=== PATIENT | female | born 1955 | race Caucasian/White ===

== ENCOUNTER → 2016-10-29 | Outpatient (CLI) | payer MEDICARE, MEDICAID ==
[~2016-10-29] MED LIST: /CELE20CA; /OMEP10CA OR; ADV250INH INH; AMBI10TA; AMBI5TAB PO; ASPI1TAB PO; CALC-196 PO; CLIN1CAP5 PO; CLOBETASOL; COLA100C2; ESTR1TAB; ESTRACE VAG TOP; FLUOCINONIDE AU; LEVA500T; LEVAQUIN; MAGN250T9 PO; OYST500T; PERC5TAB8; PRAV40TA2 PO; RED1CAP5 PO; SIMV40TA2; SOMA350T; VITA200015 PO; VITAMIN D50000 UNT; [UNRECOGNIZED DRUG - OTHER] OR; flonase; hydrocodone OR; ocean nasal spray; proair inhaler INH
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
== END ==
LOC: M PAIN 13:20
PROVIDERS: ATTEND Nurse Practitioner Family
DX: Z09 Encounter for follow-up examination after completed treatment for conditions other than malignant neoplasm (principal); G89.29 Other chronic pain; M47.12 Other spondylosis with myelopathy, cervical region; M79.1 Myalgia; M54.2 Cervicalgia; E78.5 Hyperlipidemia, unspecified; K21.9 Gastro-esophageal reflux disease without esophagitis; M85.80 Other specified disorders of bone density and structure, unspecified site; J45.909 Unspecified asthma, uncomplicated; M19.90 Unspecified osteoarthritis, unspecified site; K22.70 Barrett's esophagus without dysplasia; L23.1 Allergic contact dermatitis due to adhesives; Z88.8 Allergy status to other drugs, medicaments and biological substances; Z88.1 Allergy status to other antibiotic agents; Z88.5 Allergy status to narcotic agent; Z88.0 Allergy status to penicillin; Z79.82 Long term (current) use of aspirin; Z79.891 Long term (current) use of opiate analgesic; Z79.899 Other long term (current) drug therapy; Z87.19 Personal history of other diseases of the digestive system; Z86.19 Personal history of other infectious and parasitic diseases; Z86.69 Personal history of other diseases of the nervous system and sense organs; Z87.891 Personal history of nicotine dependence

== ENCOUNTER → 2016-11-05 | Outpatient (CLI) | payer MEDICARE, MEDICAID ==
[~2016-11-05] MED LIST changes: +BUPIVACAINE HCL 0.25% 10 ML VIAL As Ordered ONE; +BUPIVACAINE HCL 0.25% 30 ML VIAL As Ordered ONE; +TRIAMCINOLONE ACETONIDE SUSP 40 MG/ML VIAL (J3301) As Ordered ONE; +diazePAM 5 MG TAB As Ordered ONE; +oxyCODONE 5MG TAB As Ordered ONE
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
== END ==
LOC: M PAIN 09:00
PROVIDERS: ATTEND Anesthesiology
DX: Z09 Encounter for follow-up examination after completed treatment for conditions other than malignant neoplasm (principal); G89.29 Other chronic pain; M54.2 Cervicalgia; M79.1 Myalgia; M25.512 Pain in left shoulder; M54.6 Pain in thoracic spine; E78.5 Hyperlipidemia, unspecified; M85.80 Other specified disorders of bone density and structure, unspecified site; K64.8 Other hemorrhoids; K21.9 Gastro-esophageal reflux disease without esophagitis; R42 Dizziness and giddiness; M41.9 Scoliosis, unspecified; Z88.8 Allergy status to other drugs, medicaments and biological substances; Z88.1 Allergy status to other antibiotic agents; Z88.5 Allergy status to narcotic agent; Z91.048 Other nonmedicinal substance allergy status; Z79.51 Long term (current) use of inhaled steroids; Z79.82 Long term (current) use of aspirin; Z79.899 Other long term (current) drug therapy
CPT/HCPCS: 20553; J3301

== ENCOUNTER → 2016-11-21 | Outpatient (CLI) | payer MEDICARE, MEDICAID ==
[~2016-11-21] MED LIST changes: -BUPIVACAINE HCL 0.25% 10 ML VIAL As Ordered ONE; -BUPIVACAINE HCL 0.25% 30 ML VIAL As Ordered ONE; -TRIAMCINOLONE ACETONIDE SUSP 40 MG/ML VIAL (J3301) As Ordered ONE; -diazePAM 5 MG TAB As Ordered ONE; -oxyCODONE 5MG TAB As Ordered ONE
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
== END | disposition home or self-care (01) ==
LOC: M PAIN 09:00
PROVIDERS: ATTEND Nurse Practitioner Family
DX: Z09 Encounter for follow-up examination after completed treatment for conditions other than malignant neoplasm (principal); G89.29 Other chronic pain; M47.12 Other spondylosis with myelopathy, cervical region; M79.1 Myalgia; M54.2 Cervicalgia; M25.512 Pain in left shoulder; M54.6 Pain in thoracic spine; E78.5 Hyperlipidemia, unspecified; M85.80 Other specified disorders of bone density and structure, unspecified site; K64.8 Other hemorrhoids; K21.9 Gastro-esophageal reflux disease without esophagitis; M41.9 Scoliosis, unspecified; Z88.8 Allergy status to other drugs, medicaments and biological substances; Z88.1 Allergy status to other antibiotic agents; Z88.5 Allergy status to narcotic agent; Z91.048 Other nonmedicinal substance allergy status; Z79.51 Long term (current) use of inhaled steroids; Z79.82 Long term (current) use of aspirin; Z79.899 Other long term (current) drug therapy

== ENCOUNTER → 2016-12-25 | Outpatient (CLI) | payer MEDICARE, MEDICAID ==
[~2016-12-25] MED LIST changes: +BUPIVACAINE HCL 0.25% 10 ML VIAL As Ordered ONE; +BUPIVACAINE HCL 0.25% 30 ML VIAL As Ordered ONE; +TRIAMCINOLONE ACETONIDE SUSP 40 MG/ML VIAL (J3301) As Ordered ONE; +diazePAM 5 MG TAB As Ordered ONE; +oxyCODONE 5MG TAB As Ordered ONE
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
== END | disposition home or self-care (01) ==
LOC: M PAIN 15:00
PROVIDERS: ATTEND Anesthesiology
DX: G89.29 Other chronic pain (principal); M79.1 Myalgia; J45.909 Unspecified asthma, uncomplicated; E78.5 Hyperlipidemia, unspecified; K51.90 Ulcerative colitis, unspecified, without complications; M85.80 Other specified disorders of bone density and structure, unspecified site; K21.9 Gastro-esophageal reflux disease without esophagitis; M41.9 Scoliosis, unspecified; K64.8 Other hemorrhoids; Z88.1 Allergy status to other antibiotic agents; Z88.8 Allergy status to other drugs, medicaments and biological substances; Z88.5 Allergy status to narcotic agent; Z91.048 Other nonmedicinal substance allergy status; Z79.899 Other long term (current) drug therapy; Z79.82 Long term (current) use of aspirin; Z79.51 Long term (current) use of inhaled steroids
CPT/HCPCS: 20553; J3301

== ENCOUNTER → 2016-12-26 | Outpatient (CLI) | payer MEDICARE ==
[~2016-12-26] MED LIST changes: -BUPIVACAINE HCL 0.25% 10 ML VIAL As Ordered ONE; -BUPIVACAINE HCL 0.25% 30 ML VIAL As Ordered ONE; -TRIAMCINOLONE ACETONIDE SUSP 40 MG/ML VIAL (J3301) As Ordered ONE; -diazePAM 5 MG TAB As Ordered ONE; -oxyCODONE 5MG TAB As Ordered ONE
--- NOTE | 2016-12-28 10:24 | DEXA ---
AP SPINE L1 - L4 0.860 -2.7 -1.1 LT FEMUR TOTAL RT FEMUR TOTAL TOTAL BODY TOTAL LEFT RADIUS 33% 0.527 -4.1 -3.0 DUAL FEMUR FRAX* ASSESSMENT Risk factors: Unable to do fracture due to bilateral hip replacements. 10 year probability of fracture Major osteoporotic fracture % Hip fracture % COMMENTS: There is osteoporosis of the spine. 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 The decreased density of the spine does represent a significant change. The density of the spine has decreased 14.9% since initial exam on 04/30/2002. The spine density has decreased 9.4% since the most recent exam on 12/30/2007. FOLLOW-UP: Recommendation for the next bone density exam: 2 years. RACQUEL
== END ==
LOC: M WHC 13:37
PROVIDERS: ATTEND Internal Medicine
DX: Z12.31 Encounter for screening mammogram for malignant neoplasm of breast (principal); M85.80 Other specified disorders of bone density and structure, unspecified site; Z78.0 Asymptomatic menopausal state; Z92.89 Personal history of other medical treatment; Z79.899 Other long term (current) drug therapy; Z79.82 Long term (current) use of aspirin
CPT/HCPCS: 77080; 82270; G0202; G0463

== ENCOUNTER → 2017-01-07 | Outpatient (CLI) | payer MEDICARE ==
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
== END | disposition home or self-care (01) ==
LOC: M PAIN 14:00
PROVIDERS: ATTEND Nurse Practitioner Family
DX: G89.29 Other chronic pain (principal); M47.12 Other spondylosis with myelopathy, cervical region; M79.1 Myalgia; J45.909 Unspecified asthma, uncomplicated; K21.9 Gastro-esophageal reflux disease without esophagitis; E78.5 Hyperlipidemia, unspecified; M85.9 Disorder of bone density and structure, unspecified; M41.9 Scoliosis, unspecified; M19.90 Unspecified osteoarthritis, unspecified site; M51.9 Unspecified thoracic, thoracolumbar and lumbosacral intervertebral disc disorder; K64.8 Other hemorrhoids; Z87.19 Personal history of other diseases of the digestive system; Z79.899 Other long term (current) drug therapy; Z79.82 Long term (current) use of aspirin; Z79.51 Long term (current) use of inhaled steroids; Z88.0 Allergy status to penicillin; Z88.1 Allergy status to other antibiotic agents; Z88.5 Allergy status to narcotic agent; Z88.8 Allergy status to other drugs, medicaments and biological substances; L23.1 Allergic contact dermatitis due to adhesives

== ENCOUNTER → 2017-01-24 | Outpatient (CLI) | payer OTHER, MEDICAID ==
[~2017-01-24] MED LIST changes: +BUPIVACAINE HCL 0.25% 10 ML VIAL As Ordered ONE; +BUPIVACAINE HCL 0.25% 30 ML VIAL As Ordered ONE; +TRIAMCINOLONE ACETONIDE SUSP 40 MG/ML VIAL (J3301) As Ordered ONE; +diazePAM 5 MG TAB As Ordered ONE; +oxyCODONE 5MG TAB As Ordered ONE
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
== END | disposition home or self-care (01) ==
LOC: M PAIN 08:30
PROVIDERS: ATTEND Anesthesiology
DX: G89.29 Other chronic pain (principal); M79.1 Myalgia; M47.12 Other spondylosis with myelopathy, cervical region; J45.909 Unspecified asthma, uncomplicated; K21.9 Gastro-esophageal reflux disease without esophagitis; E78.5 Hyperlipidemia, unspecified; M85.9 Disorder of bone density and structure, unspecified; M41.9 Scoliosis, unspecified; M19.90 Unspecified osteoarthritis, unspecified site; M51.9 Unspecified thoracic, thoracolumbar and lumbosacral intervertebral disc disorder; K64.8 Other hemorrhoids; Z87.19 Personal history of other diseases of the digestive system; Z79.899 Other long term (current) drug therapy; Z79.82 Long term (current) use of aspirin; Z79.51 Long term (current) use of inhaled steroids; Z88.0 Allergy status to penicillin; Z88.1 Allergy status to other antibiotic agents; Z88.5 Allergy status to narcotic agent; Z88.8 Allergy status to other drugs, medicaments and biological substances; L23.1 Allergic contact dermatitis due to adhesives

== ENCOUNTER → 2017-02-07 | Outpatient (CLI) | payer OTHER, MEDICAID ==
[~2017-02-07] MED LIST changes: -BUPIVACAINE HCL 0.25% 10 ML VIAL As Ordered ONE; -BUPIVACAINE HCL 0.25% 30 ML VIAL As Ordered ONE; -TRIAMCINOLONE ACETONIDE SUSP 40 MG/ML VIAL (J3301) As Ordered ONE; -diazePAM 5 MG TAB As Ordered ONE; -oxyCODONE 5MG TAB As Ordered ONE
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
== END | disposition home or self-care (01) ==
LOC: M PAIN 10:40
PROVIDERS: ATTEND Nurse Practitioner Family
DX: G89.29 Other chronic pain (principal); M47.12 Other spondylosis with myelopathy, cervical region; M79.1 Myalgia; J45.909 Unspecified asthma, uncomplicated; K21.9 Gastro-esophageal reflux disease without esophagitis; E78.5 Hyperlipidemia, unspecified; M85.9 Disorder of bone density and structure, unspecified; M41.9 Scoliosis, unspecified; M19.90 Unspecified osteoarthritis, unspecified site; M51.9 Unspecified thoracic, thoracolumbar and lumbosacral intervertebral disc disorder; K64.8 Other hemorrhoids; Z87.19 Personal history of other diseases of the digestive system; Z79.899 Other long term (current) drug therapy; Z79.82 Long term (current) use of aspirin; Z79.51 Long term (current) use of inhaled steroids; Z88.0 Allergy status to penicillin; Z88.1 Allergy status to other antibiotic agents; Z88.5 Allergy status to narcotic agent; Z88.8 Allergy status to other drugs, medicaments and biological substances; L23.1 Allergic contact dermatitis due to adhesives

== ENCOUNTER → 2017-02-19 | Outpatient (CLI) | payer MEDICARE, MEDICAID ==
[~2017-02-19] MED LIST changes: +CALC600T57 PO; +CLIN150C14 PO; -CLIN1CAP5 PO; +COLA100C5 PO; +ISOVUE-M 300 61% 15ML VIAL (Q9967) As Ordered ONE; +LIDOCAINE 1% SDV INJ 30 ML VIAL As Ordered ONE; +MAGN500C PO; +MULTCAP11 PO; +PERC5TAB12 PO; +diazePAM 5 MG TAB As Ordered ONE; +diphenhydrAMINE 25 MG CAP As Ordered ONE; +diphenhydrAMINE INJ 50MG/ML VIAL (J1200) As Ordered ONE; +methylPREDNISolone SUSP 40 MG/ML (DEPO-medrol) VIAL (J1030) As Ordered ONE; +oxyCODONE 5MG TAB As Ordered ONE
--- NOTE | 2017-02-19 13:48 | REP ---
FLUOROSCOPIC GUIDANCE: The images were reviewed with Dr. Lombardo. The patient has a history of neck pain. The portable C-arm is provided in the OR for Dr. Lang for fluoroscopic guidance. Three intraoperative fluoroscopic spot films are obtained for needle placement verification for cervical epidural injection. The films are on the PACS system and are available for review. 16 seconds of fluoroscopy time was utilized for this procedure. Reviewed by CHRISTA Cheema 02/19/2017 02:19 PEdited and Signed by Adeel Lombardo MD 02/19/2017 05:08 P
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
== END | disposition home or self-care (01) ==
LOC: M PAIN 10:20
PROVIDERS: ATTEND Anesthesiology
DX: G89.29 Other chronic pain (principal); M50.13 Cervical disc disorder with radiculopathy, cervicothoracic region; M47.12 Other spondylosis with myelopathy, cervical region; M79.1 Myalgia; J45.909 Unspecified asthma, uncomplicated; K21.9 Gastro-esophageal reflux disease without esophagitis; E78.5 Hyperlipidemia, unspecified; M85.9 Disorder of bone density and structure, unspecified; M41.9 Scoliosis, unspecified; M19.90 Unspecified osteoarthritis, unspecified site; M51.9 Unspecified thoracic, thoracolumbar and lumbosacral intervertebral disc disorder; K64.8 Other hemorrhoids; Z87.19 Personal history of other diseases of the digestive system; Z79.899 Other long term (current) drug therapy; Z79.82 Long term (current) use of aspirin; Z79.51 Long term (current) use of inhaled steroids; Z88.0 Allergy status to penicillin; Z88.1 Allergy status to other antibiotic agents; Z88.5 Allergy status to narcotic agent; Z88.8 Allergy status to other drugs, medicaments and biological substances; L23.1 Allergic contact dermatitis due to adhesives
CPT/HCPCS: 62321; J1030; J1200; Q9967

== ENCOUNTER → 2017-03-07 | Outpatient (CLI) | payer OTHER, MEDICAID ==
[~2017-03-07] MED LIST changes: -ISOVUE-M 300 61% 15ML VIAL (Q9967) As Ordered ONE; -LIDOCAINE 1% SDV INJ 30 ML VIAL As Ordered ONE; -diazePAM 5 MG TAB As Ordered ONE; -diphenhydrAMINE 25 MG CAP As Ordered ONE; -diphenhydrAMINE INJ 50MG/ML VIAL (J1200) As Ordered ONE; -methylPREDNISolone SUSP 40 MG/ML (DEPO-medrol) VIAL (J1030) As Ordered ONE; -oxyCODONE 5MG TAB As Ordered ONE
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
== END ==
LOC: M PAIN 09:40
PROVIDERS: ATTEND Nurse Practitioner Family
DX: M47.12 Other spondylosis with myelopathy, cervical region (principal); M79.1 Myalgia; Z79.82 Long term (current) use of aspirin; Z79.899 Other long term (current) drug therapy; Z87.891 Personal history of nicotine dependence; Z88.0 Allergy status to penicillin; Z88.1 Allergy status to other antibiotic agents; Z88.8 Allergy status to other drugs, medicaments and biological substances; Z91.09 Other allergy status, other than to drugs and biological substances; N90.4 Leukoplakia of vulva; N95.2 Postmenopausal atrophic vaginitis

== ENCOUNTER 2017-03-11 14:20 | Emergency (ER) | payer MEDICARE, MEDICAID ==
[~2017-03-11] VITALS: Ht 154.9 cm; Wt 56.8 kg
[~2017-03-11 14:20] MED LIST changes: -CALC600T57 PO; -COLA100C5 PO; -MAGN500C PO; -MULTCAP11 PO; -PERC5TAB12 PO
[2017-03-11] MEDS ORDERED: MAGN500C PO (14:39)
[2017-03-11] MEDS ORDERED: MULTCAP11 PO (14:39)
[2017-03-11] MEDS ORDERED: COLA100C5 PO (14:39)
[2017-03-11] MEDS ORDERED: CALC600T57 PO (14:39)
[2017-03-11] MEDS ORDERED: HYDROmorphone HCL 1 MG/ML SYRINGE (J1170) IV PRN (15:00)
[2017-03-11] MEDS ORDERED: ONDANSETRON 4MG/2ML VIAL (J2405) IV ONE (15:00)
[2017-03-11 15:40] LABS: MEAN CORPUSCULAR HEMOGLOBIN 30.9 pg (27.0-33.0); MEAN CORPUSCULAR HGB CONC 33.6 g/dl (32.0-36.5); MEAN CORPUSCULAR VOLUME 91.8 fl (80.0-96.0); RED CELL DISTRIBUTION WIDTH 13.2 % (11.5-14.5)
[2017-03-11 15:51] LABS: ANION GAP 5 MEQ/L (8-16); BLOOD UREA NITROGEN 12 MG/DL (7-18); CARBON DIOXIDE LEVEL 29 MEQ/L (21-32); CHLORIDE LEVEL 101 MEQ/L (98-107); CREATININE FOR GFR 0.51 MG/DL (0.55-1.02); GLOMERULAR FILTRATION RATE > 60.0 (>45); GLUCOSE, FASTING 84 MG/DL (80-110); POTASSIUM SERUM 3.7 MEQ/L (3.5-5.1); SODIUM LEVEL 135 MEQ/L (136-145)
[2017-03-11] MEDS ORDERED: ISOVUE-370 76% 100ML VIAL (Q9967) As Ordered ONE (15:53)
--- NOTE | 2017-03-11 16:23 | REP ---
CT CERVICAL SPINE WITH CONTRAST: HISTORY: Epidural injection. CONTRAST: Isovue-370, 75 mL. Disc bulges are present at the C5-6 and C6-7 levels. There is minimal narrowing of the spinal canal. Uncinate process hypertrophy is present at the C5-6 and C6-7 levels. This produces minimal narrowing of the neural foramina. The remaining neural foramina are patent. The C5-6 and C6-7 intervertebral discs are decreased in height consistent with disc degeneration. Hypodensities 3 mm and 7 mm in size are present in the right thyroid lobe. These most likely represent cysts. The left thyroid lobe is normal in appearance. IMPRESSION: There is cervical spondylosis at the C5-6 and C6-7 levels. Signed by Robert Ferrari MD 03/11/2017 04:24 P
[2017-03-11] MEDS ORDERED: PERC5TAB12 PO (16:27)
[2017-03-11 16:35] VITALS: BP 171/78
== END 2017-03-11 16:45 | disposition home or self-care (01) ==
LOC: M ED 14:20
DX: M47.812 Spondylosis without myelopathy or radiculopathy, cervical region (principal); G89.29 Other chronic pain; Z90.79 Acquired absence of other genital organ(s); Z88.5 Allergy status to narcotic agent; Z88.6 Allergy status to analgesic agent; Z88.8 Allergy status to other drugs, medicaments and biological substances; Z91.048 Other nonmedicinal substance allergy status
CPT/HCPCS: 72126; 80048; 85027; 96374; 96375; 99283; J1170; J2405; Q9967

== ENCOUNTER → 2017-03-14 | Outpatient (CLI) | payer MEDICAID, MEDICARE, OTHER ==
[~2017-03-14] MED LIST changes: +CALC600T57 PO; +COLA100C5 PO; +MAGN500C PO; +MULTCAP11 PO; +PERC5TAB12 PO
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
== END | disposition home or self-care (01) ==
LOC: M PAIN 14:40
PROVIDERS: ATTEND Nurse Practitioner Family
DX: G89.29 Other chronic pain (principal); M47.12 Other spondylosis with myelopathy, cervical region; M79.1 Myalgia; K51.90 Ulcerative colitis, unspecified, without complications; E78.5 Hyperlipidemia, unspecified; M85.9 Disorder of bone density and structure, unspecified; K64.8 Other hemorrhoids; K21.9 Gastro-esophageal reflux disease without esophagitis; M41.9 Scoliosis, unspecified; M51.9 Unspecified thoracic, thoracolumbar and lumbosacral intervertebral disc disorder; J45.909 Unspecified asthma, uncomplicated; M19.90 Unspecified osteoarthritis, unspecified site; Z79.899 Other long term (current) drug therapy; Z79.51 Long term (current) use of inhaled steroids; Z79.82 Long term (current) use of aspirin; L23.1 Allergic contact dermatitis due to adhesives; Z88.0 Allergy status to penicillin; Z88.1 Allergy status to other antibiotic agents; Z88.5 Allergy status to narcotic agent; Z88.8 Allergy status to other drugs, medicaments and biological substances

== ENCOUNTER → 2017-03-28 | Outpatient (CLI) | payer MEDICAID, MEDICARE, OTHER ==
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
== END ==
LOC: M PAIN 14:40
PROVIDERS: ATTEND Nurse Practitioner Family
DX: G89.29 Other chronic pain (principal); M47.12 Other spondylosis with myelopathy, cervical region; M79.1 Myalgia; E78.5 Hyperlipidemia, unspecified; K21.9 Gastro-esophageal reflux disease without esophagitis; J45.909 Unspecified asthma, uncomplicated; L23.1 Allergic contact dermatitis due to adhesives; Z88.5 Allergy status to narcotic agent; Z88.8 Allergy status to other drugs, medicaments and biological substances; Z88.0 Allergy status to penicillin; Z88.3 Allergy status to other anti-infective agents; Z79.82 Long term (current) use of aspirin; Z79.899 Other long term (current) drug therapy

== ENCOUNTER → 2017-04-22 | Outpatient (CLI) | payer MEDICARE, MEDICAID ==
[~2017-04-22] MED LIST changes: +BUPIVACAINE HCL 0.25% 10 ML VIAL As Ordered ONE; +BUPIVACAINE HCL 0.25% 30 ML VIAL As Ordered ONE; +TRIAMCINOLONE ACETONIDE SUSP 40 MG/ML VIAL (J3301) As Ordered ONE; +diazePAM 5 MG TAB As Ordered ONE; +oxyCODONE 5MG TAB As Ordered ONE
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
== END | disposition home or self-care (01) ==
LOC: M PAIN 08:30
PROVIDERS: ATTEND Anesthesiology
DX: G89.29 Other chronic pain (principal); M79.1 Myalgia; M47.12 Other spondylosis with myelopathy, cervical region; E78.5 Hyperlipidemia, unspecified; K21.9 Gastro-esophageal reflux disease without esophagitis; J45.909 Unspecified asthma, uncomplicated; L23.1 Allergic contact dermatitis due to adhesives; Z88.5 Allergy status to narcotic agent; Z88.8 Allergy status to other drugs, medicaments and biological substances; Z88.0 Allergy status to penicillin; Z88.3 Allergy status to other anti-infective agents; Z79.82 Long term (current) use of aspirin; Z79.899 Other long term (current) drug therapy
CPT/HCPCS: 20553; J3301

== ENCOUNTER → 2017-05-07 | Outpatient (REF) | payer OTHER, MEDICAID ==
[~2017-05-07] MED LIST changes: -BUPIVACAINE HCL 0.25% 10 ML VIAL As Ordered ONE; -BUPIVACAINE HCL 0.25% 30 ML VIAL As Ordered ONE; -TRIAMCINOLONE ACETONIDE SUSP 40 MG/ML VIAL (J3301) As Ordered ONE; -diazePAM 5 MG TAB As Ordered ONE; -oxyCODONE 5MG TAB As Ordered ONE
[2017-05-07 18:23] LABS: BASO % 0.4 % (0.0-1.0); EOS # 0.3 K/mm3 (0.0-0.50); LARGE UNSTAINED CELL # 0.1 K/mm3 (0.0-0.4); LARGE UNSTAINED CELL % 1.8 % (0.0-4.0); LYMPH # 1.8 K/mm3 (1.5-4.5); LYMPH % 29.7 % (24.0-44.0); MEAN CORPUSCULAR HEMOGLOBIN 31.3 pg (27.0-33.0); MEAN CORPUSCULAR HGB CONC 33.9 g/dl (32.0-36.5); MEAN CORPUSCULAR VOLUME 92.4 fl (80.0-96.0); MONO # 0.4 K/mm3 (0.0-0.8); MONO % 6.1 % (0.0-5.0); NEUTROPHILS # 3.5 K/mm3 (1.8-7.7); PLATELET COUNT, AUTOMATED 414 k/mm3 (150-450); RED CELL DISTRIBUTION WIDTH 12.8 % (11.5-14.5); WHITE BLOOD COUNT 6.2 K/mm3 (4.0-10.0)
[2017-05-07 19:53] LABS: ERYTHROCYTE SEDIMENTATION RATE 20 mm/hr (0-30)
[2017-05-10 14:15] LABS: Lyme Disease IgG/IgM Antibodie <0.91 ISR (0.00-0.90); Lyme Disease IgM Ab Quantitati <0.80 index (0.00-0.79)
== END ==
LOC: M LABDRAW1 15:47
PROVIDERS: ATTEND Orthopaedic Surgery
DX: M19.041 Primary osteoarthritis, right hand (principal)

== ENCOUNTER → 2017-05-24 | Outpatient (CLI) | payer MEDICARE, MEDICAID ==
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
== END ==
LOC: M PAIN 09:45
PROVIDERS: ATTEND Nurse Practitioner Family
DX: M47.12 Other spondylosis with myelopathy, cervical region (principal); M79.1 Myalgia; Z79.82 Long term (current) use of aspirin; Z79.891 Long term (current) use of opiate analgesic; Z79.899 Other long term (current) drug therapy; Z91.09 Other allergy status, other than to drugs and biological substances; Z88.5 Allergy status to narcotic agent; Z88.0 Allergy status to penicillin; Z88.3 Allergy status to other anti-infective agents; Z88.1 Allergy status to other antibiotic agents; Z88.8 Allergy status to other drugs, medicaments and biological substances

== ENCOUNTER → 2017-06-04 | Outpatient (REF) | payer MEDICARE, MEDICAID ==
[2017-06-04 16:18] LABS: ALBUMIN 3.9 GM/DL (3.2-5.2); ALBUMIN/GLOBULIN RATIO 1.22 (1.00-1.93); ALKALINE PHOSPHATASE 112 U/L (45-117); ALT/SGPT 27 U/L (12-78); ANION GAP 5 MEQ/L (8-16); AST/SGOT 20 U/L (15-37); BILIRUBIN,TOTAL 0.2 MG/DL (0.2-1.0); BLOOD UREA NITROGEN 15 MG/DL (7-18); CALCIUM LEVEL 9.7 MG/DL (8.8-10.2); CARBON DIOXIDE LEVEL 29 MEQ/L (21-32); CHLORIDE LEVEL 103 MEQ/L (98-107); CREATININE FOR GFR 0.52 MG/DL (0.55-1.02); GLOMERULAR FILTRATION RATE > 60.0 (>45); GLUCOSE, FASTING 90 MG/DL (80-110); PERCENT SATURATION 11.1 % (13.2-45.0); POTASSIUM SERUM 4.3 MEQ/L (3.5-5.1); SODIUM LEVEL 137 MEQ/L (136-145); TOTAL IRON BINDING CAPACITY 424 UG/DL (250-450); TOTAL PROTEIN 7.1 GM/DL (6.4-8.2); URIC ACID 3.5 MG/DL (2.6-6.0)
== END ==
LOC: M LABDRAW1 13:28
PROVIDERS: ATTEND Internal Medicine Rheumatology
DX: E55.9 Vitamin D deficiency, unspecified (principal); Z79.899 Other long term (current) drug therapy; M35.9 Systemic involvement of connective tissue, unspecified

== ENCOUNTER → 2017-06-21 | Outpatient (CLI) | payer OTHER, MEDICAID ==
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
== END ==
LOC: M PAIN 10:30
PROVIDERS: ATTEND Nurse Practitioner Family
DX: M47.12 Other spondylosis with myelopathy, cervical region (principal); M79.1 Myalgia; Z79.82 Long term (current) use of aspirin; Z79.891 Long term (current) use of opiate analgesic; Z79.899 Other long term (current) drug therapy; I10 Essential (primary) hypertension; J45.909 Unspecified asthma, uncomplicated; K21.9 Gastro-esophageal reflux disease without esophagitis; Z91.048 Other nonmedicinal substance allergy status; Z88.5 Allergy status to narcotic agent; Z88.8 Allergy status to other drugs, medicaments and biological substances

== ENCOUNTER 2017-08-03 18:30 | Emergency (ER) | payer OTHER, MEDICAID ==
[~2017-08-03] VITALS: Ht 154.9 cm; Wt 55.5 kg
[2017-08-03] MEDS ORDERED: AMLO5TAB2 (18:44)
[2017-08-03] MEDS ORDERED: ANUS25SU PR (19:45)
[2017-08-03] MEDS ORDERED: ANUS2.5C2 PR (19:45)
[2017-08-03 19:55] VITALS: BP 164/78
== END 2017-08-03 19:56 | disposition home or self-care (01) ==
LOC: M ED 18:30
DX: K64.4 Residual hemorrhoidal skin tags (principal); I10 Essential (primary) hypertension; J45.909 Unspecified asthma, uncomplicated; E78.00 Pure hypercholesterolemia, unspecified; Z87.891 Personal history of nicotine dependence; Z79.899 Other long term (current) drug therapy; Z79.82 Long term (current) use of aspirin; Z88.8 Allergy status to other drugs, medicaments and biological substances; Z88.5 Allergy status to narcotic agent; Z88.3 Allergy status to other anti-infective agents; Z88.0 Allergy status to penicillin; Z91.018 Allergy to other foods

== ENCOUNTER → 2017-08-08 | Outpatient (CLI) | payer OTHER ==
[~2017-08-08] MED LIST changes: +AMLO5TAB2; +ANUS2.5C2 PR; +ANUS25SU PR
== END ==
LOC: M LAB 13:49
PROVIDERS: ATTEND Internal Medicine Rheumatology
DX: Z79.899 Other long term (current) drug therapy (principal)

== ENCOUNTER → 2017-10-09 | Outpatient (REF) | payer OTHER, MEDICAID | LOC: M LAB REF 10-10 14:02 | DX: Z11.59 Encounter for screening for other viral diseases (principal) | CPT/HCPCS: 86803 ==

== ENCOUNTER → 2017-12-16 | Outpatient (REF) | payer OTHER, MEDICAID ==
[2017-12-16 18:24] LABS: VITAMIN B12 LEVEL 1145 PG/ML
== END ==
LOC: M LAB REF 17:22
DX: R20.2 Paresthesia of skin (principal)

== ENCOUNTER → 2018-01-01 | Outpatient (CLI) | payer MEDICARE | LOC: M WHC 14:51 | DX: Z12.31 Encounter for screening mammogram for malignant neoplasm of breast (principal); Z01.419 Encounter for gynecological examination (general) (routine) without abnormal findings (principal); Z78.0 Asymptomatic menopausal state; Z92.23 Personal history of estrogen therapy; Z92.89 Personal history of other medical treatment | CPT/HCPCS: 77067 ==

== ENCOUNTER 2018-02-09 19:08 | Emergency (ER) | payer MEDICARE ==
[2018-02-09] MEDS: ACETAMINOPHEN TAB 650MG DOSE (2X325MG) PO (20:02)
[2018-02-09] MEDS: CLINDAMYCIN 150 MG CAP PO (20:02)
== END 2018-02-09 20:09 | disposition home or self-care (01) ==
LOC: M ED 19:08
DX: S81.802A Unspecified open wound, left lower leg, initial encounter (principal); W22.8XXA Striking against or struck by other objects, initial encounter; Y92.830 Public park as the place of occurrence of the external cause; Y93.9 Activity, unspecified; Y99.9 Unspecified external cause status; I10 Essential (primary) hypertension; J45.909 Unspecified asthma, uncomplicated; K21.9 Gastro-esophageal reflux disease without esophagitis; K52.9 Noninfective gastroenteritis and colitis, unspecified; H40.9 Unspecified glaucoma; M81.0 Age-related osteoporosis without current pathological fracture; Z87.891 Personal history of nicotine dependence; Z79.82 Long term (current) use of aspirin; Z79.899 Other long term (current) drug therapy; Z88.8 Allergy status to other drugs, medicaments and biological substances; Z88.5 Allergy status to narcotic agent; Z88.0 Allergy status to penicillin; Z91.89 Other specified personal risk factors, not elsewhere classified; Z88.1 Allergy status to other antibiotic agents
CPT/HCPCS: 99282

== ENCOUNTER 2018-03-29 20:32 | Emergency (ER) | payer MEDICARE, MEDICAID ==
[2018-03-29] MEDS: NS 500 ML IV (21:15)
[2018-03-29] MEDS ORDERED: TOBRADEX OPHTH SUSP 2.5 ML OU (21:30)
[2018-03-29 21:31] LABS: BASO % 0.5 % (0.0-1.0); EOS # 0.4 10^3/uL (0.0-0.50); EOS % 4.7 % (0.0-3.0); HEMATOCRIT 39.2 % (36.0-47.0); HEMOGLOBIN 13.3 g/dl (12.0-15.5); IMMATURE GRANULOCYTE % 0.2 % (0-3.0); LYMPH # 3.3 10^3/uL (1.5-4.5); LYMPH % 38.6 % (24.0-44.0); MEAN CORPUSCULAR HEMOGLOBIN 30.4 pg (27.0-33.0); MEAN CORPUSCULAR HGB CONC 33.9 g/dl (32.0-36.5); MEAN CORPUSCULAR VOLUME 89.7 fl (80.0-96.0); MONO # 0.8 10^3/uL (0.0-0.8); MONO % 9.7 % (0.0-5.0); NEUTROPHILS % 46.3 % (36.0-66.0); PLATELET COUNT, AUTOMATED 392 10^3/uL (150-450); RED BLOOD COUNT 4.37 10^6/uL (4.00-5.40); RED CELL DISTRIBUTION WIDTH 12.3 % (11.5-14.5); WHITE BLOOD COUNT 8.6 10^3/uL (4.0-10.0)
[2018-03-29 21:43] LABS: PROTHROMBIN TIME 12.2 SECONDS (12.1-14.4)
[2018-03-29 21:44] LABS: PARTIAL THROMBOPLASTIN TIME 33.7 SECONDS (25.4-37.6)
[2018-03-29] MEDS: KETOROLAC 30 MG/ML VIAL (J1885) IV (21:57)
[2018-03-29 22:02] LABS: ANION GAP 8 MEQ/L (8-16); BLOOD UREA NITROGEN 10 MG/DL (7-18); CALCIUM LEVEL 9.2 MG/DL (8.8-10.2); CARBON DIOXIDE LEVEL 26 MEQ/L (21-32); CHLORIDE LEVEL 107 MEQ/L (98-107); CK-MB VALUE MASS 1.7 NG/ML (<3.6); CPK CREATINE PHOSPHOKINASE 100 U/L (26-192); CREATININE FOR GFR 0.68 MG/DL (0.55-1.30); GLOMERULAR FILTRATION RATE > 60.0 (>45); GLUCOSE, FASTING 95 MG/DL (70-100); POTASSIUM SERUM 3.4 MEQ/L (3.5-5.1); SODIUM LEVEL 141 MEQ/L (136-145); TROPONIN I < 0.02 NG/ML (< 0.10)
[2018-03-29] MEDS ORDERED: ISOVUE-370 76% 100ML VIAL (Q9967) As Ordered (22:04)
== END 2018-03-29 23:52 | disposition home or self-care (01) ==
LOC: M ED 20:32
DX: R07.9 Chest pain, unspecified (principal); R06.02 Shortness of breath; I10 Essential (primary) hypertension; J45.909 Unspecified asthma, uncomplicated; E78.5 Hyperlipidemia, unspecified; K21.9 Gastro-esophageal reflux disease without esophagitis; G89.29 Other chronic pain; M54.2 Cervicalgia; Z87.891 Personal history of nicotine dependence
CPT/HCPCS: Q9967

== ENCOUNTER 2018-06-25 08:31 | Day surgery (SDC) | payer MEDICARE, MEDICAID ==
[~2018-06-25 08:31] MED LIST changes: -/CELE20CA; -/OMEP10CA OR; -ADV250INH INH; -AMBI10TA; -AMBI5TAB PO; -AMLO5TAB2; -ANUS2.5C2 PR; -ANUS25SU PR; -ASPI1TAB PO; -CALC-196 PO; -CALC600T57 PO; -CLIN150C14 PO; -CLOBETASOL; -COLA100C2; -COLA100C5 PO; -ESTR1TAB; -ESTRACE VAG TOP; -FLUOCINONIDE AU; -LEVA500T; -LEVAQUIN; -MAGN250T9 PO; -MAGN500C PO; -MULTCAP11 PO; +NS 1,000 ML IV; -OYST500T; -PERC5TAB12 PO; -PERC5TAB8; -PRAV40TA2 PO; -RED1CAP5 PO; -SIMV40TA2; -SOMA350T; -VITA200015 PO; -VITAMIN D50000 UNT; -[UNRECOGNIZED DRUG - OTHER] OR; -flonase; -hydrocodone OR; -ocean nasal spray; -proair inhaler INH
[2018-06-25] MEDS ORDERED: PROPOFOL 200 MG/20 ML VIAL As Ordered ×2 (08:48)
[2018-06-25] MEDS ORDERED: LIDOCAINE 2% INJ 100 MG/5 ML SDV (FOR ANES.) As Ordered (08:48)
== END 2018-06-25 10:18 | disposition home or self-care (01) ==
LOC: M OPP 08:31
DX: Z12.11 Encounter for screening for malignant neoplasm of colon (principal); Z86.010 Personal history of colon polyps; D12.4 Benign neoplasm of descending colon; K64.8 Other hemorrhoids; K57.30 Diverticulosis of large intestine without perforation or abscess without bleeding; R12 Heartburn; K22.8 Other specified diseases of esophagus; K44.9 Diaphragmatic hernia without obstruction or gangrene; I10 Essential (primary) hypertension; E78.5 Hyperlipidemia, unspecified; K57.92 Diverticulitis of intestine, part unspecified, without perforation or abscess without bleeding; K22.70 Barrett's esophagus without dysplasia; K21.9 Gastro-esophageal reflux disease without esophagitis; D64.9 Anemia, unspecified; R06.02 Shortness of breath; Z86.19 Personal history of other infectious and parasitic diseases; M19.90 Unspecified osteoarthritis, unspecified site; M51.9 Unspecified thoracic, thoracolumbar and lumbosacral intervertebral disc disorder; M41.9 Scoliosis, unspecified; M47.9 Spondylosis, unspecified; M81.0 Age-related osteoporosis without current pathological fracture; H40.9 Unspecified glaucoma; G43.909 Migraine, unspecified, not intractable, without status migrainosus; R42 Dizziness and giddiness; J45.909 Unspecified asthma, uncomplicated; G47.30 Sleep apnea, unspecified; R06.83 Snoring; Z96.643 Presence of artificial hip joint, bilateral; Z87.891 Personal history of nicotine dependence; Z88.8 Allergy status to other drugs, medicaments and biological substances; Z88.5 Allergy status to narcotic agent; Z91.048 Other nonmedicinal substance allergy status; Z88.0 Allergy status to penicillin; Z88.3 Allergy status to other anti-infective agents; Z88.1 Allergy status to other antibiotic agents; Z79.82 Long term (current) use of aspirin; Z79.899 Other long term (current) drug therapy
CPT/HCPCS: 45380

== ENCOUNTER 2018-10-05 19:33 | Emergency (ER) | payer MEDICARE, MEDICAID ==
[~2018-10-05] VITALS: Ht 154.9 cm; Wt 59.1 kg
[2018-10-05 19:33] VITALS: BP 170/74
[~2018-10-05 19:33] MED LIST changes: +/CELE20CA; +/OMEP10CA OR; +ADV250INH INH; +AMBI10TA; +AMBI5TAB PO; +AMLO5TAB6 PO; +ANUS2.5C2 PR; +ANUS25SU PR; +ASPI1TAB PO; +CALC-196 PO; +CALC250T PO; +CALC600T57 PO; +CARI1TAB7 PO; +CLIN150C14 PO; +CLOB-49 EX; +CLOBETASOL; +COLA100C2; +COLA100C5 PO; +COMB0.2S IO; +DURE0.055 IO; +ESTR1TAB; +ESTRACE VAG TOP; +EZET10TA; +EZET10TA PO; +FLUO5OI EXT; +FLUOCINONIDE AU; +KETO10TAB PO; +LEVA500T; +LEVAQUIN; +LORA10CA PO; +MAGN250T9 PO; +MAGN500C PO; +MECL-68 PO; +MONT10TA2 PO; +MULTCAP11 PO; -NS 1,000 ML IV; +OMEP20CA3 PO; +OYST500T; +PERC5TAB12 PO; +PERC5TAB8; +PRAV40TA2 PO; +PREPCRE PR; +PROAAER10 INH; +RED1CAP5 PO; +SIMV40TA2; +SOMA350T; +VITA100067 PO; +VITA100072 PO; +VITA200015 PO; +VITA500T PO; +VITAMIN D50000 UNT; +[UNRECOGNIZED DRUG - OTHER]; +[UNRECOGNIZED DRUG - OTHER] OR; +flonase; +hydrocodone OR; +ocean nasal spray; +proair inhaler INH
[2018-10-05] MEDS ORDERED: OCUF0.25 OP (20:13)
[2018-10-05] MEDS ORDERED: CIPROFLOXACIN 0.3% OPHTH SOLN 2.5ML OU ONE (20:30)
== END 2018-10-05 20:45 | disposition home or self-care (01) ==
LOC: M ED 19:33
DX: H10.9 Unspecified conjunctivitis (principal); I10 Essential (primary) hypertension; E78.5 Hyperlipidemia, unspecified; H40.9 Unspecified glaucoma; J45.909 Unspecified asthma, uncomplicated; G43.109 Migraine with aura, not intractable, without status migrainosus; K22.70 Barrett's esophagus without dysplasia; Z87.891 Personal history of nicotine dependence; Z79.82 Long term (current) use of aspirin; Z79.899 Other long term (current) drug therapy; Z88.8 Allergy status to other drugs, medicaments and biological substances; Z88.1 Allergy status to other antibiotic agents; Z88.5 Allergy status to narcotic agent; Z88.0 Allergy status to penicillin; Z91.89 Other specified personal risk factors, not elsewhere classified

== ENCOUNTER → 2018-10-21 | Outpatient (CLI) | payer MEDICARE, MEDICAID ==
[~2018-10-21] MED LIST changes: +BIMA01SOL; +ERYTOIN8 OS; +OCUF0.25 OP; +SYST1SOL
--- NOTE | 2018-10-24 11:00 | SLEEPCENT ---
DATE OF PROCEDURE: 10/21/2018 ORDERED BY: Jocelin Oakes Nocturnal polysomnography was performed for evaluation of sleep physiology in this patient with a history of excessive somnolence, snoring and nonrestorative sleep. 8 hours and 11 minutes of data were reviewed. There were 244 minutes of sleep identified. Sleep latency was prolonged at 91 minutes. Rapid eye movement (REM) latency was mildly prolonged at 102 minutes. Sleep architecture showed fragmentation and periods of wake in the middle of the study resulting in reduced sleep efficiency of only 50.7%. The electrocardiogram showed a sinus rhythm with an average heart rate of 90 beats per minute. Electroencephalogram (EEG) showed fairly normal waveforms for awake and sleep. There were 41 respiratory events identified of 10 seconds in duration or greater for an apnea-hypopnea index of 10.1. The events were more frequent in stage REM, but not exclusive to that stage. They were not exclusive to body posture. Arousals from respiratory events occurred 6.4 times per hour and oxygen desaturations were seen into the low 80s. There was some limb activity late in the study. Limb movement arousal index was only 3.9. IMPRESSION: Obstructive sleep apnea syndrome (G47.33). Apnea-hypopnea index of 10.1. RECOMMENDATION: The patient should be encouraged to return to the sleep disorder center for pressure therapy. In the interim, alcohol and sedative avoidance should be practiced and caution exercised during the operation of motor vehicles.
== END ==
LOC: M SLEEP 19:35
PROVIDERS: ATTEND Nurse Practitioner Family
DX: G47.30 Sleep apnea, unspecified (principal)

== ENCOUNTER 2018-10-25 12:06 | Emergency (ER) | payer MEDICARE, MEDICAID ==
[~2018-10-25] VITALS: Ht 154.9 cm; Wt 58.2 kg
[~2018-10-25 12:06] MED LIST changes: -BIMA01SOL; -ERYTOIN8 OS; -SYST1SOL
[2018-10-25 12:07] VITALS: BP 136/77
[2018-10-25] MEDS ORDERED: SYST1SOL (13:04)
[2018-10-25] MEDS ORDERED: BIMA01SOL (13:04)
[2018-10-25] MEDS ORDERED: FLUORESCEIN OPHTH 1 MG STRIP As Ordered ONE (13:31)
[2018-10-25] MEDS ORDERED: ERYTOIN8 OS (13:50)
[2018-10-25] MEDS ORDERED: ERYTHROMYCIN OPHTH OINT OS ONE (14:00)
== END 2018-10-25 14:31 | disposition home or self-care (01) ==
LOC: M ED 12:06
DX: H40.9 Unspecified glaucoma (principal); S05.02XA Injury of conjunctiva and corneal abrasion without foreign body, left eye, initial encounter

== ENCOUNTER → 2018-11-20 | Outpatient (CLI) | payer MEDICARE, MEDICAID ==
[~2018-11-20] MED LIST changes: +BIMA01SOL; +ERYTOIN8 OS; +SYST1SOL
--- NOTE | 2018-11-26 12:48 | SLEEPCENT ---
DATE OF PROCEDURE: 11/20/2018 ORDERED BY: Jocelin Oakes Nocturnal polysomnography was performed for the titration of pressure therapy in this patient with obstructive sleep apnea syndrome and apnea-hypopnea index of 10.1. For testing, an Shoshana View full face mask of small size was used and 4 cm of water pressure were applied to the circuit and the lights were extinguished. 7 hours and 52 minutes of data were reviewed. There were 388 minutes of sleep identified. Sleep latency was short at 3.5 minutes. Rapid eye movement (REM) latency was mildly prolonged at 229 minutes. Sleep architecture improved late in the study. There was 2 REM cycles noted. Overall sleep efficiency was 84%. The patient's electrocardiogram showed a sinus rhythm with an average heart rate of 85 beats minute. Electroencephalogram (EEG) showed normal waveforms for awake sleep stages. Respiratory events were best palliated with C-PAP at a pressure of +6. There was some remaining the limb activity. Limb movement arousal index was 13.7 up from the diagnostic night. IMPRESSION: Obstructive sleep apnea syndrome (G47.33). RECOMMENDATION: Nightly use of pressure therapy at 6 cm of water.
== END ==
LOC: M SLEEP 19:33
PROVIDERS: ATTEND Nurse Practitioner Family
DX: G47.33 Obstructive sleep apnea (adult) (pediatric) (principal)

== ENCOUNTER 2019-03-15 15:51 | Emergency (ER) | payer MEDICARE, MEDICAID ==
[~2019-03-15] VITALS: Ht 154.9 cm; Wt 58.6 kg
[~2019-03-15 15:51] MED LIST changes: -/CELE20CA; -ASPI1TAB PO; +ASPI81TA26 PO; +CELE1CAP4; -EZET10TA; -EZET10TA PO; +EZET10TA21; +EZET10TA21 PO; -OMEP20CA3 PO; +OMEP20CA4 PO; +VITA100018 PO; -VITA100072 PO
[2019-03-15] MEDS ORDERED: MOME50SP2 (17:31)
[2019-03-15] MEDS ORDERED: DORZ2SOL5 (17:31)
[2019-03-15] MEDS ORDERED: diazePAM 5 MG TAB PO ONE (18:15)
[2019-03-15] MEDS ORDERED: KETOROLAC 60 MG/2 ML VIAL (J1885) IM ONE (20:00)
[2019-03-15 20:19] VITALS: BP 140/82
--- NOTE | 2019-03-16 08:24 | REP ---
Pelvis left hip: Three views. History: Pain. Status post left hip arthroplasty. Findings: Normal oral AP and frog-leg views of the left hip and AP view of the pelvis show bilateral hip arthroplasties in good alignment. No fractures seen. There is some vascular calcification. Periarticular soft tissues are unremarkable. Impression: No acute abnormality. Status post bilateral hip arthroplasties. Electronically Signed by Carl Bazan MD 03/16/2019 08:15 A
== END 2019-03-15 20:20 | disposition home or self-care (01) ==
LOC: M ED 15:51
DX: M25.552 Pain in left hip (principal); M54.9 Dorsalgia, unspecified; M79.662 Pain in left lower leg; I10 Essential (primary) hypertension; E78.5 Hyperlipidemia, unspecified; J45.909 Unspecified asthma, uncomplicated; K21.9 Gastro-esophageal reflux disease without esophagitis; K22.70 Barrett's esophagus without dysplasia; G47.30 Sleep apnea, unspecified; G43.B0 Ophthalmoplegic migraine, not intractable; M81.0 Age-related osteoporosis without current pathological fracture; K52.9 Noninfective gastroenteritis and colitis, unspecified; Z87.891 Personal history of nicotine dependence; Z96.643 Presence of artificial hip joint, bilateral; Z88.8 Allergy status to other drugs, medicaments and biological substances; Z91.048 Other nonmedicinal substance allergy status; Z88.6 Allergy status to analgesic agent; Z79.899 Other long term (current) drug therapy; Z79.82 Long term (current) use of aspirin
CPT/HCPCS: 73502; 96372; 99283; J1885

== ENCOUNTER → 2019-05-20 | Outpatient (CLI) | payer MEDICARE, MEDICAID ==
[~2019-05-20] MED LIST changes: +CLOB0.0548 TOP; +DORZ2SOL5; -MECL-68 PO; +MECL1TAB31 PO; +MOME50SP2; +OMEP1CAP73 PO; -OMEP20CA4 PO; +ONDA4TAB6 PO
--- NOTE | 2019-05-20 15:03 | REPMRS ---
Patient History The patient states she has not had a clinical breast exam in over a year. Patient is postmenopausal and is nulliparous. Family history of breast cancer at age 50 or over in maternal aunt. Benign cyst aspiration of the right breast, November 14, 2004. Took estrogen for 5 years. 3D TOMOSYNTHESIS WAS PERFORMED. The [facility] lifetime risk for breast cancer is 5.8%. Digital Woman Screen Mammo: May 20, 2019 - Exam #: [id number] Bilateral CC and MLO view(s) were taken. Technologist: Madeline Mercado, Technologist Prior study comparison: January 01, 2018, digital woman screen mammo performed at [facility]. December 26, 2016, digital woman screen mammo performed at [facility]. FINDINGS: There are scattered fibroglandular densities. There has been no change in the appearance of the mammogram from the prior studies. There is a mild amount of residual fibroglandular tissue which is fairly symmetric. There is no interval development of dominant mass, architectural distortion, or clustered microcalcification suggestive of malignancy. Assessment: BI-RADS/ACR category 1 mammogram. Negative Mammogram. Recommendation Routine screening mammogram in 1 year (for women over age 40). This mammogram was interpreted with the aid of an FDA-approved computer-aided dectection system. Electronically Signed By: Adeel Lombardo MD 05/20/19 2708
--- NOTE | 2019-05-25 10:35 | DEXA ---
AP SPINE L1 - L4 0.916 -2.2 -0.7 LT FEMUR TOTAL Bilateral hip replacement LT NECK RT FEMUR TOTAL RT NECK TOTAL BODY TOTAL LEFT FOREARM RADIUS 33% 0.527 COMMENTS: There is low bone density of the spine. 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 The decreased density of the spine does represent a significant change. The density of the spine has decreased 9.4% since the initial exam on 04/30/2002. The spine density has decreased 3.0% since the most recent exam on 07/08/2012. The density of the left hip and the density of the right hip is N/A. FOLLOW-UP: Recommendation for the next bone density exam: 2 years. BROCKD
== END ==
LOC: M WHC 14:00
PROVIDERS: ATTEND Internal Medicine
DX: Z12.31 Encounter for screening mammogram for malignant neoplasm of breast (principal); M81.0 Age-related osteoporosis without current pathological fracture; Z78.0 Asymptomatic menopausal state; Z86.018 Personal history of other benign neoplasm; Z92.23 Personal history of estrogen therapy

== ENCOUNTER 2019-06-20 18:35 | Emergency (ER) | payer MEDICARE, MEDICAID ==
[~2019-06-20] VITALS: Ht 154.9 cm; Wt 58.7 kg
[~2019-06-20 18:35] MED LIST changes: -CLOB0.0548 TOP; +MECL-68 PO; -MECL1TAB31 PO; -OMEP1CAP73 PO; +OMEP20CA4 PO; -ONDA4TAB6 PO
[2019-06-20] MEDS ORDERED: ACETAMINOPHEN 500 MG TAB PO ONE (20:30)
[2019-06-20 20:50] VITALS: BP 127/78
[2019-06-20 21:41] LABS: AMPHETAMINES LEVEL URINE NEGATIVE (NEGATIVE); BARBITURATES URINE NEGATIVE (NEGATIVE); BENZODIAZEPINES URINE NEGATIVE (NEGATIVE); CANNABINOIDS URINE NEGATIVE (NEGATIVE); COCAINE METABOLITE URINE NEGATIVE (NEGATIVE); METHADONE URINE NEGATIVE (NEGATIVE); OPIATES URINE NEGATIVE (NEGATIVE); PHENCYCLIDINE URINE NEGATIVE (NEGATIVE)
== END 2019-06-20 21:07 | disposition home or self-care (01) ==
LOC: M ED 18:35
DX: M54.9 Dorsalgia, unspecified (principal); T38.0X5A Adverse effect of glucocorticoids and synthetic analogues, initial encounter; I10 Essential (primary) hypertension; J45.909 Unspecified asthma, uncomplicated; Z87.891 Personal history of nicotine dependence; Z79.82 Long term (current) use of aspirin; Z79.899 Other long term (current) drug therapy; Z88.0 Allergy status to penicillin; Z88.8 Allergy status to other drugs, medicaments and biological substances; Z88.1 Allergy status to other antibiotic agents; Z88.5 Allergy status to narcotic agent; Z91.89 Other specified personal risk factors, not elsewhere classified; Z91.018 Allergy to other foods

== ENCOUNTER 2019-06-24 22:11 | Emergency (ER) | payer MEDICARE, MEDICAID ==
[~2019-06-24] VITALS: Ht 154.9 cm; Wt 57.3 kg
[2019-06-24] MEDS ORDERED: CLOB0.0548 TOP (22:23)
[2019-06-25] MEDS ORDERED: ONDANSETRON 4MG/2ML VIAL (J2405) As Ordered ONE (00:05)
[2019-06-25 00:44] LABS: BASO # 0.1 10^3/uL (0.0-0.2); BASO % 0.6 % (0.0-1.0); EOS # 0.2 10^3/uL (0.0-0.5); EOS % 2.6 % (0.0-3.0); HEMOGLOBIN 14.8 g/dl (12.0-15.5); LYMPH # 1.8 10^3/uL (1.5-5.0); MEAN CORPUSCULAR HEMOGLOBIN 30.9 pg (27.0-33.0); MEAN CORPUSCULAR HGB CONC 33.6 g/dl (32.0-36.5); MEAN CORPUSCULAR VOLUME 91.9 fl (80.0-96.0); MONO # 0.6 10^3/uL (0.0-0.8); MONO % 6.5 % (0.0-5.0); NEUTROPHILS # 6.5 10^3/uL (1.5-8.5); NEUTROPHILS % 70.1 % (36.0-66.0); PLATELET COUNT, AUTOMATED 411 10^3/uL (150-450); RED BLOOD COUNT 4.79 10^6/uL (4.00-5.40); WHITE BLOOD COUNT 9.3 10^3/uL (4.0-10.0)
[2019-06-25] MEDS ORDERED: ONDANSETRON 4MG/2ML VIAL (J2405) IV ONE (00:45)
[2019-06-25] MEDS ORDERED: NS 1,000 ML IV ONE (00:45)
[2019-06-25 00:55] LABS: ALBUMIN 4.3 GM/DL (3.2-5.2); ALT/SGPT 70 U/L (12-78); BILIRUBIN,DIRECT < 0.1 MG/DL (0.0-0.2); BILIRUBIN,TOTAL 0.6 MG/DL (0.2-1.0); BLOOD UREA NITROGEN 10 MG/DL (7-18); CALCIUM LEVEL 9.6 MG/DL (8.8-10.2); CARBON DIOXIDE LEVEL 25 MEQ/L (21-32); CHLORIDE LEVEL 101 MEQ/L (98-107); GLOMERULAR FILTRATION RATE > 60.0 (>45); GLUCOSE, FASTING 124 MG/DL (70-100); LIPASE 155 U/L (73-393); POTASSIUM SERUM 3.5 MEQ/L (3.5-5.1); SODIUM LEVEL 136 MEQ/L (136-145); TOTAL PROTEIN 8.1 GM/DL (6.4-8.2)
[2019-06-25] MEDS ORDERED: ONDA4TAB6 PO (01:39)
[2019-06-25 01:46] VITALS: BP 137/75
== END 2019-06-25 02:03 | disposition home or self-care (01) ==
LOC: M ED 22:11
DX: R11.2 Nausea with vomiting, unspecified (principal); E78.5 Hyperlipidemia, unspecified; M51.9 Unspecified thoracic, thoracolumbar and lumbosacral intervertebral disc disorder; Z79.899 Other long term (current) drug therapy; Z79.82 Long term (current) use of aspirin; Z88.0 Allergy status to penicillin; Z88.5 Allergy status to narcotic agent; Z88.8 Allergy status to other drugs, medicaments and biological substances; Z91.018 Allergy to other foods; Z91.048 Other nonmedicinal substance allergy status
CPT/HCPCS: 36415; 80048; 80076; 83690; 85025; 96374; 99284; J2405

== ENCOUNTER → 2019-07-14 | Outpatient (REF) | payer MEDICARE, MEDICAID ==
[~2019-07-14] MED LIST changes: +CLOB0.0548 TOP; +ONDA4TAB6 PO
[2019-07-14 16:20] LABS: C REACTIVE PROTEIN QUANTITATIV < 0.30 MG/DL (0.00-0.30); RHEUMATOID FACTOR QUANT < 10.0 IU/ML (<15.0)
[2019-07-14 16:23] LABS: BASO # 0.1 10^3/uL (0.0-0.2); EOS # 0.5 10^3/uL (0.0-0.5); EOS % 7.6 % (0.0-3.0); HEMATOCRIT 39.4 % (36.0-47.0); HEMOGLOBIN 12.5 g/dl (12.0-15.5); LYMPH # 2.4 10^3/uL (1.5-5.0); LYMPH % 38.2 % (24.0-44.0); MEAN CORPUSCULAR HEMOGLOBIN 30.5 pg (27.0-33.0); MEAN CORPUSCULAR HGB CONC 31.7 g/dl (32.0-36.5); MEAN CORPUSCULAR VOLUME 96.1 fl (80.0-96.0); MONO # 0.5 10^3/uL (0.0-0.8); MONO % 8.3 % (0.0-5.0); NEUTROPHILS # 2.8 10^3/uL (1.5-8.5); NEUTROPHILS % 44.7 % (36.0-66.0); PLATELET COUNT, AUTOMATED 364 10^3/uL (150-450); WHITE BLOOD COUNT 6.2 10^3/uL (4.0-10.0)
[2019-07-14 16:59] LABS: ERYTHROCYTE SEDIMENTATION RATE 23 mm/hr (0-30)
== END ==
LOC: M LABDRAW1 15:50
PROVIDERS: ATTEND Physician Assistant
DX: M51.36 Other intervertebral disc degeneration, lumbar region (principal)

== ENCOUNTER → 2019-11-10 | Outpatient (REF) | payer MEDICARE, MEDICAID ==
[~2019-11-10] MED LIST changes: -MECL-68 PO; +MECL1TAB31 PO; -MONT10TA2 PO; +MONT10TA4 PO; +OMEP1CAP73 PO; -OMEP20CA4 PO
[2019-11-10 18:27] LABS: BLOOD UREA NITROGEN 14 MG/DL (7-18); CREATININE FOR GFR 0.58 MG/DL (0.55-1.30); GLOMERULAR FILTRATION RATE > 60.0 (>45)
== END ==
LOC: M LABDRAW1 15:37
PROVIDERS: ATTEND Physical Medicine & Rehabilitation
DX: M47.896 Other spondylosis, lumbar region (principal)

== ENCOUNTER → 2020-03-31 | Outpatient (CLI) | payer MEDICARE, MEDICAID ==
[~2020-03-31] MED LIST changes: +AMLO1TAB24 PO; -AMLO5TAB6 PO; +PHEN26CR PR; -PREPCRE PR; +VITA-243 PO; -VITA500T PO
[2020-04-29 11:41] LABS: PLATELET COUNT, AUTOMATED 360 10^3/uL (150-450)
[2020-04-29 11:42] LABS: INR 0.94; PARTIAL THROMBOPLASTIN TIME 36.3 SECONDS (25.0-38.4); PROTHROMBIN TIME 12.8 SECONDS (11.8-14.0)
== END ==
LOC: M LAB 15:35
PROVIDERS: ATTEND Physical Medicine & Rehabilitation
DX: M51.36 Other intervertebral disc degeneration, lumbar region (principal)

== ENCOUNTER → 2020-04-07 | Outpatient (REF) | payer MEDICARE, MEDICAID ==
[2020-05-16 09:13] LABS: LDL DIRECT SEE SEPARATE REPORT mg/dl
== END ==
LOC: M LAB REF 14:27
PROVIDERS: ATTEND Internal Medicine
DX: E78.00 Pure hypercholesterolemia, unspecified (principal)

== ENCOUNTER → 2020-06-01 | Outpatient (CLI) | payer MEDICARE, MEDICAID ==
--- NOTE | 2020-06-01 15:39 | REPMRS ---
Patient History The patient states she has not had a clinical breast exam in over a year. Family history of breast cancer at age 50 or over in maternal aunt. Benign cyst aspiration of the right breast, November 14, 2004. Took estrogen for 5 years. 3D TOMOSYNTHESIS WAS PERFORMED. [facility] VOLPARA DENSITY B. Digital Woman Screen Mammo: June 01, 2020 - Exam #: [id number] Bilateral CC and MLO view(s) were taken. Technologist: Sunni Gaspar Technologist Prior study comparison: May 20, 2019, bilateral digital woman screen mammo performed at [facility]. January 01, 2018, digital woman screen mammo performed at [facility]. FINDINGS: There are scattered fibroglandular densities. There has been no change in the appearance of the mammogram from the prior studies. There is a mild amount of residual fibroglandular tissue which is fairly symmetric. There is no interval development of dominant mass, architectural distortion, or clustered microcalcification suggestive of malignancy. Assessment: BI-RADS/ACR category 1 mammogram. Negative Mammogram. Recommendation Routine screening mammogram in 1 year (for women over age 40). This mammogram was interpreted with the aid of an FDA-approved computer-aided dectection system. Electronically Signed By: Adeel Lombardo MD 06/01/20 1013
== END ==
LOC: M WHC 14:37
PROVIDERS: ATTEND Internal Medicine
DX: Z12.31 Encounter for screening mammogram for malignant neoplasm of breast (principal); Z86.018 Personal history of other benign neoplasm

== ENCOUNTER → 2020-09-07 | Outpatient (CLI) | payer MEDICARE, MEDICAID ==
[~2020-09-07] MED LIST changes: -MONT10TA4 PO; +MONT5TAB2 PO
== END ==
LOC: M LABSMTC 10:49
PROVIDERS: ATTEND Pediatrics
DX: Z01.812 Encounter for preprocedural laboratory examination (principal); Z20.822 Contact with and (suspected) exposure to COVID-19

== ENCOUNTER → 2020-10-11 | Outpatient (CLI) | payer MEDICARE, MEDICAID ==
[~2020-10-11] MED LIST changes: -CLIN150C14 PO; +CLIN150C15 PO; +MONT10TA10 PO; -MONT5TAB2 PO
[2020-10-11 16:21] LABS: PLATELET COUNT, AUTOMATED 331 10^3/uL (150-450)
[2020-10-11 16:41] LABS: INR 0.92; PROTHROMBIN TIME 12.5 SECONDS (12.5-14.3)
[2020-10-11 16:42] LABS: PARTIAL THROMBOPLASTIN TIME 33.6 SECONDS (24.2-38.5)
== END ==
LOC: M LAB 15:26
PROVIDERS: ATTEND Physician Assistant
DX: M47.27 Other spondylosis with radiculopathy, lumbosacral region (principal); Z79.899 Other long term (current) drug therapy

== ENCOUNTER → 2020-12-08 | Outpatient (CLI) | payer MEDICARE, MEDICAID ==
--- NOTE | 2020-12-08 15:23 | REP ---
INDICATION: SPONDYLOSIS W/RADICULOPATHY LUMBAR REGION. COMPARISON: None. TECHNIQUE: Sagittal T1, T2, stir images obtained. Axial T1 and T2 weighted images obtained. FINDINGS: There is [id number] multilevel degenerative disc disease with loss of disc height and disc desiccation seen diffusely throughout the lumbar spine. Vertebral heights are overall preserved. Degenerative disc disease is slightly more progressed at the L1-2 disc level with endplate changes. Conus ends normally at T12 level. On the sagittal T2 weighted images, no limiting canal stenosis. On the review of axial images, At T12-L1 no significant canal or foraminal narrowing. At L1-2 disc bulge with mild canal narrowing and mild bilateral foraminal narrowing. At L2-3 disc bulge with mild canal narrowing and mild bilateral foraminal narrowing. At L3-4 through L5-S1 no significant canal or foraminal narrowing. IMPRESSION: Hmml-hj-[id number] multilevel degenerative disc disease is slightly more progressed at the L1-2 disc level with endplate changes. No evidence of limiting canal or foraminal stenosis or disc herniation. <Electronically signed by Joshua Lynch > 12/08/20 [id number]
== END ==
LOC: M RAD 13:44
PROVIDERS: ATTEND Physician Assistant
DX: M51.26 Other intervertebral disc displacement, lumbar region (principal)

== ENCOUNTER 2020-12-22 23:01 | Emergency (ER) | payer MEDICARE, MEDICAID ==
[~2020-12-22] VITALS: Ht 154.9 cm; Wt 56.0 kg
[2020-12-22] MEDS ORDERED: FLAX1300 PO (23:10)
[2020-12-22] MEDS ORDERED: TRAM50TA2 PO (23:10)
[2020-12-22] MEDS ORDERED: SYST1SOL OD (23:10)
[2020-12-22] MEDS ORDERED: PREG100CA PO (23:10)
[2020-12-23 00:14] VITALS: BP 159/75
[2020-12-23] MEDS ORDERED: HALO0.052 TOP (01:12)
[2020-12-23] MEDS ORDERED: ACETAMINOPHEN 500 MG TAB PO ONE (01:15)
== END 2020-12-23 01:24 | disposition home or self-care (01) ==
LOC: M ED 23:01
DX: L25.9 Unspecified contact dermatitis, unspecified cause (principal); I10 Essential (primary) hypertension; J45.909 Unspecified asthma, uncomplicated; H40.9 Unspecified glaucoma; E78.5 Hyperlipidemia, unspecified; K21.9 Gastro-esophageal reflux disease without esophagitis; Z79.899 Other long term (current) drug therapy; Z79.82 Long term (current) use of aspirin; Z88.0 Allergy status to penicillin; Z88.1 Allergy status to other antibiotic agents; Z88.5 Allergy status to narcotic agent; Z88.8 Allergy status to other drugs, medicaments and biological substances; Z91.018 Allergy to other foods; Z91.048 Other nonmedicinal substance allergy status; Z87.891 Personal history of nicotine dependence

== ENCOUNTER → 2021-03-13 | Outpatient (CLI) | payer MEDICARE, MEDICAID ==
[~2021-03-13] MED LIST changes: +FLAX1300 PO; +HALO0.052 TOP; +PREG100CA PO; +SYST1SOL OD; +TRAM50TA2 PO
--- NOTE | 2021-03-13 22:44 | REP ---
INDICATION: CHEST TIGHTNESS COMPARISON: 06/29/2014 TECHNIQUE: PA and lateral. FINDINGS: The mediastinum and cardiac silhouette are normal. The lung ramos are clear and without acute consolidation, effusion, or pneumothorax. The skeletal structures are intact and normal. IMPRESSION: No acute cardiopulmonary process. <Electronically signed by Iban Bobby > 03/13/21 [id number]
== END ==
LOC: M RAD 16:51
PROVIDERS: ATTEND Physician Assistant Medical
DX: R07.9 Chest pain, unspecified (principal)

== ENCOUNTER 2021-04-05 17:37 | Emergency (ER) | payer MEDICARE, MEDICAID ==
[~2021-04-05] VITALS: Ht 154.9 cm; Wt 58.2 kg
[~2021-04-05 17:37] MED LIST changes: -CLIN150C15 PO; +CLIN150C17 PO; -MONT10TA10 PO; +MONT10TA97 PO
[2021-04-06 00:48] VITALS: BP 128/67
[2021-07-09] MEDS ORDERED: CITA10TA7 PO (19:58)
== END 2021-04-06 00:50 | disposition home or self-care (01) ==
LOC: M ED 17:37
DX: S80.11XA Contusion of right lower leg, initial encounter (principal); W22.8XXA Striking against or struck by other objects, initial encounter; Y92.018 Other place in single-family (private) house as the place of occurrence of the external cause; I10 Essential (primary) hypertension; J44.9 Chronic obstructive pulmonary disease, unspecified; E03.9 Hypothyroidism, unspecified; K22.70 Barrett's esophagus without dysplasia; Z79.899 Other long term (current) drug therapy; Z79.82 Long term (current) use of aspirin; Z88.0 Allergy status to penicillin; Z88.1 Allergy status to other antibiotic agents; Z88.5 Allergy status to narcotic agent; Z88.8 Allergy status to other drugs, medicaments and biological substances; Z91.018 Allergy to other foods; Z91.048 Other nonmedicinal substance allergy status; Z87.891 Personal history of nicotine dependence

== ENCOUNTER → 2021-04-09 | Outpatient (CLI) | payer MEDICARE, MEDICAID ==
[~2021-04-09] MED LIST changes: +BENZ200C70 PO; +BUSP5TA PO; +CITA10TA7 PO; +FISH1000 PO; +PRED10TA2 PO; +VASC1CAP2 PO; +ZETI10TA16 PO
== END ==
LOC: M RAD 09:19
PROVIDERS: ATTEND Physician Assistant
DX: M51.26 Other intervertebral disc displacement, lumbar region (principal)

== ENCOUNTER → 2021-06-20 | Outpatient (CLI) | payer MEDICARE, MEDICAID ==
[~2021-06-20] MED LIST changes: -BENZ200C70 PO; -BUSP5TA PO; -CITA10TA7 PO; -FISH1000 PO; +MONT10TA10 PO; -MONT10TA97 PO; -PRED10TA2 PO; -VASC1CAP2 PO; -ZETI10TA16 PO
--- NOTE | 2021-06-20 17:01 | REP ---
INDICATION: LUMP. COMPARISON: 06/01/2020 as well as other prior exams. TECHNIQUE: MLO and CC views bilateral breasts with tomosynthesis, spot compression views posterior upper outer quadrant right breast for a reported palpable lump about the size of a pea. Focused right breast ultrasound. FINDINGS: Mild scattered fibroglandular tissue is present bilaterally. No mass is seen. There is no change since the prior exam. There are no clustered microcalcifications. Focused right breast ultrasound at the site of the reported palpable lump demonstrates no suspicious cystic or solid nodule. The Volpara volumetric breast density pattern is B. IMPRESSION: BIRADS/ACR category 1, negative. No evidence of mass or clustered microcalcifications bilaterally. There is no mammographic or sonographic evidence of a suspicious mass at the site of the reported palpable lump the posterior upper outer quadrant of the right breast. A negative mammogram and ultrasound should not deter biopsy if there is a clinically suspicious palpable mass present. [facility] lifetime risk of breast cancer 5.0%. This mammogram was interpreted with the aid of an FDA-approved computer-aided detection system. The patient states she had a clinical breast exam in over 1 year ago. The patient letter being requested is M2. RECOMMENDATION: Repeat screening mammography recommended 1 year (for women over 40). <Electronically signed by Adeel Lombardo > 06/20/21 [id number]
== END ==
LOC: M WHC 14:59
PROVIDERS: ATTEND Internal Medicine
DX: Z03.89 Encounter for observation for other suspected diseases and conditions ruled out (principal); N63.0 Unspecified lump in unspecified breast
CPT/HCPCS: 76642; 77066; G0279

== ENCOUNTER 2021-07-09 19:21 | Emergency (ER) | payer MEDICARE, MEDICAID ==
[~2021-07-09] VITALS: Ht 154.9 cm; Wt 53.4 kg
[2021-07-09] MEDS ORDERED: ZETI10TA16 PO (19:58)
[2021-07-09] MEDS ORDERED: CITA10TA5 PO (19:58)
[2021-07-09] MEDS ORDERED: FISH1000 PO (19:58)
[2021-07-09] MEDS ORDERED: BUSP5TA PO (19:58)
[2021-07-09] MEDS ORDERED: VASC1CAP2 PO (19:58)
--- OUTSIDE RECORDS SUMMARY | 2021-07-09 22:40 | CCD | Continuity of Care Document ---
Author Author Nancy MTZ DPT Organization Unknown Address [address] [facility] [address] [place] [address] Phone [phone] Care Team Providers Care Marketing Communications Manager Name Role Phone Artemio Calabrese MD AUTM [phone] Dick Schultz MD AUTM [phone] Travis Yañez MD AUTM [phone] Problems Active Problems Provider Date Degeneration of lumbar intervertebral disc Onset: 06/23/1999 Essential hypertension Bairon Coker MD Onset: 02/25/2020 Social History Type Date Description Comments Sex Unknown ETOH Use Denies alcohol use Tobacco Use Start: Unknown End: Unknown Patient is a former smoker 16 years ago Smoking Status Reviewed: 12/15/20 Patient is a former smoker 16 years ago Allergies and adverse reactions Active Allergies Criticality Reaction | Severity Comments Date Penicillin Unable to assess criticality 02/01/2015 Betadine Unable to assess criticality 02/01/2015 Lipitor Unable to assess criticality 02/01/2015 Morphine and Related Unable to assess criticality 02/01/2015 Baclofen Unable to assess criticality 02/01/2015 Simvastatin Unable to assess criticality 02/01/2015 Talwin Nx Unable to assess criticality 02/01/2015 Tape Unable to assess criticality 02/01/2015 Fiorinal Unable to assess criticality 01/03/2016 Vancomycin Unable to assess criticality 01/03/2016 Codeine Unable to assess criticality 01/03/2016 Pennsaid Unable to assess criticality 01/03/2016 Prednisone Unable to assess criticality 04/27/2016 Diclofenac Unable to assess criticality 05/07/2017 Chloraprep Unable to assess criticality 05/07/2017 Tizanidine Unable to assess criticality 05/07/2017 Prednisone Unable to assess criticality 05/07/2017 Benzocaine / Menthol Unable to assess criticality 05/07/2017 Solu-Medrol Unable to assess criticality 06/22/2019 Fentanyl Unable to assess criticality 11/10/2019 Talwin Unable to assess criticality 11/10/2019 Combigan Unable to assess criticality 11/10/2019 Lumigan Unable to assess criticality 11/10/2019 Fish Net Dressing Unable to assess criticality 11/10/2019 Depo-Medrol Unable to assess criticality 11/10/2019 Gabapentin Unable to assess criticality 11/10/2019 Voltaren Unable to assess criticality 11/10/2019 Menthol Unable to assess criticality 11/10/2019 Dorzolamide Unable to assess criticality 02/25/2020 Tizanidine Hydrochloride Unable to assess criticality 02/25/2020 Pravastatin Unable to assess criticality 02/25/2020 Duloxetine Unable to assess criticality Abdominal pain, Nausea, e levated BP 11/18/2020 Medications Active Medications SIG Qnty Indications Ordering Provide r Date Pregabalin 100mg Capsules Take 1 Capsule By Mouth 3 Times A Day Maximum Daily Dose = 3 Capsules 90caps Yash Kirk MD 02/07/2021 Tramadol HCL 50mg Tablets 1 every 6 hours as needed pain 120tabs D. Cedric Ellis MD 021 Prednisolone Acetate 1% Suspension Unknown Ezetimibe 10mg Tablets Unknown Montelukast Sodium 10mg Tablets Unknown Zinc 15 66mg Tablets Unknown Goodsense ALL Day Allergy 10mg Tab lets 1 by mouth every night Unknown Preparation H 0.25-88.44% Suppository Unknown Stool Softener 100mg Capsules 1 by mouth twice a day Unknown Vitamin C 1000mg Tablets 1 by mouth every day Unknown Calcium Citrate + D [id number]-Tuoq Tablets Unknown Systane 0.4-0.3% Gel Unknown Amlodipine Besylate 5mg Tablets Unknown Mometasone Furoate 50mcg/Act Suspe nsion [place] Two Sprays In Each Nostril Every Day Unkno wn Clobetasol Propionate 0.05% Cream use as directed to affected areas Unknown Centrum Silver Tablets 1 by mouth every day Unknown Magnesium 500mg Capsules Unknown Aspir-[address] ever y day Unknown Proair HFA 108(90Base) mcg/Act Aer osol as needed Unknown Clindamycin HCL 300mg Capsules take two one hour prior to dental procedure Unknown Estrace 0.1mg/GM Cream twi ce a week hs Unknown Advair Diskus 250-50mcg/Dose Aeros ol 2 puffs every day prn Unknown Omeprazole 20mg Capsules DR i by mouth every day Unknown Carisoprodol 350mg Tablets 1- 4 a day Unknown Immunizations Description No Information Available Vital Signs Date Vital Result Comment 06/16/2021 4:18pm Height 61 inches 5'1" Weight 130.00 lb BMI (Body Mass Index) 24.6 kg/m2 12/16/2020 1:12pm Body Temperature 98.8 F Height 61 inches 5'1" Weight 130.00 lb BMI (Body Mass Index) 24.6 kg/m2 Procedures Date Code Description Status 06/27/2021 33263 Therapeutic Procedure, Each 15 M inutes Completed 06/27/2021 64013 Manual Therapy Each 15 Minutes C ompleted 06/22/2021 50822 Manual Therapy Each 15 Minutes C ompleted 06/22/2021 01057 Therapeutic Procedure, Each 15 M inutes Completed 06/20/2021 99184 Manual Therapy Each 15 Minutes C ompleted 06/20/2021 93866 Hot Or Cold Packs Completed 06/16/2021 93521 Office/Outpatient Established Lo w MDM 20-29 Min Completed 06/16/2021 53945 Manual Therapy Each 15 Minutes C ompleted 06/16/2021 90684 Therapeutic Procedure, Each 15 M inutes Completed 06/13/2021 49394 Manual Therapy Each 15 Minutes C ompleted 06/13/2021 48537 Therapeutic Procedure, Each 15 M inutes Completed 06/09/2021 68395 Physical Therapy Eval - Low Comp lexity Completed 05/04/2021 10888 Office/Outpatient Established Mo d MDM 30-39 Min Completed 03/14/2021 73079 Office/Outpatient Established Mo d MDM 30-39 Min Completed 02/28/2021 86865 Manual Therapy Each 15 Minutes C ompleted 02/28/2021 27970 Therapeutic Procedure, Each 15 M inutes Completed 02/16/2021 43105 Manual Therapy Each 15 Minutes C ompleted 02/16/2021 95162 Therapeutic Procedure, Each 15 M inutes Completed 02/14/2021 25267 Manual Therapy Each 15 Minutes C ompleted 02/14/2021 52995 Therapeutic Procedure, Each 15 M inutes Completed 02/09/2021 37932 Manual Therapy Each 15 Minutes C ompleted 02/09/2021 19545 Therapeutic Procedure, Each 15 M inutes Completed 02/07/2021 09827 Manual Therapy Each 15 Minutes C ompleted 02/07/2021 28259 Therapeutic Procedure, Each 15 M inutes Completed 02/02/2021 24621 Manual Therapy Each 15 Minutes C ompleted 02/02/2021 36547 Therapeutic Procedure, Each 15 M inutes Completed 01/31/2021 93792 Manual Therapy Each 15 Minutes C ompleted 01/31/2021 42858 Therapeutic Procedure, Each 15 M inutes Completed 01/27/2021 72771 Physical Therapy Eval - Mod Comp lexity Completed 01/16/2021 44729 Office/Outpatient Established Lo w MDM 20-29 Min Completed 01/02/2021 24443 Epidurography Radiological Super vision & Interpretation Completed 01/02/2021 69210 NJX Aa&/STRD TFRML Epi Lumbar/Sa cral 1 Level Completed Medical Devices Description No Information Available Encounters Type Date Location Provider Dx Diagnosis Office Visit 06/16/2021 11:15a Hoa Gallardo PA-C M5 1.26 Other intervertebral disc displacement, lumbar region M48.061 Spinal stenosis, lumbar trini on without neurogenic carli Office Visit 05/04/2021 10:45a Hoa Gallardo PA-C M5 4.31 Sciatica, right side Office Visit 03/14/2021 3:15p Hoa Gallardo PA-C M5 1.26 Other intervertebral disc displacement, lumbar region M48.061 Spinal stenosis, lumbar trini on without neurogenic carli Office Visit 01/16/2021 10:15a Hoa Gallardo PA-C M5 1.26 Other intervertebral disc displacement, lumbar region M48.061 Spinal stenosis, lumbar trini on without neurogenic carli Assessments Date Code Description Provider 06/27/2021 M51.26 Other intervertebral disc displa cement, lumbar region Anamaria Lorena Cochran, KNITTING MACHINE MECHANIC 06/27/2021 M48.061 Spinal stenosis, lum bar region without neurogenic claudication Anamaria Lorena Cochran, KNITTING MACHINE MECHANIC 06/22/2021 M51.26 Other intervertebral disc displa cement, lumbar region Anamaria Lorena Cochran, KNITTING MACHINE MECHANIC 06/22/2021 M48.061 Spinal stenosis, lum bar region without neurogenic claudication Anamariapauly Cochran, KNITTING MACHINE MECHANIC 06/20/2021 M51.26 Other intervertebral disc displa cement, lumbar region Rishabh Mtz, PT, DPT 06/20/2021 M48.061 Spinal stenosis, lum bar region without neurogenic claudication Rishabh Mtz, PT, DPT 06/16/2021 M51.26 Other intervertebral disc displa cement, lumbar region Anamaria Lorena Dimas, KNITTING MACHINE MECHANIC 06/16/2021 M51.26 Other intervertebral disc displa cement, lumbar region Sukhwinder Gallardo PA-C 06/16/2021 M48.061 Spinal stenosis, lum bar region without neurogenic claudication Anamariatheresa Cochran, KNITTING MACHINE MECHANIC 06/16/2021 M48.061 Spinal stenosis, lum bar region without neurogenic claudication Sukhwinder Gallardo PA-C 06/13/2021 M51.26 Other intervertebral disc displa cement, lumbar region Anamaria Lorena Cochran, KNITTING MACHINE MECHANIC 06/13/2021 M48.061 Spinal stenosis, lum bar region without neurogenic claudication Anamaria Lorena Cochran, KNITTING MACHINE MECHANIC 06/09/2021 M51.26 Other intervertebral disc displa cement, lumbar region Rishabh Mtz, PT, DPT 06/09/2021 M48.061 Spinal stenosis, lum bar region without neurogenic claudication Rishabh Mtz, PT, DPT 05/04/2021 M54.31 Sciatica, right side Sukhwinder Gallardo PA-C 03/14/2021 M51.26 Other intervertebral disc displa cement, lumbar region Sukhwinder Gallardo PA-C 03/14/2021 M48.061 Spinal stenosis, lum bar region without neurogenic claudication Sukhwinder Gallardo PA-C 02/28/2021 M51.26 Other intervertebral disc displa cement, lumbar region Rene Aguilera P.T. 02/28/2021 M48.061 Spinal stenosis, lum bar region without neurogenic claudication Rene Aguilera P.T. 02/16/2021 M51.26 Other intervertebral disc displa cement, lumbar region Danamarie Ortolano, KNITTING MACHINE MECHANIC 02/16/2021 M48.061 Spinal stenosis, lum bar region without neurogenic claudication Danamarie Ortolano, KNITTING MACHINE MECHANIC 02/14/2021 M51.26 Other intervertebral disc displa cement, lumbar region Danamarie Ortolano, KNITTING MACHINE MECHANIC 02/14/2021 M48.061 Spinal stenosis, lum bar region without neurogenic claudication Danamarie Ortolano, KNITTING MACHINE MECHANIC 02/09/2021 M51.26 Other intervertebral disc displa cement, lumbar region Anamaria Cochran, KNITTING MACHINE MECHANIC 02/09/2021 M48.061 Spinal stenosis, lum bar region without neurogenic claudication Anamaria Cochran, KNITTING MACHINE MECHANIC 02/07/2021 M51.26 Other intervertebral disc displa cement, lumbar region Danamarie Ortolano, KNITTING MACHINE MECHANIC 02/07/2021 M48.061 Spinal stenosis, lum bar region without neurogenic claudication Danamarie Ortolano, KNITTING MACHINE MECHANIC 02/02/2021 M51.26 Other intervertebral disc displa cement, lumbar region Rene Aguilera P.T. 02/02/2021 M48.061 Spinal stenosis, lum bar region without neurogenic claudication Rene Aguilera P.T. 01/31/2021 M51.26 Other intervertebral disc displa cement, lumbar region Danamarie Ortolano, KNITTING MACHINE MECHANIC 01/31/2021 M48.061 Spinal stenosis, lum bar region without neurogenic claudication Danamarie Ortolano, KNITTING MACHINE MECHANIC 01/27/2021 M51.26 Other intervertebral disc displa cement, lumbar region Rene Aguilera P.T. 01/27/2021 M48.061 Spinal stenosis, lum bar region without neurogenic claudication Rene Aguilera P.T. 01/16/2021 M51.26 Other intervertebral disc displa cement, lumbar region Sukhwinder Gallardo PA-C 01/16/2021 M48.061 Spinal stenosis, lum bar region without neurogenic claudication Sukhwinder Gallardo PA-C 01/02/2021 M51.26 Other intervertebral disc displa cement, lumbar region Piyush Vee MD 01/02/2021 M48.061 Spinal stenosis, lum bar region without neurogenic claudication Piyush Vee MD Plan of Treatment Future Appointment(s):* 07/25/2021 3:45 pm - Sukhwinder aGllardo PA-C at [place] * 07/10/2021 1:30 pm - Piyush Vee MD at Surgery [facility] * 07/06/2021 1:30 pm - Lab at [facility] Functional Status Description No Information Available Mental Status Description No Information Available Referrals Refer to Dr Reason for Referral Status Appt Date Sukhwinder Gallardo PA-C Created [address] [place] [address] [address] [place] [id number] [phone] Sukhwinder Gallardo PA-C JASON INJ'S([id number], [id number], & [phone]) PER [place] WEB NO AUTH REQUIRED TO SURGERY NT Created [address] [facility] [address] [place] [address] [phone] Bairon Coker MD MRI NO AUTH REQUIRED PER [facility] WEB FOR MRI OF LUMBAR SPINE ([id number]) TO MINI DoughertyDeshawn CASE #: [id number]. DG Created [address] [place] [address], [address] [address] [phone] Bairon Coker MD NO AUTH REQUIRED FOR PT. PAT GOING TO [facility]. PASSED TO PT DEPT. #[id number].HW Created [address] [facility], [address] [address] [phone]
--- OUTSIDE RECORDS SUMMARY | 2021-07-09 22:40 | CCD | Continuity of Care Document ---
Author Author Nancy BRITO [facility] Organization Unknown Address [address] [place] [address] [address] [place] [address] Phone [phone] Care Team Providers Care Teller Supervisor Name Role Phone Artemio Calabrese MD AUTM [phone] Dick Schultz MD AUTM [phone] Travis Yañez MD AUTM [phone] Problems Active Problems Provider Date Degeneration of [...] every 6 hours as needed pain 120tabs DDeshawn Ellis MD 021 Prednisolone Acetate 1% Suspension [...] every day Unknown Calcium Citrate + D [id number] Tablets Unknown Systane 0.4-0.3% Gel Unknown Amlodipine Besylate 5mg Tablets Unknown Mometasone Furoate 50mcg/Act Suspe nsion [place] Two Sprays In Each Nostril Every Day [...] kg/m2 Procedures Date Code Description Status 06/27/2021 19222 Therapeutic Procedure, Each 15 M inutes Completed 06/27/2021 06555 Manual Therapy Each 15 Minutes C ompleted 06/22/2021 06936 Manual Therapy Each 15 Minutes C ompleted 06/22/2021 11332 Therapeutic Procedure, Each 15 M inutes Completed 06/20/2021 48537 Manual Therapy Each 15 Minutes C ompleted 06/20/2021 85640 Hot Or Cold Packs Completed 06/16/2021 27329 Office/Outpatient Established Lo w MDM 20-29 Min Completed 06/16/2021 09650 Manual Therapy Each 15 Minutes C ompleted 06/16/2021 83099 Therapeutic Procedure, Each 15 M inutes Completed 06/13/2021 02691 Manual Therapy Each 15 Minutes C ompleted 06/13/2021 63130 Therapeutic Procedure, Each 15 M inutes Completed 06/09/2021 68379 Physical Therapy Eval - Low Comp lexity Completed 05/04/2021 47109 Office/Outpatient Established Mo d MDM 30-39 Min Completed 03/14/2021 17014 Office/Outpatient Established Mo d MDM 30-39 Min Completed 02/28/2021 60752 Manual Therapy Each 15 Minutes C ompleted 02/28/2021 40052 Therapeutic Procedure, Each 15 M inutes Completed 02/16/2021 76532 Manual Therapy Each 15 Minutes C ompleted 02/16/2021 22022 Therapeutic Procedure, Each 15 M inutes Completed 02/14/2021 56491 Manual Therapy Each 15 Minutes C ompleted 02/14/2021 60381 Therapeutic Procedure, Each 15 M inutes Completed 02/09/2021 58507 Manual Therapy Each 15 Minutes C ompleted 02/09/2021 02115 Therapeutic Procedure, Each 15 M inutes Completed 02/07/2021 02681 Manual Therapy Each 15 Minutes C ompleted 02/07/2021 75046 Therapeutic Procedure, Each 15 M inutes Completed 02/02/2021 78822 Manual Therapy Each 15 Minutes C ompleted 02/02/2021 49550 Therapeutic Procedure, Each 15 M inutes Completed 01/31/2021 94308 Manual Therapy Each 15 Minutes C ompleted 01/31/2021 51067 Therapeutic Procedure, Each 15 M inutes Completed 01/27/2021 44111 Physical Therapy Eval - Mod Comp lexity Completed 01/16/2021 19826 Office/Outpatient Established Lo w MDM 20-29 Min Completed 01/02/2021 99949 Epidurography Radiological Super vision & Interpretation Completed 01/02/2021 34739 NJX Aa&/STRD TFRML Epi Lumbar/Sa cral 1 Level Completed Medical Devices Description No Information Available Encounters Type Date Location Provider Dx Diagnosis Office Visit 06/16/2021 11:15a Hoa Gallardo PA-C M5 1.26 Other intervertebral disc displacement, lumbar region M48.061 Spinal stenosis, lumbar trini on without neurogenic carli Office Visit 05/04/2021 10:45a Hoa Gallardo PA-C M5 4.31 Sciatica, right side Office Visit 03/14/2021 3:15p Hoa Gallrado PA-C M5 1.26 Other intervertebral disc displacement, lumbar region M48.061 Spinal stenosis, lumbar trini on without neurogenic carli Office Visit 01/16/2021 10:15a Hoa Gallardo, RADHA M5 1.26 Other intervertebral disc displacement, lumbar region M48.061 Spinal stenosis, lumbar trini on without neurogenic carli Assessments Date Code Description Provider 06/27/2021 M51.26 Other intervertebral disc displa cement, lumbar region Anamaria Lorena Brito, SPIRAL WEAVER 06/27/2021 M48.061 Spinal stenosis, lum bar region without neurogenic claudication Anamaria Lorena Brito, SPIRAL WEAVER 06/22/2021 M51.26 Other intervertebral disc displa cement, lumbar region Anamaria Lorena Brito, SPIRAL WEAVER 06/22/2021 M48.061 Spinal stenosis, lum bar region without neurogenic claudication Anamariapauly Brito, SPIRAL WEAVER 06/20/2021 M51.26 Other intervertebral disc displa cement, lumbar region Rishabh Mtz, PT, DPT 06/20/2021 M48.061 Spinal stenosis, lum bar region without neurogenic claudication Rishabh Mtz, PT, DPT 06/16/2021 M51.26 Other intervertebral disc displa cement, lumbar region Anamaria Lorena Dimas, SPIRAL WEAVER 06/16/2021 M51.26 Other intervertebral disc displa cement, lumbar region Sukhwinder Gallardo PA-C 06/16/2021 M48.061 Spinal stenosis, lum bar region without neurogenic claudication Anamariatheresa Brito, SPIRAL WEAVER 06/16/2021 M48.061 Spinal stenosis, lum bar region without neurogenic claudication Sukhwinder Gallardo PA-C 06/13/2021 M51.26 Other intervertebral disc displa cement, lumbar region Anamaria Lorena Brito, SPIRAL WEAVER 06/13/2021 M48.061 Spinal stenosis, lum bar region without neurogenic claudication Anamaria Lorena Birto, SPIRAL WEAVER 06/09/2021 M51.26 Other intervertebral disc displa cement, lumbar region Rishabh Mtz, PT, DPT 06/09/2021 M48.061 Spinal stenosis, lum bar region without neurogenic claudication Rishabh Mtz, PT, DPT 05/04/2021 M54.31 Sciatica, right side Sukhwinder Gallardo, DANIKAC 03/14/2021 M51.26 Other intervertebral disc displa cement, lumbar region Sukhwinder Gallardo PA-C 03/14/2021 M48.061 Spinal stenosis, lum bar region without neurogenic claudication Sukhwinder Gallardo PA-C 02/28/2021 M51.26 Other intervertebral disc displa cement, lumbar region Rene Aguilera P.T. 02/28/2021 M48.061 Spinal stenosis, lum bar region without neurogenic claudication Rene Aguilera P.T. 02/16/2021 M51.26 Other intervertebral disc displa cement, lumbar region Danamarie Ortolano, SPIRAL WEAVER 02/16/2021 M48.061 Spinal stenosis, lum bar region without neurogenic claudication Danamarie Ortolano, SPIRAL WEAVER 02/14/2021 M51.26 Other intervertebral disc displa cement, lumbar region Danamarie Ortolano, SPIRAL WEAVER 02/14/2021 M48.061 Spinal stenosis, lum bar region without neurogenic claudication Danamarie Ortolano, SPIRAL WEAVER 02/09/2021 M51.26 Other intervertebral disc displa cement, lumbar region Anamaria Brito, SPIRAL WEAVER 02/09/2021 M48.061 Spinal stenosis, lum bar region without neurogenic claudication Anamaria Brito, SPIRAL WEAVER 02/07/2021 M51.26 Other intervertebral disc displa cement, lumbar region Danamarie Ortolano, SPIRAL WEAVER 02/07/2021 M48.061 Spinal stenosis, lum bar region without neurogenic claudication Danamarie Ortolano, SPIRAL WEAVER 02/02/2021 M51.26 Other intervertebral disc displa cement, lumbar region Rene Aguilera P.T. 02/02/2021 M48.061 Spinal stenosis, lum bar region without neurogenic claudication Rene Aguilera P.T. 01/31/2021 M51.26 Other intervertebral disc displa cement, lumbar region Danamarie Ortolano, SPIRAL WEAVER 01/31/2021 M48.061 Spinal stenosis, lum bar region without neurogenic claudication Danamarie Ortolano, SPIRAL WEAVER 01/27/2021 M51.26 Other intervertebral disc displa cement, [...] Future Appointment(s):* 07/25/2021 3:45 pm - Sukhwinder Gallardo PA-C at [place] * 07/10/2021 1:30 pm - Piyush Vee MD at Surgery [facility] * 07/06/2021 1:30 pm - Lab at Ortho Lab Functional Status Description No Information Available Mental Status Description No Information Available Referrals Refer to Dr Reason for Referral Status Appt Date Sukhwinder Gallardo PA-C Created 000 1571 [facility] [address] [place] [address] [phone] Sukhwinder Gallardo PA-C JASON INJ'S([id number], [id number], & 99 152) PER [place] WEB NO AUTH REQUIRED TO SURGERY NT Created 1571 [facility] [address] [place] [address] [phone] Bairon Coker MD MRI NO AUTH REQUIRED PER [facility] WEB FOR MRI OF LUMBAR SPINE (42811) TO MINI Parry CASE #: [id number]. DG Created [address] [place] [address], [address] [address] [phone] Bairon Coker MD NO AUTH REQUIRED FOR PT. PAT GOING TO [facility]. PASSED TO PT DEPT. #[id number].HW Created 1571 [facility], [address] [address] [phone]
--- OUTSIDE RECORDS SUMMARY | 2021-07-09 22:40 | CCD | Continuity of Care Document ---
Author Author Nancy BRITO [facility] Organization Unknown Address [address] [place] [address] [address] [place] [address] Phone [phone] Care Team Providers Care Legal Secretary Name Role Phone Artemio Calabrese MD AUTM [phone] Dick Schultz MD AUTM [phone] Travis Yañez MD AUTM [phone] Problems Active Problems Provider Date Degeneration of [...] every day Unknown Calcium Citrate + D [id number] Tablets Unknown Systane 0.4-0.3% Gel Unknown Amlodipine Besylate 5mg Tablets Unknown Mometasone Furoate 50mcg/Act Suspe nsion [place] Two Sprays In Each Nostril Every Day [...] kg/m2 Procedures Date Code Description Status 06/27/2021 40643 Therapeutic Procedure, Each 15 M inutes Completed 06/27/2021 36379 Manual Therapy Each 15 Minutes C ompleted 06/22/2021 07480 Manual Therapy Each 15 Minutes C ompleted 06/22/2021 58695 Therapeutic Procedure, Each 15 M inutes Completed 06/20/2021 72263 Manual Therapy Each 15 Minutes C ompleted 06/20/2021 96981 Hot Or Cold Packs Completed 06/16/2021 63311 Office/Outpatient Established Lo w MDM 20-29 Min Completed 06/16/2021 24127 Manual Therapy Each 15 Minutes C ompleted 06/16/2021 95007 Therapeutic Procedure, Each 15 M inutes Completed 06/13/2021 55201 Manual Therapy Each 15 Minutes C ompleted 06/13/2021 87520 Therapeutic Procedure, Each 15 M inutes Completed 06/09/2021 20659 Physical Therapy Eval - Low Comp lexity Completed 05/04/2021 41019 Office/Outpatient Established Mo d MDM 30-39 Min Completed 03/14/2021 51756 Office/Outpatient Established Mo d MDM 30-39 Min Completed 02/28/2021 35295 Manual Therapy Each 15 Minutes C ompleted 02/28/2021 48472 Therapeutic Procedure, Each 15 M inutes Completed 02/16/2021 78820 Manual Therapy Each 15 Minutes C ompleted 02/16/2021 08032 Therapeutic Procedure, Each 15 M inutes Completed 02/14/2021 17856 Manual Therapy Each 15 Minutes C ompleted 02/14/2021 48913 Therapeutic Procedure, Each 15 M inutes Completed 02/09/2021 31993 Manual Therapy Each 15 Minutes C ompleted 02/09/2021 38039 Therapeutic Procedure, Each 15 M inutes Completed 02/07/2021 12765 Manual Therapy Each 15 Minutes C ompleted 02/07/2021 56844 Therapeutic Procedure, Each 15 M inutes Completed 02/02/2021 00656 Manual Therapy Each 15 Minutes C ompleted 02/02/2021 65613 Therapeutic Procedure, Each 15 M inutes Completed 01/31/2021 79527 Manual Therapy Each 15 Minutes C ompleted 01/31/2021 62431 Therapeutic Procedure, Each 15 M inutes Completed 01/27/2021 99892 Physical Therapy Eval - Mod Comp lexity Completed 01/16/2021 30845 Office/Outpatient Established Lo w MDM 20-29 Min Completed 01/02/2021 42518 Epidurography Radiological Super vision & Interpretation Completed 01/02/2021 79990 NJX Aa&/STRD TFRML Epi Lumbar/Sa cral 1 [...] displa cement, lumbar region Anamaria Lorena Brito, RECEPTION SPECIALIST 06/27/2021 M48.061 Spinal stenosis, lum bar region without neurogenic claudication Anamaria Lorena Brito, RECEPTION SPECIALIST 06/22/2021 M51.26 Other intervertebral disc displa cement, lumbar region Anamaria Lorena Brito, RECEPTION SPECIALIST 06/22/2021 M48.061 Spinal stenosis, lum bar region without neurogenic claudication Anamariapauly Brito, RECEPTION SPECIALIST 06/20/2021 M51.26 Other intervertebral disc displa cement, lumbar region Rishabh Mtz, PT, DPT 06/20/2021 M48.061 Spinal stenosis, lum bar region without neurogenic claudication Rishabh Mtz, PT, DPT 06/16/2021 M51.26 Other intervertebral disc displa cement, lumbar region Anamaria Lorena Dimas, RECEPTION SPECIALIST 06/16/2021 M51.26 Other intervertebral disc displa cement, lumbar region Sukhwinder Gallardo PA-C 06/16/2021 M48.061 Spinal stenosis, lum bar region without neurogenic claudication Anamariatheresa Brito, RECEPTION SPECIALIST 06/16/2021 M48.061 Spinal stenosis, lum bar region without neurogenic claudication Sukhwinder Gallardo PA-C 06/13/2021 M51.26 Other intervertebral disc displa cement, lumbar region Anamaria Lorena Brito, RECEPTION SPECIALIST 06/13/2021 M48.061 Spinal stenosis, lum bar region without neurogenic claudication Anamaria Lorena Brito, RECEPTION SPECIALIST 06/09/2021 M51.26 Other intervertebral disc displa cement, [...] disc displa cement, lumbar region Danamarie Ortolano, RECEPTION SPECIALIST 02/16/2021 M48.061 Spinal stenosis, lum bar region without neurogenic claudication Danamarie Ortolano, RECEPTION SPECIALIST 02/14/2021 M51.26 Other intervertebral disc displa cement, lumbar region Danamarie Ortolano, RECEPTION SPECIALIST 02/14/2021 M48.061 Spinal stenosis, lum bar region without neurogenic claudication Danamarie Ortolano, RECEPTION SPECIALIST 02/09/2021 M51.26 Other intervertebral disc displa cement, lumbar region Anamaria Brito, RECEPTION SPECIALIST 02/09/2021 M48.061 Spinal stenosis, lum bar region without neurogenic claudication Anamaria Brito, RECEPTION SPECIALIST 02/07/2021 M51.26 Other intervertebral disc displa cement, lumbar region Danamarie Ortolano, RECEPTION SPECIALIST 02/07/2021 M48.061 Spinal stenosis, lum bar region without neurogenic claudication Danamarie Ortolano, RECEPTION SPECIALIST 02/02/2021 M51.26 Other intervertebral disc displa cement, lumbar region Rene Aguilera P.T. 02/02/2021 M48.061 Spinal stenosis, lum bar region without neurogenic claudication Rene Aguilera P.T. 01/31/2021 M51.26 Other intervertebral disc displa cement, lumbar region Danamarie Ortolano, RECEPTION SPECIALIST 01/31/2021 M48.061 Spinal stenosis, lum bar region without neurogenic claudication Danamarie Ortolano, RECEPTION SPECIALIST 01/27/2021 M51.26 Other intervertebral disc displa cement, [...] 3:45 pm - Sukhwinder Gallardo PA-C at [place] * 07/10/2021 1:30 pm - Piyush Vee MD at Surgery [facility] * 07/06/2021 1:30 pm - Lab at Ortho Lab Functional Status Description No Information Available Mental Status Description No Information Available Referrals Refer to Dr Reason for Referral Status Appt Date Sukhwinder Gallardo PA-C Created 000 1571 [facility] [address] [place] [address] [phone] Sukhwinder Gallardo PA-C JASON INJ'S([id number], 76629, & 99 152) PER [place] WEB NO AUTH REQUIRED TO SURGERY NT Created 15[address] [facility] [address] [place] [address] [phone] Bairon Coker MD MRI NO AUTH REQUIRED PER [facility] WEB FOR MRI OF LUMBAR SPINE (02069) TO MINI Parry CASE #: [id number]. DG Created [address] [place] [address], [address] [address] [phone] Bairon Coker MD NO AUTH REQUIRED FOR PT. PAT GOING TO [facility]. PASSED TO PT DEPT. #[id number].HW Created 1571 [facility], [address] [address] [phone]
--- OUTSIDE RECORDS SUMMARY | 2021-07-09 22:40 | CCD | Continuity of Care Document ---
Author Author Nancy BRITO [facility] Organization Unknown Address [address] [place] [address] [address] [place] [address] Phone [phone] Care Team Providers Care Clinical Consultant Name Role Phone Artemio Calabrese MD AUTM [phone] Dick Schultz MD AUTM [phone] Travis Yañez MD AUTM [phone] Problems Active Problems Provider Date Degeneration of [...] every day Unknown Calcium Citrate + D [id number]-Arhb Tablets Unknown Systane 0.4-0.3% Gel Unknown Amlodipine Besylate 5mg Tablets Unknown Mometasone Furoate 50mcg/Act Suspe nsion [place] Two Sprays In Each Nostril Every Day [...] kg/m2 Procedures Date Code Description Status 06/27/2021 79685 Therapeutic Procedure, Each 15 M inutes Completed 06/27/2021 84400 Manual Therapy Each 15 Minutes C ompleted 06/22/2021 07531 Manual Therapy Each 15 Minutes C ompleted 06/22/2021 97925 Therapeutic Procedure, Each 15 M inutes Completed 06/20/2021 38183 Manual Therapy Each 15 Minutes C ompleted 06/20/2021 96377 Hot Or Cold Packs Completed 06/16/2021 43553 Office/Outpatient Established Lo w MDM 20-29 Min Completed 06/16/2021 22790 Manual Therapy Each 15 Minutes C ompleted 06/16/2021 69262 Therapeutic Procedure, Each 15 M inutes Completed 06/13/2021 65625 Manual Therapy Each 15 Minutes C ompleted 06/13/2021 56616 Therapeutic Procedure, Each 15 M inutes Completed 06/09/2021 36706 Physical Therapy Eval - Low Comp lexity Completed 05/04/2021 76779 Office/Outpatient Established Mo d MDM 30-39 Min Completed 03/14/2021 26773 Office/Outpatient Established Mo d MDM 30-39 Min Completed 02/28/2021 78155 Manual Therapy Each 15 Minutes C ompleted 02/28/2021 62379 Therapeutic Procedure, Each 15 M inutes Completed 02/16/2021 36404 Manual Therapy Each 15 Minutes C ompleted 02/16/2021 36329 Therapeutic Procedure, Each 15 M inutes Completed 02/14/2021 70908 Manual Therapy Each 15 Minutes C ompleted 02/14/2021 09155 Therapeutic Procedure, Each 15 M inutes Completed 02/09/2021 96449 Manual Therapy Each 15 Minutes C ompleted 02/09/2021 65060 Therapeutic Procedure, Each 15 M inutes Completed 02/07/2021 39062 Manual Therapy Each 15 Minutes C ompleted 02/07/2021 24022 Therapeutic Procedure, Each 15 M inutes Completed 02/02/2021 71880 Manual Therapy Each 15 Minutes C ompleted 02/02/2021 41979 Therapeutic Procedure, Each 15 M inutes Completed 01/31/2021 44192 Manual Therapy Each 15 Minutes C ompleted 01/31/2021 45822 Therapeutic Procedure, Each 15 M inutes Completed 01/27/2021 43767 Physical Therapy Eval - Mod Comp lexity Completed 01/16/2021 59286 Office/Outpatient Established Lo w MDM 20-29 Min Completed 01/02/2021 93285 Epidurography Radiological Super vision & Interpretation Completed 01/02/2021 93075 NJX Aa&/STRD TFRML Epi Lumbar/Sa cral 1 [...] without neurogenic carli Office Visit 01/16/2021 10:15a Hao Gallardo, RADHA M5 1.26 Other intervertebral disc displacement, lumbar region M48.061 Spinal stenosis, lumbar trini on without neurogenic carli Assessments Date Code Description Provider 06/27/2021 M51.26 Other intervertebral disc displa cement, lumbar region Anamaria Lorena Brito, PROTOTYPE ASSEMBLER ELECTRONICS 06/27/2021 M48.061 Spinal stenosis, lum bar region without neurogenic claudication Anamaria Lorena Brito, PROTOTYPE ASSEMBLER ELECTRONICS 06/22/2021 M51.26 Other intervertebral disc displa cement, lumbar region Anamaria Lorena Brito, PROTOTYPE ASSEMBLER ELECTRONICS 06/22/2021 M48.061 Spinal stenosis, lum bar region without neurogenic claudication Anamariapauly Brito, PROTOTYPE ASSEMBLER ELECTRONICS 06/20/2021 M51.26 Other intervertebral disc displa cement, lumbar region Rishabh Mtz, PT, DPT 06/20/2021 M48.061 Spinal stenosis, lum bar region without neurogenic claudication Rishabh Mtz, PT, DPT 06/16/2021 M51.26 Other intervertebral disc displa cement, lumbar region Anamaria Lorena Dimas, PROTOTYPE ASSEMBLER ELECTRONICS 06/16/2021 M51.26 Other intervertebral disc displa cement, lumbar region Sukhwinder Gallardo PA-C 06/16/2021 M48.061 Spinal stenosis, lum bar region without neurogenic claudication Anamariatheresa Brito, PROTOTYPE ASSEMBLER ELECTRONICS 06/16/2021 M48.061 Spinal stenosis, lum bar region without neurogenic claudication Sukhwinder Gallardo PA-C 06/13/2021 M51.26 Other intervertebral disc displa cement, lumbar region Anamaria Lorena Brito, PROTOTYPE ASSEMBLER ELECTRONICS 06/13/2021 M48.061 Spinal stenosis, lum bar region without neurogenic claudication Anamaria Lorena Brito, PROTOTYPE ASSEMBLER ELECTRONICS 06/09/2021 M51.26 Other intervertebral disc displa cement, [...] disc displa cement, lumbar region Danamarie Ortolano, PROTOTYPE ASSEMBLER ELECTRONICS 02/16/2021 M48.061 Spinal stenosis, lum bar region without neurogenic claudication Danamarie Ortolano, PROTOTYPE ASSEMBLER ELECTRONICS 02/14/2021 M51.26 Other intervertebral disc displa cement, lumbar region Danamarie Ortolano, PROTOTYPE ASSEMBLER ELECTRONICS 02/14/2021 M48.061 Spinal stenosis, lum bar region without neurogenic claudication Danamarie Ortolano, PROTOTYPE ASSEMBLER ELECTRONICS 02/09/2021 M51.26 Other intervertebral disc displa cement, lumbar region Anamaria Brito, PROTOTYPE ASSEMBLER ELECTRONICS 02/09/2021 M48.061 Spinal stenosis, lum bar region without neurogenic claudication Anamaria Brito, PROTOTYPE ASSEMBLER ELECTRONICS 02/07/2021 M51.26 Other intervertebral disc displa cement, lumbar region Danamarie Ortolano, PROTOTYPE ASSEMBLER ELECTRONICS 02/07/2021 M48.061 Spinal stenosis, lum bar region without neurogenic claudication Danamarie Ortolano, PROTOTYPE ASSEMBLER ELECTRONICS 02/02/2021 M51.26 Other intervertebral disc displa cement, lumbar region Rene Aguilera P.T. 02/02/2021 M48.061 Spinal stenosis, lum bar region without neurogenic claudication Rene Aguilera P.T. 01/31/2021 M51.26 Other intervertebral disc displa cement, lumbar region Danamarie Ortolano, PROTOTYPE ASSEMBLER ELECTRONICS 01/31/2021 M48.061 Spinal stenosis, lum bar region without neurogenic claudication Danamarie Ortolano, PROTOTYPE ASSEMBLER ELECTRONICS 01/27/2021 M51.26 Other intervertebral disc displa cement, [...] 3:45 pm - Sukhwinder Gallardo PA-C at [place] * 07/10/2021 1:30 pm - Piyush Vee MD at Surgery [facility] * 07/06/2021 1:30 pm - Lab at Ortho Lab Functional Status Description No Information Available Mental Status Description No Information Available Referrals Refer to Dr Reason for Referral Status Appt Date Sukhwinder Gallardo PA-C Created 000 1571 [facility] [address] [place] [address] [phone] Sukhwinder Gallardo PA-C JASON INJ'S([id number], 52191, & 99 152) PER [place] WEB NO AUTH REQUIRED TO SURGERY NT Created 1571 [facility] [address] [place] [address] [phone] Bairon Coker MD MRI NO AUTH REQUIRED PER [facility] WEB FOR MRI OF LUMBAR SPINE (81765) TO MINI Parry CASE #: [id number]. DG Created [address] [place] [address], [address] [address] [phone] Bairon Coker MD NO AUTH REQUIRED FOR PT. PAT GOING TO [facility]. PASSED TO PT DEPT. #[id number].HW Created 1571 [facility], [address] [address] [phone]
--- OUTSIDE RECORDS SUMMARY | 2021-07-09 22:41 | CCD | Continuity of Care Document ---
Author Author Nancy GALLARDO PA-C Organization Unknown Address [address] [facility] [address] [place] [address] Phone [phone] Care Team Providers Care Swimming Pool Maintenance Name Role Phone Artemio Calabrese MD AUTM [phone] Dick Schultz MD AUTM [phone] Travis Yañez MD AUTM [phone] Problems Active Problems Provider Date Degeneration of [...] every day Unknown Calcium Citrate + D [id number] Tablets Unknown Systane 0.4-0.3% Gel Unknown Amlodipine Besylate 5mg Tablets Unknown Mometasone Furoate 50mcg/Act Suspe nsion Catherine Two Sprays In Each Nostril Every Day [...] lb BMI (Body Mass Index) 24.6 kg/m2 Results Test Acquired Date Facility Test Result H/L Range Note Laboratory test finding 12/27/2020 In House Covid Rapid Testing NEGATIVE Procedures Date Code Description Status 06/16/2021 15373 Manual Therapy Each 15 Minutes C ompleted 06/16/2021 44238 Therapeutic Procedure, Each 15 M inutes Completed 06/16/2021 02114 Office/Outpatient Established Mo d MDM 30-39 Min Completed 06/13/2021 62662 Manual Therapy Each 15 Minutes C ompleted 06/13/2021 09307 Therapeutic Procedure, Each 15 M inutes Completed 06/09/2021 46947 Physical Therapy Eval - Low Comp lexity Completed 05/04/2021 10586 Office/Outpatient Established Mo d MDM 30-39 Min Completed 03/14/2021 43574 Office/Outpatient Established Mo d MDM 30-39 Min Completed 02/28/2021 02571 Manual Therapy Each 15 Minutes C ompleted 02/28/2021 82185 Therapeutic Procedure, Each 15 M inutes Completed 02/16/2021 62382 Manual Therapy Each 15 Minutes C ompleted 02/16/2021 27774 Therapeutic Procedure, Each 15 M inutes Completed 02/14/2021 86295 Therapeutic Procedure, Each 15 M inutes Completed 02/14/2021 36645 Manual Therapy Each 15 Minutes C ompleted 02/09/2021 81898 Manual Therapy Each 15 Minutes C ompleted 02/09/2021 12830 Therapeutic Procedure, Each 15 M inutes Completed 02/07/2021 27110 Manual Therapy Each 15 Minutes C ompleted 02/07/2021 03955 Therapeutic Procedure, Each 15 M inutes Completed 02/02/2021 80230 Manual Therapy Each 15 Minutes C ompleted 02/02/2021 32506 Therapeutic Procedure, Each 15 M inutes Completed 01/31/2021 48251 Manual Therapy Each 15 Minutes C ompleted 01/31/2021 90425 Therapeutic Procedure, Each 15 M inutes Completed 01/27/2021 17751 Physical Therapy Eval - Mod Comp lexity Completed 01/16/2021 33306 Office/Outpatient Established Lo w MDM 20-29 Min Completed 01/02/2021 67461 Epidurography Radiological Super vision & Interpretation Completed 01/02/2021 75168 NJX Aa&/STRD TFRML Epi Lumbar/Sa cral 1 Level Completed 12/16/2020 28809 Office/Outpatient Established Mo d MDM 30-39 Min Completed Medical Devices Description No Information Available [...] trini on without neurogenic carli Office Visit 12/16/2020 1:00p Bardolph Piyush Vee MD M47.27 Other spondylosis with radiculopathy, lumbosacral region M51.37 Other intervertebral disc de generation, lumbosacral region M51.27 Other intervertebral disc di splacement, lumbosacral region M48.061 Spinal stenosis, lumbar trini on without neurogenic carli Assessments Date Code Description Provider 06/16/2021 M51.26 Other intervertebral disc displa cement, lumbar region Anamaria Cochran, 2ND PRESSMAN 06/16/2021 M51.26 Other intervertebral disc displa cement, lumbar region Sukhwinder Gallardo PA-C 06/16/2021 M48.061 Spinal stenosis, lum bar region without neurogenic claudication Anamaria Cochran, 2ND PRESSMAN 06/16/2021 M48.061 Spinal stenosis, lum bar region without neurogenic claudication Sukhwinder Gallardo PA-C 06/13/2021 M51.26 Other intervertebral disc displa cement, lumbar region Anamaria Cochran, 2ND PRESSMAN 06/13/2021 M48.061 Spinal stenosis, lum bar region without neurogenic claudication Anamaria Cochran, 2ND PRESSMAN 06/09/2021 M51.26 Other intervertebral disc displa cement, lumbar region Rishabh Mtz, PT, DPT 06/09/2021 M48.061 Spinal stenosis, lum bar region without neurogenic claudication Rishabh Mtz, PT, DPT 05/04/2021 M54.31 Sciatica, right side Sukhwinder Gallardo PA-C 03/14/2021 M51.26 Other intervertebral disc displa cement, lumbar region DANIKA AmadoC 03/14/2021 M48.061 Spinal stenosis, lum bar region without neurogenic claudication Sukhwinder Gallardo PA-C 02/28/2021 M51.26 Other intervertebral disc displa cement, lumbar region Rene Aguilera P.T. 02/28/2021 M48.061 Spinal stenosis, lum bar region without neurogenic claudication Rene Aguilera P.T. 02/16/2021 M51.26 Other intervertebral disc displa cement, lumbar region Shakira Burns 2ND PRESSMAN 02/16/2021 M48.061 Spinal stenosis, lum bar region without neurogenic claudication Danamarie Ortolano, 2ND PRESSMAN 02/14/2021 M51.26 Other intervertebral disc displa cement, lumbar region Danamarie Ortolano, 2ND PRESSMAN 02/14/2021 M48.061 Spinal stenosis, lum bar region without neurogenic claudication Danamarie Ortolano, 2ND PRESSMAN 02/09/2021 M51.26 Other intervertebral disc displa cement, lumbar region Anamaria Lorena Cochran, 2ND PRESSMAN 02/09/2021 M48.061 Spinal stenosis, lum bar region without neurogenic claudication Anamaria Maxwelllefty Cochran, 2ND PRESSMAN 02/07/2021 M51.26 Other intervertebral disc displa cement, lumbar region Danamarie Ortolano, 2ND PRESSMAN 02/07/2021 M48.061 Spinal stenosis, lum bar region without neurogenic claudication Danamarie Ortolano, 2ND PRESSMAN 02/02/2021 M51.26 Other intervertebral disc displa cement, lumbar region Rene Aguilera P.T. 02/02/2021 M48.061 Spinal stenosis, lum bar region without neurogenic claudication Rene Aguilera P.T. 01/31/2021 M51.26 Other intervertebral disc displa cement, lumbar region Danamarie Ortolano, 2ND PRESSMAN 01/31/2021 M48.061 Spinal stenosis, lum bar region without neurogenic claudication Danamarie Ortolano, 2ND PRESSMAN 01/27/2021 M51.26 Other intervertebral disc displa cement, [...] region without neurogenic claudication Piyush Vee MD 12/29/2020 Z01.818 Encounter for other preprocedura l examination Bairon Coker MD 12/29/2020 Z01.818 Encounter for other preprocedura l examination Lab 12/29/2020 Z20.828 Contact with and (rosas spected) exposure to other viral communicable diseases Bairon Coker MD 12/29/2020 Z20.828 Contact with and (rosas spected) exposure to other viral communicable diseases Lab 12/27/2020 Z20.828 Contact w and exposure to oth vi ral communicable diseases Piyush Vee MD 12/16/2020 M47.27 Other spondylosis with radiculop athy, lumbosacral region Piyush Vee MD 12/16/2020 M51.37 Other intervertebral disc degene ration, lumbosacral region Piyush Vee MD 12/16/2020 M51.27 Other intervertebral disc displa cement, lumbosacral region Piyush Vee MD 12/16/2020 M48.061 Spinal stenosis, lum bar region without neurogenic claudication Piyush Vee MD Plan of Treatment Future Appointment(s):* 06/22/2021 1:00 pm - Anamaria Cochran, 2ND PRESSMAN at Physical Therapy * 06/20/2021 11:00 am - Rishabh Mtz, PT, DPT at Physical Therapy 06/16/2021 - Sukhwinder Gallardo PA-C* M51.26 Other intervertebral disc displacement, lumbar region* New Orders:* [facility]HH Injections, Ordered: 06/16/21 * Follow up:* post HHH injs with bms * M48.061 Spinal stenosis, lumbar region without neurogenic claudication Functional Status Description No Information Available Mental Status Description No Information Available Referrals Refer to Dr Reason for Referral Status Appt Date Bairon Coker MD MRI NO AUTH REQUIRED PER [facility] WEB FOR MRI OF LUMBAR SPINE ([id number]) TO MINI Parry CASE #: [id number]. DG Created [address] [facility], [address] [place] [address] [phone] Bairon Coker MD NO AUTH REQUIRED FOR PT. PAT GOING TO [facility]. PASSED TO PT DEPT. #[id number].HW Created [address] [facility], [address] [place] [address] [phone]
--- OUTSIDE RECORDS SUMMARY | 2021-07-09 22:41 | CCD | Continuity of Care Document ---
Author Author Nancy GALLARDO PA-C Organization Unknown Address [address] [facility] [address] [place] [address] Phone [phone] Care Team Providers Care Cambering Machine Operator Name Role Phone Artemio Calabrese MD AUTM [phone] Dick Schlutz MD AUTM [phone] Travis Yañez MD AUTM [phone] Problems Active Problems Provider Date Degeneration of [...] every day Unknown Calcium Citrate + D [id number] Tablets Unknown Systane 0.4-0.3% Gel Unknown Amlodipine Besylate 5mg Tablets Unknown Mometasone Furoate 50mcg/Act Suspe nsion Mcloud Two Sprays In Each Nostril Every Day [...] Date Facility Test Result H/L Range Note Order 06/19/2021 [facility] [address] [facility] [address] [place] [address] [facility] Injections <pending> Laboratory test finding 12/27/2020 In House Covid Rapid Testing NEGATIVE Procedures Date Code Description Status 06/22/2021 25421 Therapeutic Procedure, Each 15 M inutes Completed 06/22/2021 94834 Manual Therapy Each 15 Minutes C ompleted 06/20/2021 56413 Manual Therapy Each 15 Minutes C ompleted 06/20/2021 32400 Hot Or Cold Packs Completed 06/16/2021 02101 Office/Outpatient Established Lo w MDM 20-29 Min Completed 06/16/2021 32846 Manual Therapy Each 15 Minutes C ompleted 06/16/2021 36204 Therapeutic Procedure, Each 15 M inutes Completed 06/13/2021 80637 Manual Therapy Each 15 Minutes C ompleted 06/13/2021 72959 Therapeutic Procedure, Each 15 M inutes Completed 06/09/2021 86932 Physical Therapy Eval - Low Comp lexity Completed 05/04/2021 29375 Office/Outpatient Established Mo d MDM 30-39 Min Completed 03/14/2021 87557 Office/Outpatient Established Mo d MDM 30-39 Min Completed 02/28/2021 34441 Manual Therapy Each 15 Minutes C ompleted 02/28/2021 59052 Therapeutic Procedure, Each 15 M inutes Completed 02/16/2021 67708 Therapeutic Procedure, Each 15 M inutes Completed 02/16/2021 64254 Manual Therapy Each 15 Minutes C ompleted 02/14/2021 38572 Manual Therapy Each 15 Minutes C ompleted 02/14/2021 18559 Therapeutic Procedure, Each 15 M inutes Completed 02/09/2021 36076 Manual Therapy Each 15 Minutes C ompleted 02/09/2021 75718 Therapeutic Procedure, Each 15 M inutes Completed 02/07/2021 45724 Manual Therapy Each 15 Minutes C ompleted 02/07/2021 64861 Therapeutic Procedure, Each 15 M inutes Completed 02/02/2021 42274 Manual Therapy Each 15 Minutes C ompleted 02/02/2021 64023 Therapeutic Procedure, Each 15 M inutes Completed 01/31/2021 60961 Manual Therapy Each 15 Minutes C ompleted 01/31/2021 10068 Therapeutic Procedure, Each 15 M inutes Completed 01/27/2021 44831 Physical Therapy Eval - Mod Comp lexity Completed 01/16/2021 41169 Office/Outpatient Established Lo w MDM 20-29 Min Completed 01/02/2021 62565 Epidurography Radiological Super vision & Interpretation Completed 01/02/2021 34048 NJX Aa&/STRD TFRML Epi Lumbar/Sa cral 1 Level Completed Medical Devices Description No Information Available Encounters Type Date Location Provider Dx Diagnosis Office Visit 06/16/2021 11:15a Hoa Gallardo PA-C M5 1.26 Other intervertebral disc displacement, lumbar region M48.061 Spinal stenosis, lumbar trini on without neurogenic carli Office Visit 05/04/2021 10:45a Hoa Gallardo PA-C M5 4.31 Sciatica, right side Office Visit 03/14/2021 3:15p LELE Oneal-C M5 1.26 Other intervertebral disc displacement, lumbar region M48.061 Spinal stenosis, lumbar trini on without neurogenic carli Office Visit 01/16/2021 10:15a Hoa Gallardo PA-C M5 1.26 Other intervertebral disc displacement, lumbar region M48.061 Spinal stenosis, lumbar trini on without neurogenic carli Assessments Date Code Description Provider 06/22/2021 Z47.1 Aftercare following joint replac ement surgery Anamaria Cochran, MANAGER PUBLISHING 06/22/2021 M51.26 Other intervertebral disc displa cement, lumbar region Anamaria Cochran, MANAGER PUBLISHING 06/22/2021 M48.061 Spinal stenosis, lum bar region without neurogenic claudication Anamaria Cochran, MANAGER PUBLISHING 06/20/2021 M51.26 Other intervertebral disc displa cement, lumbar region Rishabh Mtz, PT, DPT 06/20/2021 M48.061 Spinal stenosis, lum bar region without neurogenic claudication Rishabh Mtz, PT, DPT 06/16/2021 M51.26 Other intervertebral disc displa cement, lumbar region Anamariatheresa Cochran, MANAGER PUBLISHING 06/16/2021 M51.26 Other intervertebral disc displa cement, lumbar region Sukhwinder Gallardo PA-C 06/16/2021 M48.061 Spinal stenosis, lum bar region without neurogenic claudication Anamaria Cochran, MANAGER PUBLISHING 06/16/2021 M48.061 Spinal stenosis, lum bar region without neurogenic claudication Sukhwinder Gallardo PA-C 06/13/2021 M51.26 Other intervertebral disc displa cement, lumbar region Anamariatheresa Cochran, MANAGER PUBLISHING 06/13/2021 M48.061 Spinal stenosis, lum bar region without neurogenic claudication Anamaria Cochran, MANAGER PUBLISHING 06/09/2021 M51.26 Other intervertebral disc displa cement, [...] disc displa cement, lumbar region Danamarie Ortolano, MANAGER PUBLISHING 02/16/2021 M48.061 Spinal stenosis, lum bar region without neurogenic claudication Danamarie Ortolano, MANAGER PUBLISHING 02/14/2021 M51.26 Other intervertebral disc displa cement, lumbar region Danamarie Ortolano, MANAGER PUBLISHING 02/14/2021 M48.061 Spinal stenosis, lum bar region without neurogenic claudication Danamarie Ortolano, MANAGER PUBLISHING 02/09/2021 M51.26 Other intervertebral disc displa cement, lumbar region Anamaria Cochran, MANAGER PUBLISHING 02/09/2021 M48.061 Spinal stenosis, lum bar region without neurogenic claudication Anamaria Cochran, MANAGER PUBLISHING 02/07/2021 M51.26 Other intervertebral disc displa cement, lumbar region Danamarie Ortolano, MANAGER PUBLISHING 02/07/2021 M48.061 Spinal stenosis, lum bar region without neurogenic claudication Danamarie Ortolano, MANAGER PUBLISHING 02/02/2021 M51.26 Other intervertebral disc displa cement, lumbar region Rene Aguilera P.T. 02/02/2021 M48.061 Spinal stenosis, lum bar region without neurogenic claudication Rene Aguilera P.T. 01/31/2021 M51.26 Other intervertebral disc displa cement, lumbar region Danamarie Ortolano, MANAGER PUBLISHING 01/31/2021 M48.061 Spinal stenosis, lum bar region without neurogenic claudication Danamarie Ortolano, MANAGER PUBLISHING 01/27/2021 M51.26 Other intervertebral disc displa cement, [...] vi ral communicable diseases Piyush Vee MD Plan of Treatment Future Appointment(s):* 07/06/2021 1:30 pm - Lab at Ortho Lab * 06/29/2021 1:00 pm - Anamaria Cochran, MANAGER PUBLISHING at Physical Therapy Functional Status Description No Information Available Mental Status Description No Information Available Referrals Refer to Dr Reason for Referral Status Appt Date Sukhwinder Gallardo PA-C Created [address] [place] [address] [phone] Sukhwinder Gallardo PA-C JASON INJ'S([id number], 46[address], & 23 152) PER [employer] WEB NO AUTH REQUIRED TO SURGERY NT Created [address] [place] [address] [phone] Bairon Coker MD MRI NO AUTH REQUIRED PER [facility] WEB FOR MRI OF LUMBAR SPINE (94655) TO MINI Parry CASE #: [id number]. DG Created [address] [address] [phone] Bairon Coker MD NO AUTH REQUIRED FOR PT. PAT GOING TO [facility]. PASSED TO PT DEPT. #[id number].HW Created [address] [place] [address] [phone]
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
--- OUTSIDE RECORDS SUMMARY | 2021-07-09 22:41 | CCD | Continuity of Care Document ---
Author Author Nancy [facility] DPT Organization Unknown Address [address] [facility] [address] [place] [address] Phone [phone] Care Team Providers Care Breaker Machine Tender Name Role Phone Artemio Calabrese MD AUTM [phone] Dick Schultz MD AUTM [phone] Travis Yañez MD AUTM [phone] Problems Active Problems Provider Date Degeneration of [...] every day Unknown Calcium Citrate + D [id number] Tablets Unknown Systane 0.4-0.3% Gel Unknown Amlodipine Besylate 5mg Tablets Unknown Mometasone Furoate 50mcg/Act Suspe nsion [place] Two Sprays In Each Nostril Every Day [...] every day prn Unknown Omeprazole 20mg Capsules i by mouth every day Unknown Carisoprodol [...] Test Result H/L Range Note Order 06/19/2021 [facility] [address] [address] [facility] Injections <pending> Laboratory test finding 12/27/2020 In House Covid Rapid Testing NEGATIVE Procedures Date Code Description Status 06/16/2021 79543 Manual Therapy Each 15 Minutes C ompleted 06/16/2021 91496 Therapeutic Procedure, Each 15 M inutes Completed 06/16/2021 82744 Office/Outpatient Established Mo d MDM 30-39 Min Completed 06/13/2021 00795 Manual Therapy Each 15 Minutes C ompleted 06/13/2021 85202 Therapeutic Procedure, Each 15 M inutes Completed 06/09/2021 08558 Physical Therapy Eval - Low Comp lexity Completed 05/04/2021 07050 Office/Outpatient Established Mo d MDM 30-39 Min Completed 03/14/2021 14227 Office/Outpatient Established Mo d MDM 30-39 Min Completed 02/28/2021 31290 Manual Therapy Each 15 Minutes C ompleted 02/28/2021 06985 Therapeutic Procedure, Each 15 M inutes Completed 02/16/2021 30171 Manual Therapy Each 15 Minutes C ompleted 02/16/2021 50671 Therapeutic Procedure, Each 15 M inutes Completed 02/14/2021 85852 Therapeutic Procedure, Each 15 M inutes Completed 02/14/2021 17794 Manual Therapy Each 15 Minutes C ompleted 02/09/2021 01266 Manual Therapy Each 15 Minutes C ompleted 02/09/2021 10962 Therapeutic Procedure, Each 15 M inutes Completed 02/07/2021 20656 Manual Therapy Each 15 Minutes C ompleted 02/07/2021 75038 Therapeutic Procedure, Each 15 M inutes Completed 02/02/2021 52748 Manual Therapy Each 15 Minutes C ompleted 02/02/2021 14705 Therapeutic Procedure, Each 15 M inutes Completed 01/31/2021 73289 Manual Therapy Each 15 Minutes C ompleted 01/31/2021 14694 Therapeutic Procedure, Each 15 M inutes Completed 01/27/2021 91708 Physical Therapy Eval - Mod Comp lexity Completed 01/16/2021 32754 Office/Outpatient Established Lo w MDM 20-29 Min Completed 01/02/2021 42049 Epidurography Radiological Super vision & Interpretation Completed 01/02/2021 27874 NJX Aa&/STRD TFRML Epi Lumbar/Sa cral 1 [...] disc displa cement, lumbar region Anamaria Cochran, CPC 06/16/2021 M51.26 Other intervertebral disc displa cement, lumbar region Sukhwinder Gallardo, DANIKAC 06/16/2021 M48.061 Spinal stenosis, lum bar region without neurogenic claudication Anamaria Cochran, CPC 06/16/2021 M48.061 Spinal stenosis, lum bar region without neurogenic claudication Sukhwinder Gallardo, DANIKAC 06/13/2021 M51.26 Other intervertebral disc displa cement, lumbar region Anamaria Cochran, CPC 06/13/2021 M48.061 Spinal stenosis, lum bar region without neurogenic claudication Anamaria Cochran, CPC 06/09/2021 M51.26 Other intervertebral disc displa cement, lumbar region Rishabh Mtz, PT, DPT 06/09/2021 M48.061 Spinal stenosis, lum bar region without neurogenic claudication Rishabh Mtz, PT, DPT 05/04/2021 M54.31 Sciatica, right side Sukhwinder Gallardo, DANIKAC 03/14/2021 M51.26 Other intervertebral disc displa cement, lumbar region Sukhwinder Gallardo, DANIKAC 03/14/2021 M48.061 Spinal stenosis, lum bar region without neurogenic claudication DANIKA AmadoC 02/28/2021 M51.26 Other intervertebral disc displa cement, lumbar region Rene Aguilera P.T. 02/28/2021 M48.061 Spinal stenosis, lum bar region without neurogenic claudication Rene Aguilera P.T. 02/16/2021 M51.26 Other intervertebral disc displa cement, lumbar region Danamarie Ortolano, CPC 02/16/2021 M48.061 Spinal stenosis, lum bar region without neurogenic claudication Danamarie Ortolano, CPC 02/14/2021 M51.26 Other intervertebral disc displa cement, lumbar region Danamarie Ortolano, CPC 02/14/2021 M48.061 Spinal stenosis, lum bar region without neurogenic claudication Danamarie Ortolano, CPC 02/09/2021 M51.26 Other intervertebral disc displa cement, lumbar region Anamaria Maxwelllefty Cochran, CPC 02/09/2021 M48.061 Spinal stenosis, lum bar region without neurogenic claudication Anamaria Lorena Cochran, CPC 02/07/2021 M51.26 Other intervertebral disc displa cement, lumbar region Danamarie Ortolano, CPC 02/07/2021 M48.061 Spinal stenosis, lum bar region without neurogenic claudication Danamarie Ortolano, CPC 02/02/2021 M51.26 Other intervertebral disc displa cement, lumbar region Rene Aguilera P.T. 02/02/2021 M48.061 Spinal stenosis, lum bar region without neurogenic claudication Rene Aguilera P.T. 01/31/2021 M51.26 Other intervertebral disc displa cement, lumbar region Danamarie Ortolano, CPC 01/31/2021 M48.061 Spinal stenosis, lum bar region without neurogenic claudication Danamarie Ortolano, CPC 01/27/2021 M51.26 Other intervertebral disc displa cement, [...] Vee MD Plan of Treatment Future Appointment(s):* 06/29/2021 1:00 pm - Anamaria Cochran, CPC at Physical Therapy * 06/27/2021 1:00 pm - Anamaria Cochran, CPC at Physical Therapy * 06/22/2021 1:00 pm - Anamaria Cochran, CPC at Physical Therapy Functional Status Description No Information Available Mental Status Description No Information Available Referrals Refer to Dr Reason for Referral Status Appt Date Sukhwinder Gallardo PA-C Created 000 [address] [address] [phone] Sukhwinder Gallardo PA-C JASON INJ'S([id number], [id number], & 99 152) PER WiN MS NO AUTH REQUIRED TO SURGERY NT Created [address] [address] [phone] Bairon Coker MD MRI NO AUTH REQUIRED PER [facility] WEB FOR MRI OF LUMBAR SPINE (18150) TO MINI DoughertyDeshawn CASE #: [id number]. DG Created [address] [facility], [address] [address] [phone] Bairon Coker MD NO AUTH REQUIRED FOR PT. PAT GOING TO [facility] PASSED TO PT DEPT. #[id number].HW Created [address] [facility], [address] [address] [phone]
--- OUTSIDE RECORDS SUMMARY | 2021-07-09 22:41 | CCD | Continuity of Care Document ---
Author Author [facility] Organization Unknown Address [address] [place] [address] Phone [phone] Care Team Providers Care Supervisory Geographer Name Role Phone Dick Schultz MD @ [facility] AUTM [phone] [facility] Audiology AUTM [phone] Dick Schultz MD @ [facility] AUTM Problems Active Problems Provider Date Allergic asthma without status asthmaticus Jagdish Potts MD Onset: 12/06/2011 Candidiasis of mouth Jagdish Potts MD Onset: 09/03/2013 Deviated nasal septum Jagdish Potts MD Onset: 4 Dizziness and giddiness Jagdish Potts MD Onset: 014 Benign neoplasm of mouth region Jagdish Potst MD Onset: 09/24/2013 Benign paroxysmal positional vertigo Jagdish Potts MD O nset: 01/20/2014 Essential hypertension Mauricio Ariza JR, MD Onset: 08/12/20 17 Social History Type Date Description Comments Sex Unknown Tobacco Use Start: Unknown End: Unknown Quit ETOH Use Denies alcohol use Recreational Drug Use Denies Drug Use Tobacco Use Start: Unknown End: Unknown Patient is a former smoker quit 1999 Smoking Status Reviewed: 04/28/21 Patient is a former smoker qu it 1999 Allergies, Adverse Reactions, Alerts Active Allergies Criticality Reaction | Severity Comments Date Penicillin Unable to assess criticality BUMPS BACK OF TONGUE 08/12/2017 Morphine Unable to assess criticality Nausea and Vomiting 08/12/2017 Fiorinal Unable to assess criticality Nausea and Vomiting 08/12/2017 Talwin Unable to assess criticality Nausea and Vomiting 08/12/2017 Betadine Unable to assess criticality ITCHING 08/12/2017 Fentanyl Unable to assess criticality ITCHING 08/12/2017 Vancomycin Unable to assess criticality ITCHING 08/12/2017 Codeine Unable to assess criticality ITCHING 08/12/2017 Diclofenac Sodium Unable to assess criticality BURNING SENSATION 08/12/2017 Chloraprep Unable to assess criticality ITCHING SHIVERS 08/12/2017 Baclofen Unable to assess criticality TWITCHING 08/12/2017 Tizanidine Unable to assess criticality NIGHTMARES 08/12/2017 Simvastatin Unable to assess criticality LEG CRAMP, SPASMS 08/12/2017 Lipitor Unable to assess criticality RASH,ITCHING,DIZZINESS 08/12/2017 Pennsaid Unable to assess criticality BURNING SENSATION 08/12/2017 Prednisone Unable to assess criticality LEG CRAMPS 08/12/2017 Tape Unable to assess criticality RASH 08/12/2017 Menthol Unable to assess criticality BURNING SENSATION 08/12/2017 Voltaren Unable to assess criticality BURNING SENSATION 08/12/2017 Pravastatin Unable to assess criticality LEG CRAMPS 07/21/2018 Gabapentin Unable to assess criticality WEIRD SENSATION IN LEGS 07/21/2018 Combigan Unable to assess criticality 11/03/2018 Lumigan Unable to assess criticality 11/03/2018 Medications Active Medications SIG Qnty Indications Ordering Provide r Date CPAP 6cm bernadette Cochran MD 12/17 Fluocinonide 0.05% Solution 4 gtt au up to 2x/wk 60ml Jagdish Potts MD 12/06/2011 Buspirone HCL 5mg Tablets 1 by mouth every day Unknown Citalopram Hydrobromide 10mg Table ts 1 cap by mouth every night 30tabs Unknown Tramadol HCL 50mg Tablets 1-2 every 6 hours as needed for pain after surgery Unknown Flaxseed Oil 1200mg Capsules 1 cap by mouth every day Unknown Vascepa 1gm Capsules 1 tab by mouth twice a day Unknown Pregabalin 100mg Capsules 1 cap by mouth twice a day Unknown Famotidine 20mg Tablets 1 tab by mouth twice a daY 60tabs Unknown Mometasone Furoate 0.1% Solution 2 sprays per nostril daily Unknown Stool Softener 100mg Capsules take 1 tab by mouth twice per day as needed for constipation Unknown Allergy Relief 10mg Tablets by mouth every other day Unknown Eye Health Capsules 1 tab by mouth every day Unknown Montelukast Sodium 10mg Tablets 1 by mouth every day Unknown Systane 0.4-0.3% Solution lucía Unknown Ezetimibe 10mg Tablets 1 by mouth every day Unknown Clobetasol Propionate 0.05% Cream apply to affected area twice a day prn Unknown Centrum Silver Chewtabs 1 by mouth every day Unknown Vitamin B12 6000mcg Tablets ER by mouth every day Unknown Magnesium 500mg Tablets take 1 tablet by mouth daily Unknown Vitamin C 500mg Tablets 1 by mouth every day Unknown Calcium + D3 600-200 Tablets 1 by mouth every day Unknown Vitamin D3 2000Unit Tablets 1 by mouth every day Unknown Preparation H 0.25-88.44% Supposit ory [address] of rectum twice a day prn Unknown Proair HFA 108(90Base) mcg/Act Aer osol 2 puffs four times a day as needed Unknown Amlodipine Besylate 5mg Tablets 1 by mouth every day Unknown Estrace 0.1mg/GM Cream 2 g vaginally 3 times each week at bedtime qs Unknown Advair Diskus 250-50mcg/Dose Aeros ol 1 puff daily as needed 1units Unknown Medications Administered in Office Medication SIG Qnty Indications Ordering Provider Date Covid-19 vaccine, Unspecified Inj ection Unknown 03/20/2021 Covid-19 vaccine, Unspecified Inj ection Unknown 02/20/2021 Immunizations Description No Information Available Vital Signs Date Vital Result Comment 04/28/2021 1:57pm BP Systolic 121 mmHg BP Diastolic 70 mmHg Heart Rate 77 /min O2 % BldC Oximetry 98 % Height 61 inches 5'1" Weight 121.38 lb BMI (Body Mass Index) 22.9 kg/m2 [place] Body Weight 105 lb Weight 55.056 kg BSA (Body Surface Area) 1.53 m2 05/13/2020 9:23am BP Systolic 112 mmHg BP Diastolic 80 mmHg Heart Rate 89 /min O2 % BldC Oximetry 99 % Body Temperature 97.4 F Height 61 inches 5'1" Weight 131.00 lb BMI (Body Mass Index) 24.7 kg/m2 [place] Body Weight 105 lb Weight 59.422 kg BSA (Body Surface Area) 1.58 m2 Results Description No Information Available Procedures Description No Information Available Medical Devices Description No Information Available Encounters Description No Information Available Assessments Date Code Description Provider 04/28/2021 G47.33 Obstructive sleep apnea (adult) (pediatric) Jocelin Oakes, N.P. Plan of Treatment Future Appointment(s):* 05/02/2022 2:15 pm - Jocelin Oakes, N.PDeshawn at [facility] Pulmonary/Thoracic 04/28/2021 - Jocelin Oakes N.P.* G47.33 Obstructive sleep apnea (adult) (pediatric) * * New Orders:* CPAP/BIPAP Supply, Ordered: 04/28/21 * Comments:* 1. No changes were made to the CPAP pressure at today's visit. 2. The patient is aware to call with any problems related to CPAP use, snoring through the mask or return of daytime sleepiness. 3. Per the patient's request, a CPAP supply order has been sent to the [facility]. * Follow up:* 1. Follow up in one year to reassess CPAP compliance or sooner should problems develop. Functional Status Description No Information Available Mental Status Description No Information Available Referrals Description No Information Available
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
--- OUTSIDE RECORDS SUMMARY | 2021-07-09 22:41 | CCD | Continuity of Care Document ---
Author Author Nancy GALLARDO PA-C Organization Unknown Address [address] [facility] [address] [place] [address] Phone [phone] Care Team Providers Care Director [facility] Name Role Phone Artemio Calabrese MD AUTM [phone] Dick Schultz MD AUTM [phone] Travis Yañez MD AUTM [phone] Problems Active Problems Provider Date Degeneration of [...] every day Unknown Calcium Citrate + D [id number] Tablets Unknown Systane 0.4-0.3% Gel Unknown Amlodipine Besylate 5mg Tablets Unknown Mometasone Furoate 50mcg/Act Suspe nsion [place] Two Sprays In Each Nostril Every Day [...] NEGATIVE Procedures Date Code Description Status 06/16/2021 54887 Manual Therapy Each 15 Minutes C ompleted 06/16/2021 54059 Therapeutic Procedure, Each 15 M inutes Completed 06/16/2021 31576 Office/Outpatient Established Mo d MDM 30-39 Min Completed 06/13/2021 86442 Manual Therapy Each 15 Minutes C ompleted 06/13/2021 72217 Therapeutic Procedure, Each 15 M inutes Completed 06/09/2021 22237 Physical Therapy Eval - Low Comp lexity Completed 05/04/2021 03236 Office/Outpatient Established Mo d MDM 30-39 Min Completed 03/14/2021 01053 Office/Outpatient Established Mo d MDM 30-39 Min Completed 02/28/2021 37889 Manual Therapy Each 15 Minutes C ompleted 02/28/2021 06299 Therapeutic Procedure, Each 15 M inutes Completed 02/16/2021 16526 Manual Therapy Each 15 Minutes C ompleted 02/16/2021 14431 Therapeutic Procedure, Each 15 M inutes Completed 02/14/2021 85382 Therapeutic Procedure, Each 15 M inutes Completed 02/14/2021 00657 Manual Therapy Each 15 Minutes C ompleted 02/09/2021 22800 Manual Therapy Each 15 Minutes C ompleted 02/09/2021 05478 Therapeutic Procedure, Each 15 M inutes Completed 02/07/2021 75267 Manual Therapy Each 15 Minutes C ompleted 02/07/2021 95251 Therapeutic Procedure, Each 15 M inutes Completed 02/02/2021 90048 Manual Therapy Each 15 Minutes C ompleted 02/02/2021 26525 Therapeutic Procedure, Each 15 M inutes Completed 01/31/2021 75453 Manual Therapy Each 15 Minutes C ompleted 01/31/2021 89205 Therapeutic Procedure, Each 15 M inutes Completed 01/27/2021 50846 Physical Therapy Eval - Mod Comp lexity Completed 01/16/2021 24178 Office/Outpatient Established Lo w MDM 20-29 Min Completed 01/02/2021 86868 Epidurography Radiological Super vision & Interpretation Completed 01/02/2021 35590 NJX Aa&/STRD TFRML Epi Lumbar/Sa cral 1 Level Completed 12/16/2020 23602 Office/Outpatient Established Mo d MDM 30-39 Min [...] without neurogenic carli Office Visit 12/16/2020 1:00p [place] Piyush Vee MD M47.27 Other spondylosis with radiculopathy, lumbosacral region M51.37 Other intervertebral disc de generation, lumbosacral region M51.27 Other intervertebral disc di splacement, lumbosacral region M48.061 Spinal stenosis, lumbar trini on without neurogenic carli Assessments Date Code Description Provider 06/16/2021 M51.26 Other intervertebral disc displa cement, lumbar region Anamaria Cochran, MANAGER [employer] 06/16/2021 M51.26 Other intervertebral disc displa cement, lumbar region Sukhwinder Gallardo PA-C 06/16/2021 M48.061 Spinal stenosis, lum bar region without neurogenic claudication Anamaria Cochran, MANAGER [employer] 06/16/2021 M48.061 Spinal stenosis, lum bar region without neurogenic claudication Sukhwinder Gallardo PA-C 06/13/2021 M51.26 Other intervertebral disc displa cement, lumbar region Anamaria Cochran, MANAGER [employer] 06/13/2021 M48.061 Spinal stenosis, lum bar region without neurogenic claudication Anamaria Cochran, MANAGER [employer] 06/09/2021 M51.26 Other intervertebral disc displa cement, [...] disc displa cement, lumbar region Shakira Burns MANAGER [employer] 02/16/2021 M48.061 Spinal stenosis, lum bar region without neurogenic claudication Danamarie Ortolano, MANAGER [employer] 02/14/2021 M51.26 Other intervertebral disc displa cement, lumbar region Danamarie Ortolano, MANAGER [employer] 02/14/2021 M48.061 Spinal stenosis, lum bar region without neurogenic claudication Danamarie Ortolano, MANAGER [employer] 02/09/2021 M51.26 Other intervertebral disc displa cement, lumbar region Anamaria Lorena Cochran, MANAGER [employer] 02/09/2021 M48.061 Spinal stenosis, lum bar region without neurogenic claudication Anamaria Maxwelllefty Cochran, MANAGER [employer] 02/07/2021 M51.26 Other intervertebral disc displa cement, lumbar region Danamarie Ortolano, MANAGER [employer] 02/07/2021 M48.061 Spinal stenosis, lum bar region without neurogenic claudication Danamarie Ortolano, MANAGER [employer] 02/02/2021 M51.26 Other intervertebral disc displa cement, lumbar region Rene Aguilera P.T. 02/02/2021 M48.061 Spinal stenosis, lum bar region without neurogenic claudication Rene Aguilera P.T. 01/31/2021 M51.26 Other intervertebral disc displa cement, lumbar region Danamarie Ortolano, MANAGER [employer] 01/31/2021 M48.061 Spinal stenosis, lum bar region without neurogenic claudication Danamarie Ortolano, MANAGER [employer] 01/27/2021 M51.26 Other intervertebral disc displa cement, [...] Appointment(s):* 06/22/2021 1:00 pm - Anamaria Cochran, MANAGER INVE[employer]MENT BANKING at Physical Therapy * 06/20/2021 11:00 am [...] Coker MD MRI NO AUTH REQUIRED PER [facility] FOR MRI OF LUMBAR SPINE ([id number]) TO MINI Parry CASE #: [id number]. DG Created [address] [facility], [address] [place] [address] [phone] Bairon Coker MD NO AUTH REQUIRED FOR PT. PAT GOING TO [facility]. PASSED TO PT DEPT. #[id number].HW Created [address] [facility], [address] [place] [address] [phone]
--- OUTSIDE RECORDS SUMMARY | 2021-07-09 22:41 | CCD | Continuity of Care Document ---
Author Author Nancy FORTUNE PA-C Organization Unknown Address [address] [facility] [address] [place] [address] Phone [phone] Care Team Providers Care Armature Tester Name Role Phone Artemio Calabrese MD AUTM [phone] Dick Schultz MD AUTM [phone] Travis Yañez MD AUTM [phone] Problems Active Problems Provider Date Degeneration of lumbar intervertebral disc Onset: 06/23/1999 Essential hypertension Bairon Coker MD Onset: 02/25/2020 Social History Type Date Description Comments Sex Unknown ETOH Use Denies alcohol use Tobacco Use Start: Unknown End: Unknown Patient is a former smoker 16 years ago Smoking Status Reviewed: 12/15/20 Patient is a former smoker 16 years ago Allergies, Adverse Reactions, Alerts Active Allergies Criticality [...] Ordering Provide r Date Pregabalin 100mg Capsules 1 by mouth three times a day 90caps Yash Kirk MD 02/07/2021 Tramadol HCL 50mg Tablets 1 every 6 hours as needed pain 120tabs Yash Kirk MD 11/21/2020 Mometasone Furoate 50mcg/Act Suspe nsion [place] Two Sprays In Each Nostril Every Day Unkno wn Prednisolone Acetate 1% Suspension Unknown Ezetimibe 10mg Tablets Unknown Montelukast Sodium 10mg Tablets Unknown Zinc 15 66mg Tablets Unknown Goodsense ALL Day Allergy 10mg Tab lets 1 by mouth every night Unknown Preparation H 0.25-88.44% Suppository Unknown Stool Softener 100mg Capsules 1 by mouth twice a day Unknown Vitamin C 1000mg Tablets 1 by mouth every day Unknown Calcium Citrate + D [id number] Tablets Unknown Systane 0.4-0.3% Gel Unknown Amlodipine Besylate 5mg Tablets Unknown Clobetasol Propionate 0.05% Cream use as directed [...] 350mg Tablets 1- 4 a day Unknown History Medications Duloxetine HCL 20mg Caps DR Part 1 by mouth every morning x2 weeks then increase to 2 caps by mouth daily 60caps M47.27 Piyush Vee MD 11/08/2020 - 11/18/2020 Immunizations Description No Information Available Vital Signs Date Vital Result Comment 12/16/2020 1:12pm Body Temperature 98.8 F Height 61 inches 5'1" Weight 130.00 lb BMI (Body Mass Index) 24.6 kg/m2 10/06/2020 2:09pm Body Temperature 97.1 F Results Test Acquired Date Facility Test Result H/L Range Note Laboratory test finding 12/27/2020 In House Covid Rapid Testing NEGATIVE Procedures Date Code Description Status 05/04/2021 91065 Office/Outpatient Established Mo d MDM 30-39 Min Completed 03/14/2021 03261 Office/Outpatient Established Mo d MDM 30-39 Min Completed 02/28/2021 02753 Manual Therapy Each 15 Minutes C ompleted 02/28/2021 57313 Therapeutic Procedure, Each 15 M inutes Completed 02/16/2021 52606 Manual Therapy Each 15 Minutes C ompleted 02/16/2021 51336 Therapeutic Procedure, Each 15 M inutes Completed 02/14/2021 14251 Manual Therapy Each 15 Minutes C ompleted 02/14/2021 21510 Therapeutic Procedure, Each 15 M inutes Completed 02/09/2021 96259 Manual Therapy Each 15 Minutes C ompleted 02/09/2021 76143 Therapeutic Procedure, Each 15 M inutes Completed 02/07/2021 30200 Manual Therapy Each 15 Minutes C ompleted 02/07/2021 21731 Therapeutic Procedure, Each 15 M inutes Completed 02/02/2021 60687 Manual Therapy Each 15 Minutes C ompleted 02/02/2021 67761 Therapeutic Procedure, Each 15 M inutes Completed 01/31/2021 48131 Manual Therapy Each 15 Minutes C ompleted 01/31/2021 01639 Therapeutic Procedure, Each 15 M inutes Completed 01/27/2021 26663 Physical Therapy Eval - Mod Comp lexity Completed 01/16/2021 35492 Office/Outpatient Established Lo w MDM 20-29 Min Completed 01/02/2021 75202 Epidurography Radiological Super vision & Interpretation Completed 01/02/2021 17994 NJX Aa&/STRD TFRML Epi Lumbar/Sa cral 1 Level Completed 12/16/2020 82402 Office/Outpatient Established Mo d MDM 30-39 Min Completed 12/15/2020 23189 Office/Outpatient Established Lo w MDM 20-29 Min Completed 11/08/2020 10327 Office/Outpatient Established Mo d MDM 30-39 Min Completed 11/03/2020 81416 Office/Outpatient Established Mo d MDM 30-39 Min Completed 11/03/2020 47046 Inject/Drain Joint/Bursa Major C ompleted Medical Devices Description No Information Available Encounters Type Date Location Provider Dx Diagnosis Office Visit 05/04/2021 10:45a Hoa Fortune PA-C M4 7.27 Other spondylosis with radiculopathy, lumbosacral region M51.37 Other intervertebral disc de generation, lumbosacral region M51.27 Other intervertebral disc di splacement, lumbosacral region M48.061 Spinal stenosis, lumbar trini on without neurogenic carli Office Visit 03/14/2021 3:15p Hoa Fortune PA-C M5 1.26 Other intervertebral disc displacement, lumbar region M48.061 Spinal stenosis, lumbar trini on without neurogenic carli Office Visit 01/16/2021 10:15a Hoa Fortune PA-C M5 1.26 Other intervertebral disc displacement, lumbar region M48.061 Spinal stenosis, lumbar trini on without neurogenic carli Office Visit 12/16/2020 1:00p [place] Piyush Vee MD M47.27 Other spondylosis with radiculopathy, lumbosacral region M51.37 Other intervertebral disc de generation, lumbosacral region M51.27 Other intervertebral disc di splacement, lumbosacral region M48.061 Spinal stenosis, lumbar trini on without neurogenic carli Office Visit 12/15/2020 11:30a [place] DANIKA MatthewsC M25.561 Pain in right knee M17.11 Unilateral primary osteoarth ritis, right knee Office Visit 11/08/2020 3:30p [place] LELE Williamson M47.27 Other spondylosis with radiculopathy, lumbosacral region M51.37 Other intervertebral disc de generation, lumbosacral region M51.27 Other intervertebral disc di splacement, lumbosacral region M48.061 Spinal stenosis, lumbar trini on without neurogenic carli Office Visit 11/03/2020 1:30p [place] Bairon Coker MD M25.561 Pain in right knee Assessments Date Code Description Provider 05/04/2021 M47.27 Other spondylosis with radiculop athy, lumbosacral region Sukhwinder Fortune PA-C 05/04/2021 M51.37 Other intervertebral disc degene ration, lumbosacral region Sukhwinder Fortune PA-C 05/04/2021 M51.27 Other intervertebral disc displa cement, lumbosacral region Sukhwinder Fortune PA-C 05/04/2021 M48.061 Spinal stenosis, lum bar region without neurogenic claudication DANIKA AmadoC 03/14/2021 M51.26 Other intervertebral disc displa cement, lumbar region DANIKA AmadoC 03/14/2021 M48.061 Spinal stenosis, lum bar region without neurogenic claudication DANIKA AmadoC 02/28/2021 M51.26 Other intervertebral disc displa cement, lumbar region Rene Aguilera P.T. 02/28/2021 M48.061 Spinal stenosis, lum bar region without neurogenic claudication Rene Aguilera P.T. 02/16/2021 M51.26 Other intervertebral disc displa cement, lumbar region Danamarie Ortolano, INSTRUMENTATION AND CONTROLS DESIGNER 02/16/2021 M48.061 Spinal stenosis, lum bar region without neurogenic claudication Danamarie Ortolano, INSTRUMENTATION AND CONTROLS DESIGNER 02/14/2021 M51.26 Other intervertebral disc displa cement, lumbar region Danamarie Ortolano, INSTRUMENTATION AND CONTROLS DESIGNER 02/14/2021 M48.061 Spinal stenosis, lum bar region without neurogenic claudication Danamarie Ortolano, INSTRUMENTATION AND CONTROLS DESIGNER 02/09/2021 M51.26 Other intervertebral disc displa cement, lumbar region Anamariatheresa Cochran, INSTRUMENTATION AND CONTROLS DESIGNER 02/09/2021 M48.061 Spinal stenosis, lum bar region without neurogenic claudication Anamaria Cochran, INSTRUMENTATION AND CONTROLS DESIGNER 02/07/2021 M51.26 Other intervertebral disc displa cement, lumbar region Danamarie Ortolano, INSTRUMENTATION AND CONTROLS DESIGNER 02/07/2021 M48.061 Spinal stenosis, lum bar region without neurogenic claudication Danamarie Ortolano, INSTRUMENTATION AND CONTROLS DESIGNER 02/02/2021 M51.26 Other intervertebral disc displa cement, lumbar region Rene Aguilera P.T. 02/02/2021 M48.061 Spinal stenosis, lum bar region without neurogenic claudication Rene Aguilera P.T. 01/31/2021 M51.26 Other intervertebral disc displa cement, lumbar region Danamarie Ortolano, INSTRUMENTATION AND CONTROLS DESIGNER 01/31/2021 M48.061 Spinal stenosis, lum bar region without neurogenic claudication Danamarie Ortolano, INSTRUMENTATION AND CONTROLS DESIGNER 01/27/2021 M51.26 Other intervertebral disc displa cement, lumbar region Rene Aguilera P.T. 01/27/2021 M48.061 Spinal stenosis, lum bar region without neurogenic claudication Rene Aguilera P.T. 01/16/2021 M51.26 Other intervertebral disc displa cement, lumbar region Sukhwinder Fortune PA-C 01/16/2021 M48.061 Spinal stenosis, lum bar region without neurogenic claudication Sukhwinder Fortune PA-C 01/02/2021 M51.26 Other intervertebral disc displa [...] region without neurogenic claudication Piyush Vee MD 12/15/2020 M25.561 Pain in right knee Inez LopezDeshawn Coker PA-C 12/15/2020 M17.11 Unilateral primary osteoarthriti s, right knee Inez LDeshawn Coker PA-C 11/08/2020 M47.27 Other spondylosis with radiculop athy, lumbosacral region LELE Williamson 11/08/2020 M51.37 Other intervertebral disc degene ration, lumbosacral region LELE Williamson 11/08/2020 M51.27 Other intervertebral disc displa cement, lumbosacral region LELE Williamson 11/08/2020 M48.061 Spinal stenosis, lum bar region without neurogenic claudication LELE Williamson 11/03/2020 M25.561 Pain in right knee Bairon raymond MD Plan of Treatment Future Appointment(s):* 06/15/2021 1:00 pm - Sukhwinder Fortune PA-C at [facility] 05/04/2021 - Sukhwinder Fortune PA-C* M47.27 Other spondylosis with radiculopathy, lumbosacral region* Follow up:* 6 weeks for back recheck with [facility] * M51.37 Other intervertebral disc degeneration, lumbosacral region * M51.27 Other intervertebral disc displacement, lumbosacral region * M48.061 Spinal stenosis, lumbar region without neurogenic claudication Functional Status Description No Information Available Mental Status Description No Information Available Referrals Refer to Dr Reason for Referral Status Appt Date Bairon Coker MD MRI NO AUTH REQUIRED PER [facility] FOR MRI OF LUMBAR SPINE (72393) TO MINI DoughertyDeshawn CASE #: [id number]. DG Created [address] [place] [id number] [phone] Bairon Coker MD NO AUTH REQUIRED FOR PT. PAT GOING [place] [facility] PASSED TO PT DEPT. #[id number].HW Created [address] [place] [address] [phone] Bairon Coker MD MRI NO AUTH REQUIRED PER [facility] FOR MRI OF LUMBAR SPINE ([id number]) TO MINI DoughertyDeshawn BRIDGES Created [address] [place] [id number] [phone] Bairon Coker MD MRI NO AUTH REQUIRED PER [facility] FOR MRI OF LUMBAR SPINE (19713) TO MINI Sohan BRIDGES CASE #: [id number]. Created [address] [place] [id number] [phone]
--- OUTSIDE RECORDS SUMMARY | 2021-07-09 22:41 | CCD | Continuity of Care Document ---
Author Author Nancy [facility] Organization Unknown Address [address] [place] [address] [address] [place] [address] Phone [phone] Care Team Providers Care Security And Compliance Analyst Name Role Phone Artemio Calabrese MD AUTM [phone] Dick Schultz MD AUTM [phone] Travis Yañez MD AUTM [phone] Problems Active Problems Provider Date Degeneration of [...] every day Unknown Calcium Citrate + D [id number] Tablets Unknown Systane 0.4-0.3% Gel Unknown Amlodipine Besylate 5mg Tablets Unknown Mometasone Furoate 50mcg/Act Suspe nsion [place] Two Sprays In Each Nostril Every Day [...] Testing NEGATIVE Procedures Date Code Description Status 06/09/2021 66264 Physical Therapy Eval - Low Comp lexity Completed 05/04/2021 38047 Office/Outpatient Established Mo d MDM 30-39 Min Completed 03/14/2021 46204 Office/Outpatient Established Mo d MDM 30-39 Min Completed 02/28/2021 75291 Manual Therapy Each 15 Minutes C ompleted 02/28/2021 42646 Therapeutic Procedure, Each 15 M inutes Completed 02/16/2021 05530 Manual Therapy Each 15 Minutes C ompleted 02/16/2021 02512 Therapeutic Procedure, Each 15 M inutes Completed 02/14/2021 83928 Manual Therapy Each 15 Minutes C ompleted 02/14/2021 54418 Therapeutic Procedure, Each 15 M inutes Completed 02/09/2021 31543 Manual Therapy Each 15 Minutes C ompleted 02/09/2021 66124 Therapeutic Procedure, Each 15 M inutes Completed 02/07/2021 70109 Manual Therapy Each 15 Minutes C ompleted 02/07/2021 29565 Therapeutic Procedure, Each 15 M inutes Completed 02/02/2021 83783 Manual Therapy Each 15 Minutes C ompleted 02/02/2021 99209 Therapeutic Procedure, Each 15 M inutes Completed 01/31/2021 70056 Manual Therapy Each 15 Minutes C ompleted 01/31/2021 30525 Therapeutic Procedure, Each 15 M inutes Completed 01/27/2021 59870 Physical Therapy Eval - Mod Comp lexity Completed 01/16/2021 66298 Office/Outpatient Established Lo w MDM 20-29 Min Completed 01/02/2021 07127 Epidurography Radiological Super vision & Interpretation Completed 01/02/2021 07286 NJX Aa&/STRD TFRML Epi Lumbar/Sa cral 1 Level Completed 12/16/2020 65172 Office/Outpatient Established Mo d MDM 30-39 Min Completed 12/15/2020 08097 Office/Outpatient Established Lo w MDM 20-29 Min Completed Medical Devices Description No Information Available Encounters Type Date Location Provider Dx Diagnosis Office Visit 05/04/2021 10:45a Hoa Gallardo PA-C [...] without neurogenic carli Office Visit 12/16/2020 1:[place]p [place] M47.27 Other spondylosis with radiculopathy, lumbosacral region M51.37 Other intervertebral disc de generation, lumbosacral region M51.27 Other intervertebral disc di splacement, lumbosacral region M48.061 Spinal stenosis, lumbar trini on without neurogenic carli Office Visit 12/15/2020 11:30a Hoa Coker PA-C M25.561 Pain in right knee M17.11 Unilateral primary osteoarth ritis, right knee Assessments Date Code Description Provider 06/09/2021 M51.26 Other intervertebral disc displa cement, lumbar region Rishabh Mtz, PT, DPT 06/09/2021 M48.061 Spinal stenosis, lum bar region without neurogenic claudication Rishabh Mtz, PT, DPT 05/04/2021 M54.31 Sciatica, right side Sukhwinder SbDeshawn Gallardo, PA-C 03/14/2021 M51.26 Other intervertebral disc displa cement, lumbar region Sukhwinder Gallardo, PA-C 03/14/2021 M48.061 Spinal stenosis, lum bar region without neurogenic claudication Sukhwinder Gallardo, PA-C 02/28/2021 M51.26 Other intervertebral disc displa cement, lumbar region Rene Aguilera P.T. 02/28/2021 M48.061 Spinal stenosis, lum bar region without neurogenic claudication Rene Aguilera P.T. 02/16/2021 M51.26 Other intervertebral disc displa cement, lumbar region Danamarie Ortolano, STORY READER 02/16/2021 M48.061 Spinal stenosis, lum bar region without neurogenic claudication Danamarie Ortolano, STORY READER 02/14/2021 M51.26 Other intervertebral disc displa cement, lumbar region Danamarie Ortolano, STORY READER 02/14/2021 M48.061 Spinal stenosis, lum bar region without neurogenic claudication Danamarie Ortolano, STORY READER 02/09/2021 M51.26 Other intervertebral disc displa cement, lumbar region Anamaria Brito, STORY READER 02/09/2021 M48.061 Spinal stenosis, lum bar region without neurogenic claudication Anamaria Brito, STORY READER 02/07/2021 M51.26 Other intervertebral disc displa cement, lumbar region Danamarie Ortolano, STORY READER 02/07/2021 M48.061 Spinal stenosis, lum bar region without neurogenic claudication Danamarie Ortolano, STORY READER 02/02/2021 M51.26 Other intervertebral disc displa cement, lumbar region Rene Aguilera P.T. 02/02/2021 M48.061 Spinal stenosis, lum bar region without neurogenic claudication Rene Aguilera P.T. 01/31/2021 M51.26 Other intervertebral disc displa cement, lumbar region Danamarie Ortolano, STORY READER 01/31/2021 M48.061 Spinal stenosis, lum bar region without neurogenic claudication Danamarie Ortolano, STORY READER 01/27/2021 M51.26 Other intervertebral disc displa cement, [...] 12/15/2020 M25.561 Pain in right knee Inez Coker PA-C 12/15/2020 M17.11 Unilateral primary osteoarthriti s, right knee Inez Londono RADHA Coker Plan of Treatment Future Appointment(s):* 06/16/2021 1:00 pm - Anamaria Brito, STORY READER at Physical Therapy * 06/16/2021 11:15 am - Sukhwinder Gallardo PA-C at [place] Functional Status Description No Information Available Mental Status Description No Information Available Referrals Refer to Dr Reason for Referral Status Appt Date Bairon Ckoer MD MRI NO AUTH REQUIRED PER [facility] WEB FOR MRI OF LUMBAR SPINE (05049) TO MINI Parry CASE #: [id number]. DG Created [address] [place] [phone] Bairon Coker MD NO AUTH REQUIRED FOR PT. [place] [facility] [place] PT DEPT. #[id number].HW Created [facility] [address] [address] [phone]
--- OUTSIDE RECORDS SUMMARY | 2021-07-09 22:41 | CCD | Continuity of Care Document ---
Author Author Nancy [facility] Organization Unknown Address [address] [place] [address] [address] [place] [address] Phone [phone] Care Team Providers Care Remote Sensing Technician Name Role Phone Artemio Calabrese MD AUTM [phone] Dick Schultz MD AUTM [phone] Travis Yañez MD AUTM [phone] Problems Active Problems Provider Date Degeneration of [...] every day Unknown Calcium Citrate + D [id number] Tablets Unknown Systane 0.4-0.3% Gel Unknown Amlodipine Besylate 5mg Tablets Unknown Mometasone Furoate 50mcg/Act Suspe nsion [place] Two Sprays In Each Nostril Every Day [...] kg/m2 Procedures Date Code Description Status 06/27/2021 46095 Therapeutic Procedure, Each 15 M inutes Completed 06/27/2021 43568 Manual Therapy Each 15 Minutes C ompleted 06/22/2021 73832 Manual Therapy Each 15 Minutes C ompleted 06/22/2021 23434 Therapeutic Procedure, Each 15 M inutes Completed 06/20/2021 40004 Manual Therapy Each 15 Minutes C ompleted 06/20/2021 31213 Hot Or Cold Packs Completed 06/16/2021 92289 Office/Outpatient Established Lo w MDM 20-29 Min Completed 06/16/2021 29805 Manual Therapy Each 15 Minutes C ompleted 06/16/2021 48445 Therapeutic Procedure, Each 15 M inutes Completed 06/13/2021 05678 Manual Therapy Each 15 Minutes C ompleted 06/13/2021 11191 Therapeutic Procedure, Each 15 M inutes Completed 06/09/2021 76132 Physical Therapy Eval - Low Comp lexity Completed 05/04/2021 45005 Office/Outpatient Established Mo d MDM 30-39 Min Completed 03/14/2021 19619 Office/Outpatient Established Mo d MDM 30-39 Min Completed 02/28/2021 83156 Manual Therapy Each 15 Minutes C ompleted 02/28/2021 10255 Therapeutic Procedure, Each 15 M inutes Completed 02/16/2021 81702 Manual Therapy Each 15 Minutes C ompleted 02/16/2021 10006 Therapeutic Procedure, Each 15 M inutes Completed 02/14/2021 78750 Manual Therapy Each 15 Minutes C ompleted 02/14/2021 58727 Therapeutic Procedure, Each 15 M inutes Completed 02/09/2021 06492 Manual Therapy Each 15 Minutes C ompleted 02/09/2021 73577 Therapeutic Procedure, Each 15 M inutes Completed 02/07/2021 51713 Manual Therapy Each 15 Minutes C ompleted 02/07/2021 63072 Therapeutic Procedure, Each 15 M inutes Completed 02/02/2021 82305 Manual Therapy Each 15 Minutes C ompleted 02/02/2021 09507 Therapeutic Procedure, Each 15 M inutes Completed 01/31/2021 15382 Manual Therapy Each 15 Minutes C ompleted 01/31/2021 88435 Therapeutic Procedure, Each 15 M inutes Completed 01/27/2021 55032 Physical Therapy Eval - Mod Comp lexity Completed 01/16/2021 99266 Office/Outpatient Established Lo w MDM 20-29 Min Completed 01/02/2021 76341 Epidurography Radiological Super vision & Interpretation Completed 01/02/2021 53534 NJX Aa&/STRD TFRML Epi Lumbar/Sa cral 1 [...] displa cement, lumbar region Anamaria Lorena Brito, FUNERAL HOME MAKEUP ARTIST 06/27/2021 M48.061 Spinal stenosis, lum bar region without neurogenic claudication Anamaria Lorena Brito, FUNERAL HOME MAKEUP ARTIST 06/22/2021 M51.26 Other intervertebral disc displa cement, lumbar region Anamaria Lorena Brito, FUNERAL HOME MAKEUP ARTIST 06/22/2021 M48.061 Spinal stenosis, lum bar region without neurogenic claudication Anamariapauly Brito, FUNERAL HOME MAKEUP ARTIST 06/20/2021 M51.26 Other intervertebral disc displa cement, lumbar region Rishabh Mtz, PT, DPT 06/20/2021 M48.061 Spinal stenosis, lum bar region without neurogenic claudication Rishabh Mtz, PT, DPT 06/16/2021 M51.26 Other intervertebral disc displa cement, lumbar region Anamaria Lorena Dimas, FUNERAL HOME MAKEUP ARTIST 06/16/2021 M51.26 Other intervertebral disc displa cement, lumbar region Sukhwinder Gallardo PA-C 06/16/2021 M48.061 Spinal stenosis, lum bar region without neurogenic claudication Anamariatheresa Brito, FUNERAL HOME MAKEUP ARTIST 06/16/2021 M48.061 Spinal stenosis, lum bar region without neurogenic claudication Sukhwinder Gallardo PA-C 06/13/2021 M51.26 Other intervertebral disc displa cement, lumbar region Anamaria Lorena Brito, FUNERAL HOME MAKEUP ARTIST 06/13/2021 M48.061 Spinal stenosis, lum bar region without neurogenic claudication Anamaria Lorena Brito, FUNERAL HOME MAKEUP ARTIST 06/09/2021 M51.26 Other intervertebral disc displa cement, [...] disc displa cement, lumbar region Danamarie Ortolano, FUNERAL HOME MAKEUP ARTIST 02/16/2021 M48.061 Spinal stenosis, lum bar region without neurogenic claudication Danamarie Ortolano, FUNERAL HOME MAKEUP ARTIST 02/14/2021 M51.26 Other intervertebral disc displa cement, lumbar region Danamarie Ortolano, FUNERAL HOME MAKEUP ARTIST 02/14/2021 M48.061 Spinal stenosis, lum bar region without neurogenic claudication Danamarie Ortolano, FUNERAL HOME MAKEUP ARTIST 02/09/2021 M51.26 Other intervertebral disc displa cement, lumbar region Anamaria Brito, FUNERAL HOME MAKEUP ARTIST 02/09/2021 M48.061 Spinal stenosis, lum bar region without neurogenic claudication Anamaria Brito, FUNERAL HOME MAKEUP ARTIST 02/07/2021 M51.26 Other intervertebral disc displa cement, lumbar region Danamarie Ortolano, FUNERAL HOME MAKEUP ARTIST 02/07/2021 M48.061 Spinal stenosis, lum bar region without neurogenic claudication Danamarie Ortolano, FUNERAL HOME MAKEUP ARTIST 02/02/2021 M51.26 Other intervertebral disc displa cement, lumbar region Rene Aguilera P.T. 02/02/2021 M48.061 Spinal stenosis, lum bar region without neurogenic claudication Rene Aguilera P.T. 01/31/2021 M51.26 Other intervertebral disc displa cement, lumbar region Danamarie Ortolano, FUNERAL HOME MAKEUP ARTIST 01/31/2021 M48.061 Spinal stenosis, lum bar region without neurogenic claudication Danamarie Ortolano, FUNERAL HOME MAKEUP ARTIST 01/27/2021 M51.26 Other intervertebral disc displa cement, [...] 3:45 pm - Sukhwinder Gallardo PA-C at [place] * 07/10/2021 1:30 pm - Piyush Vee MD at Surgery [facility] * 07/06/2021 1:30 pm - Lab at Ortho Lab Functional Status Description No Information Available Mental Status Description No Information Available Referrals Refer to Dr Reason for Referral Status Appt Date Sukhwinder Gallardo PA-C Created 000 [address] [facility] [address] [place] [address] [phone] Sukhwinder Gallardo PA-C JASON INJ'S(51720, [id number], & 99 152) PER [place] WEB NO AUTH REQUIRED TO SURGERY NT Created [address] [facility] [address] [place] [address] [phone] Bairon Coker MD MRI NO AUTH REQUIRED PER [facility] WEB FOR MRI OF LUMBAR SPINE (49554) TO MINI Parry CASE #: [id number]. DG Created [address] [place] [address], [address] [address] [phone] Bairon Coker MD NO AUTH REQUIRED FOR PT[place] [facility] [place] PT DEPT. #[id number].HW Created [address] [facility], [address] [address] [phone]
--- OUTSIDE RECORDS SUMMARY | 2021-07-09 22:41 | CCD | Continuity of Care Document ---
Author Author Nancy [facility] Organization Unknown Address [address] [facility] [address] [place] [address] Phone [phone] Care Team Providers Care Management Professional Name Role Phone Artemio Calabrese MD AUTM [phone] Dick Schultz MD AUTM [phone] Travis Yañez MD AUTM [phone] Problems Active Problems Provider Date Degeneration of [...] every day Unknown Calcium Citrate + D [id number] Tablets Unknown Systane 0.4-0.3% Gel Unknown Amlodipine Besylate 5mg Tablets Unknown Mometasone Furoate 50mcg/Act Suspe nsion [place] Two Sprays In Each Nostril Every Day [...] kg/m2 Procedures Date Code Description Status 06/27/2021 14528 Therapeutic Procedure, Each 15 M inutes Completed 06/27/2021 06975 Manual Therapy Each 15 Minutes C ompleted 06/22/2021 00061 Manual Therapy Each 15 Minutes C ompleted 06/22/2021 79696 Therapeutic Procedure, Each 15 M inutes Completed 06/20/2021 32574 Manual Therapy Each 15 Minutes C ompleted 06/20/2021 57192 Hot Or Cold Packs Completed 06/16/2021 89396 Office/Outpatient Established Lo w MDM 20-29 Min Completed 06/16/2021 43492 Manual Therapy Each 15 Minutes C ompleted 06/16/2021 55885 Therapeutic Procedure, Each 15 M inutes Completed 06/13/2021 78507 Manual Therapy Each 15 Minutes C ompleted 06/13/2021 57397 Therapeutic Procedure, Each 15 M inutes Completed 06/09/2021 19608 Physical Therapy Eval - Low Comp lexity Completed 05/04/2021 95536 Office/Outpatient Established Mo d MDM 30-39 Min Completed 03/14/2021 77422 Office/Outpatient Established Mo d MDM 30-39 Min Completed 02/28/2021 88362 Manual Therapy Each 15 Minutes C ompleted 02/28/2021 10596 Therapeutic Procedure, Each 15 M inutes Completed 02/16/2021 47211 Manual Therapy Each 15 Minutes C ompleted 02/16/2021 46477 Therapeutic Procedure, Each 15 M inutes Completed 02/14/2021 03829 Manual Therapy Each 15 Minutes C ompleted 02/14/2021 61568 Therapeutic Procedure, Each 15 M inutes Completed 02/09/2021 76327 Manual Therapy Each 15 Minutes C ompleted 02/09/2021 48909 Therapeutic Procedure, Each 15 M inutes Completed 02/07/2021 86988 Manual Therapy Each 15 Minutes C ompleted 02/07/2021 39562 Therapeutic Procedure, Each 15 M inutes Completed 02/02/2021 47597 Manual Therapy Each 15 Minutes C ompleted 02/02/2021 14883 Therapeutic Procedure, Each 15 M inutes Completed 01/31/2021 87332 Manual Therapy Each 15 Minutes C ompleted 01/31/2021 31349 Therapeutic Procedure, Each 15 M inutes Completed 01/27/2021 10824 Physical Therapy Eval - Mod Comp lexity Completed 01/16/2021 56088 Office/Outpatient Established Lo w MDM 20-29 Min Completed 01/02/2021 28080 Epidurography Radiological Super vision & Interpretation Completed 01/02/2021 79199 NJX Aa&/STRD TFRML Epi Lumbar/Sa cral 1 [...] displa cement, lumbar region Anamaria Lorena Cochran, BURNING SUPERVISOR 06/27/2021 M48.061 Spinal stenosis, lum bar region without neurogenic claudication Anamaria Lorena Cochran, BURNING SUPERVISOR 06/22/2021 M51.26 Other intervertebral disc displa cement, lumbar region Anamaria Lorena Cochran, BURNING SUPERVISOR 06/22/2021 M48.061 Spinal stenosis, lum bar region without neurogenic claudication Anamariapauly Cochran, BURNING SUPERVISOR 06/20/2021 M51.26 Other intervertebral disc displa cement, lumbar region Rishabh Mtz, PT, DPT 06/20/2021 M48.061 Spinal stenosis, lum bar region without neurogenic claudication Rishabh Mtz, PT, DPT 06/16/2021 M51.26 Other intervertebral disc displa cement, lumbar region Anamaria Lorena Dimas, BURNING SUPERVISOR 06/16/2021 M51.26 Other intervertebral disc displa cement, lumbar region Sukhwinder Gallardo PA-C 06/16/2021 M48.061 Spinal stenosis, lum bar region without neurogenic claudication Anamariatheresa Cochran, BURNING SUPERVISOR 06/16/2021 M48.061 Spinal stenosis, lum bar region without neurogenic claudication Sukhwinder Gallardo PA-C 06/13/2021 M51.26 Other intervertebral disc displa cement, lumbar region Anamaria Lorena Cochran, BURNING SUPERVISOR 06/13/2021 M48.061 Spinal stenosis, lum bar region without neurogenic claudication Anamaria Lorena Cochran, BURNING SUPERVISOR 06/09/2021 M51.26 Other intervertebral disc displa cement, lumbar region Rishabh Mtz, PT, DPT 06/09/2021 M48.061 Spinal stenosis, lum bar region without neurogenic claudication Rishabh Mtz, PT, DPT 05/04/2021 M54.31 Sciatica, right side Sukwhinder Gallardo PA-C 03/14/2021 M51.26 Other intervertebral disc displa cement, lumbar region Sukhwinder Gallardo PA-C 03/14/2021 M48.061 Spinal stenosis, lum bar region without neurogenic claudication Sukhwinder Gallardo PA-C 02/28/2021 M51.26 Other intervertebral disc displa cement, lumbar region Rene Aguilera P.T. 02/28/2021 M48.061 Spinal stenosis, lum bar region without neurogenic claudication Rene Aguilera P.T. 02/16/2021 M51.26 Other intervertebral disc displa cement, lumbar region Danamarie Ortolano, BURNING SUPERVISOR 02/16/2021 M48.061 Spinal stenosis, lum bar region without neurogenic claudication Danamarie Ortolano, BURNING SUPERVISOR 02/14/2021 M51.26 Other intervertebral disc displa cement, lumbar region Danamarie Ortolano, BURNING SUPERVISOR 02/14/2021 M48.061 Spinal stenosis, lum bar region without neurogenic claudication Danamarie Ortolano, BURNING SUPERVISOR 02/09/2021 M51.26 Other intervertebral disc displa cement, lumbar region Anamaria Cochran, BURNING SUPERVISOR 02/09/2021 M48.061 Spinal stenosis, lum bar region without neurogenic claudication Anamaria Cochran, BURNING SUPERVISOR 02/07/2021 M51.26 Other intervertebral disc displa cement, lumbar region Danamarie Ortolano, BURNING SUPERVISOR 02/07/2021 M48.061 Spinal stenosis, lum bar region without neurogenic claudication Danamarie Ortolano, BURNING SUPERVISOR 02/02/2021 M51.26 Other intervertebral disc displa cement, lumbar region Rene Aguilera P.T. 02/02/2021 M48.061 Spinal stenosis, lum bar region without neurogenic claudication Rene Aguilera P.T. 01/31/2021 M51.26 Other intervertebral disc displa cement, lumbar region Danamarie Ortolano, BURNING SUPERVISOR 01/31/2021 M48.061 Spinal stenosis, lum bar region without neurogenic claudication Danamarie Ortolano, BURNING SUPERVISOR 01/27/2021 M51.26 Other intervertebral disc displa cement, [...] 3:45 pm - Sukhwinder Gallardo PA-C at [place] * 07/10/2021 1:30 pm - Piyush Vee MD at Surgery [facility] * 07/06/2021 1:30 pm - Lab at Ortho Lab Functional Status Description No Information Available Mental Status Description No Information Available Referrals Refer to Dr Reason for Referral Status Appt Date Sukhwinder Gallardo PA-C Created [address] [place] [address] [address] [place] [address] [phone] Sukhwinder Gallardo PA-C JASON INJ'S(12679, 52486, & 99 152) PER [place] WEB NO AUTH REQUIRED TO SURGERY NT Created [address] [facility] [address] [place] [address] [phone] Bairon Coker MD MRI NO AUTH REQUIRED PER [facility] WEB FOR MRI OF LUMBAR SPINE (14393) TO MINI DoughertyDeshawn CASE #: [id number]. DG Created [address] [place] [address], [address] [address] [phone] Bairon Coker MD NO AUTH REQUIRED FOR PT. PAT GOING TO [facility] [place]. PASSED TO PT DEPT. #[id number].HW Created [address] [facility], [address] [address] [phone]
--- OUTSIDE RECORDS SUMMARY | 2021-07-09 22:41 | CCD | Continuity of Care Document ---
Author Author [facility] Organization Unknown Address [address] [place] [address] Phone [phone] Care Team Providers Care Side Seam Envelope Machine Operator Name Role Phone Dick Schultz MD @ [facility] AUTM [phone] [facility] AUTM [phone] Dick Schultz MD @ [facility] AUTM [phone] Problems Active Problems Provider Date Allergic asthma without status asthmaticus Jagdish Potts MD Onset: 12/06/2011 Candidiasis of mouth Jagdish Potts MD Onset: 09/03/2013 Deviated nasal septum Jagdish Potts MD Onset: 4 Dizziness and giddiness Jagdish Potts MD Onset: 014 Benign neoplasm of mouth region Jagdish Potts MD Onset: 09/24/2013 Benign paroxysmal positional vertigo [...] lb BMI (Body Mass Index) 22.9 kg/m2 [place] Body Weight 105 lb Weight 55.056 kg BSA (Body Surface Area) 1.53 m2 05/13/2020 9:23am BP Systolic 112 mmHg BP Diastolic 80 mmHg Heart Rate 89 /min O2 % BldC Oximetry 99 % Body Temperature 97.4 F Height 61 inches 5'1" Weight 131.00 lb BMI (Body Mass Index) 24.7 kg/m2 [place] Body Weight 105 lb Weight 59.422 kg BSA (Body Surface Area) 1.58 m2 Results Description No Information Available Procedures Date Code Description Status 04/28/2021 86660 Office/Outpatient Established Lo w MDM 20-29 Min Completed Medical Devices Description No Information Available Encounters Type Date Location Provider Dx Diagnosis Office Visit 04/28/2021 2:15p [facility] Pulmonary/Thoracic Constantino Oakes N.PDeshawn G47.33 Obstructive sleep apnea (adult) (pediatr ic) Assessments Date Code Description Provider 04/28/2021 G47.33 Obstructive sleep apnea (adult) (pediatric) Jocelin Oakes, N.P. Plan of Treatment Future Appointment(s):* 05/02/2022 2:15 pm - Jocelin Oakes N.PDeshawn at [facility] Pulmonary/Thoracic 04/28/2021 - Jocelin Oakes N.P.* G47.33 Obstructive sleep apnea (adult) (pediatric) * * Comments:* 1. No changes were made to the CPAP pressure at today's visit. 2. The patient is aware to call with any problems related to CPAP use, snoring through the mask or return of daytime sleepiness. 3. Per the patient's request, a CPAP supply order has been sent to the [facility]. * Follow up:* 1. Follow up in one year to reassess CPAP compliance or sooner should problems develop. Functional Status Description No Information Available Mental Status Description No Information Available Referrals Description No Information Available
--- OUTSIDE RECORDS SUMMARY | 2021-07-09 22:41 | CCD | Continuity of Care Document ---
Author Author Nancy [facility] Organization Unknown Address [address] [place] [address] [address] [place] [address] Phone [phone] Care Team Providers Care Party Bus Driver Name Role Phone Artemio Calabrese MD AUTM [phone] Dick Schultz MD AUTM [phone] Travis Yañez MD AUTM [phone] Problems Active Problems Provider Date Degeneration of [...] every day Unknown Calcium Citrate + D [id number] Tablets Unknown Systane 0.4-0.3% Gel Unknown Amlodipine Besylate 5mg Tablets Unknown Mometasone Furoate 50mcg/Act Suspe nsion [place] Two Sprays In Each Nostril Every Day [...] NEGATIVE Procedures Date Code Description Status 06/22/2021 65706 Therapeutic Procedure, Each 15 M inutes Completed 06/22/2021 11195 Manual Therapy Each 15 Minutes C ompleted 06/20/2021 44014 Manual Therapy Each 15 Minutes C ompleted 06/20/2021 16284 Hot Or Cold Packs Completed 06/16/2021 03453 Office/Outpatient Established Lo w MDM 20-29 Min Completed 06/16/2021 85633 Manual Therapy Each 15 Minutes C ompleted 06/16/2021 73814 Therapeutic Procedure, Each 15 M inutes Completed 06/13/2021 99141 Manual Therapy Each 15 Minutes C ompleted 06/13/2021 50135 Therapeutic Procedure, Each 15 M inutes Completed 06/09/2021 65032 Physical Therapy Eval - Low Comp lexity Completed 05/04/2021 47176 Office/Outpatient Established Mo d MDM 30-39 Min Completed 03/14/2021 39322 Office/Outpatient Established Mo d MDM 30-39 Min Completed 02/28/2021 46965 Manual Therapy Each 15 Minutes C ompleted 02/28/2021 36852 Therapeutic Procedure, Each 15 M inutes Completed 02/16/2021 45519 Therapeutic Procedure, Each 15 M inutes Completed 02/16/2021 60792 Manual Therapy Each 15 Minutes C ompleted 02/14/2021 93887 Manual Therapy Each 15 Minutes C ompleted 02/14/2021 77350 Therapeutic Procedure, Each 15 M inutes Completed 02/09/2021 07711 Manual Therapy Each 15 Minutes C ompleted 02/09/2021 76880 Therapeutic Procedure, Each 15 M inutes Completed 02/07/2021 11002 Manual Therapy Each 15 Minutes C ompleted 02/07/2021 12301 Therapeutic Procedure, Each 15 M inutes Completed 02/02/2021 62052 Manual Therapy Each 15 Minutes C ompleted 02/02/2021 64798 Therapeutic Procedure, Each 15 M inutes Completed 01/31/2021 06205 Manual Therapy Each 15 Minutes C ompleted 01/31/2021 63261 Therapeutic Procedure, Each 15 M inutes Completed 01/27/2021 25689 Physical Therapy Eval - Mod Comp lexity Completed 01/16/2021 83863 Office/Outpatient Established Lo w MDM 20-29 Min Completed 01/02/2021 64392 Epidurography Radiological Super vision & Interpretation Completed 01/02/2021 23909 NJX Aa&/STRD TFRML Epi Lumbar/Sa cral 1 [...] carli Office Visit 01/16/2021 10:15a Hoa Gallardo, DANIKAC M5 1.26 Other intervertebral disc displacement, lumbar region M48.061 Spinal stenosis, lumbar trini on without neurogenic carli Assessments Date Code Description Provider 06/22/2021 Z47.1 Aftercare following joint replac ement surgery Anamaria Brito, FOOD BEVERAGE ATTENDANT 06/22/2021 M51.26 Other intervertebral disc displa cement, lumbar region Anamaria Brito, FOOD BEVERAGE ATTENDANT 06/22/2021 M48.061 Spinal stenosis, lum bar region without neurogenic claudication Anamaria Brito, FOOD BEVERAGE ATTENDANT 06/20/2021 M51.26 Other intervertebral disc displa cement, lumbar region Rishabh Mtz, PT, DPT 06/20/2021 M48.061 Spinal stenosis, lum bar region without neurogenic claudication Rishabh Mtz, PT, DPT 06/16/2021 M51.26 Other intervertebral disc displa cement, lumbar region Anamaria Brito, FOOD BEVERAGE ATTENDANT 06/16/2021 M51.26 Other intervertebral disc displa cement, lumbar region DANIKA AmadoC 06/16/2021 M48.061 Spinal stenosis, lum bar region without neurogenic claudication Anamaria Brito, FOOD BEVERAGE ATTENDANT 06/16/2021 M48.061 Spinal stenosis, lum bar region without neurogenic claudication Sukhwinder Gallardo, DANIKAC 06/13/2021 M51.26 Other intervertebral disc displa cement, lumbar region Anamaria Brito, FOOD BEVERAGE ATTENDANT 06/13/2021 M48.061 Spinal stenosis, lum bar region without neurogenic claudication Anamaria Brito, FOOD BEVERAGE ATTENDANT 06/09/2021 M51.26 Other intervertebral disc displa cement, lumbar region Rishabh Mtz, PT, DPT 06/09/2021 M48.061 Spinal stenosis, lum bar region without neurogenic claudication Rishabh Mtz, PT, DPT 05/04/2021 M54.31 Sciatica, right side Skuhwinder Gallardo, DANIKAC 03/14/2021 M51.26 Other intervertebral disc displa cement, lumbar region DANIKA AmadoC 03/14/2021 M48.061 Spinal stenosis, lum bar region without neurogenic claudication Sukhwinder Gallardo PA-C 02/28/2021 M51.26 Other intervertebral disc displa cement, lumbar region Rene Aguilera P.T. 02/28/2021 M48.061 Spinal stenosis, lum bar region without neurogenic claudication Rene Aguilera P.T. 02/16/2021 M51.26 Other intervertebral disc displa cement, lumbar region Danamarie Ortolano, FOOD BEVERAGE ATTENDANT 02/16/2021 M48.061 Spinal stenosis, lum bar region without neurogenic claudication Danamarie Ortolano, FOOD BEVERAGE ATTENDANT 02/14/2021 M51.26 Other intervertebral disc displa cement, lumbar region Danamarie Ortolano, FOOD BEVERAGE ATTENDANT 02/14/2021 M48.061 Spinal stenosis, lum bar region without neurogenic claudication Danamarie Ortolano, FOOD BEVERAGE ATTENDANT 02/09/2021 M51.26 Other intervertebral disc displa cement, lumbar region Anamaria Brito, FOOD BEVERAGE ATTENDANT 02/09/2021 M48.061 Spinal stenosis, lum bar region without neurogenic claudication Anamaria Brito, FOOD BEVERAGE ATTENDANT 02/07/2021 M51.26 Other intervertebral disc displa cement, lumbar region Danamarie Ortolano, FOOD BEVERAGE ATTENDANT 02/07/2021 M48.061 Spinal stenosis, lum bar region without neurogenic claudication Danamarie Ortolano, FOOD BEVERAGE ATTENDANT 02/02/2021 M51.26 Other intervertebral disc displa cement, lumbar region Rene Aguilera P.T. 02/02/2021 M48.061 Spinal stenosis, lum bar region without neurogenic claudication Rene Aguilera P.T. 01/31/2021 M51.26 Other intervertebral disc displa cement, lumbar region Danamarie Ortolano, FOOD BEVERAGE ATTENDANT 01/31/2021 M48.061 Spinal stenosis, lum bar region without neurogenic claudication Danamarie Ortolano, FOOD BEVERAGE ATTENDANT 01/27/2021 M51.26 Other intervertebral disc displa cement, [...] MD Plan of Treatment Future Appointment(s):* 07/06/2021 12:30 pm - Rishabh Mtz, PT, DPT at Physical Therapy * 07/04/2021 11:00 am - Anamaria Brito PTA at Physical Therapy * 07/10/2021 1:30 pm - Piyush Vee MD at Surgery [facility] * 07/06/2021 1:30 pm - Lab at Ortho Lab * 06/29/2021 1:00 pm - Anamarai Brito PTA at Physical Therapy Functional Status Description No Information Available Mental Status Description No Information Available Referrals Refer to Dr Reason for Referral Status Appt Date Sukhwinder Gallardo PA-C Created 000 [address] [facility] [address] [place] [address] [phone] Sukhwinder Gallardo PA-C JASON INJ'S(85022, 55021, & 09 152) PER [employer] NO AUTH REQUIRED TO SURGERY NT Created [address] [facility] [address] [place] [address] [phone] Bairon Coker MD MRI NO AUTH REQUIRED PER [facility] WEB FOR MRI OF LUMBAR SPINE (89656) TO MINI Parry CASE #: [id number]. DG Created [address] [facility], [address] [address] [phone] Bairon Coker MD NO AUTH REQUIRED FOR PT. PAT GOING TO [facility]. PASSED TO PT DEPT. #[id number] Created [address] [facility], [address] [address] [phone]
--- OUTSIDE RECORDS SUMMARY | 2021-07-09 22:42 | CCD | Continuity of Care Document ---
Author Author Nancy Schultz MD Organization Unknown Address [address] [address] Phone [phone] Care Team Providers Care Home Teaching Gr[employer] 7 And 8 Teacher Name Role Phone Dick Schultz JR, MD AUTM Unavailable Rafa Hernandez MD AUTM [phone] [facility] AUTM [phone] Girish Gloria MD AUTM [phone] Bairon Coker MD AUTM [phone] Aldair Gipson MD AUTM [phone] Jay Young MD AUTM [phone] Mauricio Ariza JR, MD AUTM [phone] Problems Active Problems Provider Date Asthma without status asthmaticus Shelley Waters, NUHA Onset : 04/08/2011 Gastroesophageal reflux disease Dick Schultz MD Onset: 04/08/2011 Pure hypercholesterolemia Dick Schultz MD Onset: 04/08 Vitamin D deficiency Dick Schultz MD Onset: 04/08/2011 Benign neoplasm of colon Dick Schultz MD Onset: 2011 Lyles's esophagus Dick Schultz MD Onset: 07/03/2013 Social History Type Date Description Comments Sex Unknown ETOH Use Denies alcohol use Tobacco Use Start: Unknown End: Unknown Patient is a former smoker SMOKED FOR 22 YRS 2 PACKS A DAY. Quit cigarette smoking in the year 1999 Allergies, Adverse Reactions, Alerts Active Allergies Criticality Reaction | Severity Comments Date Penicillin Unable to assess criticality bumps on tongue 08/14/2010 Morphine Unable to assess criticality vomiting 08/14/2010 Betadine Unable to assess criticality itching 08/14/2010 Codeine Unable to assess criticality itching 08/14/2010 Lipitor Unable to assess criticality rash, itching, dizziness 08/14/2010 Vancomycin Unable to assess criticality itching 08/14/2010 Baclofen Unable to assess criticality twitching 08/14/2010 Tape Unable to assess criticality rash 08/14/2010 Pravastatin Unable to assess criticality muscle pain 05/16/2016 Combigan Unable to assess criticality red eyes 04/21/2019 Prednisone Unable to assess criticality itch and ev h 10/06/2019 Prednisone Unable to assess criticality 10/06/2019 Medications Active Medications SIG Qnty Indications Ordering Provide r Date Buspirone HCL 5mg Tablets take one tablet by mouth two-three times a day as needed 90tabs LELE Rodrigez JR 02/22/2021 Citalopram Hydrobromide 10mg Table ts Take One Tablet By Mouth Every Day 30tabs LELE Rodrigez JR 02/22/2021 Lyrica 100mg Capsules 1 by mouth three times a day Dick Schultz MD 09/16/[address] take one capsule by mouth every day 90caps Dick Schultz MD 06/22/2020 Vascepa 1gm Capsules 1 twice daily 180caps Dick Schultz MD 04/21/2020 Mometasone Furoate 50mcg/Act Suspe nsion 2 sprays each nostril once daily 34gm Dick shetty MD 06/16/2019 Ezetimibe 10mg Tablets take one tablet by mouth every day 90tabs Laura Reynaga DO 04/21/2019 Eye Health 1 daily Nurse #2 04/21/2019 Claritin 10mg Tablets 1 by mouth every day 90tabs Nurse #2 04/21/2019 Vitamin C 1000mg Tablets 1 by mouth every day Nurse #2 04/21/2019 Calcium + D 500-1000 -[id number]-[id number] Chewtabs 1 by mouth every day Nurse #2 019 Magnesium 500mg Capsules 1 by mouth every day Nurse #2 04/21/2019 Stool Softener 100mg Capsules 1 by mouth twice a day Nurse #2 04/21/2019 Preparation H 1% Cream Nurse #2 04/21/2019 Singulair 10mg Tablets 1 tablet by mouth daily at bedtime 90tabs J30.9 Dick Schultz MD 8 Amlodipine Besylate 5mg Tablets 1 by mouth every day 90tabs Dick Schultz MD 07/23/2017 Multi Vitamin Tablets 1 by mouth every day Dick Schultz MD 05/21/2017 Complete Multi Vitamin 1 Daily Nurse #2 Fluocinonide 0.05% Solution daily as needed her psoriasis 60ml Dick Schultz MD 04/04 Proair HFA 108(90Base) mcg/Act Aer osol Inhale Two Puffs By Mouth Four Times A Day as Needed 25.5units Dick Schultz MD 08/15/2012 Aspirin 81mg Tablets 1 po qd Natasha Contreras FNP 08/01/2012 Vitamin D3 2000Unit Capsules 30caps Natasha Contreras FNP 08/01/2012 Clindamycin HCL 300mg Capsules 2 tabs 1 hour prior to procedure 6caps Dick Schultz MD Advair Diskus 250-50mcg/Dose Aeros ol inhale one puff by mouth twice a day 180units Dick Schultz MD 03/19/2011 No OTC Meds Dick Schultz MD Carisoprodol 350mg Tablets take one tablet by mouth 4 times daily M54.5 360tabs Dick Schultz MD 08/14/2010 Estrace 0.1mg/GM Cream 1 gm vaginally 1 x weekly Unknown Clobetasol Propionate E 0.05% Crea m apply qd to vulva 30G Unknown Dorzolamide HCL/Timolol Maleate 22.3-6.8mg/ml Solution one drop both eyes twice daily Unknown Systane 0.4-0.3% Solution 1 drop both eyes twice a day Unknown Flaxseed Oil 1000mg Capsules One Daily Unknown Medications Administered in Office Medication SIG Qnty Indications Ordering Provider Date Therapeutic Injection Injection DEEPIKA Valderrama 03/09/2016 Immunizations CPT Code Status Date Vaccine Lot # U-Tetan Given 02/08/2014 Tetanus,Unspecified 89251 Refused 04/21/2019 Influenza Virus Vaccine, Quadrivalent (Cciiv4), Derived From Cell 01549 Refused 04/21/2019 Pneumovax 23 [id number] Refused 04/21/2019 Prevnar 13 68091 Refused 07/10/2018 Influenza Virus Vaccine, Quadrivalent (Cciiv4), Derived From Cell Vital Signs Date Vital Result Comment 04/18/2021 1:59pm BP Systolic 110 mmHg BP Diastolic 72 mmHg Heart Rate 78 /min Height 61.25 inches 5'1.25" Weight 121.00 lb BMI (Body Mass Index) 22.7 kg/m2 03/13/2021 1:28pm BP Systolic 110 mmHg BP Diastolic 66 mmHg Heart Rate 62 /min Height 61.25 inches 5'1.25" Weight 128.00 lb BMI (Body Mass Index) 24.0 kg/m2 Results Test Acquired Date Facility Test Result H/L Range Note Complete Blood Count 04/18/2021 [facility] Government Sales Manager: [place] [address] [phone] WBC 6.4 x10*3/UL 4.1 - 10.9 RBC 4.55 x10*6/UL 4.20 - 6.30 Hemoglobin 13.1 g/dL 12.0 - 18.0 Hematocrit 40.1 % 37.0 - 51.0 MCV 88.1 fL 80.0 - 97.0 MCH 28.9 pg 26.0 - 32.0 MCHC 32.8 g/dL 31.0 - 38.0 RDW 12.6 % 11.6 - 13.7 PLT 337 x10*3/UL 140 - 440 MPV 7.6 FL Low 7.8 - 11.0 Lymph % 22.2 % 10.0 - 58.5 Mid % 4.7 % 1.7 - 9.3 Neut % 73.1 % 37.0 - 92.0 Lymph # 1.4 x10*3/UL 0.6 - 4.1 Mid # 0.3 x10*3/UL 0.1 - 0.6 Neut # 4.7 x10*3/UL 2.0 - 7.8 Comprehensive Chem Profile 04/18/2021 [facility] Government Sales Manager: Dr Dick Schultz [place], [place] [id number] [phone] Glucose 91 mg/dL 74 - 99 1 BUN 18 mg/dL 7 - 18 Creatinine 0.6 mg/dL 0.6 - 1.3 Sodium 140 mEq/L 136 - 145 Potassium 4.0 mEq/L 3.5 - 5.1 Chloride 103 mEq/L 98 - 107 Carbon Dioxide 29 mEq/L 21 - 32 Calcium 9.9 mg/dL 8.5 - 10.1 Alk. Phosphatase 122 mg/dL High 46 - 116 Total Bilirubin 0.4 mg/dL 0.2 - 1.0 Ast (Sgot) 20 U/L 15 - 37 Alt (SGPT) 30 U/L 12 - 78 Albumin 4.2 g/dL 3.4 - 5.0 Total Protein 7.3 g/dL 6.4 - 8.2 A/G Ratio 1.35 CALC 1.00 - 1.90 GFR >= 60 mL/min >60 GFR >= 60 mL/min >60 2 Lipid Profile 04/18/2021 [facility] Government Sales Manager: Dr Dick [place] [address] [phone] Cholesterol 235 mg/dL High 131 - 200 Triglycerides 70 mg/dL 30 - 150 HDL Cholesterol 55 mg/dL 35 - 60 LDL (Calculated) 166 CALC High 50 - 159 Laboratory test finding 04/18/2021 [facility] Government Sales Manager: Dr Dick [place] [address] [phone] Thyroid Stimulating Hormone 0.58 uIU/mL 0.3 6 - 3.74 1 100-125 mg/dL PRE-DIABET ES/FASTING >126 mg/dL DIABETES/FASTING 2 CHRONIC KIDNEY DISEASE STAGI NG PER NKF STAGE I & II GFR >= 60 NORMAL TO MILDLY DECREASED STAGE III GFR 30-59 MODERATELY DECREASED STAGE IV GFR 15-29 SEVERELY DECREASED STAGE V GFR <15 VERY LITTLE GFR LEFT ESRD GFR <15 ON BEAVER TRAPPER Procedures Date Code Description Status 03/13/2021 00863 EKG/Interpretation & Report Comp leted 03/13/2021 22812 Office/Outpatient Established Lo w MDM 20-29 Min Completed 02/22/2021 13494 Office/Outpatient Established Lo w MDM 20-29 Min Completed 01/25/2021 710027677 Diabetic Retinal Eye Exam Comple [facility] 11/01/2020 641715241 Diabetic Retinal Eye Exam Comple [facility] 06/14/2020 328789265 Diabetic Retinal Eye Exam Comple [facility] 06/01/2020 [id number] Mammogram Completed 11/24/2019 412383564 Diabetic Retinal Eye Exam Comple [facility] 05/20/2019 777657219 Bone Mineral Density Test Comple [facility] 05/20/2019 [id number] Mammogram Completed 06/25/2018 [id number] Colonoscopy Completed 01/01/2018 [id number] Mammogram Completed 12/26/2016 [id number] Mammogram Completed 12/26/2016 [id number] Bone Mineral Density Test Comple [facility] 12/21/2014 [id number] Mammogram Completed 06/29/2014 [id number] Mammogram Completed 09/15/2013 [id number] Mammogram Completed 08/25/2013 [id number] Mammogram Completed 06/23/2013 [id number] Colonoscopy Completed 01/16/2013 [id number] Colonoscopy Completed 07/08/2012 [id number] Bone Mineral Density Test Comple [facility] 07/08/2006 79481020 Colonoscopy Completed Medical Devices Description No Information Available Encounters Type Date Location Provider Dx Diagnosis Office Visit 03/13/2021 1:20p [facility] daniels JR, PA F43.0 Acute stress reaction R07.89 Other chest pain J45.20 Mild intermittent asthma, un complicated I10 Essential (primary) hyperten lorie Office Visit 02/22/2021 1:40p [facility] InternJonatan daniels JR, PA F43.0 Acute stress reaction J45.20 Mild intermittent asthma, un complicated I10 Essential (primary) hyperten lorie G47.33 Obstructive sleep apnea (meet lt) (pediatric) Assessments Date Code Description Provider 04/18/2021 J45.20 Mild intermittent asthma, uncomp licated Dick Schultz MD 04/18/2021 I10 Essential (primary) hypertension Dick Schultz MD 04/18/2021 G47.33 Obstructive sleep apnea (adult) (pediatric) Dick Schultz MD 04/18/2021 E78.00 Pure hypercholesterolemia, unspe cified Dick Schultz MD 04/18/2021 K22.70 Lyles's esophagus without dysp lasia Dick Schultz MD 04/18/2021 E78.2 Mixed hyperlipidemia Dick Schultz MD 04/18/2021 E55.9 Vitamin D deficiency, unspecifie d Dick Schultz MD 04/18/2021 Z86.010 Personal history of colonic poly ps Dick Schultz MD 04/18/2021 E83.42 Hypomagnesemia Dick austin MD 04/18/2021 M54.5 Low back pain Dick austin MD 03/13/2021 F43.0 Acute stress reaction Sedrick valadez JR, LELE 03/13/2021 R07.89 Other chest pain Sedrick gordon JR, LELE 03/13/2021 J45.20 Mild intermittent asthma, uncomp licated LELE Rodrigez JR 03/13/2021 I10 Essential (primary) hypertension Sedrick Mckenzie JR, LELE 02/22/2021 F43.0 Acute stress reaction Sedrick valadez JR, LELE 02/22/2021 J45.20 Mild intermittent asthma, uncomp licated LELE Rodrigez JR 02/22/2021 I10 Essential (primary) hypertension Sedrick Mckenzie JR, LELE 02/22/2021 G47.33 Obstructive sleep apnea (adult) (pediatric) LELE Rodrigez JR Plan of Treatment Future Appointment(s):* 10/20/2021 11:40 am - Dick Schultz MD at [facility] 04/18/2021 - Dick Schultz MD* J45.20 Mild intermittent asthma, uncomplicated * I10 Essential (primary) hypertension* Comments:* Hypertension at JNC-8 guidelines * G47.33 Obstructive sleep apnea (adult) (pediatric) * E78.00 Pure hypercholesterolemia, unspecified * K22.70 Lyles's esophagus without dysplasia * E78.2 Mixed hyperlipidemia* Comments:* LDL at goal. * E55.9 Vitamin D deficiency, unspecified * Z86.010 Personal history of colonic polyps * E83.42 Hypomagnesemia * M54.5 Low back pain Functional Status Description No Information Available Mental Status Description No Information Available Referrals Refer to Reason for Referral Status Appt Date Travis Dallas MD NEW PATIENT CONSULT FOR EYE EXAM Patient Declined [place] [facility] [address] [facility], [address] [place] [id number] [phone]
--- OUTSIDE RECORDS SUMMARY | 2021-07-09 22:42 | CCD | Continuity of Care Document ---
Author Author Nancy Schultz MD Organization Unknown Address [address] [address] Phone [phone] Care Team Providers Care Boot Liner Maker Name Role Phone Dick Schultz JR, MD AUTM Unavailable Rafa Hernandez MD AUTM [phone] [facility] AUTM [phone] Girish Gloria MD AUTM [phone] Bairon Coker MD AUTM [phone] Aldair Gipson MD AUTM [phone] Jay Young MD AUTM [phone] Mauricio Ariza JR, MD AUTM [phone] Problems Active Problems Provider Date Asthma without [...] Nurse #2 04/21/2019 Calcium + D 500-1000 -69fo-Vqn-fei Chewtabs 1 by mouth every day Nurse [...] Vaccine Lot # U-Tetan Given 02/08/2014 Tetanus,Unspecified 27266 Refused 04/21/2019 Influenza Virus Vaccine, Quadrivalent (Cciiv4), Derived From Cell 61029 Refused 04/21/2019 Pneumovax 23 99889 Refused 04/21/2019 Prevnar 13 97075 Refused 07/10/2018 Influenza Virus Vaccine, Quadrivalent (Cciiv4), [...] H/L Range Note Complete Blood Count 04/18/2021 [facility] Group Leader: [place] [address] [phone] WBC 6.4 x10*3/UL 4.1 - 10.9 RBC [...] 2.0 - 7.8 Comprehensive Chem Profile 04/18/2021 [facility] Group Leader: Dr Dick Schultz [place], [place] [id number] [phone] Glucose 91 mg/dL 74 - 99 1 [...] 60 mL/min >60 2 Lipid Profile 04/18/2021 [facility] Group Leader: [place] [address] [phone] Cholesterol 235 mg/dL High 131 - 200 Triglycerides 70 mg/dL 30 - 150 HDL Cholesterol 55 mg/dL 35 - 60 LDL (Calculated) 166 CALC High 50 - 159 Laboratory test finding 04/18/2021 [facility] Group Leader: [place] [address] [phone] Thyroid Stimulating Hormone 0.58 uIU/mL 0.3 6 - 3.74 1 100-125 mg/dL PRE-DIABET ES/FASTING >126 mg/dL DIABETES/FASTING 2 CHRONIC KIDNEY DISEASE STAGI NG PER NKF STAGE I & II GFR >= 60 NORMAL TO MILDLY DECREASED STAGE III GFR 30-59 MODERATELY DECREASED STAGE IV GFR 15-29 SEVERELY DECREASED STAGE V GFR <15 VERY LITTLE GFR LEFT ESRD GFR <15 ON DUST OPERATOR Procedures Date Code Description Status 03/13/2021 73637 EKG/Interpretation & Report Comp leted 03/13/2021 71733 Office/Outpatient Established Lo w MDM 20-29 Min Completed 02/22/2021 67561 Office/Outpatient Established Lo w MDM 20-29 Min Completed 01/25/2021 [id number] Diabetic Retinal Eye Exam Comple [facility] 11/01/2020 959925796 Diabetic Retinal Eye Exam Comple [facility] 06/14/2020 701166064 Diabetic Retinal Eye Exam Comple [facility] 06/01/2020 [id number] Mammogram Completed 11/24/2019 [id number] Diabetic Retinal Eye Exam Comple [facility] 05/20/2019 [id number] Bone Mineral Density Test Comple [facility] 05/20/2019 [id number] Mammogram Completed 06/25/2018 [id number] Colonoscopy Completed 01/01/2018 [id number] Mammogram Completed 12/26/2016 [id number] Mammogram Completed 12/26/2016 [id number] Bone Mineral Density Test Comple lenora 12/21/2014 [id number] Mammogram Completed 06/29/2014 [id number] Mammogram Completed 09/15/2013 [id number] Mammogram Completed 08/25/2013 [id number] Mammogram Completed 06/23/2013 [id number] Colonoscopy Completed 01/16/2013 [id number] Colonoscopy Completed 07/08/2012 [id number] Bone Mineral Density Test Comple lenora 07/08/2006 [id number] Colonoscopy Completed Medical Devices Description No Information Available Encounters Type Date Location Provider Dx Diagnosis Office Visit 03/13/2021 1:20p [facility] daniels JR, PA F43.0 Acute stress reaction R07.89 Other chest pain J45.20 Mild intermittent asthma, un complicated I10 Essential (primary) hyperten lorie Office Visit 02/22/2021 1:40p [facility] dan[facility] JR, PA F43.0 Acute stress [...] 11:40 am - Dick Schultz MD at [facility] 04/18/2021 - Dick Schultz MD* [...] PATIENT CONSULT FOR EYE EXAM Patient Declined [place] [facility] [address] [facility], [address] [place] [id number] [phone]
--- OUTSIDE RECORDS SUMMARY | 2021-07-09 22:42 | CCD | Continuity of Care Document ---
Author Author Nancy Schultz MD Organization Unknown Address [address] [address] Phone [phone] Care Team Providers Care Weigher And Grader Name Role Phone Dick Schultz JR, MD AUTM Unavailable Rafa Hernandez MD AUTM [phone] [facility] AUTM [phone] Girish Gloria MD AUTM [phone] Bairon Coker MD AUTM [phone] Aldair Gipson MD AUTM [phone] Jay Young MD AUTM [phone] Mauricio Ariza JR, MD AUTM [phone] Problems Active Problems Provider Date Asthma without [...] Nurse #2 04/21/2019 Calcium + D 500-1000 -50hs-Ycg-row Chewtabs 1 by mouth every day Nurse [...] Vaccine Lot # U-Tetan Given 02/08/2014 Tetanus,Unspecified [id number] Refused 04/21/2019 Influenza Virus Vaccine, Quadrivalent (Cciiv4), Derived From Cell [id number] Refused 04/21/2019 Pneumovax 23 [id number] Refused 04/21/2019 Prevnar 13 [id number] Refused 07/10/2018 Influenza Virus Vaccine, Quadrivalent (Cciiv4), [...] H/L Range Note Complete Blood Count 04/18/2021 [facility] Construction Flagger: [place] [address] [phone] WBC 6.4 x10*3/UL 4.1 - 10.9 RBC [...] 2.0 - 7.8 Comprehensive Chem Profile 04/18/2021 [facility] Construction Flagger: Dr Dick Schultz [place], [place] [address] [phone] Glucose 91 mg/dL 74 - 99 1 [...] 60 mL/min >60 2 Lipid Profile 04/18/2021 [facility] Construction Flagger: Dr Dick [place] [address] [phone] Cholesterol 235 mg/dL High 131 - 200 Triglycerides 70 mg/dL 30 - 150 HDL Cholesterol 55 mg/dL 35 - 60 LDL (Calculated) 166 CALC High 50 - 159 Laboratory test finding 04/18/2021 [facility] Construction Flagger: Dr Dick [place] [address] [phone] Thyroid Stimulating Hormone 0.58 uIU/mL 0.3 6 - 3.74 1 100-125 mg/dL PRE-DIABET ES/FASTING >126 mg/dL DIABETES/FASTING 2 CHRONIC KIDNEY DISEASE STAGI NG PER NKF STAGE I & II GFR >= 60 NORMAL TO MILDLY DECREASED STAGE III GFR 30-59 MODERATELY DECREASED STAGE IV GFR 15-29 SEVERELY DECREASED STAGE V GFR <15 VERY LITTLE GFR LEFT ESRD GFR <15 ON ANIMAL TRAINER Procedures Date Code Description Status 04/18/2021 45157 Office/Outpatient Established Mo d MDM 30-39 Min Completed 03/13/2021 84756 Office/Outpatient Established Lo w MDM 20-29 Min Completed 03/13/2021 95806 EKG/Interpretation & Report Comp leted 02/22/2021 20406 Office/Outpatient Established Lo w MDM 20-29 Min Completed 01/25/2021 [id number] Diabetic Retinal Eye Exam Comple [facility] 11/01/2020 [id number] Diabetic Retinal Eye Exam Comple [facility] 06/14/2020 812483834 Diabetic Retinal Eye Exam Comple [facility] 06/01/2020 [id number] Mammogram Completed 11/24/2019 [id number] Diabetic Retinal Eye Exam Comple [facility] 05/20/2019 [id number] Bone Mineral Density Test Comple [facility] 05/20/2019 [id number] Mammogram Completed 06/25/2018 [id number] Colonoscopy Completed 01/01/2018 [id number] Mammogram Completed 12/26/2016 [id number] Mammogram Completed 12/26/2016 [id number] Bone Mineral Density Test Comple [facility] 12/21/2014 [id number] Mammogram Completed 06/29/2014 [id number] Mammogram Completed 09/15/2013 [id number] Mammogram Completed 08/25/2013 [id number] Mammogram Completed 06/23/2013 [id number] Colonoscopy Completed 01/16/2013 [id number] Colonoscopy Completed 07/08/2012 837037968 Bone Mineral Density Test Comple [facility] 07/08/2006 [id number] Colonoscopy Completed Medical Devices Description No Information Available Encounters Type Date Location Provider Dx Diagnosis Office Visit 04/18/2021 [facility]p [facility] J45.20 Mild intermittent asthma, uncomplicated I10 Essential (primary) hyperten lorie G47.33 Obstructive sleep apnea (meet lt) (pediatric) E78.00 Pure hypercholesterolemia, u nspecified K22.70 Lyles's esophagus without dysplasia E78.2 Mixed hyperlipidemia E55.9 Vitamin D deficiency, unspec ified Z86.010 Personal history of colonic polyps E83.42 Hypomagnesemia M54.5 Low back pain Office Visit 03/13/2021 1:20p [facility] dan[facility] JR PA F43.0 Acute stress reaction R07.89 Other chest pain J45.20 Mild intermittent asthma, un complicated I10 Essential (primary) hyperten lorie Office Visit 02/22/2021 1:40p [facility] LELE Alejandra JR F43.0 Acute stress reaction J45.20 Mild intermittent [...] austin MD 03/13/2021 F43.0 Acute stress reaction LELE Mckeon JR 03/13/2021 R07.89 Other chest pain LELE Vazquez JR 03/13/2021 J45.20 Mild intermittent asthma, uncomp licated LELE Rodrigez JR 03/13/2021 I10 Essential (primary) hypertension LELE Rodrigez JR 02/22/2021 F43.0 Acute stress reaction LELE Mckeon JR 02/22/2021 J45.20 Mild intermittent asthma, uncomp licated LELE Rodrigez JR 02/22/2021 I10 Essential (primary) hypertension LELE Rodrigez JR 02/22/2021 G47.33 Obstructive sleep apnea (adult) (pediatric) LELE Rodrigez JR Plan of Treatment Future Appointment(s):* 10/20/2021 11:40 am - Dick Schultz MD at [facility] 04/18/2021 - Dick Schultz MD* [...] Dr Reason for Referral Status Appt Date Travis Dallas MD NEW PATIENT CONSULT FOR EYE EXAM Patient Declined [place] [facility] [address] [facility], [address] [place] [id number] [phone]
--- OUTSIDE RECORDS SUMMARY | 2021-07-09 22:42 | CCD | Continuity of Care Document ---
Author Author Nancy Schultz MD Organization Unknown Address [address] [address] Phone [phone] Care Team Providers Care Senior Quality Control Inspector Name Role Phone Dick Schultz JR, MD AUTM Unavailable Rafa Hernandez MD AUTM [phone] [facility] AUTM [phone] Girish Gloria MD AUTM [phone] Bairon Coker MD AUTM [phone] Aldair Gipson MD AUTM [phone] Jay Young MD AUTM [phone] Mauricio Ariza JR, MD AUTM [phone] Problems Active Problems Provider Date Asthma without [...] Nurse #2 04/21/2019 Calcium + D 500-1000 -89sl-Qif-bks Chewtabs 1 by mouth every day Nurse [...] Vaccine Lot # U-Tetan Given 02/08/2014 Tetanus,Unspecified 78264 Refused 04/21/2019 Influenza Virus Vaccine, Quadrivalent (Cciiv4), Derived From Cell [id number] Refused 04/21/2019 Pneumovax 23 [id number] Refused 04/21/2019 Prevnar 13 53657 Refused 07/10/2018 Influenza Virus Vaccine, Quadrivalent (Cciiv4), [...] H/L Range Note Complete Blood Count 04/18/2021 [facility] Campus Police Officer: [place] [address] [phone] WBC 6.4 x10*3/UL 4.1 - 10.9 RBC [...] 2.0 - 7.8 Comprehensive Chem Profile 04/18/2021 [facility] Campus Police Officer: Dr Dick Schultz [place], [place] [id number] [phone] Glucose 91 mg/dL 74 - 99 1 [...] 60 mL/min >60 2 Lipid Profile 04/18/2021 [facility] Campus Police Officer: [place] [address] [phone] Cholesterol 235 mg/dL High 131 - 200 Triglycerides 70 mg/dL 30 - 150 HDL Cholesterol 55 mg/dL 35 - 60 LDL (Calculated) 166 CALC High 50 - 159 Laboratory test finding 04/18/2021 [facility] Campus Police Officer: [place] [address] [phone] Thyroid Stimulating Hormone 0.58 uIU/mL 0.3 6 - 3.74 1 100-125 mg/dL PRE-DIABET ES/FASTING >126 mg/dL DIABETES/FASTING 2 CHRONIC KIDNEY DISEASE STAGI NG PER NKF STAGE I & II GFR >= 60 NORMAL TO MILDLY DECREASED STAGE III GFR 30-59 MODERATELY DECREASED STAGE IV GFR 15-29 SEVERELY DECREASED STAGE V GFR <15 VERY LITTLE GFR LEFT ESRD GFR <15 ON GLASS ARTIST Procedures Date Code Description Status 03/13/2021 39757 EKG/Interpretation & Report Comp leted 03/13/2021 47839 Office/Outpatient Established Lo w MDM 20-29 Min Completed 02/22/2021 09150 Office/Outpatient Established Lo w MDM 20-29 Min Completed 01/25/2021 [id number] Diabetic Retinal Eye Exam Comple [facility] 11/01/2020 864279150 Diabetic Retinal Eye Exam Comple [facility] 06/14/2020 879890534 Diabetic Retinal Eye Exam Comple [facility] 06/01/2020 [id number] Mammogram Completed 11/24/2019 745155512 Diabetic Retinal Eye Exam Comple [facility] 05/20/2019 [id number] Bone Mineral Density Test Comple [facility] 05/20/2019 [id number] Mammogram Completed 06/25/2018 [id number] Colonoscopy Completed 01/01/2018 [id number] Mammogram Completed 12/26/2016 [id number] Mammogram Completed 12/26/2016 [id number] Bone Mineral Density Test Comple [facility] 12/21/2014 [id number] Mammogram Completed 06/29/2014 [id number] Mammogram Completed 09/15/2013 [id number] Mammogram Completed 08/25/2013 [id number] Mammogram Completed 06/23/2013 [id number] Colonoscopy Completed 01/16/2013 [id number] Colonoscopy Completed 07/08/2012 [id number] Bone Mineral Density Test Comple [facility] 07/08/2006 [id number] Colonoscopy Completed Medical Devices Description No Information Available Encounters Type Date Location Provider Dx Diagnosis Office Visit 03/13/2021 1:20p [facility] daniels JR, PA F43.0 Acute stress reaction R07.89 Other chest pain J45.20 Mild intermittent asthma, un complicated I10 Essential (primary) hyperten lorie Office Visit 02/22/2021 1:40p [facility] daniels JR, PA F43.0 Acute stress [...] 11:40 am - Dick Schultz MD at [facility] 04/18/2021 - Dick Schultz MD* [...] PATIENT CONSULT FOR EYE EXAM Patient Declined [place] [facility] [address] [facility], [address] [place] [id number] [phone]
--- OUTSIDE RECORDS SUMMARY | 2021-07-09 22:42 | CCD | Summary of Care ---
Author Author [facility] Address Unknown Phone Unavailable Care Team Providers Care Print Finisher Name Role Phone Marion Fabian MD, Dick More PCP [phone] Reason for Visit * Reason Comments Follow-up bilateral thumb pain Encounter Details Care Team Description Date Type Department Aldair Gipson MD [address] [address] [phone] Trigger finger of right thumb (Primary D x); Acquired trigger finger of right little finger 04/17/2021 Office Visit [facility] [address] [address] Allergies Comments Active Allergy Reactions Severity Noted Date "twitching" Baclofen 06/27/2017 Itching skin Povidone Iodine 06/27/2017 Chlorhexidine Gluconate Anaphylaxis High 2018 Itching skin Codeine 06/27/2017 Eye irritation/conjunctivitis Brimonidine 11/14/2018 Tartrate-Timolol Burning sensation Diclofenac Sodium Other (See 06/27/2017 Comments) Itching skin Fentanyl 06/27/2017 "rash, itching, dizziness" Atorvastatin 06/27/2017 Eye irritation/conjunctivitis Bimatoprost Other (See 11/14/2018 Comments) "burning sensation" Menthol 06/27/2017 Methylprednisolone Itching 10/31/2020 vomiting Morphine And Related 06/27/2017 Bumps on the back of tongue Penicillins Other (See 06/27/2017 Comments) Leg cramps & spasms Simvastatin 06/27/2017 rash Adhesive Tape 06/27/2017 "nightmares" Tizanidine 06/27/2017 "burning sensation" Diclofenac 06/27/2017 documented as of this encounter (statuses as of 04/19/2021) Medications End Date Status Medication Sig Dispensed Refills Start Date Active carisoprodol (SOMA) 350 0 MG tablet 7 Active ADVAIR DISKUS 250-50 0 MCG/DOSE AEPB 7 Active ezetimibe (ZETIA) 10 MG Take 10 mg by 0 tablet mouth daily Active loratadine (CLARITIN) 10 Take 10 mg by 0 MG tablet mouth daily Active montelukast (SINGULAIR) Take 10 mg by 0 10 MG tablet mouth nightly Active amlodipine (NORVASC) 5 MG TAKE ONE 3 02/01 tablet TABLET BY 8 MOUTH EVERY DAY Active clindamycin (CLEOCIN) 300 TAKE 2 2 MG capsule CAPSULES BY 9 MOUTH 1 HOUR PRIOR TO PROCEDURE Active omeprazole (PRILOSEC) 20 0 MG capsule 9 Active carboxymethylcellulose PF 1 drop Three 0 (REFRESH PLUS) 0.5 % times daily ophthalmic solution as needed Active Polyethyl Glycol-Propyl Apply to eye 0 Glycol (SYSTANE) 0.4-0.3 % GEL Active aspirin 81 MG tablet Take 81 mg by 0 mouth daily Active albuterol (PROVENTIL Inhale 2 0 HFA;VENTOLIN HFA) 108 (90 puffs into Base) MCG/ACT inhaler the lungs every 6 (six) hours as needed for Wheezing Active Multiple Take by mouth 0 Vitamins-Minerals (MULTIVITAMIN ADULT PO) Active mometasone (NASONEX) 50 2 sprays by 0 MCG/ACT nasal spray Nasal route daily Active Pregabalin 50 MG Oral TAKE ONE 0 09/18/19 2 Capsule (LYRICA) CAPSULE BY 0 MOUTH TWICE A DAY MAXIMUM DAILY DOSE 2 Active Flaxseed, Linseed, (FLAX Take by mouth 0 SEED OIL PO) Active CALCIUM CITRATE PO Take 600 mg 0 by mouth Active Cholecalciferol (VITAMIN Take by mouth 0 D3 PO) Active Clobetasol Propionate Apply 0 0.05 % External Cream topically Two (TEMOVATE) Times Daily Active Icosapent Ethyl 1 GM Oral Take by mouth 0 Capsule (Vascepa) Active Estradiol 0.1 MG/GM Place 2 g 0 Vaginal Cream (ESTRACE) vaginally daily Active Citalopram Hydrobromide Take 10 mg by 0 10 MG Oral Tablet mouth daily 1 (CELEXA) Active traMADol HCl 50 MG Oral TAKE ONE 0 Tablet (ULTRAM) TABLET BY 1 MOUTH EVERY 6 HOURS NEEDED FOR PAIN MAXIMUM DAILY DOSE 4 TABLETS Status Hospital, Clinic, or Ordered Dose Route Frequency Start End Date Other Facility Date Administered Medication Active methylPREDNISolone 40 mg IX Once 04/19/2005/03 acetate (DEPO-MEDROL) 21 1 injection 40 mg Active methylPREDNISolone 40 mg IX Once 04/19/2005/03 acetate (DEPO-MEDROL) 21 1 injection 40 mg documented as of this encounter (statuses as of 04/19/2021) Active Problems No known active problemsdocumented as of this encounter (statuses as of 04/19/2021) Immunizations Name Administration Dates Next Due documented as of this encounter Social History Date Tobacco Use Types Packs/Day Years Used Former Smoker Smokeless Tobacco: Never Used Comments Alcohol Use Standard Drinks/Week No 0 (1 standard drink = 0.6 o z pure alcohol) Sex Assigned at Date Recorded Not on file Date Recorded COVID-19 Exposure Response 04/17/2021 3:17 PM EDT In the last month, have you been in contact with No / Unsure someone who was confirmed or suspected to have Coronavirus / COVID-19? documented as of this encounter Last Filed Vital Signs Not on filedocumented in this encounter Patient Instructions * Patient Instructions* Claritza Macdonald LPN - 04/17/2021 3:15 PM EDT The patient is instructed to call the office with any question/concerns or if sy mptoms worsen. documented in this encounter Progress Notes * Aldair Gipson MD - 04/17/2021 3:15 PM EDT Patient is in the office and I last saw her in October and treated her with a ster oid injection for a left ring finger trigger digit and that worked up very nicel y. I also injected the radial aspect of her right second MCP joint area with a steroid preparation and she did not respond well to that steroid injection. It is noted I injected her in the same area in the past when she did respond to the steroid injection only to have a recurrence of the discomfort. But her main co mplaint today are trigger digits of the right thumb and right small finger. In the office today she does have triggering of the thumb with significant tenderne ss over the A1 navid. I do feel crepitance over the A1 navid of the small fin vikki with flexion and extension of the digit with significant tenderness over the A1 navid. She does describe classic triggering at times. I therefore recomme nded a steroid injection for both trigger digits and she agreed and 1 cc of Depo -Medrol, 40 mg/cc, was injected into the flexor tendon sheath of both the right thumb and right small finger and she will follow-up with me on a as needed basis understanding to contact me in 2 weeks time if she has not responded to the rocky roid injections at which time we could discuss further treatment options includi ng 1 more steroid injection or going straight to surgical release of the A1 pull ey(s). If she does respond to the steroid injections and still has significant pain along the radial aspect of the right second MCP joint she understands I wou ld be happy to see her back. documented in this encounter Plan of Treatment Health Maintenance Due Date Last Done Comments Hepatitis C Screening (B. 1955 [id number]) MMR Vaccines (1 of 1 - 1956 Standard series) Varicella Vaccines (1 of 1956 2 - 2-dose childhood series) DTaP,Tdap,and Td Vaccines 1962 (1 - Tdap) Breast Cancer Screening 2 2005 years Colon Cancer Screening 10 2005 yrs Zoster Vaccines (1 of 2) 2005 Osteoporosis Screening 2 2020 yr Pneumococcal Vaccine: 65+ 2020 Years (1 of 1 - PPSV23) Influenza Vaccine 06/02/2021 COVID-19 Vaccine Completed 03/20/2021, 02/20/2021 HIB Vaccines Aged Out No longer eligible based on patient's age to complete this topic Hepatitis A Vaccines Aged Out No longer eligibl e based on patient's age to complete this topic Hepatitis B Vaccines Aged Out No longer eligibl e based on patient's age to complete this topic IPV Vaccines Aged Out No longer eligible based on patient's age to complete this topic Pneumococcal Vaccine: Aged Out No longer eligib le based on patient's age to Pediatrics (0 to 5 Years) complete this topic and At-Risk Patients (6 to 64 Years) documented as of this encounter Results Not on filedocumented in this encounter Visit Diagnoses Diagnosis Trigger finger of right thumb - Primary Acquired trigger finger of right little finger documented in this encounter
--- OUTSIDE RECORDS SUMMARY | 2021-07-09 22:42 | CCD | Continuity of Care Document ---
Author Author Lab Schedule, Nancy Basurto Organization Unknown Address [address] [address] Phone Unavailable Care Team Providers Care Community Representative Name Role Phone Dick Schultz JR, MD AUTM Unavailable Rafa Hernandez MD AUTM [phone] [facility] AUTM [phone] Girish Gloria MD AUTM [phone] Bairon Coker MD AUTM [phone] Aldair Gipson MD AUTM [phone] Jay Young MD AUTM [phone] Mauricio Ariza JR, MD AUTM [phone] Problems Active Problems Provider Date Asthma without [...] by mouth every day Nurse #2 04/21/2019 Vitamin B12 1000mcg Tablets ER 1 by mouth every day 90tabs Nurse #2 04/21/2019 Calcium + D 500-1000 -44ka-Ufl-dpn Chewtabs 1 by mouth every day Nurse [...] Vaccine Lot # U-Tetan Given 02/08/2014 Tetanus,Unspecified [id number] Refused 04/21/2019 Influenza Virus Vaccine, Quadrivalent (Cciiv4), Derived From Cell [id number] Refused 04/21/2019 Pneumovax 23 [id number] Refused 04/21/2019 Prevnar 13 [id number] Refused 07/10/2018 Influenza Virus Vaccine, Quadrivalent (Cciiv4), Derived From Cell Vital Signs Date Vital Result Comment 03/13/2021 1:28pm BP Systolic 110 mmHg BP Diastolic 66 mmHg Heart Rate 62 /min Height 61.25 inches 5'1.25" Weight 128.00 lb BMI (Body Mass Index) 24.0 kg/m2 02/22/2021 1:47pm BP Systolic 128 mmHg BP Diastolic 80 mmHg Heart Rate 76 /min Height 61.25 inches 5'1.25" Weight 137.00 lb BMI (Body Mass Index) 25.7 kg/m2 Results Test Acquired Date Facility Test Result H/L Range Note Complete Blood Count 04/18/2021 [facility] Reeling Operator: Dr Dick Schultz [place], [place] [id number] [phone] WBC 6.4 x10*3/UL 4.1 - 10.9 RBC [...] 2.0 - 7.8 Comprehensive Chem Profile 04/18/2021 [facility] Reeling Operator: Dr Dick Sch[place] [address] [phone] Glucose 91 mg/dL 74 - 99 1 [...] 60 mL/min >60 2 Lipid Profile 04/18/2021 [facility] Reeling Operator: Dr Dick Sch[place] [address] [phone] Cholesterol 235 mg/dL High 131 - 200 Triglycerides 70 mg/dL 30 - 150 HDL Cholesterol 55 mg/dL 35 - 60 LDL (Calculated) 166 CALC High 50 - 159 Laboratory test finding 04/18/2021 [facility] Reeling Operator: Dr Dick Sch[place] [address] [phone] Thyroid Stimulating Hormone 0.58 uIU/mL 0.3 6 - 3.74 1 100-125 mg/dL PRE-DIABET ES/FASTING >126 mg/dL DIABETES/FASTING 2 CHRONIC KIDNEY DISEASE STAGI NG PER NKF STAGE I & II GFR >= 60 NORMAL TO MILDLY DECREASED STAGE III GFR 30-59 MODERATELY DECREASED STAGE IV GFR 15-29 SEVERELY DECREASED STAGE V GFR <15 VERY LITTLE GFR LEFT ESRD GFR <15 ON ELECTRONIC MAINTENANCE SUPERVISOR Procedures Date Code Description Status 03/13/2021 82771 EKG/Interpretation & Report Comp leted 03/13/2021 69753 Office/Outpatient Established Lo w MDM 20-29 Min Completed 02/22/2021 84200 Office/Outpatient Established Lo w MDM 20-29 Min Completed 01/25/2021 691717489 Diabetic Retinal Eye Exam Comple [facility] 11/01/2020 070038147 Diabetic Retinal Eye Exam Comple [facility] 06/14/2020 850947422 Diabetic Retinal Eye Exam Comple [facility] 06/01/2020 [id number] Mammogram Completed 11/24/2019 [id number] Diabetic Retinal Eye Exam Comple [facility] 05/20/2019 [id number] Bone Mineral Density Test Comple [facility] 05/20/2019 [id number] Mammogram Completed 06/25/2018 [id number] Colonoscopy Completed 01/01/2018 [id number] Mammogram Completed 12/26/2016 [id number] Mammogram Completed 12/26/2016 [id number] Bone Mineral Density Test Comple [facility] 12/21/2014 [id number] Mammogram Completed 06/29/2014 [id number] Mammogram Completed 09/15/2013 [id number] Mammogram Completed 08/25/2013 [id number] Mammogram Completed 06/23/2013 [id number] Colonoscopy Completed 01/16/2013 [id number] Colonoscopy Completed 07/08/2012 [id number] Bone Mineral Density Test Comple [facility] 07/08/2006 [id number] Colonoscopy Completed Medical Devices Description No Information Available Encounters Type Date Location Provider Dx Diagnosis Office Visit 03/13/2021 1:20p [facility]LELE Mcnair JR F43.0 Acute stress reaction R07.89 Other chest pain J45.20 Mild intermittent asthma, un complicated I10 Essential (primary) hyperten lorie Office Visit 02/22/2021 1:40p [facility] daniels [facility], PA F43.0 Acute stress reaction J45.20 Mild intermittent asthma, un complicated I10 Essential (primary) hyperten lorie G47.33 Obstructive sleep apnea (meet lt) (pediatric) Assessments Date Code Description Provider 03/13/2021 F43.0 Acute stress reaction LELE Mckeon [...] (pediatric) LELE Rodrigez JR Plan of Treatment 07/18/2020 - Dick Schultz MD* Z01.810 Encounter for preprocedural cardiovascular examination * H25.012 Cortical age-related cataract, left eye * R07.9 Chest pain, unspecified* Referral:* [facility] * I10 Essential (primary) hypertension* Comments:* Hypertension at JNC-8 guidelines * E78.2 Mixed hyperlipidemia* Comments:* LDL at goal. * J45.20 Mild intermittent asthma, uncomplicated * G47.33 Obstructive sleep apnea (adult) (pediatric) Functional Status Description No Information Available Mental Status Description No Information Available Referrals Refer to Reason for Referral Status Appt Date Travis Dallas MD NEW PATIENT CONSULT FOR EYE EXAM Patient Declined [facility] [address] , [address] [place] [id number] [phone]
--- OUTSIDE RECORDS SUMMARY | 2021-07-09 22:44 | CCD ---
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 Name Role Phone Areli Coker PA-C Unavailable Unavailabl e Areli Coker PA-C Unavailable Unavailabl e Areli Coker PA-C Unavailable Unavailabl e Areli Coker, LELE-Constantino Unavailable Unavailabl e Areli Coker, PA-C Unavailable Unavailabl e Areli Coker, PA-C Unavailable Unavailabl e Areli Coker, RADHA Unavailable Unavailabl e Fish, Areli Inez MPAS, PA-C Unavailable Unavailabl e Fish, [facility], PA-C Unavailable Unavailabl e Fish, [facility], PA-C Unavailable Unavailabl e Fish, [facility], PA-C Unavailable Unavailabl e Fish, [facility], PA-C Unavailable Unavailabl e Fish, [facility], PA-C Unavailable Unavailabl e Fish, [facility], PA-C Unavailable Unavailabl e Fish, [facility], PA-C Unavailable Unavailabl e Fish, [facility], PA-C Unavailable Unavailabl e Fish, [facility], PA-C Unavailable Unavailabl e Fish, [facility], PA-C Unavailable Unavailabl e Fish, [facility], PA-C Unavailable Unavailabl e Fish, [facility], PA-C Unavailable Unavailabl e Fish, [facility], PA-C Unavailable Unavailabl e Fish, [facility], PA-C Unavailable Unavailabl e Fish, [facility], PA-C Unavailable Unavailabl e Fish, [facility], PA-C Unavailable Unavailabl e Fish, [facility], PA-C Unavailable Unavailabl e Fish, [facility], PA-C Unavailable Unavailabl e Fish, [facility], PA-C Unavailable Unavailabl e Fish, [facility], PA-C Unavailable Unavailabl e Fish, [facility], PA-C Unavailable Unavailabl e Fish, [facility], PA-C Unavailable Unavailabl e Fish, [facility], PA-C Unavailable Unavailabl e Fish, [facility], PA-C Unavailable Unavailabl e Fish, [facility], PA-C Unavailable Unavailabl e Fish, [facility], PA-C Unavailable Unavailabl e Fish, [facility], PA-C Unavailable Unavailabl e Fish, [facility], PA-C Unavailable Unavailabl e Chyna Cárdenas MD Unavailable Unavailable Chyna Cárdenas MD Unavailable Unavailable Chyna Cárdenas MD Unavailable Unavailable Chyna Cárdenas MD Unavailable Unavailable Chyna Cárdenas MD Unavailable Unavailable Koloms, Chyna MD Unavailable Unavailable Koloms, Chyna MD Unavailable Unavailable Koloms, Chyna MD Unavailable Unavailable Koloms, Chyna MD Unavailable Unavailable Koloms, Chyna MD Unavailable Unavailable Koloms, Chyna MD Unavailable Unavailable Koloms, Chyna MD Unavailable Unavailable Koloms, Chyna MD Unavailable Unavailable Koloms, Chyna MD Unavailable Unavailable Koloms, Chyna MD Unavailable Unavailable Koloms, Chyna MD Unavailable Unavailable Koloms, Chyna MD Unavailable Unavailable Koloms, Chyna MD Unavailable Unavailable Koloms, Chyna MD Unavailable Unavailable Koloms, Chyna MD Unavailable Unavailable Koloms, Chyna MD Unavailable Unavailable Koloms, Chyna MD Unavailable Unavailable Koloms, Chyna MD Unavailable Unavailable Koloms, Chyna MD Unavailable Unavailable Koloms, Chyna MD Unavailable Unavailable Koloms, Chyna MD Unavailable Unavailable Koloms, Chyna MD Unavailable Unavailable Koloms, Chyna MD Unavailable Unavailable Koloms, Chyna MD Unavailable Unavailable Koloms, Chyna MD Unavailable Unavailable Koloms, Chyna MD Unavailable Unavailable Koloms, Chyna MD Unavailable Unavailable Koloms, Chyna MD Unavailable Unavailable CHROSTOWSKISEKOU MD Unavailable Unavailable CHROSTOWSKISEKOU MD Unavailable Unavailable CHROSTOWSKISEKOU MD Unavailable Unavailable CHROSTOWSKIFLACOSEKOU MD Unavailable Unavailable CHROSTOWSKIFLACOSEKOU MD Unavailable Unavailable CHROSTOWSKIFLACOSEKOU MD Unavailable Unavailable CHROSTOWSKIFLACOSEKOU MD Unavailable Unavailable CHROSTOWSKISEKOU MD Unavailable Unavailable CHROSTOWSKIFLACOSEKOU MD Unavailable Unavailable CHROSTOWSKIFLACOSEKOU MD Unavailable Unavailable CHROSTOWSKIFLACOSEKOU MD Unavailable Unavailable CHROSTOWSKIFLACOSEKOU MD Unavailable Unavailable CHROSTOWSKIFLACOSEKOU MD Unavailable Unavailable CHROSTOWSKIFLACOSEKOU MD Unavailable Unavailable CHROSTOWSKIFLACOSEKOU MD Unavailable Unavailable CHROSTOWSKI SEKOU MD Unavailable Unavailable CHROSTOWSKI SEKOU MD Unavailable Unavailable CHROSTOWSKI SEKOU MD Unavailable Unavailable CHROSTOWSKI SEKOU MD Unavailable Unavailable CHROSTOWSKI SEKOU MD Unavailable Unavailable CHROSTOWSKI SEKOU MD Unavailable Unavailable CHROSTOWSKIFLACOSEKOU MD Unavailable Unavailable CHROSTOWSKI SEKOU MD Unavailable Unavailable CHROSTOWSKI SEKOU MD Unavailable Unavailable CHROSTOWSKI SEKOU MD Unavailable Unavailable CHROSTOWSKI SEKOU MD Unavailable Unavailable CHROSTOWSKI SEKOU MD Unavailable Unavailable CHROSTOWSKI SEKOU MD Unavailable Unavailable CHROSTOWSKI SEKOU MD Unavailable Unavailable SEKOU MCKEON MD Unavailable Unavailable CHRSEKOU LEBLANC MD Unavailable Unavailable CHRSEKOU LEBLANC MD Unavailable Unavailable SEKOU MCKEON MD Unavailable Unavailable CHRSEKOU LEBLANC MD Unavailable Unavailable CHROSTSEKOU MG MD Unavailable Unavailable CHROSTSEKOU MG MD Unavailable Unavailable CHROSTSEKOU MG MD Unavailable Unavailable CHROSTSEKOU MG MD Unavailable Unavailable CHROSTSEKOU MG MD Unavailable Unavailable Koloms, Chyna MD Unavailable Unavailable Koloms, Chyna MD Unavailable Unavailable Koloms, Chyna MD Unavailable Unavailable Koloms, Chyna MD Unavailable Unavailable Koloms, Chyna MD Unavailable Unavailable Koloms, Chyna MD Unavailable Unavailable Koloms, Chyna MD Unavailable Unavailable Koloms, Chyna MD Unavailable Unavailable Koloms, Chyna MD Unavailable Unavailable Koloms, Chyna MD Unavailable Unavailable Koloms, Chyna MD Unavailable Unavailable Koloms, Chyna MD Unavailable Unavailable Koloms, Chyna MD Unavailable Unavailable Koloms, Chyna MD Unavailable Unavailable Koloms, Chyna MD Unavailable Unavailable Koloms, Chyna MD Unavailable Unavailable Koloms, Chyna MD Unavailable Unavailable Koloms, Chyna MD Unavailable Unavailable Koloms, Chyna MD Unavailable Unavailable Koloms, Chyna MD Unavailable Unavailable Koloms, Chyna MD Unavailable Unavailable Koloms, Chyna MD Unavailable Unavailable Koloms, Chyna MD Unavailable Unavailable Koloms, Chyna MD Unavailable Unavailable Koloms, Chyna MD Unavailable Unavailable Koloms, Chyna MD Unavailable Unavailable Koloms, Chyna MD Unavailable Unavailable Koloms, Chyna MD Unavailable Unavailable Koloms, Chyna MD Unavailable Unavailable Koloms, Chyna MD Unavailable Unavailable Koloms, Chyna MD Unavailable Unavailable Koloms, Chyna MD Unavailable Unavailable Koloms, Chyna MD Unavailable Unavailable MarionArgenis shetty MD Unavailable Unavailable Argenis Schultz MD Unavailable Unavailable Argenis Schultz MD Unavailable Unavailable Argenis Schultz MD Unavailable Unavailable Argenis Schultz MD Unavailable Unavailable Argenis Schultz MD Unavailable Unavailable Argenis Schultz MD Unavailable Unavailable Argenis Schultz MD Unavailable Unavailable Argenis Schultz MD Unavailable Unavailable Argenis Schultz MD Unavailable Unavailable Argenis Schultz MD Unavailable Unavailable Argenis Schultz MD Unavailable Unavailable Argenis Schultz MD Unavailable Unavailable Argenis Schultz MD Unavailable Unavailable MarionArgenis MD Unavailable Unavailable [place]Ar[place] MD Unavailable Unavailable [place]Ar[place] MD Unavailable Unavailable MarionArgenis MD Unavailable Unavailable [place] MD Unavailable Unavailable [place] MD Unavailable Unavailable MarionArgenis MD Unavailable Unavailable [place] MD Unavailable Unavailable [place] MD Unavailable Unavailable [place]Ar[place] MD Unavailable Unavailable MarionArgenis MD Unavailable Unavailable [place]Ar[place]is MD Unavailable Unavailable MarionArgenis MD Unavailable Unavailable [place]Ar[place]is MD Unavailable Unavailable MarionArgenis MD Unavailable Unavailable [place]Ar[place] MD Unavailable Unavailable [place] MD Unavailable Unavailable [place]Ar[place] MD Unavailable Unavailable MarionArgenis MD Unavailable Unavailable [place]Ar[place] MD Unavailable Unavailable [place]Ar[place] MD Unavailable Unavailable [place] MD Unavailable Unavailable [place] MD Unavailable Unavailable [place]is MD Unavailable Unavailable MarionArgenis MD Unavailable Unavailable MarionArgenis MD Unavailable Unavailable MarionArgenis MD Unavailable Unavailable MarionAgrenis MD Unavailable Unavailable [place]is MD Unavailable Unavailable [place] MD Unavailable Unavailable MarionArgenis MD Unavailable Unavailable MarionArgenis MD Unavailable Unavailable MarionArgenis MD Unavailable Unavailable MarionArgenis MD Unavailable Unavailable MarionArgenis MD Unavailable Unavailable MarionArgenis MD Unavailable Unavailable [place] MD Unavailable Unavailable [place] MD Unavailable Unavailable MarionArgenis MD Unavailable Unavailable MarionArgenis MD Unavailable Unavailable MarionArgenis MD Unavailable Unavailable [place] MD Unavailable Unavailable [place] MD Unavailable Unavailable [place] MD Unavailable Unavailable MarionArgenis MD Unavailable Unavailable MarionArgenis MD Unavailable Unavailable MarionArgenis MD Unavailable Unavailable [place]is MD Unavailable Unavailable MarionArgenis MD Unavailable Unavailable [place]is MD Unavailable Unavailable MarionArgenis MD Unavailable Unavailable [place]Argenis MD Unavailable Unavailable MarionArgenis MD Unavailable Unavailable MarionArgenis MD Unavailable Unavailable [place]Argenis MD Unavailable Unavailable [place]Argenis MD Unavailable Unavailable [place], F Jennings MD Unavailable Unavailable Argenis Schultz MD Unavailable Unavailable Argenis Schultz MD Unavailable Unavailable Argenis Schultz MD Unavailable Unavailable Argenis Schultz MD Unavailable Unavailable Argenis Schultz MD Unavailable Unavailable Argenis Schultz MD Unavailable Unavailable Argenis Schultz MD Unavailable Unavailable Argenis Schultz MD Unavailable Unavailable Argenis Schultz MD Unavailable Unavailable Argenis Schultz MD Unavailable Unavailable Argenis Schultz MD Unavailable Unavailable Argenis Schultz MD Unavailable Unavailable Argenis Schultz MD Unavailable Unavailable Argenis Schultz MD Unavailable Unavailable Argenis Schultz MD Unavailable Unavailable Gallardo, M Barratt PA Unavailable Unavailable Gallardo, M Barratt PA Unavailable Unavailable Gallardo, M Barratt PA Unavailable Unavailable Gallardo, M Barratt PA Unavailable Unavailable Gallardo, M Barratt PA Unavailable Unavailable Gallardo, M Barratt PA Unavailable Unavailable Gallardo, M Barratt PA Unavailable Unavailable Gallardo, M Barratt PA Unavailable Unavailable Gallardo, M Barratt PA Unavailable Unavailable Gallardo, M Barratt PA Unavailable Unavailable Gallardo, M Barratt PA Unavailable Unavailable Gallardo, M Barratt PA Unavailable Unavailable Gallardo, M Barratt PA Unavailable Unavailable Gallardo, M Barratt PA Unavailable Unavailable Gallardo, M Barratt PA Unavailable Unavailable Gallardo, M Barratt PA Unavailable Unavailable Gallardo, M Barratt PA Unavailable Unavailable Gallardo, M Barratt PA Unavailable Unavailable Gallardo, M Barratt PA Unavailable Unavailable Gallardo, M Barratt PA Unavailable Unavailable Gallardo, M Barratt PA Unavailable Unavailable Gallardo, M Barratt PA Unavailable Unavailable Gallardo, M Barratt PA Unavailable Unavailable Gallardo, M Barratt PA Unavailable Unavailable Gallardo, M Barratt PA Unavailable Unavailable Gallardo, M Barratt PA Unavailable Unavailable Gallardo, M Barratt PA Unavailable Unavailable Gallardo, M Barratt PA Unavailable Unavailable Gallardo, M Barratt PA Unavailable Unavailable Scozzari, K [place] PA Unavailable Unavailable Scozzari, K [place] PA Unavailable Unavailable Scozzari, K [place] PA Unavailable Unavailable Scozzari, K [place] PA Unavailable Unavailable Scozzari, K [place] PA Unavailable Unavailable Scozzari, K [place] PA Unavailable Unavailable Scozzari, K [place] PA Unavailable Unavailable Scozzari, K [place] PA Unavailable Unavailable Scozzari, K [place] PA Unavailable Unavailable Scozzari, K [place] PA Unavailable Unavailable Scozzari, K [place] PA Unavailable Unavailable Scozzari, K [place] PA Unavailable Unavailable Scozzari, K [place] PA Unavailable Unavailable Scozzari, K [place] PA Unavailable Unavailable Scozzari, K [place] PA Unavailable Unavailable Scozzari, K [place] PA Unavailable Unavailable Scozzari, K [place] PA Unavailable Unavailable Scozzari, K [place] PA Unavailable Unavailable Scozzari, K [place] PA Unavailable Unavailable Scozzari, K [place] PA Unavailable Unavailable Scozzari, K [place] PA Unavailable Unavailable Scozzari, K [place] PA Unavailable Unavailable Scozzari, K [place] PA Unavailable Unavailable Scozzari, K [place] PA Unavailable Unavailable Scozzari, K [place] PA Unavailable Unavailable Scozzari, K [place] PA Unavailable Unavailable Scozzari, K [place] PA Unavailable Unavailable Scozzari, K [place] PA Unavailable Unavailable Scozzari, K [place] PA Unavailable Unavailable Scozzari, K [place] PA Unavailable Unavailable Scozzari, K [place] PA Unavailable Unavailable Scozzari, K [place] PA Unavailable Unavailable Scozzari, K [place] PA Unavailable Unavailable Scozzari, K [place] PA Unavailable Unavailable Scozzari, K [place] PA Unavailable Unavailable Scozzari, K [place] PA Unavailable Unavailable Scozzari, K [place] PA Unavailable Unavailable Scozzari, K [place] PA Unavailable Unavailable Scozzari, K [place] PA Unavailable Unavailable Scozzari, K [place] PA Unavailable Unavailable Scozzari, K [place] PA Unavailable Unavailable Scozzari, K [place] PA Unavailable Unavailable Scozzari, K [place] PA Unavailable Unavailable Scozzari, K [place] PA Unavailable Unavailable Scozzari, K [place] PA Unavailable Unavailable Scozzari, K [place] PA Unavailable Unavailable Scozzari, K [place] PA Unavailable Unavailable Argenis Schultz MD Unavailable Unavailable Argenis Schultz MD Unavailable Unavailable Argenis Schultz MD Unavailable Unavailable Argenis Schultz MD Unavailable Unavailable Argenis Schultz MD Unavailable Unavailable Argenis Schultz MD Unavailable Unavailable Argenis Schultz MD Unavailable Unavailable Argenis Schultz MD Unavailable Unavailable Argenis Schultz MD Unavailable Unavailable Argenis Schultz MD Unavailable Unavailable Argenis Schultz MD Unavailable Unavailable Argenis Schultz MD Unavailable Unavailable Argenis Schultz MD Unavailable Unavailable Argenis Schultz MD Unavailable Unavailable [place]Argenis MD Unavailable Unavailable [place]Argenis MD Unavailable Unavailable MarionArgenis MD Unavailable Unavailable MarionArgenis MD Unavailable Unavailable [place]Argenis MD Unavailable Unavailable MarionArgenis MD Unavailable Unavailable MarionArgenis MD Unavailable Unavailable MarionArgenis MD Unavailable Unavailable MarionArgenis MD Unavailable Unavailable MarionArgenis MD Unavailable Unavailable MarionArgenis MD Unavailable Unavailable MarionArgenis MD Unavailable Unavailable MarionArgenis MD Unavailable Unavailable [place]Argenis MD Unavailable Unavailable MarionArgenis MD Unavailable Unavailable [place]Argenis MD Unavailable Unavailable [place]Argenis MD Unavailable Unavailable [place]Argenis MD Unavailable Unavailable [place]Argenis MD Unavailable Unavailable MarionArgenis MD Unavailable Unavailable [place]Argenis MD Unavailable Unavailable MarionArgenis MD Unavailable Unavailable MarionArgenis MD Unavailable Unavailable [place]Argenis MD Unavailable Unavailable [place]Argenis MD Unavailable Unavailable [place]Argenis MD Unavailable Unavailable [place]Argenis MD Unavailable Unavailable MarionArgenis MD Unavailable Unavailable MarionArgenis MD Unavailable Unavailable [place]Argenis MD Unavailable Unavailable MarionArgenis MD Unavailable Unavailable MarionArgenis MD Unavailable Unavailable MarionArgenis MD Unavailable Unavailable [place]Argenis MD Unavailable Unavailable MarionArgenis shetty MD Unavailable Unavailable MarionArgenis shetty MD Unavailable Unavailable [place]Argenis MD Unavailable Unavailable [place]Argenis MD Unavailable Unavailable [place]Argenis shetty MD Unavailable Unavailable [place]Argenis MD Unavailable Unavailable MarionArgenis shetty MD Unavailable Unavailable [place]Argenis shetty MD Unavailable Unavailable [place]Argenis shetty MD Unavailable Unavailable MarionArgenis MD Unavailable Unavailable [place]Argenis MD Unavailable Unavailable [place]Argenis MD Unavailable Unavailable [place]Argenis MD Unavailable Unavailable [place]Argenis MD Unavailable Unavailable [place]Argenis MD Unavailable Unavailable MarionArgenis MD Unavailable Unavailable [place]Argenis MD Unavailable Unavailable [place]Argenis MD Unavailable Unavailable MarionArgenis MD Unavailable Unavailable MarionArgenis MD Unavailable Unavailable MarionArgenis MD Unavailable Unavailable [place]Argenis MD Unavailable Unavailable [place]Argenis MD Unavailable Unavailable [place]Argenis MD Unavailable Unavailable MarionArgenis MD Unavailable Unavailable MarionArgenis MD Unavailable Unavailable MarionArgenis MD Unavailable Unavailable [place]Argenis MD Unavailable Unavailable MarionArgenis MD Unavailable Unavailable MarionArgenis MD Unavailable Unavailable [place]Argenis MD Unavailable Unavailable MarionArgenis MD Unavailable Unavailable MarionArgenis MD Unavailable Unavailable [place]Argenis MD Unavailable Unavailable [place]Argenis MD Unavailable Unavailable MarionArgenis MD Unavailable Unavailable MarionArgenis MD Unavailable Unavailable MarionArgenis MD Unavailable Unavailable MarionArgenis MD Unavailable Unavailable MarionArgenis MD Unavailable Unavailable [place]Argenis MD Unavailable Unavailable [place]Argenis MD Unavailable Unavailable MarionArgenis MD Unavailable Unavailable [place]Argenis MD Unavailable Unavailable MarionArgenis MD Unavailable Unavailable [place]Argenis MD Unavailable Unavailable MarionArgenis MD Unavailable Unavailable MarionArgenis MD Unavailable Unavailable [place]Argenis MD Unavailable Unavailable [place]Argenis MD Unavailable Unavailable [place]Argenis MD Unavailable Unavailable [place]Argenis MD Unavailable Unavailable [place]Argenis MD Unavailable Unavailable [place]Argenis MD Unavailable Unavailable MarionArgenis MD Unavailable Unavailable MarionArgenis MD Unavailable Unavailable MarionArgenis MD Unavailable Unavailable MarionArgenis MD Unavailable Unavailable [place]Argenis MD Unavailable Unavailable MarionArgenis MD Unavailable Unavailable MarionArgenis MD Unavailable Unavailable MarionArgenis MD Unavailable Unavailable [place]Argenis MD Unavailable Unavailable [place]Argenis MD Unavailable Unavailable [place]Argenis MD Unavailable Unavailable [place]Argenis MD Unavailable Unavailable [place]Argenis MD Unavailable Unavailable [place]Argenis MD Unavailable Unavailable MarionArgenis MD Unavailable Unavailable MarionArgenis MD Unavailable Unavailable MarionArgenis MD Unavailable Unavailable MarionArgenis MD Unavailable Unavailable MarionArgenis MD Unavailable Unavailable [place]Argenis MD Unavailable Unavailable MarionArgenis MD Unavailable Unavailable MarionArgenis MD Unavailable Unavailable [place]Argenis MD Unavailable Unavailable Marion, F Jennings MD Unavailable Unavailable MarionArgenis MD Unavailable Unavailable [place]Argenis MD Unavailable Unavailable MarionArgenis MD Unavailable Unavailable MarionArgenis MD Unavailable Unavailable [place]Argenis MD Unavailable Unavailable MarionArgenis MD Unavailable Unavailable MarionArgenis MD Unavailable Unavailable [place]Argenis MD Unavailable Unavailable [place]Argenis MD Unavailable Unavailable [place]Argenis MD Unavailable Unavailable MarionArgenis MD Unavailable Unavailable [place]Argenis MD Unavailable Unavailable MarionArgenis MD Unavailable Unavailable [place]Argenis MD Unavailable Unavailable MarionArgenis MD Unavailable Unavailable MarionArgenis MD Unavailable Unavailable [place]Argenis MD Unavailable Unavailable [place]Argenis MD Unavailable Unavailable MarionArgenis MD Unavailable Unavailable [place]Argenis MD Unavailable Unavailable MarionArgenis shetty MD Unavailable Unavailable [place]Argenis MD Unavailable Unavailable [place]Argenis MD Unavailable Unavailable MarionArgenis shetty MD Unavailable Unavailable [place]Argenis MD Unavailable Unavailable [place]Argenis shetty MD Unavailable Unavailable [place]Argenis shetty MD Unavailable Unavailable [place]Argenis shetty MD Unavailable Unavailable [place]Argenis MD Unavailable Unavailable [place]Argenis MD Unavailable Unavailable [place]Argenis shetty MD Unavailable Unavailable MarionArgenis shetty MD Unavailable Unavailable MarionArgenis shetty MD Unavailable Unavailable MarionArgenis shetty MD Unavailable Unavailable MarionArgenis shetty MD Unavailable Unavailable MarionArgenis shetty MD Unavailable Unavailable [place]Argenis shetty MD Unavailable Unavailable MarionArgenis shetty MD Unavailable Unavailable [place]Argenis shetty MD Unavailable Unavailable [place]Argenis shetty MD Unavailable Unavailable [place]Argenis shetty MD Unavailable Unavailable [place]Argenis shetty MD Unavailable Unavailable [place]Argenis shetty MD Unavailable Unavailable [place]Argenis MD Unavailable Unavailable [place]Argenis MD Unavailable Unavailable MarionArgenis MD Unavailable Unavailable OMARI, M LUCRECIA PA Unavailable Unavailable OMARI, M LUCRECIA PA Unavailable Unavailable OMARI, M LUCRECIA PA Unavailable Unavailable OMARI, M LUCRECIA PA Unavailable Unavailable OMARI, M LUCRECIA PA Unavailable Unavailable OMARI, M LUCRECIA PA Unavailable Unavailable OMARI, M LUCRECIA PA Unavailable Unavailable OMARI, M LUCRECIA PA Unavailable Unavailable OMARI, M LUCRECIA PA Unavailable Unavailable OMARI, M LUCRECIA PA Unavailable Unavailable OMARI, M LUCRECIA PA Unavailable Unavailable OMARI, M LUCRECIA PA Unavailable Unavailable OMARI, M LUCRECIA PA Unavailable Unavailable OMARI, M LUCRECIA PA Unavailable Unavailable OMARI, M LUCRECIA PA Unavailable Unavailable OMARI, M LUCRECIA PA Unavailable Unavailable OMARI, M LUCRECIA PA Unavailable Unavailable OMARI, M LUCRECIA PA Unavailable Unavailable OMARI, M LUCRECIA PA Unavailable Unavailable OMARI, M LUCRECIA PA Unavailable Unavailable OMARI, M LUCRECIA PA Unavailable Unavailable OMARI, M LUCRECIA PA Unavailable Unavailable OMARI, M LUCRECIA PA Unavailable Unavailable OMARI, M LUCRECIA PA Unavailable Unavailable CannDanae hardy PA Unavailable Unavailable Fish, B Bairon FLAHERTY Unavailable Unavailable Fish, B Bairon FLAHERTY Unavailable Unavailable Fish, B Bairon FLAHERTY Unavailable Unavailable Fish, B Bairon FLAHERTY Unavailable Unavailable Fish, B Bairon FLAHERTY Unavailable Unavailable Fish, B Bairon FLAHERTY Unavailable Unavailable Fish, B Bairon FLAHERTY Unavailable Unavailable Fish, B Bairon FLAHERTY Unavailable Unavailable Fish, B Bairon FLAHERTY Unavailable Unavailable Fish, B Bairon FLAHERTY Unavailable Unavailable Fish, B Bairon FLAHERTY Unavailable Unavailable Fish, B Bairon FLAHERTY Unavailable Unavailable Fish, B Bairon FLAHERTY Unavailable Unavailable Fish, B Bairon FLAHERTY Unavailable Unavailable Fish, B Bairon FLAHERTY Unavailable Unavailable Fish, B Bairon FLAHERTY Unavailable Unavailable Fish, B Bairon FLAHERTY Unavailable Unavailable Fish, B Bairon FLAHERTY Unavailable Unavailable Fish, B Bairon FLAHERTY Unavailable Unavailable Fish, B Bairon FLAHERTY Unavailable Unavailable Fish, B Bairon FLAHERTY Unavailable Unavailable Fish, B Bairon FLAHERTY Unavailable Unavailable Fish, B Bairon FLAHERTY Unavailable Unavailable Fish, B Bairon FLAHERTY Unavailable Unavailable Fish, Contreras Waddell MD Unavailable Unavailable Fish, Contreras Waddell MD Unavailable Unavailable Fish, B Bairon FLAHERTY Unavailable Unavailable Fish, Contreras Waddell MD Unavailable Unavailable Fish, Contreras Waddell MD Unavailable Unavailable Fish, B Bairon FLAHERTY Unavailable Unavailable Fish, B Bairon FLAHERTY Unavailable Unavailable Fish, B Bairon FLAHERTY Unavailable Unavailable Fish, Contreras Waddell MD Unavailable Unavailable Fish, Contreras Waddell MD Unavailable Unavailable Fish, B Bairon FLAHERTY Unavailable Unavailable Fish, Contreras Waddell MD Unavailable Unavailable Fish, Contreras Waddell MD Unavailable Unavailable Fish, Contreras Waddell MD Unavailable Unavailable Fish, B Bairon FLAHERTY Unavailable Unavailable Fish, B Bairon FLAHERTY Unavailable Unavailable Fish, B Bairon FLAHERTY Unavailable Unavailable Fish, B Bairon FLAHERTY Unavailable Unavailable Fish, B Bairon FLAHERTY Unavailable Unavailable Fish, B Bairon FLAHERTY Unavailable Unavailable Fish, B Bairon MD Unavailable Unavailable Fish, Contreras Waddell MD Unavailable Unavailable Fish, Contreras Waddell MD Unavailable Unavailable Fish, Contreras Waddell MD Unavailable Unavailable Fish, Contreras Waddell MD Unavailable Unavailable Fish, Contreras Waddell MD Unavailable Unavailable Fish, Contreras Waddell MD Unavailable Unavailable Fish, Contreras Waddell MD Unavailable Unavailable Fish, Contreras Waddell MD Unavailable Unavailable Fish, Contreras Waddell MD Unavailable Unavailable Fish, Contreras Waddell MD Unavailable Unavailable Fish, Contreras Waddell MD Unavailable Unavailable Vee, Piyush Unavailable Unavailable Vee, Piyush Unavailable Unavailable Vee, Piyush Unavailable Unavailable Vee, Piyush Unavailable Unavailable Vee, Piyush Unavailable Unavailable Vee, Piyush Unavailable Unavailable Vee, Piyush Unavailable Unavailable Vee, Piyush Unavailable Unavailable Vee, Piyush Unavailable Unavailable Vee, Piyush Unavailable Unavailable Vee, Piyush Unavailable Unavailable Vee, Piyush Unavailable Unavailable Vee, Piyush Unavailable Unavailable Vee, Piyush Unavailable Unavailable Vee, Piyush Unavailable Unavailable Vee, Piyush Unavailable Unavailable Vee, Piyush Unavailable Unavailable Vee, Piyush Unavailable Unavailable Vee, Piyush Unavailable Unavailable Vee, Piyush Unavailable Unavailable Vee, Piyush Unavailable Unavailable Vee, Piyush Unavailable Unavailable Vee, Piyush Unavailable Unavailable Vee, Piyush Unavailable Unavailable Vee, Piyush Unavailable Unavailable Vee, Piyush Unavailable Unavailable Vee, Piyush Unavailable Unavailable Vee, Piyush Unavailable Unavailable Vee, Piyush Unavailable Unavailable Vee, Piyush Unavailable Unavailable Vee, Piyush Unavailable Unavailable Vee, Piyush Unavailable Unavailable Vee, Piyush Unavailable Unavailable Vee, Piyush Unavailable Unavailable Vee, Piyush Unavailable Unavailable Vee, Piyush Unavailable Unavailable Vee, Piyush Unavailable Unavailable Vee, Piyush Unavailable Unavailable Vee, Piyush Unavailable Unavailable Vee, Piyush Unavailable Unavailable Vee, Piyush Unavailable Unavailable Vee, Piyush Unavailable Unavailable Vee, Piyush Unavailable Unavailable Vee, Piyush Unavailable Unavailable Vee, Piyush Unavailable Unavailable Constantino EASTON MD Unavailable Unavailable Constantino EASTON MD Unavailable Unavailable Constantino EASTON MD Unavailable Unavailable Constantino EASTON MD Unavailable Unavailable Constantino EASTON MD Unavailable Unavailable Constantino EASTON MD Unavailable Unavailable Constantino EASTON MD Unavailable Unavailable Constantino EASTON MD Unavailable Unavailable Constantino EASTON MD Unavailable Unavailable Constantino EASTON MD Unavailable Unavailable Constantino EASTON MD Unavailable Unavailable Constantino EASTON MD Unavailable Unavailable Constantino EASTON MD Unavailable Unavailable Constantino EASTON MD Unavailable Unavailable Constantino EASTON MD Unavailable Unavailable Constantino EASTON MD Unavailable Unavailable Constantino EASTON MD Unavailable Unavailable Constantino EASTON MD Unavailable Unavailable Constantino EASTON MD Unavailable Unavailable Constantino EASTON MD Unavailable Unavailable Constantino EASTON MD Unavailable Unavailable Constantino EASTON MD Unavailable Unavailable Constantino EASTON MD Unavailable Unavailable Constantino EASTON MD Unavailable Unavailable Feola, T Brenda PA Unavailable Unavailable Feola, T Brenda PA Unavailable Unavailable Feola, T Brenda PA Unavailable Unavailable Feola, T Brenda PA Unavailable Unavailable Feola, T Brenda PA Unavailable Unavailable Feola, T Brenda PA Unavailable Unavailable Feola, T Brenda PA Unavailable Unavailable Feola, T Brenda PA Unavailable Unavailable Feola, T Brenda PA Unavailable Unavailable Feola, T Brenda PA Unavailable Unavailable Feola, T Brenda PA Unavailable Unavailable Feola, T Brenda PA Unavailable Unavailable Feola, T Brenda PA Unavailable Unavailable Feola, T Brenda PA Unavailable Unavailable Feola, T Brenda PA Unavailable Unavailable Feola, T Brenda PA Unavailable Unavailable Feola, T Brenda PA Unavailable Unavailable Feola, T Brenda PA Unavailable Unavailable Feola, T Brenda PA Unavailable Unavailable Feola, T Brenda PA Unavailable Unavailable Feola, T Brenda PA Unavailable Unavailable Feola, T Brenda PA Unavailable Unavailable Feola, T Brenda PA Unavailable Unavailable Feola, T Brenda PA Unavailable Unavailable Feola, T Brenda PA Unavailable Unavailable Feola, T Brenda PA Unavailable Unavailable Feola, T Brenda PA Unavailable Unavailable Feola, T Brenda PA Unavailable Unavailable Feola, T Brenda PA Unavailable Unavailable Feola, T Brenda PA Unavailable Unavailable Feola, T Brenda PA Unavailable Unavailable Feola, T Brenda PA Unavailable Unavailable Feola, T Brenda PA Unavailable Unavailable Feola, T Brenda PA Unavailable Unavailable Feola, T Brenda PA Unavailable Unavailable Feola, T Brenda PA Unavailable Unavailable Feola, T Brenda PA Unavailable Unavailable Feola, T Brenda PA Unavailable Unavailable Feola, T Brenda PA Unavailable Unavailable Feola, T Brenda PA Unavailable Unavailable Feola, T Brenda PA Unavailable Unavailable Cheryl WHITMORE JR PA-C Unavailable Unavailable Cheryl WHITMORE JR PA-C Unavailable Unavailable Cheryl WHITMORE JR PA-C Unavailable Unavailable Cheryl WHITMORE JR PA-C Unavailable Unavailable Cheryl WHITMORE JR PA-C Unavailable Unavailable Cheryl WHITMORE JR PA-C Unavailable Unavailable PICKERAL JR, J GHASSAN PA-C Unavailable Unavailable PICKERAL JR, J GHASSAN PA-C Unavailable Unavailable PICKERAL JR, J GHASSAN PA-C Unavailable Unavailable PICKERAL JR, J GHASSAN PA-C Unavailable Unavailable PICKERAL JR, J GHASSAN PA-C Unavailable Unavailable PICKERAL JR, J GHASSAN PA-C Unavailable Unavailable PICKERAL JR, J GHASSAN PA-C Unavailable Unavailable PICKERAL JR, J GHASSAN PA-C Unavailable Unavailable PICKERAL JR, J GHASSAN PA-C Unavailable Unavailable PICKERAL JR, J GHASSAN PA-C Unavailable Unavailable PICKERAL JR, J GHASSAN PA-C Unavailable Unavailable PICKERAL JR, J GHASSAN PA-C Unavailable Unavailable PICKERAL JR, J GHASSAN PA-C Unavailable Unavailable PICKERAL JR, J GHASSAN PA-C Unavailable Unavailable PICKERAL JR, J GHASSAN PA-C Unavailable Unavailable PICKERAL JR, J GHASSAN PA-C Unavailable Unavailable PICKERAL JR, J GHASSAN PA-C Unavailable Unavailable PICKERAL JR, J GHASSAN PA-C Unavailable Unavailable PICKERAL JR, J GHASSAN PA-C Unavailable Unavailable PICKERAL JR, J GHASSAN PA-C Unavailable Unavailable PICKERAL JR, J GHASSAN PA-C Unavailable Unavailable Don WYATT MD Unavailable Unavailable Don WYATT MD Unavailable Unavailable Don WYATT MD Unavailable Unavailable Don WYATT MD Unavailable Unavailable Don WYATT MD Unavailable Unavailable Don WYATT MD Unavailable Unavailable Don WYATT MD Unavailable Unavailable Don WYATT MD Unavailable Unavailable Don WYATT MD Unavailable Unavailable Don WYATT MD Unavailable Unavailable Don WYATT MD Unavailable Unavailable Don WYATT MD Unavailable Unavailable Don WYATT MD Unavailable Unavailable Don WYATT MD Unavailable Unavailable Don WYATT MD Unavailable Unavailable Don WYATT MD Unavailable Unavailable Don WYATT MD Unavailable Unavailable Don WYATT MD Unavailable Unavailable Don WYATT MD Unavailable Unavailable Don WYATT MD Unavailable Unavailable Don WYATT MD Unavailable Unavailable Don WYATT MD Unavailable Unavailable Don WYATT MD Unavailable Unavailable Don WYATT MD Unavailable Unavailable Don WYATT MD Unavailable Unavailable Don WYATT MD Unavailable Unavailable Don WYATT MD Unavailable Unavailable Don WYATT MD Unavailable Unavailable Don WYATT MD Unavailable Unavailable Don WYATT MD Unavailable Unavailable Don WYATT MD Unavailable Unavailable Don WYATT MD Unavailable Unavailable Don WYATT MD Unavailable Unavailable Don WYATT MD Unavailable Unavailable WYATT, Don OHARA MD Unavailable Unavailable WYATT, Don OHARA MD Unavailable Unavailable WYATT, Don OHARA MD Unavailable Unavailable WYATT, Don OHARA MD Unavailable Unavailable WYATT, Don OHARA MD Unavailable Unavailable WYATT, Don OHARA MD Unavailable Unavailable WYATT, Don OHARA MD Unavailable Unavailable WYATT, Don OHARA MD Unavailable Unavailable WYATT, Don OHARA MD Unavailable Unavailable WYATT, Don OHARA MD Unavailable Unavailable WYATT, Don OHARA MD Unavailable Unavailable WYATT, Don OHARA MD Unavailable Unavailable WYATT, Don OHARA MD Unavailable Unavailable WYATT, Don OHARA MD Unavailable Unavailable WYATT, Don OHARA MD Unavailable Unavailable WYATT, Don OHARA MD Unavailable Unavailable WYATT, Don OHARA MD Unavailable Unavailable WYATT, Don OHARA MD Unavailable Unavailable WYATT, Don OHARA MD Unavailable Unavailable WYATT, Don OHARA MD Unavailable Unavailable WYATT, Don OHARA MD Unavailable Unavailable WYATT, Don OHARA MD Unavailable Unavailable WYATT, Don OHARA MD Unavailable Unavailable WYATT, Don OHARA MD Unavailable Unavailable WYATT, Don OHARA MD Unavailable Unavailable WYATT, Don OHARA MD Unavailable Unavailable WYATT, Don OHARA MD Unavailable Unavailable WYATT, Don OHARA MD Unavailable Unavailable WYATT, Don OHARA MD Unavailable Unavailable WYATT, Don OHARA MD Unavailable Unavailable WYATT, Don OHARA MD Unavailable Unavailable WYATT, Don OHARA MD Unavailable Unavailable WYATT, Don OHARA MD Unavailable Unavailable WYATT, Don OHARA MD Unavailable Unavailable WYATT, Don OHARA MD Unavailable Unavailable WYATT, Don OHARA MD Unavailable Unavailable WYATT, Don OHARA MD Unavailable Unavailable WYATT, Don OHARA MD Unavailable Unavailable WYATT, Don OHARA MD Unavailable Unavailable WYATT, Don OHARA MD Unavailable Unavailable WYATT, Don OHARA MD Unavailable Unavailable WYATT, Don OHARA MD Unavailable Unavailable WYATT, Don OHARA MD Unavailable Unavailable WYATT, Don OHARA MD Unavailable Unavailable WYATT, Don OHARA MD Unavailable Unavailable WYATT, Don OHARA MD Unavailable Unavailable WYATT, Don OHARA MD Unavailable Unavailable WYATT, Don OHARA MD Unavailable Unavailable WYATT, Don OHARA MD Unavailable Unavailable WYATT, Don OHARA MD Unavailable Unavailable WYATT, Don OHARA MD Unavailable Unavailable WYATT, Don OHARA MD Unavailable Unavailable WYATT, Don OHARA MD Unavailable Unavailable WYATT, Don OHARA MD Unavailable Unavailable WYATT, Don OHARA MD Unavailable Unavailable WYATT, Don OHARA MD Unavailable Unavailable WYATT, Don OHARA MD Unavailable Unavailable WYATT, Don OHARA MD Unavailable Unavailable WYATT, Don OHARA MD Unavailable Unavailable WYATT, Don OHARA MD Unavailable Unavailable WYATT, Don OHARA MD Unavailable Unavailable WYATT, Don OHARA MD Unavailable Unavailable WYATT, Don OHARA MD Unavailable Unavailable WYATT, Don OHARA MD Unavailable Unavailable WYATT, Don OHARA MD Unavailable Unavailable WYATT, Don OHARA MD Unavailable Unavailable WYATT, Don OHARA MD Unavailable Unavailable WYATT, Don OHARA MD Unavailable Unavailable WYATT, Don OHARA MD Unavailable Unavailable WYATT, Don OHARA MD Unavailable Unavailable WYATT, Don OHARA MD Unavailable Unavailable WYATT, Don OHARA MD Unavailable Unavailable WYATT, Don OHARA MD Unavailable Unavailable WYATT, Don OHARA MD Unavailable Unavailable WYATT, Don OHARA MD Unavailable Unavailable WYATT, Don OHARA MD Unavailable Unavailable WYATT, Don OHARA MD Unavailable Unavailable WYATT, Don OHARA MD Unavailable Unavailable WYATT, Don OHARA MD Unavailable Unavailable WYATT, Don OHARA MD Unavailable Unavailable WYATT, Don OHARA MD Unavailable Unavailable WYATT, Don OHARA MD Unavailable Unavailable LAROCK, J DEBRA EXPRESS CLERK Unavailable Unavailable LAROCK, J DEBRA EXPRESS CLERK Unavailable Unavailable LAROCK, J DEBRA EXPRESS CLERK Unavailable Unavailable LAROCK, J DEBRA EXPRESS CLERK Unavailable Unavailable LAROCK, J DEBRA EXPRESS CLERK Unavailable Unavailable LAROCK, J DEBRA EXPRESS CLERK Unavailable Unavailable LAROCK, J DEBRA EXPRESS CLERK Unavailable Unavailable LAROCK, J DEBRA EXPRESS CLERK Unavailable Unavailable LAROCK, J DEBRA EXPRESS CLERK Unavailable Unavailable LAROCK, J DEBRA EXPRESS CLERK Unavailable Unavailable LAROCK, J DEBRA EXPRESS CLERK Unavailable Unavailable LAROCK, J DEBRA EXPRESS CLERK Unavailable Unavailable LAROCK, J DEBRA EXPRESS CLERK Unavailable Unavailable LAROCK, J DEBRA EXPRESS CLERK Unavailable Unavailable LAROCK, J DEBRA EXPRESS CLERK Unavailable Unavailable LAROCK, J DEBRA EXPRESS CLERK Unavailable Unavailable LAROCK, J DEBRA EXPRESS CLERK Unavailable Unavailable LAROCK, J DEBRA EXPRESS CLERK Unavailable Unavailable LAROCK, J DEBRA EXPRESS CLERK Unavailable Unavailable LAROCK, J DEBRA EXPRESS CLERK Unavailable Unavailable LAROCK, J DEBRA EXPRESS CLERK Unavailable Unavailable LAROCK, J DEBRA EXPRESS CLERK Unavailable Unavailable ERIK, JAIRO VIVI CLEAT LAYER-C Unavailable Unavailable ERIK, JAIRO VIVI CLEAT LAYER-C Unavailable Unavailable ERIK, JAIRO VIVI CLEAT LAYER-C Unavailable Unavailable ERIK, JAIRO VIVI CLEAT LAYER-C Unavailable Unavailable ERIK, JAIRO VIVI CLEAT LAYER-C Unavailable Unavailable ERIK, JAIRO VIVI CLEAT LAYER-C Unavailable Unavailable ERIK, JAIRO VIVI CLEAT LAYER-C Unavailable Unavailable ERIK, JAIRO VIVI CLEAT LAYER-C Unavailable Unavailable ERIK, JAIRO VIVI CLEAT LAYER-C Unavailable Unavailable ERIK, JAIRO VIVI CLEAT LAYER-C Unavailable Unavailable ERIK, JAIRO VIVI CLEAT LAYER-C Unavailable Unavailable ERIK, JAIRO VIVI CLEAT LAYER-C Unavailable Unavailable ERIK, JAIRO VIVI CLEAT LAYER-C Unavailable Unavailable ERIK, JAIRO VIVI CLEAT LAYER-C Unavailable Unavailable ERIK, JAIRO VIVI CLEAT LAYER-C Unavailable Unavailable ERIK, JAIRO VIVI CLEAT LAYER-C Unavailable Unavailable ERIK, JAIRO VIVI CLEAT LAYER-C Unavailable Unavailable PITER, Contreras SUAREZ MD Unavailable Unavailable PITER, Contreras SUAREZ MD Unavailable Unavailable PITER, Contreras SUAREZ MD Unavailable Unavailable PITER, Contreras SUAREZ MD Unavailable Unavailable PITER, Contreras SUAREZ MD Unavailable Unavailable PITER, Contreras SUAREZ MD Unavailable Unavailable PITER, Contreras SUAREZ MD Unavailable Unavailable PITER, Contreras SUAREZ MD Unavailable Unavailable PITER, Contreras SUAREZ MD Unavailable Unavailable PITER, Contreras SUAREZ MD Unavailable Unavailable PITER, Contreras SUAREZ MD Unavailable Unavailable PITER, Contreras SUAREZ MD Unavailable Unavailable PITER, Contreras SUAREZ MD Unavailable Unavailable PITER, Contreras SUAREZ MD Unavailable Unavailable PITER, Contreras SUAREZ MD Unavailable Unavailable PITER, Contreras SUAREZ MD Unavailable Unavailable PITER, Contreras SUAREZ MD Unavailable Unavailable PITER, Contreras SUAREZ MD Unavailable Unavailable PITER, Contreras SUAREZ MD Unavailable Unavailable PITER, Contreras SUAREZ MD Unavailable Unavailable PITER, Contreras SUAREZ MD Unavailable Unavailable PITER, Contreras SUAREZ MD Unavailable Unavailable PITER, Contreras SUAREZ MD Unavailable Unavailable PITER, Contreras SUAREZ MD Unavailable Unavailable PITER, Contreras SUAREZ MD Unavailable Unavailable PITER, Contreras SUAREZ MD Unavailable Unavailable PITER, Contreras SUAREZ MD Unavailable Unavailable PITER, Contreras SUAREZ MD Unavailable Unavailable PITER, Contreras SUAREZ MD Unavailable Unavailable PITER, Contreras SUAREZ MD Unavailable Unavailable PITER, Contreras SUAREZ MD Unavailable Unavailable PITER, Contreras SUAREZ MD Unavailable Unavailable PITER, Contreras SUAREZ MD Unavailable Unavailable PITER, Contreras SUAREZ MD Unavailable Unavailable PITER, Contreras SUAREZ MD Unavailable Unavailable PITER, Contreras SUAREZ MD Unavailable Unavailable PITER, Contreras SUAREZ MD Unavailable Unavailable PITER, Contreras SUAREZ MD Unavailable Unavailable PITER, Contreras SUAREZ MD Unavailable Unavailable PITER, Contreras SUAREZ MD Unavailable Unavailable PITER, Contreras SUAREZ MD Unavailable Unavailable PITER, Contreras SUAREZ MD Unavailable Unavailable PITER, Contreras SUAREZ MD Unavailable Unavailable PITER, B DANIELA FLAHERTY Unavailable Unavailable PITER, B DANIELA FLAHERTY Unavailable Unavailable PITER, B DANIELARebel FLAHERTY Unavailable Unavailable PITER, B DANIELARebel FLAHERTY Unavailable Unavailable PITER, B DANIELA FLAHERTY Unavailable Unavailable PITER, B DANIELA FLAHERTY Unavailable Unavailable PITER, B DANIELARebel FLAHERTY Unavailable Unavailable PITER, B DANIELARebel FLAHERTY Unavailable Unavailable PITER, B DANIELARebel FLAHERTY Unavailable Unavailable PITER, B DANIELARebel FLAHERTY Unavailable Unavailable PITER, B DANIELA FLAHERTY Unavailable Unavailable PITER, B DANIELA FLAHERTY Unavailable Unavailable PITER, B DANIELA FLAHERTY Unavailable Unavailable PITER, B DANIELA FLAHERTY Unavailable Unavailable PITER, B DANIELARebel FLAHERTY Unavailable Unavailable PITER, B DANIELA FLAHERTY Unavailable Unavailable PITER, B DANIELA FLAHERTY Unavailable Unavailable PITER, B DANIELA FLAHERTY Unavailable Unavailable PITER, B DANIELA FLAHERTY Unavailable Unavailable PITER, B DANIELA FLAHERTY Unavailable Unavailable PITER, B DANIELA FLAHERTY Unavailable Unavailable PITER, B DANIELA FLAHERTY Unavailable Unavailable PITER, B DANIELA FLAHERTY Unavailable Unavailable PITER, B DANIELA FLAHERTY Unavailable Unavailable PITER, B DANIELA FLAHERTY Unavailable Unavailable PITER, B DANIELA FLAHERTY Unavailable Unavailable PITER, B DANIELA FLAHERTY Unavailable Unavailable PITER, B DANIELA FLAHERTY Unavailable Unavailable PITER, B DANIELA FLAHERTY Unavailable Unavailable PITER, B DANIELA FLAHERTY Unavailable Unavailable PITER, B DANIELA FLAHERTY Unavailable Unavailable PITER, B DANIELA FLAHERTY Unavailable Unavailable PITER, B DANIELA FLAHERTY Unavailable Unavailable PITER, B DANIELA FLAHERTY Unavailable Unavailable PITER, B DANIELA FLAHERTY Unavailable Unavailable PITER, B DANIELA FLAHERTY Unavailable Unavailable PITER, B DANIELA FLAHERTY Unavailable Unavailable PITER, B DANIELA FLAHERTY Unavailable Unavailable PITER, B DANIELA FLAHERTY Unavailable Unavailable PITER, B DANIELA FLAHERTY Unavailable Unavailable PITER, B DANIELA FLAHERTY Unavailable Unavailable PITER, B DANIELA FLAHERTY Unavailable Unavailable PITER, B DANIELA FLAHERTY Unavailable Unavailable PITER, B DANIELA FLAHERTY Unavailable Unavailable PITER, B DANIELA FLAHERTY Unavailable Unavailable Downs, Rufus PA-C Unavailable Unavailable Downs, Rufus PA-C Unavailable Unavailable Downs, Rufus PA-C Unavailable Unavailable Downs, Rufus PA-C Unavailable Unavailable Downs, Rufus PA-C Unavailable Unavailable Downs, Rufus PA-C Unavailable Unavailable Downs, Rufus PA-C Unavailable Unavailable Downs, Rufus PA-C Unavailable Unavailable Downs, Rufus PA-C Unavailable Unavailable Downs, Rufus PA-C Unavailable Unavailable Downs, Rufus PA-C Unavailable Unavailable Re-disclosure Warning The records that you are about to access may contain information from federally-assisted alcohol or drug abuse programs. If such information is present, then the following federally mandated warning applies: This information has been disclosed to you from records protected by federal confidentiality rules (42 CFR part 2). The federal rules prohibit you from making any further disclosure of this information unless further disclosure is expressly permitted by the written consent of the person to whom it pertains or as otherwise permitted by 42 CFR part 2. A general authorization for the release of medical or other information is NOT sufficient for this purpose. The Federal rules restrict any use of the information to criminally investigate or prosecute any alcohol or drug abuse patient.The records that you are about to access may contain highly sensitive health information, the redisclosure of which is protected by Article 27-F of the [facility] Public Health law. If you continue you may have access to information: Regarding HIV / AIDS; Provided by facilities licensed or operated by the [facility] Office of Mental Health; or Provided by the [facility] Office for People With Developmental Disabilities. If such information is present, then the following [facility] mandated warning applies: This information has been disclosed to you from confidential records which are protected by state law. State law prohibits you from making any further disclosure of this information without the specific written consent of the person to whom it pertains, or as otherwise permitted by law. Any unauthorized further disclosure in violation of state law may result in a fine or senior care sentence or both. A general authorization for the release of medical or other information is NOT sufficient authorization for further disc losure. Allergies and Adverse Reactions Type Description Substance Reaction Status Data Source(s ) Propensity to adverse reactions PRAVASTATIN PRAVASTATIN [facility] Propensity to adverse reactions GABAPENTIN GABAPENTIN [facility] Propensity to adverse reactions METHYLPREDNISOLONE METHYLPREDNISOLO [facility] allergy Bruce Barrera V[facility] Drug allergy vanyoyn vanyoyn [facility] Drug allergy simvistain simvistain [facility] Drug allergy lumigan' lumigan' [facility] Drug allergy comnigan comnigan [facility] Drug allergy betadine betadine [facility] Drug allergy chloraprep chloraprep ITCHING [facility] Drug allergy IODINE IODINE [facility] Drug allergy baclofen baclofen [facility] Propensity to adverse reactions SOLU-MEDROL 40MG VIAL SOLU-MEDRO L 40MG VIAL ITCHING [facility] Propensity to adverse reactions PENNSAID PENNSAID BURNING SENSATI ON [facility] Propensity to adverse reactions VOLTAREN GEL VOLTAREN GEL BURNING [facility] Propensity to adverse reactions TIMOLOL MALEATE TIMOLOL MALEATE REDNE SS [facility] Propensity to adverse reactions LIPITOR LIPITOR ITCHING [facility] Propensity to adverse reactions FIORINAL FIORINAL [facility] Propensity to adverse reactions DEPO-MEDROL DEPO-MEDROL ITCHING [facility] Propensity to adverse reactions ADHESIVE ADHESIVE ITCHING [facility] Drug allergy TIZANIDINE TIZANIDINE NIGHTMARES [facility] Drug allergy DORZOLAMIDE DORZOLAMIDE RED EYES [facility] allergy GABAPENTIN GABAPENTIN "WEIRD SENSATION IN LEGS" [facility] Drug allergy SIMVASTATIN SIMVASTATIN LEG CRAMPS [facility] Drug allergy KETOROLAC KETOROLAC RED EYES [facility] Drug allergy FENTANYL FENTANYL nausea/vomiting [facility] Drug allergy TIMOLOL TIMOLOL RED EYES [facility] Drug allergy MORPHINE MORPHINE VOM[facility]ING [facility] Drug allergy CODEINE CODEINE [facility] Drug allergy VANCOMYCIN VANCOMYCIN ITCHING [facility] Propensity to adverse reactions PCN (penicillin) PCN (penicillin ) BUMPS ON THE BACK OF TONGUE [facility] Family History Family Member Name Family Member Gender Family Member Status Date o f Status Description Data Source(s) Unknown Unknown Problem MEDENT ([facility]) Encounters Encounter Providers Location Date Indications Data Source(s ) Outpatient 06/30/2021 03:25:35 PM EDT - 021 04:46:52 PM EDT [facility] ([facility]) Outpatient Referrer: DANIELA DUMAS MD 06/29/2021 12:00: 00 AM EDT Pain in right wrist [facility] Pain in right wrist Outpatient Attender: DANIELA DUMAS MD [id number] 06/29/2021 12:00:00 AM [facility] OFFICE OUTPATIENT VISIT 15 MINUTES Attender: Sukhwinder ROYAL Physical Therapy 06/16/2021 11:15:00 AM EDT MEDENT ([facility]) Outpatient Attender: DANIELA DUMAS MD 05/18/2021 12:00:00 AM EDT [facility] Unknown [address] [address] 05/17/2021 12:00:00 AM EDT eCW1 ([facility]) Outpatient Attender: Brenda Núñezender: Danae ROYAL 05/15/2021 12:08:13 PM EDT - 05/15/2021 03:04:10 PM EDT [facility] ( [facility]) Unknown [address] [address] 05/11/2021 12:00:00 AM EDT eCW1 ([facility]) Outpatient Attender: Rufus Leon PA-C 01/2021 03:25:22 PM EDT - 05/08/2021 05:36:25 PM EDT [facility] ([facility] ) Outpatient Attender: Sukhwinder ROYAL Physical Therapy 10:45:00 AM EDT MEDENT ([facility]) Outpatient Attender: VIVI Belle/Alyssa/Ramakrishna/Kenney grover 04/28/2021 02:15:00 PM EDT MEDENT ([facility]) Outpatient Attender: Dick Wells 04/18/2021 02:00:00 PM EDT MEDENT ([facility] ) Outpatient Attender: DANIELA DUMAS MD [id number] 04/17/[facility]: Sukhwinder ROYAL Physical Therapy 03:15:00 PM EDT MEDENT ([facility]) Outpatient Attender: GHASSAN Llanos 0 03/13/2021 01:20:00 PM EDT MEDENT ([facility] ) Outpatient Attender: MAYDA Parsons: Dick murillo MD 03/01/2021 10:50:26 AM EDT [facility] Recurring Patient Attender: MAYDA Martinezerrer: Bairon fernandez MD 02/23/2021 02:31:59 PM EDT [facility] Rec[facility] Patient Attender: MAYDA RILEYeferrer: Bairon fernandez MD 02/23/2021 02:30:56 PM EDT [facility] Rec[facility] Patient Attender: MAYDA Martinezerrhyacinth: Bairon fernandez MD 02/23/2021 02:30:15 PM EDT [facility] Outpatient Attender: GHASSAN Llanos 0 02/22/2021 01:40:00 PM EDT MEDENT ([facility] ) Unknown [address] [address] 02/16/2021 12:00:00 AM EDT eCW1 ([facility]) OFFICE OUTPATIENT VISIT 15 MINUTES Attender: Sukhwinder ROYAL Physical Therapy 01/16/2021 10:15:00 AM EDT MEDENT ([facility] ) Outpatient Attender: [place] Fostererrer: Dick little MD 01/09/2021 03:07:30 PM EDT [facility] Recurring Patient Attender: MAYDA Martinezerrer: Bairon fernandez MD 12/26/2020 11:07:19 AM EDT [facility] Outpatient Attender: Piyush Vee Physical Therapy 12/16/2020 01:00:0 0 PM EDT MEDENT ([facility] ) OFFICE OUTPATIENT VISIT 15 MINUTES Attender: Inez ESCAMILLA PA-C Physical Therapy 12/15/2020 11:30:00 AM EDT MEDENT ([facility] ) Outpatient Attender: ADOLFO EASTON MD 12/09 11:39:27 AM EDT - 12/09/2020 12:47:11 PM EDT [facility] ([facility] ) Outpatient Attender: LUCRECIA ROYAL Physical Therapy 05/2021 02:30:00 PM EST MEDENT ([facility]) Outpatient Attender: Bairon Coker MD Physical Therapy 11/03/2020 1 2:30:00 PM EST MEDENT ([facility]) Outpatient Attender: DANIELA DUMAS MD [id number] 10/31/2020 12:00:[address] [facility] Outpatient Attender: DANIELA DUMAS MD 10/24/2020 12:00:[address] [facility] Outpatient Attender: Dick Llanos 0 10/14/2020 09:40:00 AM EST MEDENT ([facility] ) Outpatient Attender: Bairon Coker MD Physical Therapy 10/13/2020 0 1:45:00 PM EST MEDENT ([facility]) Outpatient Attender: LUCRECIA ROYAL Physical Therapy 12/2020 01:00:00 PM EST MED[facility] ([facility]) Outpatient Attender: Bairon Coker MD Physical Therapy 10/03/2020 0 1:15:00 PM EST MED[facility] ([facility]) Outpatient Attender: Chyna Cárdenas MDConsultant: DEBRA MORAN NP 09/28/2020 09:30:00 AM EST - 09/28/2020 12:35:00 PM EST [facility] Patient discharged. Office Visit Attender: LUCRECIA ROYAL Physical Therapy 09/03 08:15:00 AM EST MED[facility] ([facility]) Outpatient Attender: Dick Llanos 0 09/16/2020 12:30:00 PM EST MEDENT ([facility] ) Outpatient Attender: MAYDA RILEYeferrer: Dick murillo MD 08/10/2020 03:52:34 PM EST [facility] Recurring Patient Attender: MAYDA RILEYeferrer: Bairon fernandez MD 08/04/2020 01:33:41 PM EST [facility] Outpatient Referrer: Dick Schultz MD SJP.DUNCAN-SJP.DUNCAN 12:00:00 AM EST [facility] ( [place]) [facility] 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 Exam [address] [place] [address] 07/19/2020 12:00:00 AM EST eCW1 ([facility]) Outpatient Attender: Dick Lalnos 1 09/17/2019 12:30:00 PM EST MEDENT ([facility] ) Outpatient Attender: SEKOU MCKEON MD Main Office 07/11/2020 08:30:00 AM EST [facility] ([facility]) Outpatient Attender: DANIELA DUMAS MD [id number] 07/04/2020 12:00:00 AM EST [facility] Outpatient Attender: DANIELA DUMAS MD [id number] 06/23/2020 12:00: 00 AM EDT Trigger finger, right ring finger [facility] Trigger finger, right ring finger OFFICE OUTPATIENT VISIT 15 MINUTES Attender: Bairon Coker MD Phys ical Therapy 06/06/2020 01:30:00 PM EDT MEDENT ([facility]) Outpatient Referrer: DANIELA DUMAS MD 05/30/2020 12:00: 00 AM EDT Pain in right hand [facility] Pain in right hand Outpatient Attender: DANIELA DUMAS MD [id number] 05/30/2020 12:00:00 AM EDT [facility] Outpatient Attender: GHASSAN Llanos 0 05/20/2020 08:40:00 AM EDT MEDENT ([facility] ) Outpatient Attender: Chyna Cárdenas MD 2019 08:30:00 AM EDT - 03/09/2020 12:20:00 PM EDT RIGHT EYE/GLAUCOMA [facility] RIGHT EYE/GLAUCOMA Patient discharged. Immunizations Vaccine Date Status Description Data Source(s) COVID-19 VACCINE Moderna 03/20/2021 12:00:00 AM EDT completed [facility] Vaccine Series Complete: YESThis Data wa s Submitted to [facility] Via txtr. COVID-19 VACCINE Moderna 02/20/2021 12:00:00 AM EDT completed [facility] Vaccine Series Complete: NOThis Data was Submitted to [facility] Via txtr. Medications Medication Brand Name Start Date Product Form Dose Route Admi nistrative Instructions Pharmacy Instructions Status Indications Reaction Description Data Source(s) 300 mg 06/30/2021 12:00:00 AM EDT capsule 14 TAKE ONE CAPSULE BY MOUTH EVERY 12 HOURS FOR 7 DAYS TAKE ONE CAPSULE BY MOUTH EVERY 12 HOURS FOR 7 DAYS SO LD: 06/30/2021 [facility] 100 mg 06/20/2021 12:00:00 AM EDT capsule 90 TAKE ONE CAPSULE BY MOUTH THREE TIMES A DAY MAXIMUM DAILY DOSE = 3 CAPSULES TAKE ONE CAPSULE BY MOUTH THREE TIMES A DAY MAXIMUM DAILY DOSE = 3 CAPSULES SOLD: 06/20/2021 [facility] 10 mg 06/16/2021 12:00:00 AM EDT tablet 90 TAKE ONE TABLET BY MOUTH EVERY DAY TAKE ONE TABLET BY MOUTH EVERY DAY SOLD: 06/18/2021 [facility] 50 mg 06/12/2021 12:00:00 AM EDT tablet 120 TAKE ONE TABLET BY MOUTH EVERY 6 HOURS NEEDED FOR PAIN MAXIMUM DAILY DOSE = 4 TABLETS TAKE ONE TABLET BY MOUTH EVERY 6 HOURS NEEDED FOR PAIN MAXIMUM DAILY DOSE = 4 TABLETS SOLD: 06/15/2021 [facility] 0.5 % 06/03/2021 12:00:00 AM EDT cream 15 APPLY TO AFFECTED AREA(S) TWO TIMES A DAY FOR 7 DAYS APPLY TO AFFECTED AREA(S) TWO TIMES A DAY FOR 7 DAYS SOLD: 06/03/2021 [facility] buspirone hydrochloride 5 MG Oral Tablet BUSPIRONE HCL 05/19/2021 12:00:00 AM EDT tablet 90 TAKE ONE TABLET BY MOUTH TWO TIMES A DAY TO THREE TIMES A DAY NEEDED TAKE ONE TABLET BY MOUTH TWO TIMES A DAY TO THREE TIME S A DAY NEEDED SOLD: 05/19/2021 [facility] 0.01 % (0.1 mg/gram) 05/12/2021 12:00:00 AM EDT cream 42 INSERT 1/2GRAM INTRAVAGINALLY AT BEDTIME TWICE WEEKLY INSERT 1/2GRAM INTRAVAGINALLY AT BEDTIME TWICE WEEKLY SOLD: 05/19/2021 [facility] Clobetasol Propionate 0.5 MG/ML Topical Cream 0.05 % CLOBETA MERCEDES PROPIONATE 05/12/2021 12:00:00 AM EDT cream 30 APPLY TO AFFECTED AREA(S) OF VULVA TWICE WEEKLY SPARINGLY APPLY TO AFFECTED AREA(S) OF VULVA TWICE WEEKLY SPARIN GLY SOLD: 05/19/2021 [facility] 2 % 05/10/2021 12:00:00 AM EDT solution 400 TAKE 10 ML BY MOUTH 4X/DAY FOR 10 DAYS-MIX WITH 5 ML OF MAALOX AND 5 ML OF BENADRYL TAKE 10 ML BY MOUTH 4X/DAY FOR 10 DAYS-MIX WITH 5 ML OF MAALOX AND 5 ML OF BENADRYL SOLD: 05/10/2021 [facility] methylPREDNISolone acetate (DEPO-MEDROL) injection 40 mg 0 04/19/2021 07:45:00 AM EDT 40 mg Intra-articular [facility] methylPREDNISolone acetate (DEPO-MEDROL) injection 40 mg 070 04/19/2021 07:45:00 AM EDT 40 mg Intra-articular [facility] 100 mg 04/19/2021 12:00:00 AM EDT capsule 90 TAKE 1 CAPSULE BY MOUTH 3 TIMES A DAY MAXIMUM DAILY DOSE = 3 CAPSULES TAKE 1 CAPSULE BY MOUTH 3 TIMES A DAY MAXIMUM DAILY DOSE = 3 CAPSULES SOLD: 05/22/2021 [facility] 100 mg 04/19/2021 12:00:00 AM EDT capsule 90 TAKE 1 CAPSULE BY MOUTH 3 TIMES A DAY MAXIMUM DAILY DOSE = 3 CAPSULES TAKE 1 CAPSULE BY MOUTH 3 TIMES A DAY MAXIMUM DAILY DOSE = 3 CAPSULES SOLD: 04/19/2021 [facility] 10 mg 04/17/2021 12:00:00 AM EDT tablet 30 TAKE ONE TABLET BY MOUTH EVERY DAY TAKE ONE TABLET BY MOUTH EVERY DAY SOLD: 05/19/2021 [facility] 10 mg 04/17/2021 12:00:00 AM EDT tablet 30 TAKE ONE TABLET BY MOUTH EVERY DAY TAKE ONE TABLET BY MOUTH EVERY DAY SOLD: 04/19/2021 [facility] buspirone hydrochloride 5 MG Oral Tablet BUSPIRONE HCL 03/27/2021 12:00:00 AM EDT tablet 90 TAKE ONE TABLET BY MOUTH 2-3 TIMES A DAY NEEDED TAKE ONE TABLET BY MOUTH 2-3 TIMES A DAY NEEDED SOLD: 03/28/2021 [facility] 5 mg 03/20/2021 12:00:00 AM EDT tablet 90 TAKE ONE TABLET BY MOUTH EVERY DAY TAKE ONE TABLET BY MOUTH EVERY DAY SOLD: 06/18/2021 [facility] montelukast 10 MG Oral Tablet MONTELUKAST SODIUM 03/20/2021 12:0 0:00 AM EDT tablet 90 TAKE ONE TABLET BY MOUTH DAILY A T BEDTIME TAKE ONE TABLET BY MOUTH DAILY AT BEDTIME SOLD: 06/18/2021 [facility] montelukast 10 MG Oral Tablet MONTELUKAST SODIUM 03/20/2021 12:0 0:00 AM EDT tablet 90 TAKE ONE TABLET BY MOUTH DAILY A T BEDTIME TAKE ONE TABLET BY MOUTH DAILY AT BEDTIME SOLD: 03/21/2021 [facility] Citalopram 10 MG Oral Tablet Citalopram Hydrobromide 1 0 MG Oral Tablet (CELEXA) Citalopram Hydrobromide 10 MG Oral Tablet (CELEXA) 03/20/2021 12:00:00 AM EDT 10 mg Oral active Take 10 mg by mouth [facility] Covid-19 vaccine, Unspecified 03/20/2021 12:00:00 AM EDT completed MEDENT ([facility] ) Medication administered onsite 5 mg 03/20/2021 12:00:00 AM EDT tablet 90 TAKE ONE TABLET BY MOUTH EVERY DAY TAKE ONE TABLET BY MOUTH EVERY DAY SOLD: 03/21/2021 [facility] tramadol hydrochloride 50 MG Oral Tablet traMADol HCl 50 MG Oral Tablet (ULTRAM) traMADol HCl 50 MG Oral Tablet (ULTRAM) 03/10/2021 12:00:00 AM EDT active TAKE ONE TABLET BY M OUTH EVERY 6 HOURS NEEDED FOR PAIN MAXIMUM DAILY DOSE 4 TABLETS [facility] 50 mg 03/10/2021 12:00:00 AM EDT tablet 120 TAKE ONE TABLET BY MOUTH EVERY 6 HOURS NEEDED FOR PAIN MAXIMUM DAILY DOSE = 4 TABLETS TAKE ONE TABLET BY MOUTH EVERY 6 HOURS NEEDED FOR PAIN MAXIMUM DAILY DOSE = 4 TABLETS SOLD: 03/12/2021 [facility] 10 mg 02/22/2021 12:00:00 AM EDT tablet 30 TAKE ONE TABLET BY MOUTH EVERY DAY TAKE ONE TABLET BY MOUTH EVERY DAY SOLD: 03/21/2021 [facility] 10 mg 02/22/2021 12:00:00 AM EDT tablet 30 TAKE ONE TABLET BY MOUTH EVERY DAY TAKE ONE TABLET BY MOUTH EVERY DAY SOLD: 02/22/2021 [facility] buspirone hydrochloride 5 MG Oral Tablet BUSPIRONE HCL 02/22/2021 12:00:00 AM EDT tablet 90 TAKE ONE TABLET BY MOUTH 2-3 TIMES DAILY NEEDED TAKE ONE TABLET BY MOUTH 2-3 TIMES DAILY NEEDED SOLD: 02/22/2021 [facility] Citalopram 10 MG Oral Tablet Citalopram Hydrobromide 02/22/2021 12:00:00 AM EDT active MEDENT ( [facility]) buspirone hydrochloride 5 MG Oral Tablet Buspirone HCL 02/22/2021 12:00:00 AM EDT ORAL active MEDENT ([facility]) Covid-19 vaccine, Unspecified 02/20/2021 12:00:00 AM EDT completed MEDENT ([facility] ) Medication administered onsite Clobetasol Propionate 0.5 MG/ML Topical Cream 0.05 % CLOBETA MERCEDES PROPIONATE 02/17/2021 12:00:00 AM EDT cream 30 APPLY 1 APPLICATION EXTERNALLY TO AFFECTED VULVA AREA TWICE A WEEK SPARINGLY APPLY 1 APPLICATION EXTERNALLY TO AFFECT ED VULVA AREA TWICE A WEEK SPARINGLY SOLD: 02/17/2021 [facility] 1 gram 02/09/2021 12:00:00 AM EDT capsule 180 TAKE ONE CAPSULE BY MOUTH TWICE A DAY TAKE ONE CAPSULE BY MOUTH TWICE A DAY SOLD: 05/10/2021 [facility] 1 gram 02/09/2021 12:00:00 AM EDT capsule 180 TAKE ONE CAPSULE BY MOUTH TWICE A DAY TAKE ONE CAPSULE BY MOUTH TWICE A DAY SOLD: 02/10/2021 [facility] 100 mg 02/07/2021 12:00:00 AM EDT capsule 90 TAKE ONE CAPSULE BY MOUTH THREE TIMES A DAY , MAXIMUM DAILY DOSE = 3 CAPS TAKE ONE CAPSULE BY MOUTH THREE TIMES A DAY , MAXIMUM DAILY DOSE = 3 CAPS SOLD: 02/08/2021 [facility] pregabalin 100 MG Oral Capsule Pregabalin 02/07/2021 12:00:00 AM EDT active MEDENT ([facility]) 100 mg 02/07/2021 12:00:00 AM EDT capsule 90 TAKE ONE CAPSULE BY MOUTH THREE TIMES A DAY , MAXIMUM DAILY DOSE = 3 CAPS TAKE ONE CAPSULE BY MOUTH THREE TIMES A DAY , MAXIMUM DAILY DOSE = 3 CAPS SOLD: 03/17/2021 [facility] 10 mg 01/26/2021 12:00:00 AM EDT tablet 90 TAKE ONE TABLET BY MOUTH EVERY DAY TAKE ONE TABLET BY MOUTH EVERY DAY SOLD: 02/03/2021 [facility] 10 mg 01/26/2021 12:00:00 AM EDT tablet 90 TAKE ONE TABLET BY MOUTH EVERY DAY TAKE ONE TABLET BY MOUTH EVERY DAY SOLD: 05/10/2021 [facility] 350 mg 01/18/2021 12:00:00 AM EDT tablet 360 TAKE ONE TABLET BY MOUTH FOUR TIMES A DAY . MAXIMUM DAILY DOSE = 4 TAKE ONE TABLET BY MOUTH FOUR TIMES A DA Y . MAXIMUM DAILY DOSE = 4 SOLD: 01/19/2021 [facility] 350 mg 01/18/2021 12:00:00 AM EDT tablet 360 TAKE ONE TABLET BY MOUTH FOUR TIMES A DAY . MAXIMUM DAILY DOSE = 4 TAKE ONE TABLET BY MOUTH FOUR TIMES A DA Y . MAXIMUM DAILY DOSE = 4 SOLD: 05/10/2021 [facility] 20 mg 01/17/2021 12:00:00 AM EDT capsule,delayed release (DR/EC) 90 TAKE ONE CAPSULE BY MOUTH EVERY DAY TAKE ONE CAPSULE BY MOUTH EVERY DAY SOLD: 01/19/2021 [facility] 20 mg 01/17/2021 12:00:00 AM EDT capsule,delayed release (DR/EC) 90 TAKE ONE CAPSULE BY MOUTH EVERY DAY TAKE ONE CAPSULE BY MOUTH EVERY DAY SOLD: 04/30/2021 [facility] tramadol hydrochloride 50 MG Oral Tablet Tramadol HCL 11/21/2020 12:00:00 AM EDT active MEDENT ([facility]) duloxetine 20 MG Delayed Release Oral Capsule Duloxetine HCL 11/08/2020 12:00:00 AM EST ORAL completed MEDENT ([facility]) methylPREDNISolone acetate (DEPO-MEDROL) injection 40 mg [id number] [id number] 10/31/2020 05:45:00 PM EST 40 mg Intra-articular completed 40 mg, Intra- articular, Once, 10/31/20 at 1745, For 1 dose
Depo-medrol 1 cc - [id number]
[facility] Medication administered onsite methylPREDNISolone acetate (DEPO-MEDROL) injection 40 mg 070 [id number] 10/31/2020 05:45:00 PM EST 40 mg Intra-articular completed 40 mg, Intra- articular, Once, 10/31/20 at 1745, For 1 dose
Depo-medrol 1 cc - J1030
[facility] Medication administered onsite pregabalin 100 MG Oral Capsule [Lyrica] Lyrica 09/16/2020 12:00:0 0 AM EST ORAL active MEDENT ([facility]) Omeprazole 20 MG Delayed Release Oral Capsule Omeprazole 06/22/2020 12:00:00 AM EDT ORAL active MEDENT ([facility]) Famotidine 40 MG Oral Tablet Famotidine 06/21/2020 12:00:00 AM EDT completed MEDENT ([facility]) Famotidine 40 MG Oral Tablet Famotidine 04/08/2020 12:00:00 AM EDT completed MEDENT ([facility]) meloxicam 15 MG Oral Tablet Meloxicam 15 MG Oral Table t (MOBIC) Meloxicam 15 MG Oral Tablet (MOBIC) 09/18/2019 12:00:00 AM EST aborted TAKE ONE TABLET BY MOUTH EVERY DAY WITH FOOD OR MILK [facility] prednisolone acetate 10 MG/ML Ophthalmic Suspension prednisoLONE acetate (PRED FORTE) 1 % ophthalmic suspension prednisoLONE acetate (PRED FORTE) 1 % ophthalmic suspension 11/11/2018 12:00:00 AM EDT a [facility] Meclizine Hydrochloride 25 MG Oral Tablet meclizine (A NTIVERT) 25 MG tablet meclizine (ANTIVERT) 25 MG tablet 02/21/2018 12:00:00 AM EDT aborted [facility] Estradiol 0.1 MG/ML Vaginal Cream estradiol (ESTRACE) 0.1 MG/GM vaginal cream estradiol (ESTRACE) 0.1 MG/GM vaginal cream [address] 2 g vaginally daily [facility] Polyethylene Glycol 400 4 MG/ML / Propyl tera glycol 3 MG/ML Ophthalmic Solution Polyethyl Glycol-Propyl Glycol (SYSTANE) 0.4-0.3 % SOLN Polyethyl Glycol-Propyl Glycol (SYSTANE) 0.4-0.3 % SOLN Ophthalmic aborted Apply to eye [facility] Zolpidem Tartrate (AMBIEN PO) Oral aborted Take by mouth [facility] Dorzolamide HCl-Timolol Mal PF 22.3-6.8 MG/ML SOLN [id number] Ophthalmic aborted Apply to [facility] Cyanocobalamin (VITAMIN B-12 PO) Oral aborted Take by mouth [facility] Insurance Providers Payer name Policy type / Coverage type Policy ID Covered libertarian ID Covered libertarian's relationship to berman Policy Berman Plan Information MEDICARE [id number] [facility] Primary [id number] Self [id number] Medicare Natl Govt Serv Medicare Primary [id number] Self [id number] [facility] Primary [id number] Self [id number] UHC UNITED MEDICARE DUAL G [id number] Self [id number] [employer] Compensation [id number] Self [id number] [employer] Workers Compensation [id number] Self [id number] [employer] Workers Compensation [id number] Self [id number] [employer] Workers Compensation [id number] Self [id number] [employer] Workers Compensation [id number] Self [id number] [employer] Workers Compensation [id number] Self [id number] [employer] Workers Compensation [id number] Self 26 [id number] [employer] Workers Compensation [id number] Self [id number] [employer] Workers Compensation [id number] Self [id number] [employer] Workers Compensation [id number] Self 26 [id number] [employer] Workers Compensation [id number] Self [id number] [employer]/PFFS Medigap Part B [id number] Self [id number] [employer] Claims/PFFS [facility] [id number] Self PFFS Medicaid [facility] S D [id number] SELF [id number] [facility] (Medicare) [facility] [id number] Self [id number] [facility] (Medicare) [facility] [id number] Self [id number] [employer] (Medicare) Medigap Part B [id number] Self [id number] [employer] (Medicare) Medigap Part B [id number] Self [id number] [employer] (Medicare) Medigap Part B [id number] Self [id number] [employer] (Medicare) Medigap Part B [id number] Self [id number] [employer] (Medicare) Medigap Part B [id number] Self [id number] [facility] Community Plan/Medicare Medigap Part B [id number] Self [id number] [employer] (Medicare) Medigap Part B [id number] Self [id number] [facility] Community Plan/Medicare Medigap Part B [id number] Self [id number] [employer] (Medicare) Medigap Part B [id number] Self [employer] (Medicare) Medigap Part B [id number] Self [id number] [employer] (Medicare) Medigap Part B [id number] Self [id number] [employer] (Medicare) Medigap Part B [id number] Self [id number] [employer] (Medicare) Medigap Part B WRITTEN AUTH FOR LF T TKR, [id number] Self WR ITTEN AUTH FOR LFT TKR, [place] Medigap Part B [id number]. [id number] Self [id number] Medicaid [place] Medigap Part B [id number] Self [employer] (Medicare) Medigap Part B [id number] Self [employer] Passport Medicare F [id number] SE LF [id number] [employer] F [id number] SELF [id number] [facility] Comm Plan Medicare F [id number] SELF [id number] [facility] Comm Plan Medicare F [id number] SELF [id number] [facility] Medicare Community PL Commercial [id number] Self [id number] [facility] Medicare Community PL Commercial [id number] Self [id number] [facility] Medicare Community PL Commercial [id number] Self [id number] [facility] Medicare Community [address] Commercial [id number] Self [id number] [facility] Medicare Community [address] Commercial [id number] Self [id number] [facility] Medicare Community [address] Commercial [id number] Self [id number] [facility] ([facility]) Commercial [id number] Self [id number] [facility] ([facility]) Commercial [id number] 2.16.840.1.487522.3.227.99.991.3993.0 Self 11 [id number] [facility] ([facility]) Commercial [id number] 2.16.840.1.157451.3.227.99.991.3993.0 Self 11 [id number] [facility] ([facility]) Commercial [id number] 2.16.840.1.557402.3.227.99.991.3993.0 Self 11 [id number] [facility] ([facility]) Commercial [id number] 2.16.840.1.801307.3.227.99.991.3993.0 Self 11 [id number] [facility] ([facility]) Commercial [id number] 2.16.840.1.527505.3.227.99.991.3993.0 Self 11 [id number] [facility] ([facility]) Commercial [id number] 2.16.840.1.568029.3.227.99.991.3993.0 Self 11 [id number] [facility] ([facility]) Commercial [id number] 2.16.840.1.998670.3.227.99.991.3993.0 Self 11 [id number] [facility] ([facility]) Commercial [id number] Self 11 [id number] [facility] ([facility]) Commercial [id number] [id number] Self 11 [id number] [facility] ([facility]) Commercial [id number] [id number] Self 11 [id number] MEDICAID M [id number] Self [id number] C I [id number] Self [id number] C MEDICAID [id number] Jada [id number] [employer] Commercial [employer] [id number] Self [id number] Medicaid Medicaid [id number] Self [id number] [employer]. [id number] Self [id number] [place] [employer]. [id number] Self [id number] MEDICARE COMPLETE [id number] SP [id number] Medicaid [place] Medicaid [id number] Self Unitedhealthcare/Medicare Commercial [id number] Self UNITED HEALTHCARE O [id number] S [id number] MEDICARE ZHAO M [id number] S [id number] RMO CENTR[place] O [id number] S [id number] MEDICAID W [id number] S [id number] UHC CHOICE PLUS O [id number] S [id number] [facility] MEDICARE MCRADVANT [id number] S [id number] UNITED HEALTHCARE P [id number] S [id number] MEDICAID ABHIJEET [id number] S [id number] MEDICAID ABHIJEET [id number] S [id number] [place] [id number] [facility] MCRHMO [id number] SP [id number] HUMANA GOLD [id number] SP [id number] EMEDNY [id number] SP [id number] UNHC CP DUAL COMP - FACILITY [id number] 18 [id number] MEDICAID-O/P [id number] C MEDICAID [id number] SP [id number] [facility](MCAID) O [id number] S [id number] MEDICAID M [id number] S [id number] Medicaid Medigap Part B [id number] Self [id number] [facility] [employer] Commercial [id number] Self [id number] [employer] Commercial [id number] Self [id number] 00 [employer] Commercial [id number] Self [id number] [facility] Commercial [id number] Self [id number] [facility] [address] Commercial [id number] 00 [id number] Self [id number] 00 Medicaid Medigap Part B [id number] 31.0 Self [id number] [facility] Medicare Dual Complet Commercial [id number] 2.16.840.1.580847.3.227.99.991.3993.0 Self 11 [id number] [facility] Medicare Dual Complet Commercial [id number] 2.16.840.1.360098.3.227.99.991.3993.0 Self 11 [id number] [facility] Medicare Dual Complet Commercial [id number]9.991.3993.0 Self 11 [id number] Medicaid Medigap Part B [id number] 2.16.840.1.991834.3.227.99.4595.221 31.0 Self [id number] Pma (pr) Medigap Part B [id number] 2.16.840.1.342420.3.227.99.991.3993.0 [id number] [facility]) Medigap Part B [id number] 2.16.840.1.445064.3.227.99.991.3993.0 Self [id number] Pma (pr) Medigap Part B [id number] 2.16.840.1.302089.3.227.99.991.3993.0 5b [id number] Pma (pr) Medigap Part B [id number] 2.16.840.1.810574.3.227.99.991.3993.0 5b [id number] Pma (pr) Medigap Part B [id number] 2.16.840.1.838695.3.227.99.991.3993.0 5b [id number] Pma (pr) Medigap Part B [id number] 2.16.840.1.320731.3.227.99.991.3993.0 5b [id number] Pma (pr) Medigap Part B [id number] 2.16.840.1.714266.3.227.99.991.3993.0 5b [id number] Medicaid Medigap Part B [id number] 2.16.840.1.818845.3.227.99.4595.221 31.0 Self [id number] Pma (pr) Medigap Part B [id number] 2.16.840.1.325308.3.227.99.991.3993.0 5a [id number] [id number] [facility] [id number] SP [id number] Pma (pr) Medigap Part B [id number] 2.16.840.1.329977.3.227.99.991.3993.0 5a [id number] Medicaid Medigap Part B [id number] 2.16.840.1.862702.3.227.99.4595.221 31.0 Self [id number] Pma (pr) Medigap Part B [id number] 2.16.840.1.473178.3.227.99.991.3993.0 5a [id number] Medicaid Medigap Part B [id number] 2.16.840.1.981231.3.227.99.4595.221 31.0 Self [id number] Pma (pr) Medigap Part B [id number] 2.16.840.1.521042.3.227.99.991.3993.0 5a [id number] Medicaid Medigap Part B [id number] 2.16.840.1.879837.3.227.99.4595.221 31.0 Self [id number] [facility] Medicare [employer] Commercial [id number] 2.16.840.1.566841.3.227.99.4595.74545.0 Self [id number] 00 [facility] Medicare Mercedes Commercial [id number] 00 2.16.840.1.648764.3.227.99.4595.68555.0 Self [id number] 00 [facility] DUAL COMPLET MCRADVANT [id number] S [id number] Pma (pr) Medigap Part B [id number] 2.16.840.1.570989.3.227.99.991.3993.0 59 [id number] Medicaid Medigap Part B [id number] 2.16.840.1.640210.3.227.99.4595.221 31.0 Self [id number] Medicaid Medigap Part B [id number] 2.16.840.1.347794.3.227.99.4595.221 31.0 Self [id number] Medicare Natl Gov't Servi Medigap Part B [id number] 2.16.840.1.599758.3.227.99.1767.637.0 Self 12 [id number] [facility] Health Maintenance Organization (HMO) [id number] 2.16.840.1.203434.3.227.99.1767.637.0 Self [id number] [facility]) O [id number] S [id number] MEDICARE COMPLETE-UHC O [id number] S [id number] [facility] MEDICARE MCRADVANT [id number] S [id number] MEDICAID HEA [id number] [facility] HEA [id number] 1 [id number] UNAVAILABLE UNAVAILA BLE [employer] [place] COMM [id number] S [id number] [facility] HEA [id number] 1 [id number] [facility] Medicare Mercedes Commercial [id number] Self [id number] [employer] [place] [id number] Self [id number] Unitedhealthcare Commercial [id number] Self [id number] Medicaid Medigap Part B [id number] Self [id number] 1 [facility] Medicare Community Commercial [id number] Self [id number] [facility] Medicare [employer] Commercial [id number] Self [id number] MEDICARE COMPLETE [id number] SP [id number] [place] COMM [id number] S [id number] [facility] ([facility]) Commercial [id number] Self MEDICARE COMPLETE[facility] O [id number] S [id number] Problems, Conditions, and Diagnoses Code Display Name Description Problem Type Effective Dates Data Source(s) M25.531 Pain in right wrist Pain in right wrist Diagnosis 1 01:35:23 PM [facility] [id number] Unspecified asthma, uncomplicated Unspecified as thma, uncomplicated Diagnosis 09/28/2020 09:30:00 AM [facility] M810 Age-related osteoporosis without current pathological fracture Age-related osteoporosis without current pathological fracture Diagnosis 09:30:00 AM [facility] K219 Gastro-esophageal reflux disease without esophagitis Gastro-esophageal reflux disease without esophagitis Diagnosis 09/28/2020 09:30:00 AM ES T [facility] I10 Essential (primary) hypertension Essential (primary) h ypertension Diagnosis 09/28/2020 09:30:00 AM [facility] H2512 Age-related nuclear cataract, left eye A ge-related nuclear cataract, left eye Diagnosis 09/28/2020 09:30:00 AM [facility] M65.341 Trigger finger, right ring finger Trigger finger , right ring finger Diagnosis 06/23/2020 07:34:19 AM [facility] M79.641 Pain in right hand Pain in right hand Diagnosis 03:09:09 PM [facility] [id number] Adverse reaction to drug Adverse reaction to drug Prob rima 07/11/2020 12:00:00 AM EST [facility] ([facility] ) Adverse effect of glucocorticoids and sy nthetic analogues, initial encounter Adverse effect of glucocorticoids and synthetic analogues, initial encounter Problem 07/11/2020 12:00:00 AM EST [facility] ([facility] Surgeries/Procedures Procedure Description Date Indications Data Source(s) MANUAL THERAPY TQS 1/> REGIONS EACH 15 MINUTES 12:00:00 AM EDT [facility] ([facility] ) THERAPEUTIC PX 1/> AREAS EACH 15 MIN EXERCISES 12:00:00 AM EDT [facility] ([facility] ) THERAPEUTIC PX 1/> AREAS EACH 15 MIN EXERCISES 12:00:00 AM EDT [facility] ([facility]) MANUAL THERAPY TQS 1/> REGIONS EACH 15 MINUTES 12:00:00 AM EDT [facility] ([facility] ) APPLICATION MODALITY 1/> AREAS HOT/COLD PACKS 06/20/20 12:00:00 AM EDT [facility] ([facility]) MANUAL THERAPY TQS 1/> REGIONS EACH 15 MINUTES 12:00:00 AM EDT [facility] ([facility] ) THERAPEUTIC PX 1/> AREAS EACH 15 MIN EXERCISES 12:00:00 AM EDT [facility] ([facility] ) MANUAL THERAPY TQS 1/> REGIONS EACH 15 MINUTES 12:00:00 AM EDT [facility] ([facility]) OFFICE OUTPATIENT VISIT 15 MINUTES 06/16/2021 12:00:00 AM EDT [facility] ([facility] ) OFFICE OUTPATIENT VISIT 25 MINUTES 06/16/2021 12:00:00 AM EDT [facility] ([facility] ) THERAPEUTIC PX 1/> AREAS EACH 15 MIN EXERCISES 12:00:00 AM EDT [facility] ([facility]) MANUAL THERAPY TQS 1/> REGIONS EACH 15 MINUTES 12:00:00 AM EDT [facility] ([facility] ) Physical Therapy Eval - Low Complexity 06/09/2021 12:0 0:00 AM EDT [facility] ([facility] ) OFFICE OUTPATIENT VISIT 25 MINUTES 05/04/2021 12:00:00 AM EDT [facility] ([facility] ) OFFICE OUTPATIENT VISIT 15 MINUTES 04/28/2021 12:00:00 AM EDT [facility] ([facility] ) OFFICE OUTPATIENT VISIT 25 MINUTES 04/18/2021 12:00:00 AM EDT [facility] ([facility]) OFFICE OUTPATIENT VISIT 25 MINUTES 03/14/2021 12:00:00 AM EDT [facility] ([facility] ) ECG ROUTINE ECG W/LEAST 12 LDS W/I&R 03/13/2021 12:00: 00 AM EDT [facility] ([facility]) OFFICE OUTPATIENT VISIT 15 MINUTES 03/13/2021 12:00:00 AM EDT [facility] ([facility]) THERAPEUTIC PX 1/> AREAS EACH 15 MIN EXERCISES 12:00:00 AM EDT [facility] ([facility] ) MANUAL THERAPY TQS 1/> REGIONS EACH 15 MINUTES 12:00:00 AM EDT [facility] ([facility] ) OFFICE OUTPATIENT VISIT 15 MINUTES 02/22/2021 12:00:00 AM EDT [facility] ([facility]) THERAPEUTIC PX 1/> AREAS EACH 15 MIN EXERCISES 021 12:00:00 AM EDT [facility] ([facility] ) MANUAL THERAPY TQS 1/> REGIONS EACH 15 MINUTES 12:00:00 AM EDT [facility] ([facility] ) THERAPEUTIC PX 1/> AREAS EACH 15 MIN EXERCISES 021 12:00:00 AM EDT [facility] ([facility] ) MANUAL THERAPY TQS 1/> REGIONS EACH 15 MINUTES 021 12:00:00 AM EDT [facility] ([facility] ) THERAPEUTIC PX 1/> AREAS EACH 15 MIN EXERCISES 021 12:00:00 AM EDT [facility] ([facility] ) MANUAL THERAPY TQS 1/> REGIONS EACH 15 MINUTES 021 12:00:00 AM EDT [facility] ([facility] ) APPLICATION MODALITY 1/> AREAS HOT/COLD PACKS 02/10/20 12:00:00 AM EDT [facility] ([facility] ) THERAPEUTIC PX 1/> AREAS EACH 15 MIN EXERCISES 021 12:00:00 AM EDT [facility] ([facility] ) MANUAL THERAPY TQS 1/> REGIONS EACH 15 MINUTES 021 12:00:00 AM EDT [facility] ([facility]) THERAPEUTIC PX 1/> AREAS EACH 15 MIN EXERCISES 021 12:00:00 AM EDT [facility] ([facility] ) MANUAL THERAPY TQS 1/> REGIONS EACH 15 MINUTES 021 12:00:00 AM EDT [facility] ([facility]) THERAPEUTIC PX 1/> AREAS EACH 15 MIN EXERCISES 021 12:00:00 AM EDT [facility] ([facility] ) MANUAL THERAPY TQS 1/> REGIONS EACH 15 MINUTES 021 12:00:00 AM EDT [facility] ([facility] ) Physical Therapy Eval - Mod Complexity 01/27/2021 12:0 0:00 AM EDT [facility] ([facility] ) Diabetic Retinal Eye Exam 01/25/2021 12:00:00 AM EDT [facility] ([facility]) OFFICE OUTPATIENT VISIT 15 MINUTES 01/16/2021 12:00:00 AM EDT [facility] ([facility] ) NJX ANES&/STRD W/IMG TFRML EDRL LMBR/SAC 1 LVL 021 12:00:00 AM EDT [facility] ([facility] ) Epidurography Radiological Supervision & Interpretation 01/02/2021 12:00:00 AM EDT [facility] ([facility]) OFFICE OUTPATIENT VISIT 25 MINUTES 12/16/2020 12:00:00 AM EDT [facility] ([facility] ) OFFICE OUTPATIENT VISIT 15 MINUTES 12/15/2020 12:00:00 AM EDT [facility] ([facility] ) OFFICE OUTPATIENT VISIT 25 MINUTES 11/08/2020 12:00:00 AM EST [facility] ([facility] ) ARTHROCENTESIS ASPIR&/INJECTION MAJOR JT/BURSA 021 12:00:00 AM EST [facility] ([facility] ) OFFICE OUTPATIENT VISIT 25 MINUTES 11/03/2020 12:00:00 AM EST [facility] ([facility] ) Diabetic Retinal Eye Exam 11/01/2020 12:00:00 AM EST [facility] ([facility]) NJX ANES&/STRD W/IMG TFRML EDRL LMBR/SAC 1 LVL 021 12:00:00 AM EST [facility] ([facility] ) Epidurography Radiological Supervision & Interpretation 10/18/2020 12:00:00 AM EST [facility] ([facility] ) OFFICE OUTPATIENT VISIT 15 MINUTES 10/14/2020 12:00:00 AM EST [facility] ([facility]) OFFICE OUTPATIENT VISIT 25 MINUTES 10/13/2020 12:00:00 AM EST [facility] ([facility] ) MRI Lower Extremity Any Joint 10/10/2020 12:00:[address] [facility] ([facility] ) OFFICE OUTPATIENT VISIT 25 MINUTES 10/06/2020 12:00:00 AM EST [facility] ([facility] ) OFFICE OUTPATIENT VISIT 25 MINUTES 10/03/2020 12:00:00 AM EST [facility] ([facility] ) PHYSICIAN TELEPHONE EVALUATION 5-10 MIN 09/26/2020 12: 00:00 AM EST [facility] ([facility] ) OFFICE OUTPATIENT VISIT 25 MINUTES 09/16/2020 12:00:00 AM EST [facility] ([facility]) NJX ANES&/STRD W/IMG TFRML EDRL LMBR/SAC 1 LVL 021 12:00:00 AM EST [facility] ([facility]) Epidurography Radiological Supervision & Interpretation 09/12/2020 12:00:00 AM EST [facility] ([facility]) ECG ROUTINE ECG W/LEAST 12 LDS W/I&R 07/18/2020 12:00: 00 AM EST [facility] ([facility]) Allergy Testing Any Combination Of Percutaneous W/Drugs 07/11/2020 12:00:00 AM EST [facility] ([facility]) Diabetic Retinal Eye Exam 06/14/2020 12:00:00 AM EDT [facility] ([facility]) Mammogram 06/01/2020 12:00:00 AM EDT M [facility] ([facility]) Results ID Date Data Source [id number] 06/29/2021 07:00:21 PM EDT [facility] XR WRIST 3 OR MORE VIEWS 59731TLECW RESU LTInterpreted by:JASE Estradalinical history: Right wrist painViews: 4 views right wristIndication: Check for source of pain right wristFindings: No acute bony trauma of the right distal radius or ulna are noted. Proximal and distal carpal rows have normal osseous anatomy alignment. CMC joints and metacarpal bases appear normal.Impression: Normal-appearing right wrist.This document has been electronically signed by Young Fisher MD on 06/29/2021 6:58 PM Name Value Range Interpretation Code Description Data Prerna rce(s) Supporting Document(s) ID Date Data Source [id number] 06/29/2021 02:09:53 PM EDT [facility] Name Value Range Interpretation Code Description Data Prerna rce(s) Supporting Document(s) Progress Note [facility] UKOIXx9xQuFGSuVh41/FOWwxJVDql7HdNOxzXPk6AEybDMFwL2EvDTP4fP4kHWF7RAsVJvEcPbVzSWL9 lbm [file] AgICAgICAgICAgICAgICAgICAgICAgICAgICAgICAgICAgICAgICAgICAgICAgICAgICAgICAgICAgIC AgDQogICAgICAgICAgICAgICAgICAgICAgICAgICAg ICAgICAgICAgICAgICAgICAgICAgICAgICAgICAgICAgICAgICAgICAgICAgICAgICAgICAgICAgICAg ICAgICAgICAgICAgDQogICAgICAgICAgICAgICAgICAgICAgICAgICAgICAgICAgICAgICAgICAgICAg ICAgICAgICAgICAgICAgICAgICAgICAgICAgICAgIC AgICAgICAgICAgICAgICAgICAgICAgDQogICAgICAgICAgICAgICAgICAgICAgICAgICAgICAgICAgIC AgICAgICAgICAgICAgICAgICAgICAgICAgICAgICAgICAgICAgICAgICAgICAgICAgICAgICAgICAgIC AgICAgDQogICAgICAgICAgICAgICAgICAgICAgICAg ICAgICAgICAgICAgICAgICAgICAgICAgICAgICAgICAgICAgICAgICAgICAgICAgICAgICAgICAgICAg ICAgICAgICAgICAgICAgDQogICAgICAgICAgICAgICAgICAgICAgICAgICAgICAgICAgICAgICAgICAg ICAgICAgICAgICAgICAgICAgICAgICAgICAgICAgIC AgICAgICAgICAgICAgICAgICAgICAgICAgDQogICAgICAgICAgICAgICAgICAgICAgICAgICAgICAgIC AgICAgICAgICAgICAgICAgICAgICAgICAgICAgICAgICAgICAgICAgICAgICAgICAgICAgICAgICAgIC AgICAgICAgDQogICAgICAgICAgICAgICAgICAgICAg ICAgICAgICAgICAgICAgICAgICAgICAgICAgICAgICAgICAgICAgICAgICAgICAgICAgICAgICAgICAg ICAgICAgICAgICAgICAgICAgDQogICAgICAgICAgICAgICAgICAgICAgICAgICAgICAgICAgICAgICAg ICAgICAgICAgICAgICAgICAgICAgICAgICAgICAgIC AgICAgICAgICAgICAgICAgICAgICAgICAgICAgDQogICAgICAgICAgICAgICAgICAgICAgICAgICAgIC AgICAgICAgICAgICAgICAgICAgICAgICAgICAgICAgICAgICAgICAgICAgICAgICAgICAgICAgICAgIC CqZTYtVBAwWBIkOXs1A2bvSNKoLVCaRI1kTPr8Rs3+ MMvEYzKbEQM8rcUleI9QZF1hm2EvDFbqGRPxo6GaKIk1BZ3CXJBmSIamVW6PKYhmel4VZQEsCUCkqWPU r2agEwXpMBM7XJSzClbcBM0DHSNeK8oyllYnQJXkOSJVTS2OCkJcX3ZeyE85LDMAOp7+DQplbmRvYmoN PlJ6LWYau9WhMJj6JR1ZHKFqEmtyu9SmJdZiMFDGKZ utKV5FIWL6YJRlOBBdEb5ZEYUjU912lgWbIB9PAv2TCeHsNB6qxs2XNkJcLCPzLahPJcs0BGuhDF1ScZ OwPNtJwl6kjwHriwTZa1KfmpBrtGPPe93sNO8kgGAsBYPXXFJkuOCsXV6bJC0tFUCbXWTmUsG3ZQVOAK 5MXSGiXLItbNPxVKToUWYULY4LQBbzFIP3BDMrrfEz gBYrLUgeRG9FXNEydrRfCLuxDTRQZBb+Oy4ZWV4ii3HkBKbcEGVeCS0wsg9QVHzTIfUgG9R5uHDiQ4N6 ODwqQt1ELJMiUXWjSSejXYCBBFmzIQ1YNX8rxgL0KY7YaBOtBTQkWQHkyAFzHZm4T74nvLUbRFpaNQ5B ICA+Cordell+Mo7MQIVbETGpAURyLrVsLMAKIoUsL4IfC8 LUq8UgA5CiQL22lOpxymMjUKmxDE9HPP6jLLRpWEWVCK3CdIDlvB3csjUrZBAvFECGLtPwH79wmIHmMG CiOAE6CIZuGb6KSNGvR5KxesBihHfssuNiNFPlWGEDDP1DUJkediWrrBBtwGksIO76eZjoFC4GFh8HWs TvTE9poq5FfDInUi8YBQHjHc0FZVXvSDEmLTZfJQM3 CPQtMvRzZNnlDTYtUHOxAMS0CWJkWHJmUM2SFtUnRBOiGUj0ILofORSmWDHiwq2TLUDhURFhKHHsBGTl RCMxGEAvGOvuZAVlAGSwILV1LZSsPFXiGX0YSmCsKOUuWMC4XlQrGRYdXMSgji6WLNKbRLAbKoloJrLo JREfZSDxYHcmAZYzXCNwJmp1VAUxMGJeIY5BNjHmOJ LdJHW3WNGtVRVfZZEybp0TXBWyRDFoYNA2YgTcZOVqUBBmGEnjPHYvTKM0FZYqCCBrJANlPJ1GUxGzZR QpOVBfEpMoXHEkERXzbd9JYJJxCSArPSCoYJJbTREcELIiSViwVSUwRLO7HqB8JXXgPUQgHW6SHfNhDS GqJJcaDIGwKCGlAXQdfv4ZHZAbCAXvSsP7UFMxHOTg STRyUStpUEWqOKN1HWF8JFEmYYXlBV8AUkZqAYIhPBd7QlQoEHJlGJWmur6EIFVoUIXmCSH6RHRuZDCb XHGlDIscCYHrBTQ6PCKpQBCzEBJdYF1NYpJaJJQgPRn5OGZxSGDnPLNqvp1YCEWpLZOvRRxaUFShJLAq HKXuITn3pePneZYaLOg0SJ3SY4ZgbpSkMpERJx2Ew7 12PZByFIFvOz4MK0tiUu0jXTRpKNQDBj2TURx9HDMnDQA9KAgkKsu6FRC4KcP4OXu1YIP9ZiX0PsD2Tu I+BBveNyBxSqE5UUA2HTB8MKNtFHX1TEIvJbXsZkSeBYOfWc1nZSNMAh0+FVzikKJnxZyvWUGTSbS2JJ a5ZYfbWDNMHl9X ID Date Data Source [id number] 06/19/2021 01:54:00 PM EDT [facility] ([facility]) Name Value Range Interpretation Code Description Data Prerna rce(s) Supporting Document(s) Laboratory test finding (navigational concept) Laboratory test result [facility] ([facility]) ID Date Data Source [id number] 04/19/2021 07:43:16 AM EDT [facility] Name Value Range Interpretation Code Description Data Prerna rce(s) Supporting Document(s) Progress Note [facility] YNOLSj9oIwMQTrZy19/DWEsrWDYhe2CdQFvmFFn3HRlnBTXhO6TuPIA5iY9sXBE2VIlJXiGzVmAwXAP1 lbm [file] ICAgICAgICAgICAgICAgICAgICAgICAgICAgICAgICAgICAgICAgICAgICAgICAgICAgICAgICAgICAg ZZFtYIQbMWBrKZYyPNJoTW6DXSXzLAGeDBChWXAtBB AgICAgICAgICAgICAgICAgICAgICAgICAgICAgICAgICAgICAgICAgICAgICAgICAgICAgICAgICAgIC OmHCDmAINkNSQzULGuTZNzVZAsNRPfUJTyDL7XTHGmTALmUYLxCPVgZWOcIMYrOSYzVWJyVLOtVNOdMR AgICAgICAgICAgICAgICAgICAgICAgICAgICAgICAg ANKfOTHaQWMqCFFzJINdQIZwIBFxMOUkHCToEMYsDEWpQTNlNY9NBAVxVOTxLJDyLPAyFGFdXCMnMGNh ICAgICAgICAgICAgICAgICAgICAgICAgICAgICAgICAgICAgICAgICAgICAgICAgICAgICAgICAgICAg IGVtSJIpXNEbMMZuVMUrBJYvMN5UUYHnWGRkYQJlGV AgICAgICAgICAgICAgICAgICAgICAgICAgICAgICAgICAgICAgICAgICAgICAgICAgICAgICAgICAgIC LrCDMlOMRwBQPtKZRoUXOnTJNqTWLrFLFhKJHtBR9AQJTzPVCoVHAjRTXsHDBuKWUlFJFiKPDwMWJlEI AgICAgICAgICAgICAgICAgICAgICAgICAgICAgICAg JHLwVEKiAOFnINZaVRCpQSPpUZFwNJGdHVNfSRBsFTMcNDRuCQKcWC1IYPUfMICoVJZwCRRiAUHyAEZo ICAgICAgICAgICAgICAgICAgICAgICAgICAgICAgICAgICAgICAgICAgICAgICAgICAgICAgICAgICAg YXBmYBRvZIYiFOAeJQVzTKQqDUKpGC7LILOfKBCjOO AgICAgICAgICAgICAgICAgICAgICAgICAgICAgICAgICAgICAgICAgICAgICAgICAgICAgICAgICAgIC HgVRGkTWOkOVAaPDPeWQWpXNDxISVgYDWxPYDhEPAdRX1HSWNfVDXbRVXrKNEoEODkMKWjTULvUESdFF AgICAgICAgICAgICAgICAgICAgICAgICAgICAgICAg LJOlSXLuVVVdGYLiTEQkSMZxFFWaERFmAXWfAXAgWOYzVWIdANIrMXLzYN3JHIYoKPWzYNLjLNEiPGKw ICAgICAgICAgICAgICAgICAgICAgICAgICAgICAgICAgICAgICAgICAgICAgICAgICAgICAgICAgICAg BBDgQJLqFNBdZEFiYHIsVGWkNCTjIRGmOZ9BNX82cP Qqa1E6XKBlHH0ddre/Zq9GUQvdpoUnbOHuNN1GIjEuDW5wee5KCkYmJP9vyd4DWEsFWtJvZ6R5sZHjYU JnVHAJClEiA98mRAqdQw16DMchVDCgFrCqAMe2Om9HPfMyL7unAJKgSiD6REOtKfQaUNggRT6Bx5JxjA AxDQo+Ma2PBS8cy1KlXQszTIZePI0otp0VHEfJPjSd N8FrhkB2PFZgNFPpKm4WTNCsOQHadYBiKEIaJORJLhWrH9MtzZ20VHBYLm6+DQplbmRvYmoNCjIwIDAg u4QrNEd6CO7HKNAgUGw0kIObSCWpY3Cct9GwSt68HXRmZrzkTd9vBCdtHtK0uyzfRBLaQIAtTH9hRm5n DOZnIIZmMlP9KGQSCN8CBAWkZXUwqPLzEIEaCNOYRA 8BHQtpWOU1PKSidlCrqSIcFChhYG8LBGMaqqHdHXqyVYAJVHy+Fm3JHR1fp8BnDZpsQXDpTI9tee2NHB aMWjJlT3P9lDWoZ1E1BFftLk3WTUNcJFJkFBysZQDCSHkhSE8YYJ4xfrT2PD1MaOAuCNJiRVNgoWFcOW i0H61zyHLwHOkdRT0BTWX+Cordell+Bt2TUHMbOGGeEPFv FaFpEEGOYqZrD5ShW4NGn9JxH0ZgHG15nVyywhUuYNecAW2JKR6dNOQdRQFLTI6QxKEkeB8fbkEqXSOn OATFMfMoS29upCUdNKNnHSL1NLUiQk7XBRCpE5BkkbWxxAcidcKgUYVjJZHGJM1HHAkletVwiQGdrOqk FL40pIrzTZ7ULb6GGqLyGI0idx7VqPEoDq2WIKVgVe 2JLZImEPGqULUyWZR5OWZjYhZgEKboZKRlIINfMUP6JSDlVKUzDN9LXeOtSCYaQSadAxJfGGNoPLZrpf 4ABUQxKTSjEAz6QODhEJXxMRUiIIadIEEfUZAvHJK5BDQvDGYzHN8BIpMuMHCoWJB8FFTsSGWyDAOyah 2WLIWgTVDhVbL1TqNqWZJbUTYiKRkoSVOsRWR4AGD1 AHBvFMWeLA2CTxYdKNWoJXHsBCRqWGWvUHKpbe2SKQGmAYLtZYIeEIQcUOZaCKYbBVpxAIKiLMB0SVi5 QXRqTHMdRP2MLkDmUBFmYLF6SALyJAChVMVwvu3HFIXjCVUiNTz4DZVpSJUjYRLfZSlrBCXtHMH1LeFg XKBeTXElZT7MQtXwBTQvVZd6IEcrXIUsSXOopf5IPL SgZYSyTzr4GYAqTYSdIOBpFSqlREHcQLG8ACf3JYXpMPYzND8DDkQtJJVaFOxiXISmJBIcCQPvma1RBN HeZBWpHSC5WZRyOXDpKAKqPUjoTWJbRAR8VWxxBWHiEQBxON6XWbDjJKDgNiCaUOFtIZKjLQGtrp7HQF GiOOIzFIR0SNCvGENxQEFjURu4ljImxVMdBFv7SK7M Y2DhhcCbAbXCMp6Oe451XRGkKQYlWf2YP0jqEq9mTAGyEHWHDi8GHOk7SSSqZsVxTfB2GARfSlM4RIDa OzKvIaUfP6Y7FUg3SHJ+NZbqMICwBFM7LDlzBKBrTWrgAIA4VtCjTyP5Kyz1HKBpUt6nLAOLAd5+DQpz oXDcoHocMGGSJdJgEEWfDNouFYBARr1P ID Date Data Source [id number] 04/18/2021 10:18:00 AM EDT [facility] ([facility]) Name Value Range Interpretation Code Description Data Prerna rce(s) Supporting Document(s) Thyrotropin [Units/volume] in Serum or Plasma by Detec tion limit <= 0.05 mIU/L 0.58 uIU/mL 0.36-3.74 [facility] ([facility] ) ID Date Data Source [id number] 04/18/2021 10:18:00 AM EDT [facility] ([facility]) Name Value Range Interpretation Code Description Data Prerna rce(s) Supporting Document(s) Triglyceride [Mass/volume] in Serum or Plasma 70 mg/dL 30-150 [facility] ([facility]) Cholesterol [Mass/volume] in Serum or Plasma 235 mg/dL 131-200 [facility] ([facility]) Cholesterol in HDL [Mass/volume] in Serum or Plasma 55 mg/dL 35-60 [facility] ([facility]) Cholesterol in LDL [Mass/volume] in Serum or Plasma by calcu lation 166 CALC 50-159 [facility] ([facility]) ID Date Data Source [id number] 04/18/2021 10:18:00 AM EDT [facility] ([facility]) Name Value Range Interpretation Code Description Data Prerna rce(s) Supporting Document(s) Glucose [Mass/volume] in Serum or Plasma 91 mg/dL 74-99 [facility] ([facility]) 100-125 mg/dL PRE-DIABETES/FASTING >126 mg/dL DIABETES/FASTING Urea nitrogen [Mass/volume] in Serum or Plasma 18 mg/dL 7-18 [facility] ([facility]) Creatinine 0.6 mg/dL 0.6-1.3 [facility] Potassium [Moles/volume] in Serum or Plasma 4.0 meq/L 3.5-5.1 [facility] ([facility]) Chloride [Moles/volume] in Serum or Plasma 103 meq/L 98-107 [facility] ([facility]) Sodium [Moles/volume] in Serum or Plasma 140 meq/L 136-145 [facility] ([facility]) Carbon dioxide, total [Moles/volume] in Serum or Plasma 29 meq/L 21 -32 [facility] ([facility]) Calcium [Mass/volume] in Serum or Plasma 9.9 mg/dL 8.5-10.1 [facility] ([facility]) Alkaline phosphatase isoenzyme [Units/volume] in Serum or Pl asma 122 mg/dL 46-116 [facility] ([facility]) Aspartate aminotransferase [Enzymatic activity/volume] in Serum or Plasma 20 U/L 15-37 [facility] ([facility] ) Total Bilirubin 0.4 mg/dL 0.2-1.0 [facility] ([facility]) Alanine aminotransferase [Enzymatic activity/volume] in Seru m or Plasma 30 U/L 12-78 [facility] ([facility]) Albumin [Mass/volume] in Serum or Plasma 4.2 g/dL 3.4-5.0 [facility] ([facility]) Proteinase 3 Ab [Units/volume] in Serum 7.3 g/dL 6.4-8.2 [facility] ([facility]) A/G Ratio 1.35 CALC 1.00-1.90 [facility] Glomerular filtration rate/1.73 sq M pre dicted among non-blacks [Volume Rate/Area] in Serum or Plasma by Creatinine-based formula (MDRD) Laboratory test result [facility] Glomerular filtration rate/1.73 sq M pre dicted among blacks [Volume Rate/Area] in Serum or Plasma by Creatinine-based formula (MDRD) Laboratory test result [facility]) <content>CHRONIC KIDNEY DISEASE STAGING PER NKF</content>
<content></content>
<content>STAGE I & II GFR >= 60 NORMAL TO MILDLY DECREASED</content>
<content>STAGE III GFR 30-59 MODERATELY DECREASED</content>
<content>STAGE IV GFR 15-29 SEVERELY DECREASED</content>
<content>STAGE V GFR <15 VERY LITTLE GFR LEFT</content>
<content>ESRD GFR <15 ON MEDIA RELATIONS SPECIALIST</content>
<content></content> ID Date Data Source [id number] 04/18/2021 10:18:00 AM EDT [facility] ([facility]) Name Value Range Interpretation Code Description Data Prerna rce(s) Supporting Document(s) Leukocytes [#/volume] in Blood by Automated count 6.4 x10*3/UL 4.1-10 .9 [facility] ([facility]) Hemoglobin [Mass/volume] in Blood 13.1 g/dL 12.0-18.0 [facility] ([facility]) Erythrocytes [#/volume] in Blood by Automated count 4.55 x10*6/UL 4.2 0-6.30 [facility] ([facility]) MCV 88.1 fL 80.0-97.0 [facility] [facility] Hematocrit [Volume Fraction] of Blood by Automated count 40.1 % 3 7.0-51.0 [facility] ([facility]) MCH 28.9 pg 26.0-32.0 [facility] [facility]) MCHC 32.8 g/dL 31.0-38.0 [facility] ([facility]) Erythrocyte distribution width [Ratio] by Automated count 12.6 % 11.6-13.7 [facility] ([facility]) Platelets [#/volume] in Blood by Automated count 337 x10*3/UL 140-440 [facility] ([facility]) MPV 7.6 FL 7.8-11.0 [facility] [facility]) Lymph % 22.2 % 10.0-58.5 [facility] [facility]) Mid % 4.7 % 1.7-9.3 [facility] [facility]) Neut % 73.1 % 37.0-92.0 [facility] [facility] Mid # 0.3 x10*3/UL 0.1-0.6 [facility] ([facility]) Lymph # 1.4 x10*3/UL 0.6-4.1 [facility] ([facility]) Neut # 4.7 x10*3/UL 2.0-7.8 [facility] ([facility]) ID Date Data Source [id number] 03/01/2021 10:50:26 AM EDT [facility] PCName: Nancy ChauhanDOB: 1955Provider: Mayda WyattDOS: 02/23/2021 Reason For VisitNancy Chauhan is here today for bilateral hips. Nancy had her first Covid vaccine on 02/20/21. Nancy is scheduled to have her second Covid vaccine on 03/20/21. Nancy Chauhan is an established patient here for follow up. Surgery DOS: 04/15/15 Left LESTER. Patient states they are disabled. PlanASSESSMENT: Bilateral hip replacements follow-up The patient's hips are generally doing well but she still has some groin pain on the left side.I examined her hips today. Both hips move freely but the left side does have some psoas irritation. She has pelvic obliquity and there is an apparent limb length discrepancy, in which the right looks longer than the left, but, in my opinion, this is not a true discrepancy. Once the legs are made parallel to the pelvis, they appear to be the same length. I think the pelvic obliquity is due to her back. She is under the care of a spinal physician in [place].At this point we just need to see her back here in two years. If therapy fails and the groin pain worsens then we could consider a cortisone injection into the psoas or an arthroscopic psoas release. Signatures Electronically signed by : Pili Rivera, ; Feb 28 2021 1:29PM EST Electronically signed by : Mayda Wyatt M.D.; Mar 01 2021 10:50AM EST (Author) Name Value Range Interpretation Code Description Data Prerna rce(s) Supporting Document(s) ID Date Data Source [id number] 01/09/2021 03:07:30 PM EDT [facility] PCName: Nancy ChauhanDOB: 1955Provider: Florida WaggonerDOS: 01/05/2021 Reason For VisitNancy Chauhan is here today for bilateral hips. Nancy has not had the Covid vaccine. Nancy Chauhan is an established patient here for follow up. Surgery DOS: 04/15/15 Left LESTER. Patient states they are disabled. History of Present IllnessPatient follows up today for both hips. She states for about a week or so she has had some right-sided buttock pain with radiation down the back of her leg and into her foot. She also notes some numbness and tingling on the side as well. She does see a spine doctor locally. She had an MRI recently of her lumbar spine. She is also had some injections. She states they really did not help. She states she has some groin pain on the left side but this is unchanged. This is not new for her. No injuries that she can recall. No loss of bowel or bladder control. Results/DataXRays were ordered, obtained and interpreted today in the office. I ndication: pain/dysfunction. Side: Bilateral Site: Hip, Pelvis Views: 3 Views, and Pelvis Findings: no new fractures or dislocations. No evidence of bearing wear, osteolysis, implant migration or loosening. the joint remains reduced. hardware/implant is in good position. AssessmentPatient is status post bilateral total hip replacements Plan<OBX.5.1><OBX.5.1.1> X-Ray I Hip- Bilat </OBX.5.1.1><OBX.5.1.2> Pelvis - 3 or 4 views (XRays were ordered, obtained and interpreted</OBX.5.1.2></OBX.5.1>today in the office. Indication: pain/dysfunction.); Status:Complete; Done: 05Jan2021 Perform:SOS14 (General); Due:19Jan2021; Last Updated By:Lorena Sommers; 01/05/2021 12:54:23 PM;Ordered; For:Pain of both hip joints; Ordered By:Florida Waggoner;Weight Bearing Status : Weight bearing Patient wanted to make sure that her hip was not the cause of her numbness and tingling down the right leg. She does see a spine doctor locally and I told her to mention this to them when she goes back to see them on the of this month. Regards to her hips I will have her make an appointment for a year. She is supposed to see us in June but I had her push it out a year. If anything changes she will let us know. Work / School NoteThe patient is not working at this time. Nancy Chauhan is retired. This document was dictated and electronically signed using [employer] software. A reasonable attempt at proof reading has been made to minimize errors. Please call with any questions. Signatures Electronically signed by : Florida Waggoner PA-C; Jan 05 2021 1:21PM EST (Author) Electronically signed by : Mayda Wyatt M.D.; Jan 09 2021 3:07PM EST (Author) Name Value Range Interpretation Code Description Data Prerna rce(s) Supporting Document(s) ID Date Data Source [id number] 12/27/2020 11:37:00 AM EDT [facility]) Name Value Range Interpretation Code Description Data Prerna rce(s) Supporting Document(s) Covid Rapid Testing Laboratory test result [facility] ([facility]) ID Date Data Source [id number] 12/27/2020 12:00:00 AM EDT [facility] Name Value Range Interpretation Code Description Data Prerna rce(s) Supporting Document(s) Covid Rapid Testing Negative [facility] This lab was ordered by [place] and re ported by [facility]. 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 Lid speculum was placed in the lid. The eyewas fixated. A stab incision was made to the anterior chamber. Then 1% non-preserved lidocainewas instilled and viscoelastic was instilled. The eye was refixated, and a 2.4 mm Keratome made aclear corneal and temporal limbal incision. There were a number of synechiae that were broken,and then the Malyugin ring was inserted into the eye through the incision. First the distal scrollengaged the iris, then the superior and inferior scroll engaged the iris. The proximal scroll wasplaced with manipulation. The capsulorhexis was begun with the capsulorhexis forceps and carriedout in a circular fashion with the capsulorhexis forceps. The lens was hydrodissected and thenucleus was grooved into two meridians in the phacoemulsification. The nucleus was then crackedinto four quadrants and each quadrant was removed from the phacoemulsification. The remainingcortex was removed with I&A. The capsular bag was refilled with viscoelastic, and a posteriorchamber intraocular lens 27.5 diopters was placed into the capsular bag. The viscoelastic wasremoved, but prior to removal the Malyguin ring was dis-inserted from the iris at the four scrollsand extracted from the eye. Once the remaining viscoelastic was removed, the wound was hydratedand then found to be watertight. The patient tolerated the procedure well, and went to the recoveryroom in stable condition. [address] [place] [address] OPERATIVE SUMMARYNAME: TIEN Basurto DATE OF : 5ATTENDING PHYS: Chyna Cárdenas MD DATE: 09/28/20 MR#: [id number]: Chyna Cárdenas MD 09/28/20 12:04DT: SSR 09/28/20 12:09DS: Chyna Cárdenas MD 11/28/20 10:43 2 Name Value Range Interpretation Code Description Data Prerna rce(s) Supporting Document(s) ID Date Data Source [id number] 11/02/2020 08:38:09 AM EST [facility] Name Value Range Interpretation Code Description Data Prerna rce(s) Supporting Document(s) Progress Note [facility] YVVLNh6pJxYXPuRv49/MGMksUYXld4XlVNjnDFo1RZuwEELpJ1OaTBD5sH4lLLB4PJwGSiYqYxOdOsYq lbm JaQgqCBaEgUSXnTsxQOkUaAEozSgelzERgPZ4AdPQ5AQPuW37sVYIrLHJjG6ObSTUmETn+Pd6IBZTwyK VcTX5HJskB9QptRmxKXY9tia/VJnGaEWJ8v/tSBTYZSCKEmKUHw7d/OPgAt/zH2uWji++db8/2DJcfnv EgDWTOAW3a6fyBs6j47gOq/vuotqLAcRyV/5v+jBKt zrvq++/UcKdac9RaC6jbxiC7dKDND3Sacnl8wjarxzhhIJFVLK+dpYwVl74iXRzQGpzUAm0YkE+U63nZ UXBGP8IRZRF/XHQjQhrwvE9yuS83edAlieSGaxu0NTKWtEQTdK7q9OISOqEvLbptLMB8iMM+OSVB3gen yniHbDdFaM+soCYHmuuN4HPHIIeAwfza9TMEYcGCk1 ug2tSEqJkV71p1RbxCpBhdLvtim1QKVM69fYjX8yqFsRXMI6z+stUIA0ZGAI8mPkPM0rvICz/iZJKPM6 ZhREBYkifSDm4Exu6Q3LcbF4QsMbrLhFlxYIHP/xhzEY5q8OjtVJjulZd6+6lK1iFvqr2jenztDVVLgv WVb+ZAR1nqMA8OEQ12o7ZLovNqYvh5iIdDIby4UzWa KX2ujHibow7x5d/TL/E2qMFdCk7Mq43rGIFdb7J0G7j81Aw6dEmWgxpsQAhgOSSV6c4p2J5a/pqYgiCa c/SddnuYjiwGLYO+QVKrabbeg7k1E6hk8Z1WxENSSGh0i9Ao4UJiLQzYNQ+1AkyyVDAXKa/9GUeq3pU3 4vPcYNOPw+z/KTmmNNwp71Uyty4ghqPBLIXP7DU0FZ hZzD0ZXkmvpUGsoC+lw11iSt3kooZ8W5oH6F5m2ggTKL6fmQmRkrgmseF+DIMClpG1OP+uTvg1RGX/FRITZ [file] AwQmYXE7QLmrAIB4QJZ+CR8gQJo+Jw1Gd9GdgbS3ulPySOoiMZF0LQ9CIKWEL6BUEe== ID Date Data Source [id number] 10/11/2020 03:39:00 PM EST [facility] ([facility]) Name Value Range Interpretation Code Description Data Prerna rce(s) Supporting Document(s) Prothrombin Time 12.5 s 12.5-14.3 [facility] ([facility]) Partial Thromboplastin Time 33.6 s 24.2-38.5 [facility] ([facility]) Inr 0.92 [facility] ([facility]) THERAPUTIC HUMAN INR VALUES INDICATIONS NORMAL RANGES PROPHYLAXIS/TREATMENT OF: VENOUS THROMBOSIS 2.0-3.0 PULMONARY EMBOLISM 2.0-3.0 PREVENTION OF SYSTEMIC EMBOLISM FROM: TISSUE HEART VALVES 2.0-3.0 ACUTE MYOCARDIAL INFARCTION 2.0-3.0 VALVULAR HEART DISEASE 2.0-3.0 ATRIAL FIBRILLATION 2.0-3.0 MECHANICAL VALVES(HIGH RISK) 2.5-3.5 RECURRENT MYOCARDIAL INFARCTION 2.5-3.5 ID Date Data Source [id number] 10/11/2020 03:39:00 PM EST [facility] ([facility]) Name Value Range Interpretation Code Description Data Prerna rce(s) Supporting Document(s) Platelets [#/volume] in Blood by Automated count 331 10 150-450 [facility] ([facility]) ID Date Data Source [id number] 10/11/2020 03:39:00 PM EST [facility] ([facility]) Name Value Range Interpretation Code Description Data Prerna rce(s) Supporting Document(s) Prothrombin time (PT) Laboratory test result [facility] ([facility]) ID Date Data Source [id number] 10/11/2020 03:39:00 PM EST [facility] ([facility]) Name Value Range Interpretation Code Description Data Prerna rce(s) Supporting Document(s) Prothrombin Time 12.5 s 12.5-14.3 [facility] ([facility]) Partial Thromboplastin Time 33.6 s 24.2-38.5 CT [facility] ([facility]) Inr 0.92 [facility] [facility] THERAPUTIC HUMAN INR VALUES INDICATIONS NORMAL RANGES PROPHYLAXIS/TREATMENT OF: VENOUS THROMBOSIS 2.0-3.0 PULMONARY EMBOLISM 2.0-3.0 PREVENTION OF SYSTEMIC EMBOLISM FROM: TISSUE HEART VALVES 2.0-3.0 ACUTE MYOCARDIAL INFARCTION 2.0-3.0 VALVULAR HEART DISEASE 2.0-3.0 ATRIAL FIBRILLATION 2.0-3.0 MECHANICAL VALVES(HIGH RISK) 2.5-3.5 RECURRENT MYOCARDIAL INFARCTION 2.5-3.5 ID Date Data Source [id number] 10/11/2020 03:39:00 PM EST [facility] ([facility]) Name Value Range Interpretation Code Description Data Prerna rce(s) Supporting Document(s) Platelets [#/volume] in Blood by Automated count 331 10 150-450 [facility] [facility] ID Date Data Source [id number] 10/11/2020 12:03:00 PM EST [facility] ([facility] ) Name Value Range Interpretation Code Description Data Prerna rce(s) Supporting Document(s) Covid Rapid Testing Laboratory test result [facility] ([facility] ) ID Date Data Source [id number] 10/11/2020 12:00:00 AM EST [facility] Name Value Range Interpretation Code Description Data Prerna rce(s) Supporting Document(s) Covid Rapid Testing Negative [facility] This lab was ordered by [place] and re ported by [facility]. ID Date Data Source [id number] 10/07/2020 09:22:00 AM EST [facility] ([facility] ) Name Value Range Interpretation Code Description Data Prerna rce(s) Supporting Document(s) Laboratory test finding (navigational concept) Laboratory test result [facility] ([facility] ) ID Date Data Source [id number] 10/07/2020 09:13:00 AM EST [facility] ([facility]) Name Value Range Interpretation Code Description Data Prerna rce(s) Supporting Document(s) Thyrotropin [Units/volume] in Serum or Plasma by Detec tion limit <= 0.05 mIU/L 2.77 uIU/mL 0.36-3.74 [facility] ([facility] ) ID Date Data Source [id number] 10/07/2020 09:13:00 AM EST [facility] ([facility]) Name Value Range Interpretation Code Description Data Prerna rce(s) Supporting Document(s) Triglyceride [Mass/volume] in Serum or Plasma 237 mg/dL 30-150 [facility] ([facility]) Cholesterol [Mass/volume] in Serum or Plasma 247 mg/dL 131-200 [facility] ([facility] [facility]) Cholesterol in HDL [Mass/volume] in Serum or Plasma 45 mg/dL 35-60 [facility] ([facility]) Cholesterol in LDL [Mass/volume] in Serum or Plasma by calcu lation 155 CALC 50-159 [facility] ([facility]) ID Date Data Source [id number] 10/07/2020 09:13:00 AM EST [facility] ([facility]) Name Value Range Interpretation Code Description Data Prerna rce(s) Supporting Document(s) Glucose [Mass/volume] in Serum or Plasma 94 mg/dL 74-99 [facility] ([facility]) 100-125 mg/dL PRE-DIABETES/FASTING >126 mg/dL DIABETES/FASTING Urea nitrogen [Mass/volume] in Serum or Plasma 18 mg/dL 7-18 [facility] ([facility] [facility]) Creatinine 0.7 mg/dL 0.6-1.3 [facility] [facility] Potassium [Moles/volume] in Serum or Plasma 4.0 meq/L 3.5-5.1 [facility] ([facility] [facility]) Sodium [Moles/volume] in Serum or Plasma 146 meq/L 136-145 [facility] ([facility] [facility]) Chloride [Moles/volume] in Serum or Plasma 105 meq/L 98-107 [facility] ([facility] [facility]) Carbon dioxide, total [Moles/volume] in Serum or Plasma 32 meq/L 21 -32 [facility] ([facility] [facility]) Calcium [Mass/volume] in Serum or Plasma 9.4 mg/dL 8.5-10.1 [facility] ([facility]) Alkaline phosphatase isoenzyme [Units/volume] in Serum or Pl asma 129 mg/dL 46-116 [facility] ([facility] [facility]) Total Bilirubin 0.3 mg/dL 0.2-1.0 [facility] ([facility]) Aspartate aminotransferase [Enzymatic activity/volume] in Serum or Plasma 17 U/L 15-37 [facility] ([facility] ) Albumin [Mass/volume] in Serum or Plasma 3.9 g/dL 3.4-5.0 [facility] ([facility]) Alanine aminotransferase [Enzymatic activity/volume] in Seru m or Plasma 27 U/L 12-78 [facility] ([facility] [facility]) A/G Ratio 1.15 CALC 1.00-1.90 [facility] [facility] Proteinase 3 Ab [Units/volume] in Serum 7.3 g/dL 6.4-8.2 [facility] ([facility] [facility]) Glomerular filtration rate/1.73 sq M pre dicted among non-blacks [Volume Rate/Area] in Serum or Plasma by Creatinine-based formula (MDRD) Laboratory test result [facility] ([facility] [facility] Glomerular filtration rate/1.73 sq M pre dicted among blacks [Volume Rate/Area] in Serum or Plasma by Creatinine-based formula (MDRD) Laboratory test result [facility] ([facility] [facility]) <content>CHRONIC KIDNEY DISEASE STAGING PER NKF</content>
<content></content>
<content>STAGE I & II GFR >= 60 NORMAL TO MILDLY DECREASED</content>
<content>STAGE III GFR 30-59 MODERATELY DECREASED</content>
<content>STAGE IV GFR 15-29 SEVERELY DECREASED</content>
<content>STAGE V GFR <15 VERY LITTLE GFR LEFT</content>
<content>ESRD GFR <15 ON MEDIA RELATIONS SPECIALIST</content>
<content></content> ID Date Data Source [id number] 10/07/2020 09:13:00 AM EST [facility] ([facility]) Name Value Range Interpretation Code Description Data Prerna rce(s) Supporting Document(s) Leukocytes [#/volume] in Blood by Automated count 6.3 x10*3/UL 4.1-10 .9 [facility] ([facility] [facility]) Hemoglobin [Mass/volume] in Blood 13.1 g/dL 12.0-18.0 [facility] ([facility]) Erythrocytes [#/volume] in Blood by Automated count 4.25 x10*6/UL 4.2 0-6.30 [facility] ([facility] [facility]) MCV 87.4 fL 80.0-97.0 [facility] [facility] Hematocrit [Volume Fraction] of Blood by Automated count 37.2 % 3 7.0-51.0 [facility] ([facility] [facility]) MCH 30.8 pg 26.0-32.0 [facility] [facility] MCHC 35.2 g/dL 31.0-38.0 [facility] [facility]) Platelets [#/volume] in Blood by Automated count 325 x10*3/UL 140-440 [facility] ([facility] [facility]) Erythrocyte distribution width [Ratio] by Automated count 12.3 % 11.6-13.7 [facility] ([facility] [facility]) Lymph % 37.1 % 10.0-58.5 [facility] ([place] [facility] MPV 7.3 FL 7.8-11.0 [facility] ([place] [facility] Neut % 56.0 % 37.0-92.0 [facility] ([place] [facility] Mid % 6.9 % 1.7-9.3 [facility] [facility] Lymph # 2.3 x10*3/UL 0.6-4.1 [facility] ([facility]) Mid # 0.5 x10*3/UL 0.1-0.6 [facility] ([facility] [facility]) Neut # 3.5 x10*3/UL 2.0-7.8 [facility] ([facility] [facility]) ID Date Data Source [id number] 09/23/2020 01:48:00 PM EST [facility] Name Value Range Interpretation Code Description Data Prerna rce(s) Supporting Document(s) SARS-CoV-2 (COVID-19) Negative [facility] This lab was ordered by [facility] and reported by [facility]. ID Date Data Source [id number] 09/07/2020 10:00:00 AM EST [facility] Name Value Range Interpretation Code Description Data Prerna rce(s) Supporting Document(s) SARS coronavirus 2 RNA Not Detected [facility] This lab was ordered by [facility] and reported by [facility]. ID Date Data Source [id number] 08/10/2020 03:52:34 PM EST [facility] PCName: Nancy ChauhanDOB: 1955Provider: Lesley Wyatt: 08/04/2020 Reason For VisitNancy Chauhan is here today for bilateral hips. Nancy Chauhan is an established patient here for follow up. Surgery DOS: 04/15/15 Left LESTER. Patient states they are disabled. Plan<OBX.5.1><OBX.5.1.1> X-Ray I Hip Bilat </OBX.5.1.1><OBX.5.1.2> Pelvis - 2 views (XRays were ordered, obtained and interpreted today</OBX.5.1.2></OBX.5.1>in the office. Indication: pain/dysfunction.); Status:Complete; Done: [id number] Perform:SOS14 (General); Due:[id number]; Last Updated By:Frankie Jimenes; 08/04/2020 1:52:08 PM;Ordered; For:Joint pain, hip; Ordered By:Mayda Wyatt;jasonWeight Bearing Status : Weight bearing Assessment: Bilateral hip replacement followup.The patients hips are generally doing well, but she has some groin pain on the left. She has chronic back issues. She is under the care of Dr. Caruso in [place]. She cannot do cortisone and therapy aggravated the pain. On exam today, she examines like someone with psoas tendinitis on the left.X-rays ordered, taken and interpreted today of the pelvis and three views of each hip show the implants in good position without problems.Plan: Right now she does not want to do anything about the left hip. She may be a candidate for an arthroscopic decompression, but I would have to be pretty certain she would have a good result. We will see her for her hips in a year; otherwise, sooner if needed. Signatures Electronically signed by : Genesis Bennett, ; Aug 05 2020 12:36PM EST Electronically signed by : Mayda Wyatt M.D.; Aug 10 2020 3:52PM EST (Author) Name Value Range Interpretation Code Description Data Prerna rce(s) Supporting Document(s) ID Date Data Source [id number] 08/03/2020 09:55:00 AM EST [facility] ([facility]) Name Value Range Interpretation Code Description Data Prerna rce(s) Supporting Document(s) Triglyceride [Mass/volume] in Serum or Plasma 230 mg/dL 30-150 [facility] ([facility] [facility]) Cholesterol [Mass/volume] in Serum or Plasma 221 mg/dL 131-200 [facility] ([facility] [facility]) Cholesterol in HDL [Mass/volume] in Serum or Plasma 40 mg/dL 35-60 [facility] ([facility]) Cholesterol in LDL [Mass/volume] in Serum or Plasma by calcu lation 135 CALC 50-159 [facility] ([facility]) ID Date Data Source [id number] 07/04/2020 02:50:10 PM EST [facility] Name Value Range Interpretation Code Description Data Prerna rce(s) Supporting Document(s) Progress Note [facility] YNKCBo4tCpDSJvGm04/LGYjnBJNkr0JsUNcsEIx3QRikJCWpW5AvHBQ9pY2eKYW2AEsIGfRmOwImRIDg [facility] CdFnuPShEnPACgHddWCcZdRJizShmcfIVyRN6VtAW2TBHyM70rMLPcVKPyG5SzDDZ7YzN+Sv1ZHEWpuJ YwJF2ICdcJ5Hqqn5w6RT2+YP+HsMOfNvRPum8EVQOBxUoEGS8Nbw3M2nExNuon/DLZTpt/T0rpAR7AmM oIrHFTNlKFH3T6uRSeh9gPTZEp505wI/SllCL/t/oZ xkp0R+Wju6M9kIRliiHQWaniZXMSUkKt++g0zz602Asj50Kk7PF8ta3KCVF49lCcF7KfTMq6XJQ/EI7r DoFGcU6KANgzBKAlFYM2lAM9ghTQyPNs3G1OVXuYzw4J+YOQYRG1QDZM9rAvWO3FRo+SbDJlfFYMlrqx uVTxIdlugthePyMrmZRLarJzSlJOLhUTUlJSUlEygK [file] [id number]= ID Date Data Source [id number] 06/23/2020 08:15:24 AM EDT [facility] Name Value Range Interpretation Code Description Data Prerna rce(s) Supporting Document(s) Progress Note [facility] IGDVYu0sHxDPFtRo36/UOAlbIANiu9JpQEkpNRc8RHlrVUUxA9SvREZ1qF3iDCB7BMyMDjAvGwRhXROx lbm [file] [id number]= ID Date Data Source [id number] 06/01/2020 01:11:54 PM EDT [facility] XR HAND 3 OR MORE VIEWS [id number] RESUL TInterpreted by:JASE Estradalinical history: Hand painViews: 4 views right handIndication: Check for sources of pain at right handFindings: Patient has normal osseous anatomy of the distal forearm bones as well as the proximal and distal carpal rows. CMC joints and metacarpals of digits 1 through 5 appear normal. MCP joints are well preserved. Osseous anatomy the phalanges of all 5 digits appears normal. There is mild degenerative change noted at the distal interphalangeal joints of the digits as well as the interphalangeal joint of the thumb.Impression: Mild diffuse arthritic change right hand as detailed aboveThis document has been electronically signed by Young Fisher MD on 06/01/2020 1:09 PM Name Value Range Interpretation Code Description Data Prerna rce(s) Supporting Document(s) ID Date Data Source [id number] 05/30/2020 05:08:53 PM EDT [facility] Name Value Range Interpretation Code Description Data Prerna rce(s) Supporting Document(s) Progress Note [facility] LCKALi4yFtRAFjZd11/OHXqfQNRux6EcHVkvGQo7GVglYRImG1QjOFA5dS6zDVQ2XIxINaHfYqRrMGR9 [facility] [file] [id number]== Procedure Social History Code Duration Value Status Description Data Source(s ) Smoking 04/28/2021 12:00:00 AM EDT Patient is a former smoker completed Patient is a former smoker [facility] Alcohol intake 04/17/2021 12:00:00 AM EDT Current non-d fina of alcohol (finding) completed Current non-drinker of alcohol (finding) [facility] Tobacco use and exposure 04/17/2021 12:00:00 AM EDT Never used co mpleted Never used [facility] Smoking 04/17/2021 12:00:00 AM EDT Former smoker completed Former smoker [facility] Smoking 12/15/2020 12:00:00 AM EDT Patient is a former smoker completed Patient is a former smoker [facility] ([facility]) Alcohol intake 10/31/2020 12:00:00 AM EST Current non-d fina of alcohol (finding) completed Current non-drinker of alcohol (finding) [facility] Smoking 07/19/2020 12:00:00 AM EST Former Smoker completed Former Smoker [facility] ([facility]) Smoking 07/19/2020 12:00:00 AM EST Former Smoker completed Former Smoker eCW1 ([facility]) Smoking 07/19/2020 12:00:00 AM EST Former Smoker completed Former Smoker eCW1 ([facility]) Smoking 07/19/2020 12:00:00 AM EST Former Smoker completed Former Smoker eCW1 ([facility]) Smoking 07/11/2020 12:00:00 AM EST Patient is a former smoker completed Patient is a former smoker [facility] ([facility] Alcohol intake 07/04/2020 12:00:00 AM EST Current non-d fina of alcohol (finding) completed Current non-drinker of alcohol (finding) [facility] Alcohol intake 06/23/2020 12:00:00 AM EDT Current non-d fina of alcohol (finding) completed Current non-drinker of alcohol (finding) [facility] Vital Signs ID Date Data Source UNK Name Value Range Interpretation Code Description Data Source(s) Body height 61 [in_i] 61 [in_i] [facility] ([facility]) 5'1" Body weight 130.00 [lb_av] 130.00 [lb_av] ROS[facility] ([facility]) Body mass index (BMI) [Ratio] 24.6 kg/m2 24.6 k g/m2 [facility] ([facility]) Heart rate 77 /min 77 /min [facility] ([facility]) Systolic blood pressure 121 mm[Hg] 121 mm[Hg] [facility] Oxygen saturation in Arterial blood by Pulse oximetry 98 % 98 % [facility] ([facility]) Body height 61 [in_i] 61 [in_i] [facility] ([facility]) 5'1" Body weight 121.38 [lb_av] 121.38 [lb_av] [facility] ([facility]) Body mass index (BMI) [Ratio] 22.9 kg/m2 22.9 k g/m2 [facility] ([facility]) [place] body weight 105 [lb_av] 105 [lb_av] ELISHAEN T ([facility]) Body weight 55.056 kg 55.056 kg [facility] ([facility]) Body surface area Derived from formula 1.53 m2 1.53 m2 [facility] Diastolic blood pressure 70 mm[Hg] 70 mm[Hg] [facility] ([facility]) Systolic blood pressure 110 mm[Hg] 110 mm[Hg] M [facility] ([facility]) Diastolic blood pressure 72 mm[Hg] 72 mm[Hg] [facility] ([facility]) Heart rate 78 /min 78 /min [facility] ([facility]) Body height 61.25 [in_i] 61.25 [in_i] [facility] ([facility]) 5'." Body weight 121.00 [lb_av] 121.00 [lb_av] MEDEN T ([facility]) Body mass index (BMI) [Ratio] 22.7 kg/m2 22.7 k g/m2 [facility] ([facility]) Body mass index (BMI) [Ratio] 24.0 kg/m2 24.0 k g/m2 [facility] ([facility]) Systolic blood pressure 110 mm[Hg] 110 mm[Hg] M [facility] ([facility]) Diastolic blood pressure 66 mm[Hg] 66 mm[Hg] [facility] ([facility]) Heart rate 62 /min 62 /min [facility] ([facility]) Body height 61.25 [in_i] 61.25 [in_i] [facility] ([facility]) 5'.25" Body weight 128.00 [lb_av] 128.00 [lb_av] MEDEN T ([facility]) Systolic blood pressure 128 mm[Hg] 128 mm[Hg] M [facility] ([facility]) Diastolic blood pressure 80 mm[Hg] 80 mm[Hg] [facility] ([facility]) Heart rate 76 /min 76 /min [facility] ([facility]) Body height 61.25 [in_i] 61.25 [in_i] [facility] ([facility]) 5'.25" Body weight 137.00 [lb_av] 137.00 [lb_av] MEDEN T ([facility]) Body mass index (BMI) [Ratio] 25.7 kg/m2 25.7 k g/m2 [facility] ([facility]) Body temperature 98.8 [degF] 98.8 [degF] [facility] ([facility]) Body weight 130.00 [lb_av] 130.00 [lb_av] MEDEN T ([facility] ) Body height 61 [in_i] 61 [in_i] [facility] ([facility] 5'1" Body mass index (BMI) [Ratio] 24.6 kg/m2 24.6 k g/m2 [facility] ([facility] ) Body mass index (BMI) [Ratio] 25.4 kg/m2 25.4 k g/m2 [facility] ([facility]) Systolic blood pressure 122 mm[Hg] 122 mm[Hg] [facility] Diastolic blood pressure 66 mm[Hg] 66 mm[Hg] [facility] ([facility]) Body height 61.25 [in_i] 61.25 [in_i] [facility] ([facility]) 5'1.25" Body weight 135.38 [lb_av] 135.38 [lb_av] MEDEN T ([facility]) Body temperature 97.1 [degF] 97.1 [degF] [facility] ([facility] ) Body temperature 98.6 [degF] 98.6 [degF] [facility] ([facility] ) Systolic blood pressure 128 mm[Hg] 128 mm[Hg] [facility] ([facility]) Diastolic blood pressure 78 mm[Hg] 78 mm[Hg] [facility] ([facility]) Heart rate 68 /min 68 /min [facility] ([facility]) Body height 61.25 [in_i] 61.25 [in_i] [facility] 5'1.25" Body weight 127.00 [lb_av] 127.00 [lb_av] MEDEN T ([facility]) Body mass index (BMI) [Ratio] 23.8 kg/m2 23.8 k g/m2 [facility] ([facility]) Body weight 127 [lb_av] 127 [lb_av] eCW1 ([facility]) Body weight 57.61 kg 57.61 kg eCW1 ([facility]) Body height 61.50 [in_i] 61.50 [in_i] eCW1 ([facility]) Body mass index (BMI) [Ratio] 23.61 kg/m2 23.61 kg/m2 eCW1 ([facility]) Systolic blood pressure 138 mm[Hg] 138 mm[Hg] e CW1 ([facility]) Diastolic blood pressure 78 mm[Hg] 78 mm[Hg] eCW1 ([facility]) Systolic blood pressure 136 mm[Hg] 136 mm[Hg] M EDENT ([facility]) Diastolic blood pressure 78 mm[Hg] 78 mm[Hg] [facility] ([facility]) Heart rate 72 /min 72 /min [facility] ([facility]) Body weight 126.00 [lb_av] 126.00 [lb_av] MEDEN T ([facility]) Body height 61.25 [in_i] 61.25 [in_i] [facility] ([facility]) 5'1.25" Body mass index (BMI) [Ratio] 23.6 kg/m2 23.6 k g/m2 [facility] ([facility]) Respiratory rate 16 /min 16 /min [facility] ( [facility]) Body weight 127.00 [lb_av] 127.00 [lb_av] MEDEN T ([facility]) Body height 61 [in_i] 61 [in_i] [facility] ([facility] 5'1" Heart rate 80 /min 80 /min [facility] ([facility] Systolic blood pressure 136 mm[Hg] 136 mm[Hg] M [facility]ENT ([facility]) Diastolic blood pressure 82 mm[Hg] 82 mm[Hg] [facility] ([facility]) Body mass index (BMI) [Ratio] 24.0 kg/m2 24.0 k g/m2 [facility] ([facility]) Body height 61.25 [in_i] 61.25 [in_i] [facility] 5'1.25" Systolic blood pressure 110 mm[Hg] 110 mm[Hg] M [facility] ([facility]) Diastolic blood pressure 64 mm[Hg] 64 mm[Hg] [facility] ([facility]) Body weight 128.00 [lb_av] 128.00 [lb_av] MEDEN T ([facility]) Body mass index (BMI) [Ratio] 24.0 kg/m2 24.0 k g/m2 [facility] ([facility]) Body mass index (BMI) [Ratio] 24.7 kg/m2 24.7 k g/m2 [facility] ([facility]) [place] body weight 105 [lb_av] 105 [lb_av] MEDEN T ([facility]) Body weight 59.422 kg 59.422 kg [facility] ([facility]) Body surface area Derived from formula 1.58 m2 1.58 m2 [facility] ([facility]) Heart rate 89 /min 89 /min [facility] ([facility]) Diastolic blood pressure 80 mm[Hg] 80 mm[Hg] [facility] ([facility]) Systolic blood pressure 112 mm[Hg] 112 mm[Hg] [facility] Oxygen saturation in Arterial blood by Pulse oximetry 99 % 99 % [facility] ([facility]) Body temperature 97.4 [degF] 97.4 [degF] [facility] ([facility]) Body height 61 [in_i] 61 [in_i] [facility] ([facility]) 5'1" Body weight 131.00 [lb_av] 131.00 [lb_av] MEDEN T ([facility]) Oxygen saturation in Arterial blood by Pulse oximetry 99 % 99 % [facility] ([facility]) Body temperature 97.4 [degF] 97.4 [degF] [facility] ([facility]) Body height 61 [in_i] 61 [in_i] [facility] 5'1" Body weight 131.00 [lb_av] 131.00 [lb_av] [facility] T ([facility]) Body mass index (BMI) [Ratio] 24.7 kg/m2 24.7 k g/m2 [facility] ([facility]) Body weight 59.422 kg 59.422 kg [facility] ([facility]) ID Date Data Source [id number] 11/28/2020 10:44:10 AM [facility] Name Value Range Interpretation Code Description Data Source(s) WEIGHT RECORDED 127.00 pounds 127.00 pounds [facility] Height 61 Inches 061 Inches [facility] Patient Treatment Plan of Care Planned Activity Planned Date Details Description Data Source (s) methylPREDNISolone acetate (DEPO-MEDROL) injection 40 mg 04/19/2021 07:45:00 AM [facility] methylPREDNISolone acetate (DEPO-MEDROL) injection 40 mg 04/19/2021 07:45:00 AM [facility] Citalopram 10 MG Oral Tablet 03/20/2021 12:00:00 AM [facility] tramadol hydrochloride 50 MG Oral Tablet 03/10/2021 12:00:00 AM [facility] methylPREDNISolone acetate (DEPO-MEDROL) injection 40 mg 10/31/2020 05:45:00 PM [facility] methylPREDNISolone acetate (DEPO-MEDROL) injection 40 mg 10/31/2020 05:45:00 PM [facility] meloxicam 15 MG Oral Tablet 09/18/2019 12:00:[address] [facility] prednisolone acetate 10 MG/ML Ophthalmic Suspension 11/12/19 12:00:00 AM [facility] Meclizine Hydrochloride 25 MG Oral Tablet 02/21/2018 12:00:00 AM ED [facility] Cyanocobalamin (VITAMIN B-12 PO) [facility] Estradiol 0.1 MG/ML Vaginal Cream [facility] Zolpidem Tartrate (AMBIEN PO) [facility] Dorzolamide HCl-Timolol Mal PF 22.3-6.8 MG/ML [facility] Polyethylene Glycol 400 4 MG/ML / Propylene glycol 3 M G/ML Ophthalmic Solution [facility]
[2021-07-09] MEDS ORDERED: GI COCKTAIL 50ML BTL(HYOSCYAMINE/MAALOX/LIDOCAINE VISCOUS)(1:3:1) PO ONE (23:05)
[2021-07-09 23:33] LABS: BASO % 0.5 % (0.0-1.0); EOS # 0.3 10^3/uL (0.0-0.5); EOS % 4.1 % (0.0-3.0); HEMOGLOBIN 13.2 g/dl (12.0-15.5); LYMPH # 2.7 10^3/uL (1.5-5.0); MEAN CORPUSCULAR HEMOGLOBIN 30.4 pg (27.0-33.0); MEAN CORPUSCULAR VOLUME 92.2 fl (80.0-96.0); MONO # 0.5 10^3/uL (0.0-0.8); MONO % 8.1 % (2.0-8.0); NEUTROPHILS % 46.1 % (36.0-66.0); PLATELET COUNT, AUTOMATED 299 10^3/uL (150-450); RED BLOOD COUNT 4.34 10^6/uL (4.00-5.40); WHITE BLOOD COUNT 6.5 10^3/uL (4.0-10.0)
--- NOTE | 2021-07-09 23:46 | REPVR ---
PROCEDURE INFORMATION: Exam: XR Chest Exam date and time: 07/09/2021 11:14 PM Age: 66 years old Clinical indication: Epigastric pain TECHNIQUE: Imaging protocol: XR of the chest. Views: 1 view. COMPARISON: CR Chest, 2 view PA, Lat 03/13/2021 5:07 PM (The report from this study was not available for review at the time of this interpretation.) FINDINGS: Lungs: Unremarkable. No consolidation. No pulmonary edema. Pleural spaces: Unremarkable. No pleural effusion. No pneumothorax. Heart/Mediastinum: Unremarkable. No cardiomegaly. Vasculature: There are atherosclerotic calcifications of the aortic arch. Bones/joints: Unremarkable. Soft tissues: There is a 5 mm calcific density in the right rotator cuff, which is compatible with calcific tendinitis. Intraperitoneal space: No subdiaphragmatic intraperitoneal free air is seen in the upper abdomen. IMPRESSION: 1. No radiographic evidence for an acute cardiopulmonary process. 2. Calcific right rotator cuff tendinitis. Electronically signed by: Jim De León On 07/09/2021 23:46:04 PM
[2021-07-09 23:57] LABS: ALBUMIN 3.7 GM/DL (3.2-5.2); ALT/SGPT 24 U/L (12-78); BILIRUBIN,DIRECT < 0.1 MG/DL (0.0-0.2); BILIRUBIN,TOTAL 0.2 MG/DL (0.2-1.0); BLOOD UREA NITROGEN 14 MG/DL (7-18); CALCIUM LEVEL 9.1 MG/DL (8.8-10.2); CARBON DIOXIDE LEVEL 28 MEQ/L (21-32); CHLORIDE LEVEL 112 MEQ/L (98-107); CREATININE FOR GFR 0.57 MG/DL (0.55-1.30); GLOMERULAR FILTRATION RATE > 60.0 (>45); GLUCOSE, FASTING 96 MG/DL (70-100); LIPASE 186 U/L (73-393); POTASSIUM SERUM 3.9 MEQ/L (3.5-5.1); SODIUM LEVEL 145 MEQ/L (136-145); TOTAL PROTEIN 7.1 GM/DL (6.4-8.2)
--- OUTSIDE RECORDS SUMMARY | 2021-07-10 00:11 | CCD ---
Author Author [facility] Organization [facility] Address Unknown Phone Unavailable Care Team Providers Care Alberene Stone Setter Name Role Phone Areli Coker PA-C Unavailable Unavailabl e Areli Coker PA-C Unavailable Unavailabl e Areli Coker PA-C Unavailable Unavailabl e Areli Coker PA-C Unavailable Unavailabl e Areli Coker PA-C Unavailable Unavailabl e Fish, Areli Inez MPAS, PA-C Unavailable Unavailabl e Fish, [facility], PA-C Unavailable Unavailabl e Fish, [facility], PA-C Unavailable Unavailabl e Fish, [facility], PA-C Unavailable Unavailabl e Fish, [facility], PA-C Unavailable Unavailabl e Fish, [facility], PA-C Unavailable Unavailabl e Fish, [facility], PA-C Unavailable Unavailabl e Fish, [facility], PA-C Unavailable Unavailabl e Fish, [facility], PA-C Unavailable Unavailabl e Fish, [facility], PA-C Unavailable Unavailabl e Fish, [facility], PA-C Unavailable Unavailabl e Fish, [facility], PA-C Unavailable Unavailabl e Fish, [facility], PA-C Unavailable Unavailabl e Fish, [facility], PA-C Unavailable Unavailabl e Fish, [facility], PA-C Unavailable Unavailabl e Fish, [facility], PA-C Unavailable Unavailabl e Fish, [facility], PA-C Unavailable Unavailabl e Fish, [facility], PA-C Unavailable Unavailabl e Fish, [facility], PA-C Unavailable Unavailabl e Fish, [facility], PA-C Unavailable Unavailabl e Fish, [facility], PA-C Unavailable Unavailabl e Fish, [facility], PA-C Unavailable Unavailabl e Fish, [facility], PA-C Unavailable Unavailabl e Fish, [facility], PA-C Unavailable Unavailabl e Fish, [facility], PA-C Unavailable Unavailabl e Fish, [facility], PA-C Unavailable Unavailabl e Fish, [facility], PA-C Unavailable Unavailabl e Fish, [facility], PA-C Unavailable Unavailabl e Fish, [facility], PA-C Unavailable Unavailabl e Fish, [facility], PA-C Unavailable Unavailabl e Fish, [facility], PA-C Unavailable Unavailabl e Chyna Cárdenas MD [...] Unavailable Unavailable Koloms, Chyna MD Unavailable Unavailable CHROSTOWSKI SEKOU MD Unavailable Unavailable CHROSTOWSKI SEKOU MD Unavailable Unavailable CHROSTOWSKI, SEKOU MD Unavailable Unavailable CHROSTOWSKI SEKOU MD Unavailable Unavailable CHROSTOWSKI SEKOU MD Unavailable Unavailable CHROSTOWSKI SEKOU MD Unavailable Unavailable CHROSTOWSKI SEKOU MD Unavailable Unavailable CHROSTOWSKI SEKOU MD Unavailable Unavailable CHROSTOWSKI, SEKOU MD Unavailable Unavailable CHROSTOWSKI, SEKOU MD Unavailable Unavailable CHROSTOWSKI, SEKOU MD Unavailable Unavailable CHROSTOWSKI, SEKOU MD Unavailable Unavailable CHROSTOWSKI, SEKOU MD Unavailable Unavailable CHROSTOWSKI, SEKOU MD Unavailable Unavailable CHROSTOWSKI, SEKOU MD Unavailable Unavailable CHROSTOWSKI, SEKOU MD Unavailable Unavailable CHROSTOWSKI, SEKOU MD Unavailable Unavailable CHROSTOWSKI, SEKOU MD Unavailable Unavailable CHROSTOWSKI, SEKOU MD Unavailable Unavailable CHROSTOWSKI, SEKOU MD Unavailable Unavailable CHROSTOWSKI, SEKOU MD Unavailable Unavailable CHROSTOWSKI, SEKOU MD Unavailable Unavailable CHROSTOWSKI, SEKOU MD Unavailable Unavailable CHROSTOWSKI, SEKOU MD Unavailable Unavailable CHROSTOWSKI, SEKOU MD Unavailable Unavailable CHROSTOWSKI, SEKOU MD Unavailable Unavailable CHROSTSEKOU MG MD Unavailable Unavailable CHROSTSEKOU MG MD Unavailable Unavailable CHROSTSEKOU MG MD Unavailable Unavailable CHROSTSEKOU MG MD Unavailable Unavailable CHROSTSEKOU MG MD Unavailable Unavailable CHROSTSEKOU MG MD Unavailable Unavailable CHROSTOWSKISEKOU MD Unavailable Unavailable CHROSTSEKOU MG MD Unavailable Unavailable CHROSTOWSKISEKOU MD Unavailable Unavailable CHROSTSEKOU MG MD Unavailable Unavailable CHROSTSEKOU MG MD Unavailable Unavailable CHROSTSEKOU MG MD Unavailable Unavailable CHROSTOWSKISEKOU MD Unavailable Unavailable Koloms, Chyna MD Unavailable [...] Unavailable Unavailable Koloms, Chyna MD Unavailable Unavailable Argenis Schultz MD Unavailable Unavailable Argenis Schultz MD Unavailable Unavailable Argenis Schultz MD Unavailable Unavailable Argenis Schultz MD Unavailable Unavailable Argenis Schultz MD Unavailable Unavailable Argenis Schultz MD Unavailable Unavailable Argenis Schultz MD Unavailable Unavailable Argenis Schultz MD Unavailable Unavailable Argenis Schultz MD Unavailable Unavailable Argenis Schultz MD Unavailable Unavailable Argenis Schultz MD Unavailable Unavailable [place]Argenis MD Unavailable Unavailable MarionArgenis MD Unavailable Unavailable [place]Ar[place]is MD Unavailable Unavailable [place]Ar[place]is MD Unavailable Unavailable MarionArgenis MD Unavailable Unavailable MarionArgenis MD Unavailable Unavailable MarionArgenis MD Unavailable Unavailable MarionArgenis MD Unavailable Unavailable MarionArgenis MD Unavailable Unavailable [place]Argenis MD Unavailable Unavailable [place]Argenis MD Unavailable Unavailable MarionArgenis MD Unavailable Unavailable MarionArgenis MD Unavailable Unavailable MarionArgenis MD Unavailable Unavailable MarionArgenis MD Unavailable Unavailable MarionArgenis MD Unavailable Unavailable [place]Argenis MD Unavailable Unavailable MarionArgenis MD Unavailable Unavailable [place]Argenis MD Unavailable Unavailable [place]Argenis MD Unavailable Unavailable [place]Argenis MD Unavailable Unavailable [place]Argenis MD Unavailable Unavailable [place]Argenis MD Unavailable Unavailable MarionArgenis MD Unavailable Unavailable [place]Argenis MD Unavailable Unavailable MarionArgenis MD Unavailable Unavailable [place]Argenis MD Unavailable Unavailable [place]Argenis MD Unavailable Unavailable [place]Argenis MD Unavailable Unavailable MarionArgenis MD Unavailable Unavailable [place]Argenis MD Unavailable Unavailable MarionArgenis MD Unavailable Unavailable MarionArgenis MD Unavailable Unavailable MarionArgenis MD Unavailable Unavailable MarionArgenis MD Unavailable Unavailable [place]Argenis MD Unavailable Unavailable [place]Argenis MD Unavailable Unavailable MarionArgenis MD Unavailable Unavailable [place]Argenis MD Unavailable Unavailable [place]Argenis MD Unavailable Unavailable MarionArgenis MD Unavailable Unavailable [place]Argenis MD Unavailable Unavailable MarionArgenis MD Unavailable Unavailable [place]Argenis MD Unavailable Unavailable MarionArgenis MD Unavailable Unavailable [place]Argenis MD Unavailable Unavailable [place]Ar[place]is MD Unavailable Unavailable MarionArgenis MD Unavailable Unavailable MarionArgenis MD Unavailable Unavailable [place]Argenis MD Unavailable Unavailable MarionArgenis MD Unavailable Unavailable MarionArgenis MD Unavailable Unavailable MarionArgenis MD Unavailable Unavailable MarionArgenis MD Unavailable Unavailable MarionArgenis MD Unavailable Unavailable [place]Argenis MD Unavailable Unavailable [place], F Jennings MD Unavailable Unavailable Argenis Schultz [...] K Florida PA Unavailable Unavailable Scozzari, K Folrida PA Unavailable Unavailable Scozzari, K [place] PA [...] MD Unavailable Unavailable MarionArgenis MD Unavailable Unavailable [place]Argenis MD Unavailable Unavailable [place]Argenis MD Unavailable Unavailable [place]Argenis MD Unavailable Unavailable [place]Argenis MD Unavailable Unavailable MarionArgenis MD Unavailable Unavailable [place]Argenis MD Unavailable Unavailable [place]Argenis MD Unavailable Unavailable [place]Argenis MD Unavailable Unavailable [place]Argenis MD Unavailable Unavailable MarionArgenis MD Unavailable Unavailable [place]Argenis MD Unavailable Unavailable MarionArgenis MD Unavailable Unavailable [place]Argenis MD Unavailable Unavailable [place]Argenis MD Unavailable Unavailable MarionArgenis MD Unavailable Unavailable MarionArgenis MD Unavailable Unavailable MarionArgenis MD Unavailable Unavailable MarionArgenis MD Unavailable Unavailable MarionArgenis MD Unavailable Unavailable MarionArgenis MD Unavailable Unavailable MarionArgenis MD Unavailable Unavailable [place]Argenis MD Unavailable Unavailable MarionArgenis MD Unavailable Unavailable MarionArgenis MD Unavailable Unavailable [place]Argenis MD Unavailable Unavailable MarionArgenis MD Unavailable Unavailable [place]Argenis MD Unavailable Unavailable [place]Argenis MD Unavailable Unavailable MarionArgenis shetty MD Unavailable Unavailable [place]Argenis shetty MD Unavailable Unavailable [place]Argenis MD Unavailable Unavailable MarionAregnis MD Unavailable Unavailable [place]Argenis shetty MD Unavailable Unavailable MarionArgenis MD Unavailable Unavailable MarionArgenis shetty MD Unavailable Unavailable [place]Argenis shetty MD Unavailable Unavailable MarionArgenis shetty MD Unavailable Unavailable MarionArgenis MD Unavailable Unavailable MarionArgenis MD Unavailable Unavailable MarionArgenis MD Unavailable Unavailable [place]Argenis MD Unavailable Unavailable MarionArgenis MD Unavailable Unavailable [place]Argenis MD Unavailable Unavailable MarionArgenis MD Unavailable Unavailable [place]Argenis MD Unavailable Unavailable MarionArgenis MD Unavailable Unavailable [place]Argenis MD Unavailable Unavailable [place]Ar[place]is MD Unavailable Unavailable [place]Ar[place]is MD Unavailable Unavailable [place]Ar[place]is MD Unavailable Unavailable [place]Argenis MD Unavailable Unavailable MarionArgenis MD Unavailable Unavailable [place]Argenis MD Unavailable Unavailable [place]Argenis MD Unavailable Unavailable [place]Ar[place]is MD Unavailable Unavailable [place]Ar[place]is MD Unavailable Unavailable [place]Argenis MD Unavailable Unavailable MarionArgenis MD Unavailable Unavailable [place]Ar[place]is MD Unavailable Unavailable [place]Ar[place]is MD Unavailable Unavailable MarionArgenis MD Unavailable Unavailable [place]Ar[place]is MD Unavailable Unavailable MarionArgenis MD Unavailable Unavailable MarionArgenis MD Unavailable Unavailable [place]Ar[place]is MD Unavailable Unavailable [place]Ar[place] MD Unavailable Unavailable MarionArgenis MD Unavailable Unavailable MarionArgenis MD Unavailable Unavailable [place]Argenis MD Unavailable Unavailable MarionArgenis MD Unavailable Unavailable [place]Argenis MD Unavailable Unavailable MarionArgenis MD Unavailable Unavailable [place]Argenis MD Unavailable Unavailable MarionArgenis MD Unavailable Unavailable MarionArgenis MD Unavailable Unavailable MarionArgenis MD Unavailable Unavailable MarionArgenis MD Unavailable Unavailable MarionArgenis MD Unavailable Unavailable MarionArgenis MD Unavailable Unavailable MarionArgenis MD Unavailable Unavailable [place]Argenis MD Unavailable Unavailable [place]Ar[place]is MD Unavailable Unavailable [place]Ar[place]is MD Unavailable Unavailable [place]Ar[place]is MD Unavailable Unavailable MarionArgenis MD Unavailable Unavailable [place]Ar[place]is MD Unavailable Unavailable MarionArgenis MD Unavailable Unavailable MarionArgenis MD Unavailable Unavailable MarionArgenis MD Unavailable Unavailable MarionArgenis MD Unavailable Unavailable MarionArgenis MD Unavailable Unavailable MarionArgenis MD Unavailable Unavailable MarionArgenis MD Unavailable Unavailable [place]Argenis MD Unavailable Unavailable [place]Ar[place] MD Unavailable Unavailable [place]Ar[place]is MD Unavailable Unavailable [place]Ar[place]is MD Unavailable Unavailable [place]Ar[place]is MD Unavailable Unavailable [place]Argenis MD Unavailable Unavailable [place]Argenis MD Unavailable Unavailable [place]Argenis MD Unavailable Unavailable [place]Ar[place]is MD Unavailable Unavailable MarionArgenis MD Unavailable Unavailable MarionArgenis MD Unavailable Unavailable MarionArgenis MD Unavailable Unavailable [place], F Jennings MD Unavailable Unavailable MarionArgenis MD Unavailable Unavailable MarionArgenis MD Unavailable Unavailable [place]Argenis MD Unavailable Unavailable [place], Argenis Jennings MD Unavailable Unavailable MarionArgenis MD Unavailable Unavailable [place]Argenis MD Unavailable Unavailable MarionArgenis MD Unavailable Unavailable MarionArgenis MD Unavailable Unavailable MarionArgenis MD Unavailable Unavailable MarionArgenis MD Unavailable Unavailable MarionArgenis MD Unavailable Unavailable MarionArgenis MD Unavailable Unavailable [place]Argenis MD Unavailable Unavailable MarionArgenis MD Unavailable Unavailable MarionArgenis MD Unavailable Unavailable [place]Ar[place]is MD Unavailable Unavailable [place]Ar[place] MD Unavailable Unavailable [place]Ar[place] MD Unavailable Unavailable MarionArgenis MD Unavailable Unavailable MarionArgenis MD Unavailable Unavailable [place]Ar[place]is MD Unavailable Unavailable [place]Ar[place]is MD Unavailable Unavailable MarionArgenis MD Unavailable Unavailable [place]Ar[place] MD Unavailable Unavailable [place]Ar[place]is MD Unavailable Unavailable MarionArgenis MD Unavailable Unavailable MarionArgenis MD Unavailable Unavailable [place]Ar[place]is MD Unavailable Unavailable MarionArgenis MD Unavailable Unavailable [place]Ar[place]is MD Unavailable Unavailable [place]Ar[place]is MD Unavailable Unavailable [place]Ar[place]is MD Unavailable Unavailable [place]Ar[place]is MD Unavailable Unavailable MarionArgenis shetty MD Unavailable Unavailable [place]Argenis shetty MD Unavailable Unavailable [place]Argenis shetty MD Unavailable Unavailable MarionArgenis shetty MD Unavailable Unavailable MarionArgenis shetty MD Unavailable Unavailable MarionArgenis MD Unavailable Unavailable [place]Ar[place]is MD Unavailable Unavailable MarionArgenis MD Unavailable Unavailable [place]Argenis shetty MD Unavailable Unavailable [place]Ar[place]is MD Unavailable Unavailable [place]Ar[place]is MD Unavailable Unavailable MarionArgenis MD Unavailable Unavailable [place]Argenis MD Unavailable Unavailable MarionArgenis MD Unavailable Unavailable [place]Argenis MD Unavailable Unavailable [place]Argenis MD Unavailable Unavailable OMARI M LUCRECIA PA Unavailable Unavailable OMARI, M [...] Unavailable OMARI, M LUCRECIA PA Unavailable Unavailable CannantonyDanae PA Unavailable Unavailable Fish, B Bairon FLAHERTY Unavailable Unavailable Fish, B Bairon FLAHERTY Unavailable Unavailable Fish, B Bairon FLAHERTY Unavailable Unavailable Fish, Contreras Waddell MD Unavailable Unavailable Fish, Contreras Waddell MD Unavailable Unavailable Fish, B Bairon FALHERTY Unavailable Unavailable Fish, B Bairon FLAHERTY Unavailable [...] Contreras Waddell MD Unavailable Unavailable Fish, Contreras aWddell MD Unavailable Unavailable Fish, Contreras Waddell MD [...] Piyush Unavailable Unavailable Vee, Piyush Unavailable Unavailable Eve, Piyush Unavailable Unavailable Vee, Piyush Unavailable Unavailable Vee, Piyush Unavailable Unavailable Vee, Piyush Unavailable Unavailable Vee, Piyush Unavailable Unavailable Vee, Piyush Unavailable Unavailable Vee, Piyush Unavailable Unavailable Vee, Piyush Unavailable Unavailable Vee, Piyush Unavailable Unavailable Vee, Piyush Unavailable Unavailable Vee, Piyush Unavailable Unavailable Eve, Piyush Unavailable Unavailable Vee, Piyush Unavailable Unavailable [...] Unavailable Constantino EASTON MD Unavailable Unavailable Constantino EASTNO MD Unavailable Unavailable Constantino EASTON MD Unavailable [...] Cheryl WHITMORE JR PA-C Unavailable Unavailable Cheryl WIHTMORE JR PA-C Unavailable Unavailable PICKERAL JR, J GHASSAN PA-C Unavailable Unavailable PICKERAL JR, J GHASSAN PA-C Unavailable Unavailable PICKERAL JR, J GHASSAN PA-C Unavailable Unavailable PICKERAL JR, J GHASSAN PA-C Unavailable Unavailable PICKERAL JR, J GHASSAN PA-C Unavailable Unavailable PICKERAL JR, J GHASSAN PA-C Unavailable Unavailable PICKERAL JR, J GHASSAN PA-C Unavailable Unavailable PICKERAL JR, J GHSASAN PA-C Unavailable Unavailable PICKERAL JR, J GHASSAN [...] Unavailable WYATT, Don OHARA MD Unavailable Unavailable WYTAT, Don OHARA MD Unavailable Unavailable WYATT, Don [...] OHARA MD Unavailable Unavailable LAROCK, J DEBRA AUTOMATIC OVEN OPERATOR Unavailable Unavailable LAROCK, J DEBRA AUTOMATIC OVEN OPERATOR Unavailable Unavailable LAROCK, J DEBRA AUTOMATIC OVEN OPERATOR Unavailable Unavailable LAROCK, J DEBRA AUTOMATIC OVEN OPERATOR Unavailable Unavailable LAROCK, J DEBRA AUTOMATIC OVEN OPERATOR Unavailable Unavailable LAROCK, J DEBRA AUTOMATIC OVEN OPERATOR Unavailable Unavailable LAROCK, J DEBRA AUTOMATIC OVEN OPERATOR Unavailable Unavailable LAROCK, J DEBRA AUTOMATIC OVEN OPERATOR Unavailable Unavailable LAROCK, J DEBRA AUTOMATIC OVEN OPERATOR Unavailable Unavailable LAROCK, J DEBRA AUTOMATIC OVEN OPERATOR Unavailable Unavailable LAROCK, J DEBRA AUTOMATIC OVEN OPERATOR Unavailable Unavailable LAROCK, J DEBRA AUTOMATIC OVEN OPERATOR Unavailable Unavailable LAROCK, J DEBRA AUTOMATIC OVEN OPERATOR Unavailable Unavailable LAROCK, J DEBRA AUTOMATIC OVEN OPERATOR Unavailable Unavailable LAROCK, J DEBRA AUTOMATIC OVEN OPERATOR Unavailable Unavailable LAROCK, J DEBRA AUTOMATIC OVEN OPERATOR Unavailable Unavailable LAROCK, J DEBRA AUTOMATIC OVEN OPERATOR Unavailable Unavailable LAROCK, J DEBRA AUTOMATIC OVEN OPERATOR Unavailable Unavailable LAROCK, J DEBRA AUTOMATIC OVEN OPERATOR Unavailable Unavailable LAROCK, Cheryl DEBRA AUTOMATIC OVEN OPERATOR Unavailable Unavailable LAROCK, Cheryl DEBRA AUTOMATIC OVEN OPERATOR Unavailable Unavailable LAROCK, Cheryl DEBRA AUTOMATIC OVEN OPERATOR Unavailable Unavailable ERIK, JAIRO VIVI BALE COVERER-C Unavailable Unavailable ERIK, JAIRO VIVI BALE COVERER-C Unavailable Unavailable ERIK, JAIRO VIVI BALE COVERER-C Unavailable Unavailable ERIK, JAIRO VIVI BALE COVERER-C Unavailable Unavailable ERIK, JAIRO VIVI BALE COVERER-C Unavailable Unavailable ERIK, JAIRO VIVI BALE COVERER-C Unavailable Unavailable ERIK, JAIRO VIVI BALE COVERER-C Unavailable Unavailable ERIK, JAIRO VIVI BALE COVERER-C Unavailable Unavailable ERIK, JAIRO VIVI BALE COVERER-C Unavailable Unavailable ERIK, JAIRO VIVI BALE COVERER-C Unavailable Unavailable ERIK, JAIRO VIVI BALE COVERER-C Unavailable Unavailable ERIK, JAIRO VIVI BALE COVERER-C Unavailable Unavailable ERIK, JAIRO VIVI BALE COVERER-C Unavailable Unavailable ERIK, JAIRO VIVI BALE COVERER-C Unavailable Unavailable ERIK, JAIRO VIVI BALE COVERER-C Unavailable Unavailable ERIK, JAIRO VIVI BALE COVERER-C Unavailable Unavailable ERIK, JAIRO VIVI BALE COVERER-C Unavailable Unavailable PITER, B DANIELA FLAHERTY Unavailable Unavailable PITER, B DANIELA FLAHERTY Unavailable Unavailable PITER, Contreras SUAREZ MD Unavailable Unavailable PITER, Contreras SUAREZ MD Unavailable Unavailable PITER, Contreras SUAREZ MD Unavailable Unavailable PITER, B DANIELA FLAHERTY Unavailable Unavailable PITER, Contreras SUAREZ MD Unavailable Unavailable PITER, B DANIELA FLAHERTY Unavailable Unavailable PITER, Contreras SUAREZ MD Unavailable Unavailable PITER, Contreras SUAREZ MD Unavailable Unavailable PITER, Contreras SUAREZ MD Unavailable Unavailable PITER, Contreras SUAREZ MD Unavailable Unavailable PITER, Contreras SUAREZ MD Unavailable Unavailable PITER, B DANIELA FLAHERTY Unavailable Unavailable PITER, Contreras SUAREZ MD Unavailable Unavailable PITER, Contreras SUAREZ MD Unavailable Unavailable PITER, Contreras SUAREZ MD Unavailable Unavailable PITER, B DANIELA FLAHERTY Unavailable Unavailable PITER, Contreras SUAREZ MD Unavailable Unavailable PITER, B DANIELA FLAHERTY Unavailable Unavailable PITER, Contreras SUAREZ MD Unavailable [...] Unavailable PITER, Contreras SUAREZ MD Unavailable Unavailable PIETR, Contreras SUAREZ MD Unavailable Unavailable PITER, Contreras [...] PITER, B DANIELA FLAHERTY Unavailable Unavailable PITER, Contreras SUAREZ MD Unavailable Unavailable PITER, Contreras SUAREZ MD Unavailable Unavailable PITER, Contreras SUAREZ MD Unavailable Unavailable PITER, B DANIELA FLAHERTY Unavailable Unavailable PITER, Contreras SUAREZ MD Unavailable Unavailable PITER, Contreras SUAREZ MD Unavailable Unavailable PITER, Contreras SUAREZ MD Unavailable Unavailable PITER, Contreras SUAREZ MD Unavailable Unavailable PITER, Contreras SUAREZ MD Unavailable Unavailable PITER, Contreras SUAREZ MD Unavailable Unavailable PITER, B DANIELA FLAHERTY Unavailable Unavailable PITER, B DANIELA FLAHERTY Unavailable Unavailable PITER, B DANIELA FLAHERTY Unavailable Unavailable PITER, Contreras SUAREZ MD Unavailable [...] Unavailable PITER, B DANIELA FLAHERTY Unavailable Unavailable PTIER, Contreras SUAREZ MD Unavailable Unavailable PITER, Contreras SUAREZ MD Unavailable Unavailable PITER, Contreras SUAREZ MD Unavailable Unavailable PITER, Contreras SUAREZ MD Unavailable Unavailable PITER, Contreras SUAREZ MD Unavailable Unavailable Downs, Rufus PA-C Unavailable Unavailable [...] is protected by Article 27-F of the [facility] [facility] Public [employer] law. If you continue you may have access to information: Regarding HIV / AIDS; Provided by facilities licensed or operated by the [facility] Office of Mental Health; or Provided by the [facility] Office for People With Developmental Disabilities. If such information is present, then the following [facility] mandated warning applies: This information has been [...] law may result in a fine or fpc sentence or both. A general authorization for the release of medical or other information is NOT sufficient authorization for further disc losure. Allergies and Adverse Reactions Type Description Substance Reaction Status Data Source(s ) Propensity to adverse reactions PRAVASTATIN PRAVASTATIN [facility] Propensity to adverse reactions GABAPENTIN GABAPENTIN [facility] Propensity to adverse reactions METHYLPREDNISOLONE METHYLPREDNISOLO [facility] Drug allergy [facility] vanyoyn vanyoyn [facility] Drug allergy vanyoyn vanyoyn [facility] Drug allergy simvistain simvistain [facility] Drug allergy lumigan' lumigan' [facility] Drug allergy comnigan comnigan [facility] Drug allergy betadine betadine [facility] Drug allergy chloraprep chloraprep ITCHING [facility] Drug allergy IODINE IODINE [facility] Drug allergy baclofen baclofen [facility] Propensity to adverse reactions SOLU-MEDROL 40MG VIAL SOLU-MEDRO L 40MG VIAL ITCHING [facility] Propensity to adverse reactions PENNSAID PENNSAID BURNING SENSATI ON [facility] Propensity to adverse reactions VOLTAREN GEL VOLTAREN GEL BURNING [facility] Propensity to adverse reactions TIMOLOL MALEATE TIMOLOL MALEATE REDNE SS [facility] Propensity to adverse reactions LIPITOR LIPITOR ITCHING [facility] Propensity to adverse reactions FIORINAL FIORINAL [facility] Propensity to adverse reactions DEPO-MEDROL DEPO-MEDROL ITCHING [facility] Propensity to adverse reactions ADHESIVE ADHESIVE ITCHING [facility] Drug allergy TIZANIDINE TIZANIDINE NIGHTMARES [facility] Drug allergy DORZOLAMIDE DORZOLAMIDE RED EYES [facility] Drug allergy GABAPENTIN GABAPENTIN "WEIRD SENSATION IN LEGS" [facility] Drug allergy SIMVASTATIN SIMVASTATIN LEG CRAMPS [facility] Drug allergy KETOROLAC KETOROLAC RED EYES [facility] [facility] Drug allergy FENTANYL FENTANYL nausea/vomiting [facility] Drug allergy TIMOLOL TIMOLOL RED EYES [facility] Drug allergy MORPHINE MORPHINE VOMITING [facility] Drug allergy CODEINE CODEINE [facility] Drug allergy VANCOMYCIN VANCOMYCIN ITCHING [facility] Propensity to adverse reactions PCN (penicillin) PCN (penicillin ) BUMPS ON THE BACK OF TONGUE [facility] Family History Family Member Name Family Member [...] 00 AM EDT Pain in right wrist [facility] Pain in right wrist Outpatient Attender: DANIELA DUMAS MD 07A-XXBJORT 06/29/2021 12:00:00 AM EDT [facility] OFFICE OUTPATIENT VISIT 15 MINUTES Attender: Sukhwinder ROYAL Physical Therapy 06/16/2021 11:15:00 AM EDT [facility] ([facility]) Outpatient Attender: DANIELA DUMAS MD 05/18/2021 12:00:00 AM EDT [facility] Unknown [address] [facility] [address] 05/17/2021 12:00:00 AM EDT eCW1 ([facility]) Outpatient Attender: Brenda Núñezender: Danae ROYAL 05/15/2021 12:08:13 PM EDT - 05/15/2021 03:04:10 PM EDT [facility] ( [facility]) Unknown [address] [facility] [address] 05/11/2021 12:00:00 AM EDT eCW1 ([facility]) Outpatient Attender: Rufus Leon PA-C 01/2021 03:25:22 PM EDT - 05/08/2021 05:36:25 PM EDT [facility] ([facility] ) Outpatient Attender: Sukhwinder ROYAL Physical Therapy 10:45:00 AM EDT [facility] ([facility]) Outpatient Attender: VIVI Belle/Alyssa/Ramakrishna/R lenore 04/28/2021 02:15:00 PM EDT [facility] ([facility] Outpatient Attender: Dick Llanos 0 04/18/2021 02:00:00 PM EDT [facility] ([facility] ) Outpatient Attender: DANIELA DUMAS MD 07A-XXBJORT [facility]17[facility] Sukhwinder ROYAL Physical Therapy 03:15:00 PM EDT [facility] ([facility]) Outpatient Attender: GHASSAN Llanos 0 03/13/2021 01:20:00 PM EDT [facility] ([facility] ) Outpatient Attender: MAYDA Martinezerrer: Dick murillo MD 03/01/2021 10:50:26 AM EDT [facility] Recurring Patient Attender: MAYDA RILEYeferrer: Bairon fernandez MD 02/23/2021 02:31:59 PM EDT [facility] Rec[facility] Patient Attender: MAYDA Martinezerrhyacinth: Bairon fernandez MD 02/23/2021 02:30:56 PM EDT [facility] Rec[facility] Patient Attender: MAYDA Martinezerrer: Bairon fernandez MD 02/23/2021 02:30:15 PM EDT [facility] Outpatient Attender: GHASSAN Llanos 0 02/22/2021 01:40:00 PM EDT [facility] ([facility] ) Unknown [address] [facility], [facility] [address] 02/16/2021 12:00:00 AM EDT eCW1 ([facility]) OFFICE OUTPATIENT VISIT 15 MINUTES Attender: Sukhwinder ROYAL Physical Therapy 01/16/2021 10:15:00 AM EDT [facility] ([facility] ) Outpatient Attender: [place] Brewer: Dick little MD 01/09/2021 03:07:30 PM EDT [facility] Recurring Patient Attender: MAYDA RILEYeferrer: Bairon fernandez MD 12/26/2020 11:07:19 AM EDT [facility] Outpatient Attender: Piyush Vee Physical Therapy 12/16/2020 01:00:0 0 PM EDT [facility] ([facility]) OFFICE OUTPATIENT VISIT 15 MINUTES Attender: Inez ESCAMILLA PA-C Physical Therapy 12/15/2020 11:30:00 AM EDT [facility] ([facility]) Outpatient Attender: ADOLFO EASTON MD 12/09 11:39:27 AM EDT - 12/09/2020 12:47:11 PM EDT [facility] ([facility] ) Outpatient Attender: LUCRECIA ROYAL Physical Therapy 05/2021 02:30:00 PM EST [facility] ([facility]) Outpatient Attender: Bairon Coker MD Physical Therapy 11/03/2020 1 2:30:00 PM EST [facility] ([facility]) Outpatient Attender: DANIELA DUMAS MD 07A-XXBJORT 10/31/2020 12:00:00 AM [facility] Outpatient Attender: DANIELA DUMAS MD 10/24/2020 12:00:00 AM [facility] Outpatient Attender: Dick Llanos 0 10/14/2020 09:40:00 AM EST [facility] ([facility] ) Outpatient Attender: Bairon Coker MD Physical Therapy 10/13/2020 0 1:45:00 PM EST [facility] ([facility]) Outpatient Attender: LUCRECIA ROYAL Physical Therapy 12/2020 01:00:00 PM EST [facility] ([facility]) Outpatient Attender: Bairon Coker MD Physical Therapy 10/03/2020 0 1:15:00 PM EST [facility] ([facility]) Outpatient Attender: Chyna Cárdenas MDConsultant: 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 Office Visit Attender: LUCRECIA ROYAL Physical Therapy 09/03 08:15:00 AM EST [facility] ([facility]) Outpatient Attender: Dick Llanos 0 09/16/2020 12:30:00 PM EST [facility] ([facility] ) Outpatient Attender: MAYDA WYATT MDReferrer: Dick murillo MD 08/10/2020 03:52:34 PM EST [facility] Recurring Patient Attender: MAYDA WYATT MDReferrer: Bairon fernandez MD 08/04/2020 01:33:41 PM EST [facility] Outpatient Referrer: Dick Schultz MD SJP.DUNCAN-SJP.DUNCAN 12:00:00 AM EST [facility] ( [place]NANN) [facility] 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 Exam [address] [place] [address] 07/19/2020 12:00:00 AM EST eCW1 ([facility]) Outpatient Attender: Dick Llanos 1 09/17/2019 12:30:00 PM EST [facility] ([facility] ) Outpatient Attender: SEKOU MCKEON MD Main Office 07/11/2020 08:30:00 AM EST [facility] ([facility]) Outpatient Attender: DANIELA DUMAS MD 07A-XXBJORT 07/04/2020 12:00:00 AM EST [facility] Outpatient Attender: DANIELA DUMSA MD 07A-XXBJORT 06/23/2020 12:00: 00 AM EDT Trigger finger, right ring finger [facility] Trigger finger, right ring finger OFFICE OUTPATIENT VISIT 15 MINUTES Attender: Bairon Coker MD Phys ical Therapy 06/06/2020 01:30:00 PM EDT [facility] ([facility]) Outpatient Referrer: DANIELA DUMAS MD 05/30/2020 12:00: 00 AM EDT Pain in right hand [facility] Pain in right hand Outpatient Attender: DANIELA DUMAS MD 07A-XXBJORT 05/30/2020 12:00:00 AM EDT [facility] Outpatient Attender: GHASSAN Llanos 0 05/20/2020 08:40:00 AM EDT [facility] ([facility] ) Outpatient Attender: Chyna Cárdenas MD 2019 08:30:00 AM EDT - 03/09/2020 12:20:00 PM EDT RIGHT EYE/GLAUCOMA [facility] RIGHT EYE/GLAUCOMA Patient discharged. Immunizations Vaccine Date Status Description Data Source(s) COVID-19 VACCINE Moderna 03/20/2021 12:00:00 AM EDT completed [facility] Vaccine Series Complete: YESThis Data wa s Submitted to [facility] Via [employer]. COVID-19 VACCINE Moderna 02/20/2021 12:00:00 AM EDT [facility]: NOThis Data was Submitted to [facility] Via [employer]. Medications Medication Brand Name Start Date Product [...] VULVA TWICE WEEKLY SPARIN GLY SOLD: 05/19/2021 [facility] 2 % 05/10/2021 12:00:00 AM EDT solution 400 TAKE 10 ML BY MOUTH 4X/DAY FOR 10 DAYS-MIX WITH 5 ML OF MAALOX AND 5 ML OF BENADRYL TAKE 10 ML BY MOUTH 4X/DAY FOR 10 DAYS-MIX WITH 5 ML OF MAALOX AND 5 ML OF BENADRYL SOLD: 05/10/2021 [facility] methylPREDNISolone acetate (DEPO-MEDROL) injection 40 mg 04/19/2021 07:45:00 AM EDT 40 mg Intra-articular [facility] methylPREDNISolone acetate (DEPO-MEDROL) injection 40 mg -04/19/2021 07:45:00 AM EDT 40 mg Intra-articular [facility] 100 mg 04/19/2021 12:00:00 AM EDT capsule [...] TABLET BY MOUTH EVERY DAY SOLD: 04/19/2021 [facility] buspirone hydrochloride 5 MG Oral Tablet BUSPIRONE [...] Oral active Take 10 mg by mouth [facility] Covid-19 vaccine, Unspecified 03/20/2021 12:00:00 AM EDT completed [facility] ([facility] ) Medication administered onsite 5 mg 03/20/2021 12:00:00 AM EDT tablet 90 TAKE ONE TABLET BY MOUTH EVERY DAY TAKE ONE TABLET BY MOUTH EVERY DAY SOLD: 03/21/2021 [facility] tramadol hydrochloride 50 MG Oral Tablet traMADol HCl 50 MG Oral Tablet (ULTRAM) traMADol HCl 50 MG Oral Tablet (ULTRAM) 03/10/2021 12:00:00 AM EDT active TAKE ONE TABLET BY M OUTH EVERY 6 HOURS NEEDED FOR PAIN MAXIMUM DAILY DOSE 4 TABLETS [facility] 50 mg 03/10/2021 12:00:00 AM EDT tablet [...] 02/22/2021 12:00:00 AM EDT active MEDENT ( [facility]) buspirone hydrochloride 5 MG Oral Tablet Buspirone HCL 02/22/2021 12:00:00 AM EDT ORAL active [facility] ([facility]) Covid-19 vaccine, Unspecified 02/20/2021 12:00:00 AM EDT completed [facility] ([facility]) Medication administered onsite Clobetasol Propionate 0.5 MG/ML [...] Pregabalin 02/07/2021 12:00:00 AM EDT active [facility] ([facility]) 100 mg 02/07/2021 12:00:00 AM EDT capsule [...] CAPSULE BY MOUTH EVERY DAY SOLD: 04/30/2021 [facility] tramadol hydrochloride 50 MG Oral Tablet Tramadol HCL 11/21/2020 12:00:00 AM EDT active [facility] ([facility]) duloxetine 20 MG Delayed Release Oral Capsule Duloxetine HCL 11/08/2020 12:00:00 AM EST ORAL completed [facility] ([facility]) methylPREDNISolone acetate (DEPO-MEDROL) injection 40 mg [id number] 10/31/2020 05:45:00 PM EST 40 mg Intra-articular completed 40 mg, Intra- articular, Once, Sat10/31/20 at 1745, For 1 dose
Depo-medrol 1 cc - J1030
[facility] Medication administered onsite methylPREDNISolone acetate (DEPO-MEDROL) injection 40 mg 070 3-0043-10/31/2020 05:45:00 PM EST 40 mg Intra-articular completed 40 mg, Intra- articular, Once, 10/31/20 at 1745, For 1 dose
Depo-medrol 1 cc - J1030
[facility] Medication administered onsite pregabalin 100 MG Oral Capsule [Lyrica] Lyrica 09/16/2020 12:00:0 0 AM EST ORAL active [facility] ([facility]) Omeprazole 20 MG Delayed Release Oral Capsule Omeprazole 06/22/2020 12:00:00 AM EDT ORAL active [facility] ([facility]) Famotidine 40 MG Oral Tablet Famotidine 06/21/2020 12:00:00 AM EDT completed [facility] ([facility]) Famotidine 40 MG Oral Tablet Famotidine 04/08/2020 12:00:00 AM EDT completed [facility] ([facility]) meloxicam 15 MG Oral Tablet Meloxicam 15 MG Oral Table t (MOBIC) Meloxicam 15 MG Oral Tablet (MOBIC) 09/18/2019 12:00:00 AM EST aborted TAKE ONE TABLET BY MOUTH EVERY DAY WITH FOOD OR MILK [facility] prednisolone acetate 10 MG/ML Ophthalmic Suspension prednisoLONE acetate (PRED FORTE) 1 % ophthalmic suspension prednisoLONE acetate (PRED FORTE) 1 % ophthalmic suspension 11/11/2018 12:00:00 AM EDT [facility] Meclizine Hydrochloride 25 MG Oral Tablet meclizine (A NTIVERT) 25 MG tablet meclizine (ANTIVERT) 25 MG tablet 02/21/2018 12:00:00 AM EDT aborted [facility] Estradiol 0.1 MG/ML Vaginal Cream estradiol (ESTRACE) 0.1 MG/GM vaginal cream estradiol (ESTRACE) 0.1 MG/GM vaginal cream [address] 2 g vaginally daily [facility] Polyethylene Glycol 400 4 MG/ML / Propyl tera glycol 3 MG/ML Ophthalmic Solution Polyethyl Glycol-Propyl Glycol (SYSTANE) 0.4-0.3 % SOLN Polyethyl Glycol-Propyl Glycol (SYSTANE) 0.4-0.3 % SOLN Ophthalmic aborted Apply to [facility] Zolpidem Tartrate (AMBIEN PO) Oral aborted Take by mouth [facility] Dorzolamide HCl-Timolol Mal PF 22.3-6.8 MG/ML SOLN [id number] Ophthalmic aborted Apply to eye [facility] Cyanocobalamin (VITAMIN B-12 PO) Oral aborted Take by mouth [facility] Insurance Providers Payer name Policy type / Coverage type Policy ID Covered green party ID Covered green party's relationship to berman Policy Berman Plan Information MEDICARE [id number] A Medicare Natl Govt Servic Medicare Primary [id number] Self [id number] Medicare Natl Govt Serv Medicare Primary [id number] Self [id number] Medicare [facility] Govt Servic Medicare Primary [id number] [id number] Self [id number] UHC UNITED MEDICARE DUAL G [id number] Self [id number] [employer] Workers Compensation [id number] 2.16840.1.296610.3.227.99.991.3993.0 Self [id number] [employer] Workers Compensation [id number] 2.16.840.1.016095.3.227.99.991.3993.0 Self 26 [id number] [employer] Workers Compensation [id number] 2.16.840.1.675762.3.227.99.991.3993.0 Self 26 [id number] [employer] Workers Compensation [id number] 2.16840.1.842671.3.227.99.991.3993.0 Self 26 [id number] [employer] Workers Compensation [id number] 2.16.840.1.175577.3.227.99.991.3993.0 Self 26 [id number] [employer] Workers Compensation [id number] 2.16.840.1.994365.3.227.99.991.3993.0 Self 26 [id number] [employer]) Workers Compensation [id number] 2.16.840.1.605327.3.227.99.991.3993.0 Self 26 [id number] [employer] ([employer]) Workers Compensation [id number] 2.16.840.1.730317.3.227.99.991.3993.0 Self 26 [id number] [employer] ([employer]) Workers Compensation [id number] 2.16.840.1.781217.3.227.99.991.3993.0 Self 26 [id number] [employer] ([employer]) Workers Compensation [id number] 2.16.840.1.693522.3.227.99.991.3993.0 Self 26 [id number] [employer] ([employer]) Workers Compensation [id number] 2.16.840.1.121335.3.227.99.991.3993.0 Self 26 [id number] [employer] Claims/PFFS Medigap Part B [id number] Self [id number] [employer] Claims/PFFS Trihealthgap Part B [id number] Self PFFS Medicaid [facility] S D [id number] SELF [id number] [facility] (Medicare) Medigap Part B [id number] 2.16.840.1.286382.3.227.99.991.3993.0 Self [id number] [employer] (Medicare) Medigap Part B [id number] 2.16.840.1.236442.3.227.99.991.3993.0 Self [id number] [employer] (Medicare) Medigap Part B [id number] 2.16.840.1.005312.3.227.99.991.3993.0 Self [id number] [employer] (Medicare) Medigap Part B [id number] 2.16.840.1.810537.3.227.99.991.3993.0 Self [id number] [employer] (Medicare) Medigap Part B [id number] 2.16.840.1.961362.3.227.99.991.3993.0 Self [id number] [employer] (Medicare) Medigap Part B [id number] 2.16840.1.234487.3.227.99.991.3993.0 Self [id number] [employer] (Medicare) Medigap Part B [id number] 2.16840.1.168044.3.227.99.991.3993.0 Self [id number] [facility] Community Plan/Medicare Medigap Part B [id number] Self [id number] [employer] (Medicare) Medigap Part B [id number] 2.16840.1.596129.3.227.99.991.3993.0 Self [id number] [facility] Community Plan/Medicare Medigap Part B [id number] 00 [id number] Self [id number] 00 [employer] (Medicare) Medigap Part B [id number] Self [employer] (Medicare) Medigap Part B [id number] 2.16840.1.725041.3.227.99.991.3993.0 Self [id number] [employer] (Medicare) Medigap Part B [id number] 2.16840.1.127587.3.227.99.991.3993.0 Self [id number] [employer] (Medicare) Medigap Part B [id number] .0.1.142724.3.227.99.991.3993.0 Self [id number] [employer] (Medicare) Medigap Part B WRITTEN AUTH FOR LF T TKR, 10.18.830.1.867633.3.227.99.991.3993.0 Self WR ITTEN AUTH FOR LFT TKR, Medicaid [place] Medigap Part B [id number] 2.0.1.940798.3.227.99.991. 3993.0 Self [id number] Medicaid [place] Medigap Part B [id number] Self [facility] (Medicare) Medigap Part B [id number] Self [facility] Passport Medicare F [id number] SE LF [id number] United Healthcare Passport F [id number] SELF [id number] [facility] Comm Plan Medicare F [id number] SELF [id number] [facility] Comm Plan Medicare F [id number] SELF [id number] [facility] Medicare Community PL Commercial [id number] .1.215630.3.227.99.4595.37768.0 Self [id number] [facility] Medicare Community PL Commercial [id number] .1.934880.3.227.99.4595.67285.0 Self [id number] [facility] Medicare Community PL Commercial [id number] .1.156101.3.227.99.4595.11642.0 Self [id number] [facility] Medicare Community PL Commercial [id number] .1.415811.3.227.99.4595.98672.0 Self [id number] [facility] Medicare Community PL Commercial [id number] Self [id number] [facility] Medicare Community PL Commercial [id number] .1.863491.3.227.99.4595.24876.0 Self [id number] [facility] ([facility]) Commercial [id number] 2.16.840.1.818670.3.227.99.991.3993.0 Self [id number] [facility] ([facility]) Commercial [id number] 2.16.840.1.702120.3.227.99.991.3993.0 Self [id number] [facility] ([facility]) Commercial [id number] 2.16.840.1.572745.3.227.99.991.3993.0 Self [id number] [facility] ([facility]) Commercial [id number] 2.16.840.1.410281.3.227.99.991.3993.0 Self [id number] [facility] ([facility]) Commercial [id number] 2.16.840.1.230131.3.227.99.991.3993.0 Self [id number] [facility] ([facility]) Commercial [id number] 2.16.840.1.967231.3.227.99.991.3993.0 Self [id number] [facility] ([facility]) Commercial [id number] 2.16.840.1.296915.3.227.99.991.3993.0 Self [id number] [facility] ([facility]) Commercial [id number] 2.16.840.1.934623.3.227.99.991.3993.0 Self [id number] [facility] ([facility]) Commercial [id number] 2.16.840.1.391290.3.227.99.991.3993.0 Self [id number] [facility] ([facility]) Commercial [id number] 2.16.840.1.691300.3.227.99.991.3993.0 Self [id number] [facility] ([facility]) Commercial [id number] 2.16.840.1.646996.3.227.99.991.3993.0 Self [id number] MEDICAID M [id number] Self [id number] [facility] I [id number] Self [id number] [facility] MEDICAID [id number] Jada [id number] [facility] Commercial Insurance Co. [id number] Self [id number] Medicaid Medicaid [id number] Self [id number] United [employer] Commercial Insurance Co. [id number] Self [id number] United [employer] Commercial Insurance Co. [id number] Self [id number] MEDICARE COMPLETE [id number] SP [id number] Medicaid [place] Medicaid [id number] Self Unitedhealthcare/Medicare Commercial [id number] Self UNITED HEALTHCARE O [id number] S [id number] MEDICARE ZHAO M [id number] S [id number] RMO CENTRAL O [id number] S [id number] MEDICAID W [id number] S [id number] UHC CHOICE PLUS O [id number] S [id number] [facility] MEDICARE MCRADVANT [id number] S [id number] UNITED HEALTHCARE P [id number] S [id number] MEDICAID ABHIJEET [id number] S [id number] MEDICAID ABHIJEET [id number] S [id number] [place] [id number] C [id number] [facility] MCRHMO [id number] SP [id number] HU[employer] GOLD [id number] SP [id number] EMEDNY [id number] SP [id number] UNHC CP DUAL COMP - FACILITY [id number] 18 [id number] MEDICAID-O/P [id number] C MEDICAID [id number] SP [id number] [facility](MCAID) O [id number] S [id number] MEDICAID M [id number] S [id number] Medicaid Medigap Part B [id number] Self [id number] [employer] Commercial [id number] Self [id number] 00 [employer] Commercial [id number] 00 [id number] Self [id number] 00 Unitedhealthcare Commercial [id number] Self [id number] [facility] Commercial [id number] Self [id number] U[facility] Medicare Community [address] Commercial [id number] 00 [id number] Self [id number] 00 Medicaid Medigap Part B [id number] 2.16.840.1.320122.3.227.99.4595.221 31.0 Self [id number] [facility] Medicare Dual Complet Commercial [id number] 2.16.840.1.188432.3.227.99.991.3993.0 Self [id number] [facility] Medicare Dual Complet Commercial [id number] 2.16.840.1.065660.3.227.99.991.3993.0 Self [id number] [facility] Medicare Dual Complet Commercial [id number] 2.16.840.1.280554.3.227.99.991.3993.0 Self [id number] Medicaid Medigap Part B [id number] 2.16.840.1.573443.3.227.99.4595.221 31.0 Self [id number] Pma (pr) Medigap Part B [id number] 2.16.840.1.122848.3.227.99.991.3993.0 5b [id number] [facility]) Medigap Part B [id number] 2.16.840.1.745884.3.227.99.991.3993.0 Self [id number] Pma (pr) Medigap Part B [id number] 2.16.840.1.948283.3.227.99.991.3993.0 5b [id number] Pma (pr) Medigap Part B [id number] 2.16.840.1.066438.3.227.99.991.3993.0 5b [id number] Pma (pr) Medigap Part B [id number] 2.16.840.1.897762.3.227.99.991.3993.0 5b [id number] Pma (pr) Medigap Part B [id number] 2.16.840.1.432675.3.227.99.991.3993.0 5b [id number] Pma (pr) Medigap Part B [id number] 2.16.840.1.001432.3.227.99.991.3993.0 5b [id number] Medicaid Medigap Part B [id number] 2.16.840.1.910009.3.227.99.4595.221 31.0 Self [id number] Pma (pr) Medigap Part B [id number] 2.16.840.1.284784.3.227.99.991.3993.0 5a [id number] [id number] SP [id number] [facility] [id number] SP [id number] Pma (pr) Medigap Part B [id number] 2.16.840.1.201468.3.227.99.991.3993.0 5a [id number] Medicaid Medigap Part B [id number] 2.16.840.1.751964.3.227.99.4595.221 31.0 Self [id number] Pma (pr) Medigap Part B [id number] 2.16.840.1.604406.3.227.99.991.3993.0 5a [id number] Medicaid Medigap Part B [id number] 2.16.840.1.363392.3.227.99.4595.221 31.0 Self [id number] Pma (pr) Medigap Part B [id number] 2.16.840.1.270772.3.227.99.991.3993.0 5a [id number] Medicaid Medigap Part B [id number] 2.16.840.1.989781.3.227.99.4595.221 31.0 Self [id number] [facility] Medicare [employer] [id number] 2.16.840.1.411527.3.227.99.4595.95610.0 Self [id number] [employer] Medicare [employer] [id number] 2.16.840.1.585414.3.227.99.4595.55109.0 Self [id number] [facility] DUAL [employer] [place] [id number] S [id number] Pma (pr) Medigap Part B [id number] 2.16.840.1.538832.3.227.99.991.3993.0 59 [id number] Medicaid Medigap Part B [id number] 2.16.840.1.241459.3.227.99.4595.221 31.0 Self [id number] Medicaid Medigap Part B [id number] 2.16.840.1.538611.3.227.99.4595.221 31.0 Self [id number] Medicare Natl Gov't Servi Medigap Part B [id number] 2.16.840.1.345422.3.227.99.1767.637.0 Self [id number] [facility] Health Maintenance Organization (HMO) [id number] 2.16.840.1.244733.3.227.99.1767.637.0 Self [id number] [facility] O [id number] S [id number] [facility] O [id number] S [id number] [facility] MEDICARE [place] [id number] S [id number] MEDICAID HEA [id number] [facility] HEA [id number] 1 [id number] UNAVAILABLE UNAVAILA BLE [employer] RUN COMM [id number] S [id number] [facility] HEA [id number] 1 [id number] [facility] Medicare Mercedes Commercial 911 [id number] Self [id number] BrainSINS [id number] Self [id number] [employer] Commercial [id number] Self 9 [id number] Medicaid Medigap Part B 1 1 [id number] Self 1 1 [facility] Medicare Community Commercial 911 [id number] Self [id number] [facility] Mercedes Commercial 911 [id number] Self 911 [id number] MEDICARE COMPLETE [id number] SP [id number] HAZEL RUN COMM [id number] S [id number] [facility] ([facility]) Commercial [id number] Self [facility]ICARE [facility] O [id number] S [id number] Problems, Conditions, and Diagnoses Code Display Name Description Problem Type Effective Dates Data Source(s) M25.531 Pain in right wrist Pain in right wrist Diagnosis 1 01:35:[address] [facility] [id number] Unspecified asthma, uncomplicated Unspecified as thma, uncomplicated Diagnosis 09/28/2020 09:30:00 AM [facility] M810 Age-related osteoporosis without current pathological fracture Age-related osteoporosis without current pathological fracture Diagnosis 09:30:00 AM [facility] K219 Gastro-esophageal reflux disease without esophagitis Gastro-esophageal reflux disease without esophagitis Diagnosis 09/28/2020 09:30:00 AM [facility] I10 Essential (primary) hypertension Essential (primary) h ypertension Diagnosis 09/28/2020 09:30:00 AM [facility] H2512 Age-related nuclear cataract, left eye A ge-related nuclear cataract, left eye Diagnosis 09/28/2020 09:30:00 AM [facility] M65.341 Trigger finger, right ring finger Trigger finger , right ring finger Diagnosis 06/23/2020 07:34:[address] [facility] M79.641 Pain in right hand Pain in right hand Diagnosis 03:09:[address] [facility] [id number] Adverse reaction to drug Adverse reaction to drug Prob rima 07/11/2020 12:00:00 AM EST [facility] ([facility] ) Adverse effect of glucocorticoids and sy nthetic analogues, initial encounter Adverse effect of glucocorticoids and synthetic analogues, initial encounter Problem 07/11/2020 12:00:00 AM EST [facility] ([facility]) Surgeries/Procedures Procedure Description Date Indications Data Source(s) MANUAL THERAPY TQS 1/> REGIONS EACH 15 MINUTES 12:00:00 AM EDT [facility] ([facility] ) THERAPEUTIC PX 1/> AREAS EACH 15 MIN EXERCISES 12:00:00 AM EDT [facility] ([facility] ) THERAPEUTIC PX 1/> AREAS EACH 15 MIN EXERCISES 12:00:00 AM EDT [facility] ([facility] ) MANUAL THERAPY TQS 1/> REGIONS EACH 15 MINUTES 12:00:00 AM EDT [facility] ([facility] ) APPLICATION MODALITY 1/> AREAS HOT/COLD PACKS 06/20/20 12:00:00 AM EDT [facility] ([facility] ) MANUAL THERAPY TQS 1/> REGIONS EACH 15 MINUTES 12:00:00 AM EDT [facility] ([facility] ) THERAPEUTIC PX 1/> AREAS EACH 15 MIN EXERCISES 12:00:00 AM EDT [facility] ([facility]) MANUAL THERAPY TQS 1/> REGIONS EACH 15 MINUTES 12:00:00 AM EDT [facility] ([facility]) OFFICE OUTPATIENT VISIT 15 MINUTES 06/16/2021 12:00:00 AM EDT [facility] ([facility]) OFFICE OUTPATIENT VISIT 25 MINUTES 06/16/2021 12:00:00 AM EDT [facility] ([facility] ) THERAPEUTIC PX 1/> AREAS EACH 15 MIN EXERCISES 12:00:00 AM EDT [facility] ([facility]) MANUAL THERAPY TQS 1/> REGIONS EACH 15 MINUTES 12:00:00 AM EDT [facility] ([facility]) Physical Therapy Eval - Low Complexity 06/09/2021 12:0 0:00 AM EDT [facility] ([facility]) OFFICE OUTPATIENT VISIT 25 MINUTES 05/04/2021 12:00:00 AM EDT [facility] ([facility] ) OFFICE OUTPATIENT VISIT 15 MINUTES 04/28/2021 12:00:00 AM EDT [facility] ([facility] ) OFFICE OUTPATIENT VISIT 25 MINUTES 04/18/2021 12:00:00 AM EDT [facility] ([facility]) OFFICE OUTPATIENT VISIT 25 MINUTES 03/14/2021 12:00:00 AM EDT [facility] ([facility] ) ECG ROUTINE ECG W/LEAST 12 LDS W/I&R 03/13/2021 12:00: 00 AM EDT [facility] ([facility]) OFFICE OUTPATIENT VISIT 15 MINUTES 03/13/2021 12:00:00 AM EDT [facility] ([facility]) THERAPEUTIC PX 1/> AREAS EACH 15 MIN EXERCISES 12:00:00 AM EDT [facility] ([facility] ) MANUAL THERAPY TQS 1/> REGIONS EACH 15 MINUTES 12:00:00 AM EDT [facility] ([facility]) OFFICE OUTPATIENT VISIT 15 MINUTES 02/22/2021 12:00:00 AM EDT [facility] ([facility]) THERAPEUTIC PX 1/> AREAS EACH 15 MIN EXERCISES 12:00:00 AM EDT [facility] ([facility] ) MANUAL THERAPY TQS 1/> REGIONS EACH 15 MINUTES 021 12:00:00 AM EDT [facility] ([facility] ) THERAPEUTIC PX 1/> AREAS EACH 15 MIN EXERCISES 12:00:00 AM EDT [facility] ([facility] ) MANUAL THERAPY TQS 1/> REGIONS EACH 15 MINUTES 12:00:00 AM EDT [facility] ([facility] ) THERAPEUTIC PX 1/> AREAS EACH 15 MIN EXERCISES 12:00:00 AM EDT [facility] ([facility] ) MANUAL THERAPY TQS 1/> REGIONS EACH 15 MINUTES 12:00:00 AM EDT [facility] ([facility] ) APPLICATION MODALITY 1/> AREAS HOT/COLD PACKS 02/10/20 21 12:00:00 AM EDT [facility] ([facility] ) THERAPEUTIC PX 1/> AREAS EACH 15 MIN EXERCISES 12:00:00 AM EDT [facility] ([facility] ) MANUAL THERAPY TQS 1/> REGIONS EACH 15 MINUTES 021 12:00:00 AM EDT [facility] ([facility] ) THERAPEUTIC PX 1/> AREAS EACH 15 MIN EXERCISES 12:00:00 AM EDT [facility] ([facility] ) MANUAL THERAPY TQS 1/> REGIONS EACH 15 MINUTES 021 12:00:00 AM EDT [facility] ([facility] ) THERAPEUTIC PX 1/> AREAS EACH 15 MIN EXERCISES 021 12:00:00 AM EDT [facility] ([facility] ) MANUAL THERAPY TQS 1/> REGIONS EACH 15 MINUTES 021 12:00:00 AM EDT [facility] ([facility] ) Physical Therapy Eval - Mod Complexity 01/27/2021 12:0 0:00 AM EDT [facility] ([facility] ) Diabetic Retinal Eye Exam 01/25/2021 12:00:00 AM EDT [facility] ([facility]) OFFICE OUTPATIENT VISIT 15 MINUTES 01/16/2021 12:00:00 AM EDT [facility] ([facility] ) NJX ANES&/STRD W/IMG TFRML EDRL LMBR/SAC 1 LVL 021 12:00:00 AM EDT [facility] ([facility] ) Epidurography Radiological Supervision & Interpretation 01/02/2021 12:00:00 AM EDT [facility] ([facility]) OFFICE OUTPATIENT VISIT 25 MINUTES 12/16/2020 12:00:00 AM EDT [facility] ([facility] ) OFFICE OUTPATIENT VISIT 15 MINUTES 12/15/2020 12:00:00 AM EDT [facility] ([facility] ) OFFICE OUTPATIENT VISIT 25 MINUTES 11/08/2020 12:00:00 AM EST [facility] ([facility] ) ARTHROCENTESIS ASPIR&/INJECTION MAJOR JT/BURSA 021 12:00:00 AM EST [facility] ([facility] ) OFFICE OUTPATIENT VISIT 25 MINUTES 11/03/2020 12:00:00 AM EST [facility] ([facility] ) Diabetic Retinal Eye Exam 11/01/2020 12:00:00 AM EST [facility] ([facility]) NJX ANES&/STRD W/IMG TFRML EDRL LMBR/SAC 1 LVL 021 12:00:00 AM EST [facility] ([facility] ) Epidurography Radiological Supervision & Interpretation 10/18/2020 12:00:00 AM EST [facility] ([facility]) OFFICE OUTPATIENT VISIT 15 MINUTES 10/14/2020 12:00:00 AM EST [facility] ([facility]) OFFICE OUTPATIENT VISIT 25 MINUTES 10/13/2020 12:00:00 AM EST [facility] ([facility] ) MRI Lower Extremity Any Joint 10/10/2020 12:00:[address] [facility] ([facility] ) OFFICE OUTPATIENT VISIT 25 MINUTES 10/06/2020 12:00:00 AM EST [facility] ([facility] ) OFFICE OUTPATIENT VISIT 25 MINUTES 10/03/2020 12:00:00 AM EST [facility] ([facility] ) PHYSICIAN TELEPHONE EVALUATION 5-10 MIN 09/26/2020 12: 00:00 AM EST [facility] ([facility]) OFFICE OUTPATIENT VISIT 25 MINUTES 09/16/2020 12:00:00 AM EST [facility] ([facility]) NJX ANES&/STRD W/IMG TFRML EDRL LMBR/SAC 1 LVL 021 12:00:00 AM EST [facility] ([facility]) Epidurography Radiological Supervision & Interpretation 09/12/2020 12:00:00 AM EST [facility] ([facility]) ECG ROUTINE ECG W/LEAST 12 LDS W/I&R 07/18/2020 12:00: 00 AM EST [facility] ([facility]) Allergy Testing Any Combination Of Percutaneous W/Drugs 07/11/2020 12:00:00 AM EST [facility] ([facility] Diabetic Retinal Eye Exam 06/14/2020 12:00:00 AM EDT [facility] ([facility]) Mammogram 06/01/2020 12:00:00 AM EDT M [facility] ([facility]) Results ID Date Data Source [id number] 06/29/2021 07:00:21 PM EDT [facility] XR WRIST 3 OR MORE VIEWS [id number] RESU LTInterpreted by:JASE Estradalinical history: Right wrist [...] rce(s) Supporting Document(s) ID Date Data Source [id number] 06/29/2021 02:09:53 PM EDT [facility] Name Value Range Interpretation Code Description Data Prerna rce(s) Supporting Document(s) Progress Note [facility] ZZVDAa8oYkNICjKd45/ARMliHCJka4XuPJsgNUh4ZKfyLMQdX5NlPLY9nT2oRWH8LLvYXjUvVeJnQUE2 lbm [file] AgICAgICAgICAgICAgICAgICAgICAgICAgICAgICAgICAgICAgICAgICAgICAgICAgICAgICAgICAgIC AgDQogICAgICAgICAgICAgICAgICAgICAgICAgICAg ICAgICAgICAgICAgICAgICAgICAgICAgICAgICAgICAgICAgICAgICAgICAgICAgICAgICAgICAgICAg ICAgICAgICAgICAgDQogICAgICAgICAgICAgICAgICAgICAgICAgICAgICAgICAgICAgICAgICAgICAg ICAgICAgICAgICAgICAgICAgICAgICAgICAgICAgIC AgICAgICAgICAgICAgICAgICAgICAgDQogICAgICAgICAgICAgICAgICAgICAgICAgICAgICAgICAgIC AgICAgICAgICAgICAgICAgICAgICAgICAgICAgICAgICAgICAgICAgICAgICAgICAgICAgICAgICAgIC AgICAgDQogICAgICAgICAgICAgICAgICAgICAgICAg ICAgICAgICAgICAgICAgICAgICAgICAgICAgICAgICAgICAgICAgICAgICAgICAgICAgICAgICAgICAg ICAgICAgICAgICAgICAgDQogICAgICAgICAgICAgICAgICAgICAgICAgICAgICAgICAgICAgICAgICAg ICAgICAgICAgICAgICAgICAgICAgICAgICAgICAgIC AgICAgICAgICAgICAgICAgICAgICAgICAgDQogICAgICAgICAgICAgICAgICAgICAgICAgICAgICAgIC AgICAgICAgICAgICAgICAgICAgICAgICAgICAgICAgICAgICAgICAgICAgICAgICAgICAgICAgICAgIC AgICAgICAgDQogICAgICAgICAgICAgICAgICAgICAg ICAgICAgICAgICAgICAgICAgICAgICAgICAgICAgICAgICAgICAgICAgICAgICAgICAgICAgICAgICAg ICAgICAgICAgICAgICAgICAgDQogICAgICAgICAgICAgICAgICAgICAgICAgICAgICAgICAgICAgICAg ICAgICAgICAgICAgICAgICAgICAgICAgICAgICAgIC AgICAgICAgICAgICAgICAgICAgICAgICAgICAgDQogICAgICAgICAgICAgICAgICAgICAgICAgICAgIC AgICAgICAgICAgICAgICAgICAgICAgICAgICAgICAgICAgICAgICAgICAgICAgICAgICAgICAgICAgIC TfQBHvPCDsUGAuYUn7A7eiZBFjUTQkMS1zGRp4Om5+ VMuIKwCsPZL7mkBeaQ6ADL9op0FwONzmEPTff2DvGLe4ME2FMHIwSUioJW3PJGwewl5AZGAlJYMguQDV a5lbDiEfFAY0IFQzQqhzVA3OAPFcB3dtcnTnXIKxMULZFZ0ODqMjF4YekA40EGLCPq5+DQplbmRvYmoN ZyK6YAPvv3QsEPq9EF2NPKAsYlbzp3YmEwIkHZZVJP ipEV7VVUA9VLAfZUUkDm5EPNTeZ992dwZbFE1EOj7IFdUxKQ6rhu0INpKrDYSsWteQUvi1OQojBW9XiC IwWLfObo8owcPxbnNYb1JhfxOyiQTQu65yFK4laNYiTZVZZBZjdRNiCU7tFZ6lLNRsVCUoRkH9ACGNPM 1GHSKiQGJqoFAnLXUmWLVMVA2WSFvhBBA1CSNikwFl sHNkOWeoWQ3PRGKjsnOiUAojBDKCIQo+Me8AIL4mj1LhDYxwJFCyAJ9iqr2BALhWOyElH5M1tTXbL9G3 WDkiYk7WSWFhZKSsQKdfADLGIOgwUV5GZJ2mbgF9NU3QoHRpWYPbOIIuaIMpNQi1O50huSDoUJgbKP1I ICA+Cordell+Ei0SSLOzVPXzMSHxXiBwENHSCqJbO4OcW9 HKx3HaJ0UcOY58gYpwzdFcOLpqCT1KYZ2nQFIjYKVZCT0GkPKqzL9bibMjHNCpANKHRuHdT81rpKThBO DaGLM7KOKxHh0ZSVHhA7PvttQqdFjsanVqHVFqAENDND7JEQiunzOyuIXqbNynWS23iAtwLZ9JPa5AVc SdLP9njq7HeMFdIf7SPXGlOy4IDSXpRYTsBNMxEHS4 ONFvFxAmKFkzPNVtZDOsJOX5ZWKfJQPvXO6PPkMsQVBoXBv5HIxkMBTmLOApxk3STAIyUKIeLRUzMWNi KRLyAKTnTVsfKNVvQYOoUTM2BCCzICSaPA4JYmWuXCUcKMT5LgPoOJAnUJArlm0YVRRgFLJuUdpeFrTc BWIwQFQjACksEKLlUTWeNyk1EDYxZRDuYE8RUpMoKR QeNJL7XAUhZDSmWELzol1IRPKfBXIrGWR4OzHpYTXjTCFgCMijXQKaAAQ8DCJgHFMzDGJxGB6CQhGiKL NjGCIyEuBfPFScROPwrm3ILFNkSVEtSKCfYABbULPeDNQvNDskTZMnWSK7KiJ1JCOoDSLkLS8MItQiAD PcCLczGLIhKRWtQEQcsy9SHMTgDRMxChL2YOEpTMCm QJHvYOouSKRoIUT0PRM9AUJpVMIqGF3QUpNnFEVtZZx7GrSqPGNdZCHuqq2NQIRaJMBhUNT7DOWuEJKq VXNzJLbdQTHkPFC2PZRqILPxHNNeBQ7BJbOjFPCtEDt5YXVrZAFgCJFjto1DCVSqDIPyLWfcQYYdKMVi JEXwCEw2xqZwpHOfYWp6HB5XH4CbquEuLlIFKq9Wf5 75BBLiZCAvZb2RV5krHv7fJXZbJJLWZy4SKUf5BCRxMCU1OLhyVby7GGD9ElJ5BOw8TLH8NpI1IxU0Sh I+HCvbVgAzRyG2AXF8XSY9LYVlQUR5FEPfRiVqKtKtALFsIz3eXJHXSz7+OAlucOXrfBrpTZPXDjZ3TO n7TBmiHUPDAj6A ID Date Data Source [id number] 06/19/2021 01:54:00 PM EDT [facility] ([facility]) Name Value Range Interpretation Code Description Data Prerna rce(s) Supporting Document(s) Laboratory test finding (navigational concept) Laboratory test result [facility] ([facility]) ID Date Data Source [id number] 04/19/2021 07:43:16 AM EDT [facility] Name Value Range Interpretation Code Description Data Prerna rce(s) Supporting Document(s) Progress Note [facility] VUZBDd6aRpUESsZx91/QJUijGAMsq2HaMUvuWNc9NPjiCRAeN7MnINK8yR9fHAC2LAbECgUgTpGmOTS4 lbm [file] ICAgICAgICAgICAgICAgICAgICAgICAgICAgICAgICAgICAgICAgICAgICAgICAgICAgICAgICAgICAg VSXwCRIyBGRdLMMkYSNxOU9FESQhZRHwCDQoMOOiVP AgICAgICAgICAgICAgICAgICAgICAgICAgICAgICAgICAgICAgICAgICAgICAgICAgICAgICAgICAgIC AeMVUrDYZwZSSnRTXaGMOrSHHiGDJnKVLgEG4XOKNrNSIhQPZsBJNgLJIgPLPaTBHeEQPiVOEtJSDtSG AgICAgICAgICAgICAgICAgICAgICAgICAgICAgICAg LBOhPLZuZOKfSPDlHDSgEQLzXASeLNUuRSXkUCDzYPMeCDPwMJ5XVGUwAECyNAEuXRXfYSAaMEJwMFYi ICAgICAgICAgICAgICAgICAgICAgICAgICAgICAgICAgICAgICAgICAgICAgICAgICAgICAgICAgICAg DRWxMZTtFYMmVVGjZKAkXMHtEI0VJBXzJLLbCSDtBL AgICAgICAgICAgICAgICAgICAgICAgICAgICAgICAgICAgICAgICAgICAgICAgICAgICAgICAgICAgIC QkVRWaLHKkCJDkXCPhHREdAUAgLSBqLFTvHMYfLM1JVDUxQICyGRAaOISvTKMiOZKcGNCtAFQpCEUhVA AgICAgICAgICAgICAgICAgICAgICAgICAgICAgICAg WQCbVEQiGUQbSXGhLTMoUULrPVDwBRHaLQUcGZSmRBVqNWTfBNYgUP9GYOFiMLDaZGYxVMRfVXFjKBWg ICAgICAgICAgICAgICAgICAgICAgICAgICAgICAgICAgICAgICAgICAgICAgICAgICAgICAgICAgICAg WZLcIBJxVPGtAIJxPNKvBNAaLMYcXP4LOCIrTZGzVK AgICAgICAgICAgICAgICAgICAgICAgICAgICAgICAgICAgICAgICAgICAgICAgICAgICAgICAgICAgIC ZfYCChYPHlGRDlSARnSLFgETOwMSUyESSeOUBnAPBoPH9QHXUbGDExWIXcTVFpLLUbTZHuIMNvQJLxVZ AgICAgICAgICAgICAgICAgICAgICAgICAgICAgICAg RVOcLSHkRGEdTOSyCTTxMMSvUCFfPCQtCRLaDSZxKYHoSXEcBOMlYKErYJ7OXEDoTAQlWMCdUXIxLORs ICAgICAgICAgICAgICAgICAgICAgICAgICAgICAgICAgICAgICAgICAgICAgICAgICAgICAgICAgICAg DHUmPXEhFJKmRZYoCBTsUKFoOOOhGLGoUQ7RET10sK Wvs4G4VRGgHX2cyqf/Jw1EFOcogxWyvSVzYP2CJhKpXN4fdx0PAdLlHM9wfw0PIMkXUyDiS7G6uPVtQW HzRQNYXvSkF14pXTzmGw71GUnuXQFwSiGcBXw3Xk9EBrWrJ1kkZONlEoD9LAIeJeKmYGzzXG7We3LsiC AxDQo+In2MGK1ti5OvBPorVCTeIA3ydo3RCXaBMnLt Z8AswgB3ITGfEDDtOd9JDSQvZFQjySJtNVYbDSJRYrXmW2YgmA14PKQUZh2+DQplbmRvYmoNCjIwIDAg i8OmOEr5RY6LNRQoSHd1aACqZRYdR1Zcl1NuQj62ZZWcQhbyLn8uQKmeXuR7cglqOSLmCISuYP7gJm5f ZFTaXLWeNiL7DWNQKE1QIIScVHAaeBDyEBRpZASUHJ 7KGYozZYF6QAIyouCikKDlAGunGX3PBOIwvwOrSTluSSUUNPq+Zo8PWV3gc4AuWRpaGVOcWD5iiv9CYO iFGlDkW7N1yJWnS7S2VAvnOr3DKNIiMUHsMAkpGQJGMRncPV0RFX8upvT8ML3MlLJpTXQdQFQezUHwGF q5I90vpABpYNacUW7SNCC+Cordell+Bx0SPZYrNRBjJZKm SrBsQDEIXlXcU2OfF4PKk8VeA2BtQZ62xNvevyIxOUaxNY9VUP9bSYGeJUTTMW2RqORhgY6gbjVfXGRe SFLEMzHiE78ylPLfAZZwAXM7OIIjJl3MNOPhJ2BscvVzyDepwcQyKEYfYRVVSP7NVXssazZcwGZrhGdz MJ51nOudIH9RPa0HDeIcRQ5imb2DxGQqCb8XFOLzEs 1QAROoFNReXQWiYJQ5LAVnQiHcTWqpJPChCIHeJLF8IWIrFLWzUH5MUcRwGNZeCXtrGsYbRHVlBWHsbk 1WODLsYZSvOIq6MPNrNWSdBOTgIJgqKEBzVTMaNZS5YVGbOUZyFG1DPnUoIDKnUON1SZRdIIMuCEOoqh 9WXLAwVHTsXtI9FwZyWJXoUHAjTVvtGZYbMDI2THS5 QSTzUXGqIW3LAiNzCAJcXPGoZAAjSDZgRRGzgx2HSLNtXNQkRVOcVTRkGYRsAXHrASkwIDQrOYN4QXd7 HFLxUAKlVT0NJvXrIFQaOCX4VHEwXOXxTGSgci4WQESnOFXjRXy6JRAiFOIzIYWyYEbsPNGrRJA5PqCl FMJjLBYyKT6HTzNoXPTrSQz8KVfeLYWgTDPbsi4JLJ PfLVKjQbe2EPTsPWPdDQJkPEhrCZNiJPJ1DTr6BTMyTAXmHR4YKpMjVOLcNZjiDFZhDZLfTQZosv5AEM LpILOvDIM5GQBvDFHlRDUuBMdnMMRuPIT1CZzfSSMmNNCoLZ7CLbFjPFHdVpAfSUJjMEKxCNJdde2ASJ JwXJNcXEH5CGSpWLUsFSKcZJg4nsNnfOOuXWp4LO1A J5NllrQsLmPQBe0Ii166QZUuCALpBt5KO7orJg7wRTPqULSGMz5BERs2NMJhChErGpS9YDKzFoI3CDIv AmChIqToQ7J0SVm0XCO+JPekEWStAUD5BQdwRTNoBSbdZSW2IqIgExO8Nou1LAFpDj0rTMATAv8+DQpz xZPipGpuKXWELcVcPSJaYJlhEACOHw9A ID Date Data Source [id number] 04/18/2021 10:18:00 AM EDT [facility] ([facility]) Name Value Range Interpretation Code Description Data Prerna rce(s) Supporting Document(s) Thyrotropin [Units/volume] in Serum or Plasma by Detec tion limit <= 0.05 mIU/L 0.58 uIU/mL 0.36-3.74 [facility] ([facility] ) ID Date Data Source [id number] 04/18/2021 10:18:00 AM EDT [facility] ([facility]) Name Value Range Interpretation Code Description Data Prerna rce(s) Supporting Document(s) Triglyceride [Mass/volume] in Serum or Plasma 70 mg/dL 30-150 [facility] ([facility]) Cholesterol [Mass/volume] in Serum or Plasma 235 mg/dL 131-200 [facility] ([facility]) Cholesterol in HDL [Mass/volume] in Serum or Plasma 55 mg/dL 35-60 [facility] ([facility]) Cholesterol in LDL [Mass/volume] in Serum or Plasma by calcu lation 166 CALC 50-159 [facility] ([facility]) ID Date Data Source [id number] 04/18/2021 10:18:00 AM EDT [facility] ([facility]) Name Value Range Interpretation Code Description Data Prerna rce(s) Supporting Document(s) Glucose [Mass/volume] in Serum or Plasma 91 mg/dL 74-99 [facility] ([facility]) 100-125 mg/dL PRE-DIABETES/FASTING >126 mg/dL DIABETES/FASTING Urea nitrogen [Mass/volume] in Serum or Plasma 18 mg/dL 7-18 [facility] ([facility]) Creatinine 0.6 mg/dL 0.6-1.3 [facility] Potassium [Moles/volume] in Serum or Plasma 4.0 meq/L 3.5-5.1 [facility] ([facility]) Chloride [Moles/volume] in Serum or Plasma 103 meq/L 98-107 [facility] ([facility]) Sodium [Moles/volume] in Serum or Plasma 140 meq/L 136-145 [facility] ([facility]) Carbon dioxide, total [Moles/volume] in Serum or Plasma 29 meq/L 21 -32 [facility] ([facility]) Calcium [Mass/volume] in Serum or Plasma 9.9 mg/dL 8.5-10.1 [facility] ([facility]) Alkaline phosphatase isoenzyme [Units/volume] in Serum or Pl asma 122 mg/dL 46-116 [facility] ([facility]) Aspartate aminotransferase [Enzymatic activity/volume] in Serum or Plasma 20 U/L 15-37 [facility] ([facility] ) Total Bilirubin 0.4 mg/dL 0.2-1.0 [facility] ([facility]) Alanine aminotransferase [Enzymatic activity/volume] in Seru m or Plasma 30 U/L 12-78 [facility] ([facility]) Albumin [Mass/volume] in Serum or Plasma 4.2 g/dL 3.4-5.0 [facility] ([facility]) Proteinase 3 Ab [Units/volume] in Serum 7.3 g/dL 6.4-8.2 [facility] ([facility]) A/G Ratio 1.35 CALC 1.00-1.90 [facility]) Glomerular filtration rate/1.73 sq M pre dicted among non-blacks [Volume Rate/Area] in Serum or Plasma by Creatinine-based formula (MDRD) Laboratory test result [facility] ([facility] ) Glomerular filtration rate/1.73 sq M pre dicted among blacks [Volume Rate/Area] in Serum or Plasma by Creatinine-based formula (MDRD) Laboratory test result [facility] ([facility]) <content>CHRONIC KIDNEY DISEASE STAGING PER NKF</content>
<content></content>
<content>STAGE I & II GFR >= 60 NORMAL TO MILDLY DECREASED</content>
<content>STAGE III GFR 30-59 MODERATELY DECREASED</content>
<content>STAGE IV GFR 15-29 SEVERELY DECREASED</content>
<content>STAGE V GFR <15 VERY LITTLE GFR LEFT</content>
<content>ESRD GFR <15 ON PEACH GROWER</content>
<content></content> ID Date Data Source [id number] 04/18/2021 10:18:00 AM EDT [facility] ([facility]) Name Value Range Interpretation Code Description Data Prerna rce(s) Supporting Document(s) Leukocytes [#/volume] in Blood by Automated count 6.4 x10*3/UL 4.1-10 .9 [facility] ([facility]) Hemoglobin [Mass/volume] in Blood 13.1 g/dL 12.0-18.0 [facility] Erythrocytes [#/volume] in Blood by Automated count 4.55 x10*6/UL 4.2 0-6.30 [facility] MCV 88.1 fL 80.0-97.0 [facility] ([facility]) Hematocrit [Volume Fraction] of Blood by Automated count 40.1 % 3 7.0-51.0 [facility] ([facility]) MCH 28.9 pg 26.0-32.0 [facility] ([facility]) MCHC 32.8 g/dL 31.0-38.0 [facility] ([facility]) Erythrocyte distribution width [Ratio] by Automated count 12.6 % 11.6-13.7 [facility] Platelets [#/volume] in Blood by Automated count 337 x10*3/UL 140-440 [facility] MPV 7.6 FL 7.8-11.0 [facility] ([place] [facility]) Lymph % 22.2 % 10.0-58.5 [facility] ([facility]) Mid % 4.7 % 1.7-9.3 [facility] ([facility]) Neut % 73.1 % 37.0-92.0 [facility] [facility]) Mid # 0.3 x10*3/UL 0.1-0.6 [facility] ([facility]) Lymph # 1.4 x10*3/UL 0.6-4.1 [facility] ([facility]) Neut # 4.7 x10*3/UL 2.0-7.8 [facility] ([facility]) ID Date Data Source [id number] 03/01/2021 10:50:26 AM EDT [facility] PCName: Nancy ChauhanDOB: 1955Provider: Lesley Wyatt: 02/23/2021 Reason For VisitNancy Chauhan is here [...] the care of a spinal physician in [place].At this point we just need to see [...] rce(s) Supporting Document(s) ID Date Data Source [id number] 01/09/2021 03:07:30 PM EDT [facility] PCName: Nancy ChauhanDOB: 1955Provider: [place] WaggonerDOLadonna: 01/05/2021 Reason For VisitNancy Chauhan is here [...] document was dictated and electronically signed using [employer] software. A reasonable attempt at proof reading has been made to minimize errors. Please call with any questions. Signatures Electronically signed by : [place] Waggoner PA-C; Jan 05 2021 1:21PM EST (Author) Electronically signed by : Mayda Wyatt M.D.; Jan 09 2021 3:07PM EST (Author) Name Value Range Interpretation Code Description Data Prerna rce(s) Supporting Document(s) ID Date Data Source [id number] 12/27/2020 11:37:00 AM EDT [facility] ([facility]) Name Value Range Interpretation Code Description Data Prerna rce(s) Supporting Document(s) Covid Rapid Testing [facility] ID Date Data Source [id number] 12/27/2020 12:00:00 AM EDT [facility] Name Value Range Interpretation Code Description Data Prerna rce(s) Supporting Document(s) Covid Rapid Testing Negative [facility] This lab was ordered by [place] and re ported by [facility]. 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 [address] [place] [address] OPERATIVE SUMMARYNAME: TIEN Basurto DATE OF : 5ATTENDING PHYS: Chyna Cárdenas MD DATE: 09/28/20 MR#: [id number]: Chyna Cárdenas MD 09/28/20 12:04DT: SSR 09/28/20 12:09DS: Chyna Cárdenas MD 11/28/20 10:43 2 Name Value Range Interpretation Code Description Data Prerna rce(s) Supporting Document(s) ID Date Data Source [id number] 11/02/2020 08:38:09 AM EST [facility] Name Value Range Interpretation Code Description Data Prerna rce(s) Supporting Document(s) Progress Note [facility] MSFNMn7kKpAAOdZe76/ZNNtqTSRic8MrCPmwQTl3AMchWEAkX5WaIDG8tY2wRVE1RNgIBzPhFkLuAxAp lbm SiPwkUJuUaGVWjKlgZRnVdZPokRutmjUNhPX6BcGP4RZVtU76pZDVqYKSmX3GyRXTaVXn+Mu4HKGLeyO InAZ3CUhzF4DmzRcoZDG7gkj/OYqGoSNY1r/pRJAVQDEWKcGCGc9d/OPgAt/hX4tCnf++db8/2DJcfnv YxLDNDRU9z3ucQd6g93gRr/vuotqLAcRyV/5v+jBKt zrvq++/EiExln4KbE9qppyH4fSMXS3Plmzs2pwprkptgWOEOKS+enSiNi40gUDeXUfyTKn2JdB+U63nZ SCIAK3GSRNB/MGXbTdirxM7ksK15dvOaqiZLnop3ZDMNgJPUdT4c9HSQRgMuUjjsQZX1tBK+XABD8rjx yniHbDdFaM+ilNTOpejZ5PQLGNgYalqn0BSCCfNZt0 hi6oWBxMjK01y5MseMfLykLvpvg2GQIW37iCwX7fyJsMPEU4p+ieTGM5UVKS6wYfVI4wqLBp/iZJKPM6 VnKQZTgpdNKx2Mxu9S3EodC2PaWyrKzQscXFLP/mhlKA0z6EcfQCylaYp2+7sG8oNjew7bjzndQLNAqh WVb+VPD4jmIX2JZU83s3COjtDoGqt8mDnMRxo6OzQb GS4duBbyce3h0p/TL/U4lTYrQr3Wn34kYFKee8I6B5h57Bo2rVgBveonVUogVXML4l8n2D0v/pqYgiCa c/SddnuYjiwGLYO+RMWtwmtxy4i2A0xn6J9SeWSXDJq7b3Vd8SHcFZdTMO+1AkyyVDAXKa/2SBij6yV4 4vPcYNOPw+z/CEniEMfj36Xjgl2glgYQSHFO4YJ9NJ dOzG6CUirmkZFauD+yt93kSs4lgmU1D5hC0S2f9wuWZV3mgMrLcndssbB+FHYGhkT1CQ+rCbt0PJI/FRITZ [file] JwWpKPH2GOftJKZ6ISY+WD0uSGf+Ov0Sx4NqwtC3tnVnUKcwFAA4CO7SZUHHX2UCMy== ID Date Data Source [id number] 10/11/2020 03:39:00 PM EST [facility] ([facility]) Name Value Range Interpretation Code Description Data Prerna rce(s) Supporting Document(s) Prothrombin Time 12.5 s 12.5-14.3 [facility] ([facility]) Partial Thromboplastin Time 33.6 s 24.2-38.5 [facility] ([facility]) Inr 0.92 [facility] ([facility]) THERAPUTIC HUMAN INR VALUES INDICATIONS NORMAL RANGES PROPHYLAXIS/TREATMENT OF: VENOUS THROMBOSIS 2.0-3.0 PULMONARY EMBOLISM 2.0-3.0 PREVENTION OF SYSTEMIC EMBOLISM FROM: TISSUE HEART VALVES 2.0-3.0 ACUTE MYOCARDIAL INFARCTION 2.0-3.0 VALVULAR HEART DISEASE 2.0-3.0 ATRIAL FIBRILLATION 2.0-3.0 MECHANICAL VALVES(HIGH RISK) 2.5-3.5 RECURRENT MYOCARDIAL INFARCTION 2.5-3.5 ID Date Data Source [id number] 10/11/2020 03:39:00 PM EST [facility] ([facility]) Name Value Range Interpretation Code Description Data Prerna rce(s) Supporting Document(s) Platelets [#/volume] in Blood by Automated count 331 10 150-450 [facility] ([facility]) ID Date Data Source [id number] 10/11/2020 03:39:00 PM EST [facility] ([facility]) Name Value Range Interpretation Code Description Data Prerna rce(s) Supporting Document(s) Prothrombin time (PT) Laboratory test result [facility] ([facility]) ID Date Data Source [id number] 10/11/2020 03:39:00 PM EST [facility] ([facility]) Name Value Range Interpretation Code Description Data Prerna rce(s) Supporting Document(s) Prothrombin Time 12.5 s 12.5-14.3 [facility] ([facility]) Partial Thromboplastin Time 33.6 s 24.2-38.5 [facility] ([facility]) Inr 0.[address] [facility] [facility] THERAPUTIC HUMAN INR VALUES INDICATIONS NORMAL RANGES PROPHYLAXIS/TREATMENT OF: VENOUS THROMBOSIS 2.0-3.0 PULMONARY EMBOLISM 2.0-3.0 PREVENTION OF SYSTEMIC EMBOLISM FROM: TISSUE HEART VALVES 2.0-3.0 ACUTE MYOCARDIAL INFARCTION 2.0-3.0 VALVULAR HEART DISEASE 2.0-3.0 ATRIAL FIBRILLATION 2.0-3.0 MECHANICAL VALVES(HIGH RISK) 2.5-3.5 RECURRENT MYOCARDIAL INFARCTION 2.5-3.5 ID Date Data Source [id number] 10/11/2020 03:39:00 PM EST [facility] ([facility]) Name Value Range Interpretation Code Description Data Prerna rce(s) Supporting Document(s) Platelets [#/volume] in Blood by Automated count 331 10 150-[address] [facility] [facility] ID Date Data Source [id number] 10/11/2020 12:03:00 PM EST [facility] ([facility] ) Name Value Range Interpretation Code Description Data Prerna rce(s) Supporting Document(s) Covid Rapid Testing Laboratory test result [facility] ([facility] ) ID Date Data Source [id number] 10/11/2020 12:00:00 AM EST [facility] Name Value Range Interpretation Code Description Data Prerna rce(s) Supporting Document(s) Covid Rapid Testing Negative [facility] This lab was ordered by [place] and re ported by [facility]. ID Date Data Source [id number] 10/07/2020 09:22:00 AM EST [facility] ([facility] ) Name Value Range Interpretation Code Description Data Prerna rce(s) Supporting Document(s) Laboratory test finding (navigational concept) Laboratory test result [facility] ([facility] ) ID Date Data Source [id number] 10/07/2020 09:13:00 AM EST [facility] ([facility]) Name Value Range Interpretation Code Description Data Prerna rce(s) Supporting Document(s) Thyrotropin [Units/volume] in Serum or Plasma by Detec tion limit <= 0.05 mIU/L 2.77 uIU/mL 0.36-3.74 [facility] ([facility] [place] [facility] ) ID Date Data Source [id number] 10/07/2020 09:13:00 AM EST [facility] ([facility]) Name Value Range Interpretation Code Description Data Prerna rce(s) Supporting Document(s) Triglyceride [Mass/volume] in Serum or Plasma 237 mg/dL 30-150 [facility] ([place] [facility]) Cholesterol [Mass/volume] in Serum or Plasma 247 mg/dL 131-200 [facility] ([place] [facility]) Cholesterol in HDL [Mass/volume] in Serum or Plasma 45 mg/dL 35-60 [facility] ([place] [facility]) Cholesterol in LDL [Mass/volume] in Serum or Plasma by calcu lation 155 CALC 50-159 [facility] ([place] [facility]) ID Date Data Source [id number] 10/07/2020 09:13:00 AM EST [facility] ([facility]) Name Value Range Interpretation Code Description Data Prerna rce(s) Supporting Document(s) Glucose [Mass/volume] in Serum or Plasma 94 mg/dL 74-99 [facility] ([place] [facility]) 100-125 mg/dL PRE-DIABETES/FASTING >126 mg/dL DIABETES/FASTING Urea nitrogen [Mass/volume] in Serum or Plasma 18 mg/dL 7-18 [facility] ([place] [facility]) Creatinine 0.7 mg/dL 0.6-1.3 [facility] [facility] Potassium [Moles/volume] in Serum or Plasma 4.0 meq/L 3.5-5.1 [facility] ([place] [facility]) Sodium [Moles/volume] in Serum or Plasma 146 meq/L 136-145 [facility] ([place] [facility]) Chloride [Moles/volume] in Serum or Plasma 105 meq/L 98-107 [facility] ([place] [facility]) Carbon dioxide, total [Moles/volume] in Serum or Plasma 32 meq/L 21 -32 [facility] ([place] [facility]) Calcium [Mass/volume] in Serum or Plasma 9.4 mg/dL 8.5-10.1 [facility] ([place] [facility]) Alkaline phosphatase isoenzyme [Units/volume] in Serum or Pl asma 129 mg/dL 46-116 [facility] ([place] [facility]) Total Bilirubin 0.3 mg/dL 0.2-1.0 [facility] ([facility]) Aspartate aminotransferase [Enzymatic activity/volume] in Serum or Plasma 17 U/L 15-37 [facility] ([place] [facility] ) Albumin [Mass/volume] in Serum or Plasma 3.9 g/dL 3.4-5.0 [facility] [facility] Alanine aminotransferase [Enzymatic activity/volume] in Seru m or Plasma 27 U/L 12-78 [facility] ([place] [facility]) A/G Ratio 1.15 CALC 1.00-1.90 [facility] [facility] Proteinase 3 Ab [Units/volume] in Serum 7.3 g/dL 6.4-8.[address] [facility] ([place] [facility]) Glomerular filtration rate/1.73 sq M pre dicted among non-blacks [Volume Rate/Area] in Serum or Plasma by Creatinine-based formula (MDRD) Laboratory test result [facility] ([place] [facility] ) Glomerular filtration rate/1.73 sq M pre dicted among blacks [Volume Rate/Area] in Serum or Plasma by Creatinine-based formula (MDRD) Laboratory test result [facility] [facility] <content>CHRONIC KIDNEY DISEASE STAGING PER NKF</content>
<content></content>
<content>STAGE I & II GFR >= 60 NORMAL TO MILDLY DECREASED</content>
<content>STAGE III GFR 30-59 MODERATELY DECREASED</content>
<content>STAGE IV GFR 15-29 SEVERELY DECREASED</content>
<content>STAGE V GFR <15 VERY LITTLE GFR LEFT</content>
<content>ESRD GFR <15 ON PEACH GROWER</content>
<content></content> ID Date Data Source [id number] 10/07/2020 09:13:00 AM EST [facility] Name Value Range Interpretation Code Description Data Prerna rce(s) Supporting Document(s) Leukocytes [#/volume] in Blood by Automated count 6.3 x10*3/UL 4.1-[address] [facility] ([place] [facility]) Hemoglobin [Mass/volume] in Blood 13.1 g/dL 12.0-18.0 [facility] ([place] [facility]) Erythrocytes [#/volume] in Blood by Automated count 4.25 x10*6/UL 4.2 0-6.30 [facility] ([place] [facility]) MCV 87.4 fL 80.0-97.0 [facility] [facility] Hematocrit [Volume Fraction] of Blood by Automated count 37.2 % 3 7.0-51.0 [facility] ([place] [facility]) MCH 30.8 pg 26.0-32.0 [facility] [facility] MCHC 35.2 g/dL 31.0-38.0 [facility] ([place] [facility]) Platelets [#/volume] in Blood by Automated count 325 x10*3/UL 140-440 [facility] ([place] [facility]) Erythrocyte distribution width [Ratio] by Automated count 12.3 % 11.6-13.7 [facility] ([place] [facility]) Lymph % 37.1 % 10.0-58.5 [facility] ([place] [facility]) MPV 7.3 FL 7.8-11.0 [facility] [facility] Neut % 56.0 % 37.0-92.0 [facility] ([place] [facility]) Mid % 6.9 % 1.7-9.3 [facility] [facility] Lymph # 2.3 x10*3/UL 0.6-4.1 [facility] ([place] [facility]) Mid # 0.5 x10*3/UL 0.1-0.6 [facility] ([place] [facility]) Neut # 3.5 x10*3/UL 2.0-7.8 [facility] ([place] [facility]) ID Date Data Source [id number] 09/23/2020 01:48:00 PM EST [facility] Name Value Range Interpretation Code Description Data Prerna rce(s) Supporting Document(s) SARS-CoV-2 (COVID-19) Negative [facility] This lab was ordered by [facility] and reported by [facility]. ID Date Data Source [id number] 09/07/2020 10:00:00 AM EST [facility] Name Value Range Interpretation Code Description Data Prerna rce(s) Supporting Document(s) SARS coronavirus 2 RNA Not Detected [facility] This lab was ordered by [facility] and reported by [facility]. ID Date Data Source [id number] 08/10/2020 03:52:34 PM EST [facility] PCName: Nancy ChauhanDOB: 1955Provider: Lesley Wyatt: 08/04/2020 Reason For VisitNancy Chauhan is here today for bilateral hips. Nancy Chauhan is an established patient here for follow up. Surgery DOS: 04/15/15 Left LESTER. Patient states they are disabled. Plan<OBX.5.1><OBX.5.1.1> X-Ray I Hip Bilat </OBX.5.1.1><OBX.5.1.2> Pelvis - 2 views (XRays were ordered, obtained and interpreted today</OBX.5.1.2></OBX.5.1>in the office. Indication: pain/dysfunction.); Status:Complete; Done: [id number] Perform:SOS14 (General); Due:[id number]; Last Updated By:Frankie Jimenes; 08/04/2020 1:52:08 PM;Ordered; For:Joint pain, hip; Ordered By:Mayda Wyatt;jasonWeight Bearing Status : Weight bearing Assessment: Bilateral hip replacement followup.The patients hips are generally doing well, but she has some groin pain on the left. She has chronic back issues. She is under the care of Dr. Caruso in [place]. She cannot do cortisone and therapy aggravated [...] rce(s) Supporting Document(s) ID Date Data Source [id number] 08/03/2020 09:55:00 AM EST [facility] ([facility]) Name Value Range Interpretation Code Description Data Prerna rce(s) Supporting Document(s) Triglyceride [Mass/volume] in Serum or Plasma 230 mg/dL 30-150 [facility] ([place] [facility]) Cholesterol [Mass/volume] in Serum or Plasma 221 mg/dL 131-200 [facility] ([place] [facility]) Cholesterol in HDL [Mass/volume] in Serum or Plasma 40 mg/dL 35-60 [facility] ([place] [facility]) Cholesterol in LDL [Mass/volume] in Serum or Plasma by calcu lation 135 CALC 50-159 [facility] ([place] [facility]) ID Date Data Source [id number] 07/04/2020 02:50:10 PM EST [facility] Name Value Range Interpretation Code Description Data Prerna rce(s) Supporting Document(s) Progress Note [facility] FDFWVz3wBcWSQeYu68/DPHrlLUNyq2BiKCgfIOp6OWndZMHaD7LfIEG0oN0gFEA7WRsIZjCuNyAwONIf m ZzSmsSXdXwBRSsRpcYRvCwUPbgTtgwaMAbMF7HxWT0RFLbY07hHOJhEWWyC5WfYMH4LuG+Sd3DKWJisT VbYS6WXybG8Zulm0z7UJ0+YP+SgIAnTtEZep0NVWWUkNaTQO6Jpu1Y3tTjEscl/DLZTpt/D2cmON0PaF fEwUYGEkNWN6S7nRXwq7xUEIEh935pX/SllCL/t/oZ xkp0R+Tdu6B6hSQlroWZIzmpEBZTNwOc++l7vs817Zme30Wm8GO8vs1AMHN03kHpZ3VhIUh9MMG/EI7r IkJEuI5WWYftNOXhOZX9uEQ3ooLGeNZm3T5IMWmOut5M+HQTPTH9GYIS7iAhBF3QAn+SbDJlfFYMlrqx uVTxIdlugthePyMrmZRLarJzSlJOLhUTUlJSUlEygK [file] x1KIYMWpBxQF3NXKb= ID Date Data Source [id number] 06/23/2020 08:15:24 AM EDT [facility] Name Value Range Interpretation Code Description Data Prerna rce(s) Supporting Document(s) Progress Note [facility] WPHZTq0hSsZKBwEv19/RQTymTZItd6CmPZpeSQd4ZAsbHDZbX3GfRDX4vG8wPKI4JOzGJoVrKhDoXVCk lbm [file] AgICAgICAgICAgICAgICAgICAgICAgICAgICAgICAgICAgICAgICAgICAgICAgICAgICAgICAgICAgIC AgICAgICAgICAgICANCiAgICAgICAgICAgICAgICAg ICAgICAgICAgICAgICAgICAgICAgICAgICAgICAgICAgICAgICAgICAgICAgICAgICAgICAgICAgICAg ICAgICAgICAgICAgICAgICAgICAgICANCiAgICAgICAgICAgICAgICAgICAgICAgICAgICAgICAgICAg ICAgICAgICAgICAgICAgICAgICAgICAgICAgICAgIC AgICAgICAgICAgICAgICAgICAgICAgICAgICAgICAgICANCiAgICAgICAgICAgICAgICAgICAgICAgIC AgICAgICAgICAgICAgICAgICAgICAgICAgICAgICAgICAgICAgICAgICAgICAgICAgICAgICAgICAgIC AgICAgICAgICAgICAgICANCiAgICAgICAgICAgICAg ICAgICAgICAgICAgICAgICAgICAgICAgICAgICAgICAgICAgICAgICAgICAgICAgICAgICAgICAgICAg ICAgICAgICAgICAgICAgICAgICAgICAgICANCiAgICAgICAgICAgICAgICAgICAgICAgICAgICAgICAg ICAgICAgICAgICAgICAgICAgICAgICAgICAgICAgIC AgICAgICAgICAgICAgICAgICAgICAgICAgICAgICAgICAgICANCiAgICAgICAgICAgICAgICAgICAgIC AgICAgICAgICAgICAgICAgICAgICAgICAgICAgICAgICAgICAgICAgICAgICAgICAgICAgICAgICAgIC AgICAgICAgICAgICAgICAgICANCiAgICAgICAgICAg ICAgICAgICAgICAgICAgICAgICAgICAgICAgICAgICAgICAgICAgICAgICAgICAgICAgICAgICAgICAg ICAgICAgICAgICAgICAgICAgICAgICAgICAgICANCiAgICAgICAgICAgICAgICAgICAgICAgICAgICAg ICAgICAgICAgICAgICAgICAgICAgICAgICAgICAgIC AgICAgICAgICAgICAgICAgICAgICAgICAgICAgICAgICAgICAgICANCiAgICAgICAgICAgICAgICAgIC AgICAgICAgICAgICAgICAgICAgICAgICAgICAgICAgICAgICAgICAgICAgICAgICAgICAgICAgICAgIC AgICAgICAgICAgICAgICAgICAgICANCjw/tFWdC7wi bSXnehS1Y6heIj1AAs6GFD9nj2WpKVNvPKvjbiVlWtfWCnSqHZExFuzXScr9JWkoAW8ZeINuS2FhZ9Hv SLtpJV6XIEJhQUNmnZNtNLIzMMDqLtV1ZKKgVJyiWS5VmJRxHOxvHPArNXFrHO6QHNTiM235dnEgYT6T Se8INoQfII2hxn7CGXkdCKJcEjiUUan3CEcfDP3JtG BqyDXeAEByFIJKQcLpA1xgi2VlIqOzVFEADGuuJW8Lp0XcxQVqXNp+Tl0KIT9pp9FoMRlhTKZaYK7nqc 7SIIjRLiKaZ4CdmMwtHGNao5ycMJDhYF9vpNMoRSG6MWxiayPCp0U0sXHcEA3YTTQ3OTMxAdGoKaGiOb ZbYCd5GtJuXV6wVFznOC7MRAQ1UTacUMQjSOWsY0cV CpOtIKEyTESboYmcGZ6KMaGuC0PkioMpvYGyYIJlLRWWIl1+LTizuyMxBbdFDrHiZUPmv2KkTSe6GL9J IIBgOVdiLB3EBIHrhK2zVWzoWB2FCxLyUyXsSCTOOjSkE79fsVStHQf1U4DfAtArUNEwScokEIBvKHcv TmFtZXMgWyBdDQogID4+ID4+VWsaXX0EAYixyvUqBO HwWv1ODTGyBRIpII1nAUCzIRKjW9C0bInnDGOIRiRoZ6zmxeocHG1gKLXcZ878rCdhqxCwMAI2TSYfCx 8BPPAdUAG9WSBfnEXsGFyaUVUZDDqgGN1WjZJyOLM3oF4dLVdyUFRpOJHzG2cODvHtyFqbVD59aOujkt VsbCBdDQo+Qd4JKS4wj4EiGOk7ytQfVOyzZMAvFYay OJNgUPSoSPOaIGV5TAS6YTUJNnOaDJWjQMYeGRkrFZPdPPOpqn9ADOPnDBQdEufeNQWxQCCiMGWkKJld QOTxISA8NYX4JJLcYXPnZF8INuPfNWXhEPKsBUhtXPCoLAEgej7USCPuRXLoMwPoMXOuZVZnTEEzMGdl FOTvVSYzEaC8UBNnLHUpJZ2SJcUtFKDhUSL4NHiyUN HaNIZktb6XJNUaASPbRmh7VpBnQXIjNTNsWDncCRBcSIE9OIexOWFeUJShQV2ZAjHdNPLvQYOdLmIsGH SiFJQing2KEVZvWURkRSYjRzMvUTQqISZmPEfbYYItLIS1UIIdXMUtFEMfEV3IWrIpIBRdPDQ4LmDuWI OmSIYqhp6CYPTmOLFcPcD1ZFSlXVPcRJEnOTjrFQRf VLX1HqRjMBDhQRTiJO2KJwCjAOZbMUz1PYJsOWRnZMPqzm2BOSNuSDJgVkV1QlThWEZcOSFcYVnlWZEy DUQ7MSj0VBBoFPHlHW9IYeHvANDoOFe4ZcLgSGFmLKKdhl1HSENmEURfAXN3IGBcJVPpDIDiGBaqICHd NQZ9SsNuFIOdDLDePY0DPySzWQrqPCMIQal6XGguX5 f5HWUxWr2XG3Pzm9AfAfTgXSHNZEgvKX7kfyGlVORlRg8BO8uOAedgLVF5NyO5TDI2K7ZfCVZ3IYMsSI Q6DRJwQsR9M3EmGM6cLZEoKjtyKCE7IIEwHbWzYdhaDMOhSWY7AyPgDTosLxM7WsKeVI9GUp9WVpD3UO O0jBAcHs2IIMi3NQTQGwTvZJ1UCJs= ID Date Data Source [id number] 06/01/2020 01:11:54 PM EDT [facility] XR HAND 3 OR MORE VIEWS [id number] RESUL TInterpreted by:JASE Estradalinical history: Hand painViews: [...] rce(s) Supporting Document(s) ID Date Data Source [id number] 05/30/2020 05:08:53 PM EDT [facility] Name Value Range Interpretation Code Description Data Prerna rce(s) Supporting Document(s) Progress Note [facility] FQHVAf8rKkTEDeBs02/ZXLqcVZPwy7ZoMLhjUVh9ZYqeWJViH8TpLXR0kA0cCKO9EHeGLvPnDzQwUDD1 lbm [file] qlCG0ZGQVTD8FOUc== Procedure Social History Code Duration Value Status Description Data Source(s ) Smoking 04/28/2021 12:00:00 AM EDT Patient is a former smoker completed Patient is a former smoker [facility] ([facility]) Alcohol intake 04/17/2021 12:00:00 AM EDT Current non-d fina of alcohol (finding) completed Current non-drinker of alcohol (finding) [facility] Tobacco use and exposure 04/17/2021 12:00:00 AM EDT Never used co mpleted Never used [facility] Smoking 04/17/2021 12:00:00 AM EDT Former smoker completed Former smoker [facility] Smoking 12/15/2020 12:00:00 AM EDT Patient is a former smoker completed [facility] intake 10/31/2020 12:00:00 AM EST Current non-d fina of alcohol (finding) completed Current non-drinker of alcohol (finding) [facility] Smoking 07/19/2020 12:00:00 AM EST Former Smoker completed Former Smoker [facility] ([facility]) Smoking 07/19/2020 12:00:00 AM EST Former Smoker completed Former Smoker [facility] ([facility]) Smoking 07/19/2020 12:00:00 AM EST Former Smoker completed Former Smoker [facility] ([facility]) Smoking 07/19/2020 12:00:00 AM EST Former Smoker completed Former Smoker [facility] ([facility]) Smoking 07/11/2020 12:00:00 AM EST Patient is a former smoker completed Patient is a former smoker [facility] ([facility] ) Alcohol intake 07/04/2020 12:00:00 AM EST Current non-d fina of alcohol (finding) completed Current non-drinker of alcohol (finding) [facility] Alcohol intake 06/23/2020 12:00:00 AM EDT Current non-d fina of alcohol (finding) completed Current non-drinker of alcohol (finding) [facility] Vital Signs ID Date Data Source UNK Name Value Range Interpretation Code Description Data Source(s) Body height 61 [in_i] 61 [in_i] [facility] ([facility]) 5'1" Body weight 130.00 [lb_av] 130.00 [lb_av] ELISHAEN T ([facility]) Body mass index (BMI) [Ratio] 24.6 kg/m2 24.6 k g/m2 [facility] ([facility]) Systolic blood pressure 121 mm[Hg] 121 mm[Hg] [facility] ([facility], ) Diastolic blood pressure 70 mm[Hg] 70 mm[Hg] [facility] ([facility], ) Heart rate 77 /min 77 /min [facility] ([facility], ) Oxygen saturation in Arterial blood by Pulse oximetry 98 % 98 % [facility] ([facility] ) Body mass index (BMI) [Ratio] 22.9 kg/m2 22.9 k g/m2 [facility] ([facility], ) Body height 61 [in_i] 61 [in_i] [facility] ([facility], ) 5'1" Body weight 121.38 [lb_av] 121.38 [lb_av] MED[facility] T ([facility]) [place] body weight 105 [lb_av] 105 [lb_av] MED[facility] T ([facility]) Body weight 55.056 kg 55.056 kg [facility] ([facility]) Body surface area Derived from formula 1.53 m2 1.53 m2 [facility] ([facility]) Systolic blood pressure 110 mm[Hg] 110 mm[Hg] M [facility] ([facility] [place] [facility]) Diastolic blood pressure 72 mm[Hg] 72 mm[Hg] [facility] ([place] [facility]) Heart rate 78 /min 78 /min [facility] ([facility]) Body height 61.25 [in_i] 61.25 [in_i] [facility] ([facility] 5'1.25" Body weight 121.00 [lb_av] 121.00 [lb_av] MEDEN T ([place] [facility]) Body mass index (BMI) [Ratio] 22.7 kg/m2 22.7 k g/m2 [facility] ([place] [facility]) Systolic blood pressure 110 mm[Hg] 110 mm[Hg] [facility] [facility] Body mass index (BMI) [Ratio] 24.0 kg/m2 24.0 k g/m2 [facility] ([place] [facility]) Diastolic blood pressure 66 mm[Hg] 66 mm[Hg] [facility] ([place] [facility]) Heart rate 62 /min 62 /min [facility] ([facility]) Body height 61.25 [in_i] 61.25 [in_i] [facility] ([facility]) 5'1.25" Body weight 128.00 [lb_av] 128.00 [lb_av] MEDEN T ([place] [facility]) Systolic blood pressure 128 mm[Hg] 128 mm[Hg] [facility] [facility] Diastolic blood pressure 80 mm[Hg] 80 mm[Hg] [facility] ([place] [facility]) Heart rate 76 /min 76 /min [facility] ([facility]) Body height 61.25 [in_i] 61.25 [in_i] [facility] 5'.25" Body weight 137.00 [lb_av] 137.00 [lb_av] MEDEN T ([place] [facility]) Body mass index (BMI) [Ratio] 25.7 kg/m2 25.7 k g/m2 [facility] ([place] [facility]) Body height 61 [in_i] 61 [in_i] [facility] ([facility] 5'1" Body weight 130.00 [lb_av] 130.00 [lb_av] MED[facility] T ([facility] ) Body temperature 98.8 [degF] 98.8 [degF] [facility] ([facility] ) Body mass index (BMI) [Ratio] 24.6 kg/m2 24.6 k g/m2 [facility] ([facility] ) Body mass index (BMI) [Ratio] 25.4 kg/m2 25.4 k g/m2 [facility] ([place] [facility]) Systolic blood pressure 122 mm[Hg] 122 mm[Hg] [facility] [facility] Diastolic blood pressure 66 mm[Hg] 66 mm[Hg] [facility] ([place] [facility]) Body height 61.25 [in_i] 61.25 [in_i] [facility] ([facility] 5'.25" Body weight 135.38 [lb_av] 135.38 [lb_av] [facility] T ([place] [facility]) Body temperature 97.1 [degF] 97.1 [degF] [facility] ([facility] ) Body temperature 98.6 [degF] 98.6 [degF] [facility] ([facility] ) Heart rate 68 /min 68 /min [facility] ([facility]) Body height 61.25 [in_i] 61.25 [in_i] [facility] ([facility]) 5'1.25" Body weight 127.00 [lb_av] 127.00 [lb_av] MEDEN T ([facility]) Body mass index (BMI) [Ratio] 23.8 kg/m2 23.8 k g/m2 [facility] ([facility]) Systolic blood pressure 128 mm[Hg] 128 mm[Hg] M EDENT ([facility]) Diastolic blood pressure 78 mm[Hg] 78 mm[Hg] [facility] ([facility]) Body weight 127 [lb_av] 127 [lb_av] eCW1 ([facility]) Body weight 57.61 kg 57.61 kg eCW1 ([facility]) Body height 61.50 [in_i] 61.50 [in_i] eCW1 ([facility]) Body mass index (BMI) [Ratio] 23.61 kg/m2 23.61 kg/m2 eCW1 ([facility]) Systolic blood pressure 138 mm[Hg] 138 mm[Hg] e CW1 ([facility]) Diastolic blood pressure 78 mm[Hg] 78 mm[Hg] eCW1 ([facility]) Systolic blood pressure 136 mm[Hg] 136 mm[Hg] M EDENT ([facility]) Diastolic blood pressure 78 mm[Hg] 78 mm[Hg] [facility] ([facility]) Heart rate 72 /min 72 /min [facility] ([facility]) Body weight 126.00 [lb_av] 126.00 [lb_av] MEDEN T ([facility]) Body height 61.25 [in_i] 61.25 [in_i] [facility] ([facility]) 5'1.25" Body mass index (BMI) [Ratio] 23.6 kg/m2 23.6 k g/m2 [facility] ([facility]) Body weight 127.00 [lb_av] 127.00 [lb_av] MEDEN T ([facility]) Body height 61 [in_i] 61 [in_i] [facility] ([facility] 5'1" Heart rate 80 /min 80 /min [facility] ([facility] Respiratory rate 16 /min 16 /min [facility] ( [facility]) Systolic blood pressure 136 mm[Hg] 136 mm[Hg] M EDENT ([facility]) Diastolic blood pressure 82 mm[Hg] 82 mm[Hg] [facility] ([facility]) Body mass index (BMI) [Ratio] 24.0 kg/m2 24.0 k g/m2 [facility] ([facility]) Body height 61.25 [in_i] 61.25 [in_i] [facility] ([facility]) 5'1.25" Systolic blood pressure 110 mm[Hg] 110 mm[Hg] M EDENT ([facility]) Diastolic blood pressure 64 mm[Hg] 64 mm[Hg] [facility] ([facility]) Body weight 128.00 [lb_av] 128.00 [lb_av] [facility] T ([facility]) Body mass index (BMI) [Ratio] 24.0 kg/m2 24.0 k g/m2 [facility] ([facility]) Body mass index (BMI) [Ratio] 24.7 kg/m2 24.7 k g/m2 [facility] ([facility]) [place] body weight 105 [lb_av] 105 [lb_av] [facility] T ([facility]) Body weight 59.[address] [facility] ([facility]) Body surface area Derived from formula 1.58 m[address] [facility] ([facility]) Diastolic blood pressure 80 mm[Hg] 80 mm[Hg] [facility] ([facility]) Systolic blood pressure 112 mm[Hg] 112 mm[Hg] [facility] Oxygen saturation in Arterial blood by Pulse oximetry 99 % 99 % [facility] ([facility]) Heart rate 89 /min 89 /min [facility] ([facility]) Body temperature 97.4 [degF] 97.4 [degF] [facility] ([facility]) Body height 61 [in_i] 61 [in_i] [facility] ([facility]) 5'1" Body weight 131.00 [lb_av] 131.00 [lb_av] [facility] T ([facility]) Oxygen saturation in Arterial blood by Pulse oximetry 99 % 99 % [facility] ([facility]) Body temperature 97.4 [degF] 97.4 [degF] [facility] ([facility]) Body height 61 [in_i] 61 [in_i] [facility] 5'1" Body weight 131.00 [lb_av] 131.00 [lb_av] [facility] T ([facility]) Body mass index (BMI) [Ratio] 24.7 kg/m2 24.7 k g/m2 [facility] ([facility]) Body weight 59.422 kg [address] [facility] ([facility]) ID Date Data Source [id number] 11/28/2020 10:44:10 AM [facility] Name Value Range Interpretation Code Description Data Source(s) WEIGHT RECORDED 127.00 pounds 127.00 pounds [facility] Height 61 Inches 061 Inches [facility] Patient Treatment Plan of Care Planned Activity Planned Date Details Description Data Source (s) methylPREDNISolone acetate (DEPO-MEDROL) injection 40 mg 04/19/2021 07:45:00 AM [facility] methylPREDNISolone acetate (DEPO-MEDROL) injection 40 mg 04/19/2021 07:45:00 AM [facility] Citalopram 10 MG Oral Tablet 03/20/2021 12:00:[address] [facility] tramadol hydrochloride 50 MG Oral Tablet 03/10/2021 12:00:[address] [facility] methylPREDNISolone acetate (DEPO-MEDROL) injection 40 mg 10/31/2020 05:45:00 PM [facility] methylPREDNISolone acetate (DEPO-MEDROL) injection 40 mg 10/31/2020 05:45:00 PM [facility] meloxicam 15 MG Oral Tablet 09/18/2019 12:00:00 AM [facility] prednisolone acetate 10 MG/ML Ophthalmic Suspension 11/12/19 12:00:[address] [facility] Meclizine Hydrochloride 25 MG Oral Tablet 02/21/2018 12:00:00 AM ED [facility] Cyanocobalamin (VITAMIN B-12 PO) [facility] Estradiol 0.1 MG/ML Vaginal Cream [facility] Zolpidem Tartrate (AMBIEN PO) [facility] Dorzolamide HCl-Timolol Mal PF 22.3-6.8 MG/ML [facility] Polyethylene Glycol 400 4 MG/ML / Propylene glycol 3 M G/ML Ophthalmic Solution [facility]ital
[2021-07-10 00:12] VITALS: BP 131/66
--- NOTE | 2021-07-10 07:18 | ECGEPIP ---
[facility] - ED Test Date: 2021-07-09 Pat Name: MARK CHAUHAN Department: Room: - Gender: Female Family Practice Md: ANIYA : 1955 Requested By: FINN Trujillo Order Number: [id number] Reading MD: Rufus Dee Measurements Intervals [place] Rate: 68 P: 52 [place]: 198 QRS: 24 QRSD: 86 T: 52 QT: 390 QTc: 414 Interpretive Statements Normal sinus rhythm LEFT ATRIAL ENLARGEMENT POOR R WAVE PROGRESSION SIMILAR TO 03/29/18 Electronically Signed on 07-10-2021 7:18:12 EST by Rufus Dee
== END 2021-07-10 00:14 | disposition home or self-care (01) ==
LOC: M ED 19:21
DX: K44.9 Diaphragmatic hernia without obstruction or gangrene (principal); I10 Essential (primary) hypertension; E78.5 Hyperlipidemia, unspecified; K21.9 Gastro-esophageal reflux disease without esophagitis; Z79.899 Other long term (current) drug therapy; Z79.82 Long term (current) use of aspirin; Z88.0 Allergy status to penicillin; Z88.1 Allergy status to other antibiotic agents; Z88.5 Allergy status to narcotic agent; Z88.8 Allergy status to other drugs, medicaments and biological substances; Z91.048 Other nonmedicinal substance allergy status

== ENCOUNTER → 2021-07-18 | Outpatient (REF) | payer MEDICARE, MEDICAID ==
[~2021-07-18] MED LIST changes: +BUSP5TA PO; +CITA10TA5 PO; +FISH1000 PO; +VASC1CAP2 PO; +ZETI10TA16 PO
== END ==
LOC: M LAB REF 16:20
PROVIDERS: ATTEND Physician Assistant Medical
DX: R07.89 Other chest pain (principal)

== ENCOUNTER 2021-09-22 14:17 | Emergency (ER) | payer MEDICARE, MEDICAID ==
[~2021-09-22] VITALS: Ht 154.9 cm; Wt 55.6 kg
[~2021-09-22 14:17] MED LIST changes: -CITA10TA5 PO; +CITA10TA7 PO; -MONT10TA10 PO; +MONT10TA97 PO
[2021-09-22 15:02] LABS: BASO % 0.5 % (0.0-1.0); EOS # 0.2 10^3/uL (0.0-0.5); EOS % 2.7 % (0.0-3.0); HEMATOCRIT 38.2 % (36.0-47.0); HEMOGLOBIN 12.8 g/dl (12.0-15.5); LYMPH # 2.3 10^3/uL (1.5-5.0); LYMPH % 36.6 % (24.0-44.0); MEAN CORPUSCULAR HEMOGLOBIN 30.8 pg (27.0-33.0); MEAN CORPUSCULAR HGB CONC 33.5 g/dl (32.0-36.5); MEAN CORPUSCULAR VOLUME 91.8 fl (80.0-96.0); MONO # 0.5 10^3/uL (0.0-0.8); MONO % 7.9 % (2.0-8.0); NEUTROPHILS # 3.2 10^3/uL (1.5-8.5); PLATELET COUNT, AUTOMATED 307 10^3/uL (150-450); RED BLOOD COUNT 4.16 10^6/uL (4.00-5.40); WHITE BLOOD COUNT 6.2 10^3/uL (4.0-10.0)
[2021-09-22 15:27] LABS: CK-MB VALUE MASS 1.3 NG/ML (<3.6); MB/CK RELATIVE INDEX 1.81 (< OR =4)
[2021-09-22 15:34] LABS: ALT/SGPT 22 U/L (12-78); BILIRUBIN,DIRECT < 0.1 MG/DL (0.0-0.2); BILIRUBIN,TOTAL 0.2 MG/DL (0.2-1.0); BLOOD UREA NITROGEN 18 MG/DL (7-18); CALCIUM LEVEL 9.4 MG/DL (8.8-10.2); CARBON DIOXIDE LEVEL 29 MEQ/L (21-32); CHLORIDE LEVEL 105 MEQ/L (98-107); CREATININE FOR GFR 0.57 MG/DL (0.55-1.30); FREE T4 1.06 NG/DL (0.76-1.46); GLOMERULAR FILTRATION RATE > 60.0 (>45); GLUCOSE, FASTING 90 MG/DL (70-100); LIPASE 159 U/L (73-393); NT-PRO BNP 23 PG/ML (<125); POTASSIUM SERUM 3.7 MEQ/L (3.5-5.1); SODIUM LEVEL 139 MEQ/L (136-145); TOTAL PROTEIN 7.1 GM/DL (6.4-8.2)
[2021-09-22 17:54] VITALS: BP 125/77
[2021-09-22] MEDS ORDERED: predniSONE 20 MG TAB PO ONE (18:05)
[2021-09-22] MEDS ORDERED: PRED10TA2 PO (18:12)
[2021-09-22] MEDS ORDERED: BENZ200C70 PO (18:40)
== END 2021-09-22 18:37 | disposition home or self-care (01) ==
LOC: M ED 14:17
DX: J20.9 Acute bronchitis, unspecified (principal); I10 Essential (primary) hypertension; J45.909 Unspecified asthma, uncomplicated; K57.32 Diverticulitis of large intestine without perforation or abscess without bleeding; Z88.0 Allergy status to penicillin; Z88.6 Allergy status to analgesic agent; Z88.8 Allergy status to other drugs, medicaments and biological substances; Z79.899 Other long term (current) drug therapy
CPT/HCPCS: 36415; 71045; 80048; 80076; 82550; 82553; 83690; 83880; 84439; 84443; 84484; 85025; 93005; 93041; 94760; 99285; J7512

== ENCOUNTER → 2021-10-17 | Outpatient (REF) | payer MEDICARE, MEDICAID ==
[~2021-10-17] MED LIST changes: +BENZ200C70 PO; +PRED10TA2 PO
== END ==
LOC: M LAB REF 16:21
PROVIDERS: ATTEND Internal Medicine
DX: R20.2 Paresthesia of skin (principal)

== ENCOUNTER → 2022-06-26 | Outpatient (CLI) | payer MEDICARE, MEDICAID ==
[~2022-06-26] MED LIST changes: +FLUO-215 EXT; -FLUO5OI EXT
== END ==
LOC: M WHC 09:17
PROVIDERS: ATTEND Internal Medicine
DX: Z12.31 Encounter for screening mammogram for malignant neoplasm of breast (principal); M81.0 Age-related osteoporosis without current pathological fracture

== ENCOUNTER 2022-07-24 12:23 | Emergency (ER) | payer MEDICARE, MEDICAID ==
[~2022-07-24] VITALS: Ht 154.9 cm; Wt 54.5 kg
[2022-07-24] MEDS ORDERED: COQ1200C PO (12:54)
[2022-07-24] MEDS ORDERED: FLON1SPR NARES (17:59)
[2022-07-24 18:12] VITALS: BP 123/56
== END 2022-07-24 18:10 | disposition home or self-care (01) ==
LOC: M ED 12:23
DX: S09.90XA Unspecified injury of head, initial encounter (principal); W00.0XXA Fall on same level due to ice and snow, initial encounter; Y92.009 Unspecified place in unspecified non-institutional (private) residence as the place of occurrence of the external cause; J45.909 Unspecified asthma, uncomplicated; I10 Essential (primary) hypertension; E78.00 Pure hypercholesterolemia, unspecified; M81.0 Age-related osteoporosis without current pathological fracture; H40.9 Unspecified glaucoma; Z79.899 Other long term (current) drug therapy; Z79.82 Long term (current) use of aspirin; Z88.8 Allergy status to other drugs, medicaments and biological substances; Z88.0 Allergy status to penicillin; Z88.5 Allergy status to narcotic agent; Z91.048 Other nonmedicinal substance allergy status; Z98.49 Cataract extraction status, unspecified eye; Z90.89 Acquired absence of other organs; Z98.890 Other specified postprocedural states; Z87.19 Personal history of other diseases of the digestive system; Z86.69 Personal history of other diseases of the nervous system and sense organs; Z90.710 Acquired absence of both cervix and uterus; Z87.01 Personal history of pneumonia (recurrent); Z86.2 Personal history of diseases of the blood and blood-forming organs and certain disorders involving the immune mechanism

== ENCOUNTER → 2022-08-10 | Outpatient (CLI) | payer MEDICARE, MEDICAID ==
[~2022-08-10] MED LIST changes: +COQ1200C PO; +FLON1SPR NARES
[2022-08-10 17:41] LABS: PLATELET COUNT, AUTOMATED 263 10^3/uL (150-450)
[2022-08-10 17:52] LABS: INR 0.93; PROTHROMBIN TIME 12.7 SECONDS (12.5-14.5)
[2022-08-10 17:53] LABS: PARTIAL THROMBOPLASTIN TIME 32.3 SECONDS (24.8-34.2)
== END ==
LOC: M PLALAB 14:51
PROVIDERS: ATTEND Physician Assistant
DX: M47.27 Other spondylosis with radiculopathy, lumbosacral region (principal); M51.16 Intervertebral disc disorders with radiculopathy, lumbar region

== ENCOUNTER → 2022-08-22 | Outpatient (CLI) | payer MEDICARE, MEDICAID ==
[2022-08-22 18:58] LABS: BASO # 0.1 10^3/uL (0.0-0.2); BASO % 0.6 % (0.0-1.0); EOS # 0.1 10^3/uL (0.0-0.5); EOS % 1.3 % (0.0-3.0); HEMATOCRIT 39.9 % (36.0-47.0); HEMOGLOBIN 12.4 g/dl (12.0-15.5); LYMPH # 3.1 10^3/uL (1.5-5.0); LYMPH % 40.3 % (24.0-44.0); MEAN CORPUSCULAR HGB CONC 31.1 g/dl (32.0-36.5); MEAN CORPUSCULAR VOLUME 96.4 fl (80.0-96.0); MONO # 0.7 10^3/uL (0.0-0.8); MONO % 8.5 % (2.0-8.0); NEUTROPHILS # 3.8 10^3/uL (1.5-8.5); NEUTROPHILS % 48.9 % (36.0-66.0); PLATELET COUNT, AUTOMATED 275 10^3/uL (150-450); RED BLOOD COUNT 4.14 10^6/uL (4.00-5.40); WHITE BLOOD COUNT 7.8 10^3/uL (4.0-10.0)
[2022-08-22 19:16] LABS: ERYTHROCYTE SEDIMENTATION RATE 12 mm/hr (0-30)
[2022-08-22 19:24] LABS: C REACTIVE PROTEIN QUANTITATIV < 0.40 MG/DL (<1.0)
[2022-08-22 19:25] LABS: RHEUMATOID FACTOR QUANT 4.4 IU/ML (<14)
== END ==
LOC: M PLALAB 14:33
PROVIDERS: ATTEND Internal Medicine Endocrinology, Diabetes & Metabolism
DX: M17.11 Unilateral primary osteoarthritis, right knee (principal)

== ENCOUNTER → 2022-08-30 | Outpatient (CLI) | payer MEDICARE, MEDICAID | LOC: M RAD 12:01 | PROVIDERS: ATTEND Internal Medicine | DX: M79.605 Pain in left leg (principal) ==

== ENCOUNTER → 2022-11-15 | Outpatient (CLI) | payer MEDICARE, MEDICAID ==
[~2022-11-15] MED LIST changes: -FLUO-215 EXT; +FLUO5OI EXT
== END ==
LOC: M LABSMTC 10:57
PROVIDERS: ATTEND Anesthesiology
DX: Z01.818 Encounter for other preprocedural examination (principal); Z11.52 Encounter for screening for COVID-19

== ENCOUNTER 2022-11-20 07:24 | Day surgery (SDC) | payer MEDICARE, MEDICAID ==
[~2022-11-20] VITALS: Ht 154.9 cm; Wt 54.0 kg
[~2022-11-20 07:24] MED LIST changes: +ALBU8.5H; +BSS IRR 500ML/OMIDRIA 4ML IRR BAG (OR ONLY) As Ordered ONE; +CLAR10CA3 PO; +CYCLOPENTOLATE 1% OPHTH SOLN 2ML BTL OD SCH; +DOCU-153 PO; +ESTR0.1C5; +FLURBIPROFEN 0.03% OPHTH SOLN 2.5 ML OD SCH; +LIDOCAINE 1% SDV 5ML VIAL As Ordered ONE; +LR 1,000 ML IV SCH; +MAGN250T7 PO; +META0.52 PO; +OFLOXACIN 0.3 % (OCUFLOX) OPTH SOL 5ML OD SCH; +OMEG10002 PO; +OPTI0.5D5 OU; +PHENYLEPHRINE 2.5% OPHTH SOL 2ML OD SCH; +PROPARACAINE 0.5% OPHTH SOL 15ML OD ONE; +TETRACAINE 0.5% OPHTH SOLN 4ML OD SCH; +TOBRADEX OPHTH OINT 3.5 GM As Ordered ONE; +TROPICAMIDE 1% OPHTH SOLN 15ML OD SCH; +VITA100093 PO; +VITA500C24 PO; +XIID5DRO
[2022-11-20] MEDS ORDERED: MIDAZOLAM INJ 2MG/2ML VIAL As Ordered ONE (08:11)
[2022-11-20 11:19] VITALS: BP 123/79
== END 2022-11-20 11:18 | disposition home or self-care (01) ==
LOC: M SDC 07:24
PROVIDERS: ATTEND Ophthalmology
DX: H25.11 Age-related nuclear cataract, right eye (principal); I10 Essential (primary) hypertension; E78.5 Hyperlipidemia, unspecified; D64.9 Anemia, unspecified; Z86.718 Personal history of other venous thrombosis and embolism; Z87.891 Personal history of nicotine dependence; Z90.710 Acquired absence of both cervix and uterus; Z90.89 Acquired absence of other organs; M54.2 Cervicalgia; G47.30 Sleep apnea, unspecified; Z79.899 Other long term (current) drug therapy
CPT/HCPCS: 66982; J1097; J2250; V2632

== ENCOUNTER 2022-12-26 22:11 | Emergency (ER) | payer MEDICARE, MEDICAID ==
[~2022-12-26] VITALS: Ht 154.9 cm; Wt 55.0 kg
[~2022-12-26 22:11] MED LIST changes: -BSS IRR 500ML/OMIDRIA 4ML IRR BAG (OR ONLY) As Ordered ONE; -CYCLOPENTOLATE 1% OPHTH SOLN 2ML BTL OD SCH; -FLURBIPROFEN 0.03% OPHTH SOLN 2.5 ML OD SCH; -LIDOCAINE 1% SDV 5ML VIAL As Ordered ONE; -LR 1,000 ML IV SCH; -OFLOXACIN 0.3 % (OCUFLOX) OPTH SOL 5ML OD SCH; -PHENYLEPHRINE 2.5% OPHTH SOL 2ML OD SCH; -PROPARACAINE 0.5% OPHTH SOL 15ML OD ONE; -TETRACAINE 0.5% OPHTH SOLN 4ML OD SCH; -TOBRADEX OPHTH OINT 3.5 GM As Ordered ONE; -TROPICAMIDE 1% OPHTH SOLN 15ML OD SCH
[2022-12-26 22:12] VITALS: BP 134/77
[2022-12-26] MEDS ORDERED: CEFD300C41 (22:16)
[2022-12-26] MEDS ORDERED: predniSONE 20 MG TAB PO ONE (23:50)
[2022-12-26] MEDS ORDERED: IPRATROPIUM 0.5MG/ALBUTEROL 2.5MG INH SOL UD 3ML (DUONEB) NEB ONE (23:50)
[2022-12-27] MEDS ORDERED: PRED20TA PO (00:56)
== END 2022-12-27 01:26 | disposition home or self-care (01) ==
LOC: M ED 22:11
DX: J45.901 Unspecified asthma with (acute) exacerbation (principal); Z88.0 Allergy status to penicillin; Z88.8 Allergy status to other drugs, medicaments and biological substances; Z88.6 Allergy status to analgesic agent; Z91.048 Other nonmedicinal substance allergy status; Z79.51 Long term (current) use of inhaled steroids; Z79.899 Other long term (current) drug therapy; Z79.82 Long term (current) use of aspirin
CPT/HCPCS: 71046; 87486; 87581; 87633; 87798; 93005; 94640; 99284; J7512

== ENCOUNTER → 2023-04-17 | Outpatient (CLI) | payer MEDICARE, MEDICAID ==
[~2023-04-17] MED LIST changes: +CEFD300C41; +EZET10TA58 PO; +MECL-209 PO; -MECL1TAB31 PO; +PRED20TA PO; -ZETI10TA16 PO
[2023-04-24 11:08] LABS: ACETYLCHOLINE RCPTOR BINDING A < 0.03 nmol/L (0.00-0.24); ACETYLCHOLINE RCPTOR BLOCK AB 18 % (0-25)
== END ==
LOC: M LAB 16:18
PROVIDERS: ATTEND Ophthalmology
DX: G70.00 Myasthenia gravis without (acute) exacerbation (principal)

== ENCOUNTER → 2023-05-22 | Outpatient (CLI) | payer MEDICARE, MEDICAID | LOC: M PLAIMG 13:05 | PROVIDERS: ATTEND Ophthalmology | DX: H53.2 Diplopia (principal) ==

== ENCOUNTER → 2023-07-03 | Outpatient (CLI) | payer MEDICARE, MEDICAID ==
[~2023-07-03] MED LIST changes: -CEFD300C41; +CEFD300C42
== END ==
LOC: M WHC 13:00
PROVIDERS: ATTEND Internal Medicine
DX: Z12.31 Encounter for screening mammogram for malignant neoplasm of breast (principal); N64.0 Fissure and fistula of nipple
CPT/HCPCS: 77066; G0279

== ENCOUNTER → 2023-09-27 | Outpatient (REF) | payer MEDICARE, MEDICAID ==
[~2023-09-27] MED LIST changes: +CEFD1CAP9; -CEFD300C42; +OPTI0.5D2 OU; -OPTI0.5D5 OU
[2023-09-27 17:48] LABS: RSV AMPLIFICATION NEGATIVE (NEGATIVE)
== END ==
LOC: M LAB REF 16:01
PROVIDERS: ATTEND Nurse Practitioner Family
DX: R05.9 Cough, unspecified (principal); R06.02 Shortness of breath

== ENCOUNTER → 2023-09-27 | Outpatient (CLI) | payer MEDICARE, MEDICAID | LOC: M PLAIMG 09:05 | PROVIDERS: ATTEND Pain Medicine Interventional Pain Medicine | DX: M54.2 Cervicalgia (principal) ==

== ENCOUNTER 2023-11-05 12:25 | Day surgery (SDC) | payer MEDICARE, MEDICAID ==
[~2023-11-05] VITALS: Ht 154.9 cm; Wt 57.9 kg
[~2023-11-05 12:25] MED LIST changes: +CURC500C PO; -DOCU-153 PO; +MIDAZOLAM INJ 2MG/2ML VIAL As Ordered ONE; +STOO100C30 PO; +THERTAB19 PO; +fentaNYL 100 MCG/2 ML INJECTION As Ordered ONE
[2023-11-05] MEDS: PROPARACAINE 0.5% OPHTH SOL 15ML OU ONE (12:50)
[2023-11-05] MEDS ORDERED: ONDANSETRON 4MG 2ML VIAL As Ordered ONE (13:46)
[2023-11-05] MEDS: TOBRADEX OPHTH OINT 3.5 GM As Ordered ONE (13:53)
[2023-11-05] MEDS: LIDOCAINE 2% W/EPINEPHRINE 20ML VIAL **PRES FREE As Ordered ONE (13:53)
[2023-11-05 14:58] VITALS: BP 138/79; TEMP 97.8; O2SAT 97
== END 2023-11-05 15:09 | disposition home or self-care (01) ==
LOC: M SDC 12:25
PROVIDERS: ATTEND Ophthalmology
DX: H02.403 Unspecified ptosis of bilateral eyelids (principal); I10 Essential (primary) hypertension; E78.00 Pure hypercholesterolemia, unspecified; J45.909 Unspecified asthma, uncomplicated; Z86.718 Personal history of other venous thrombosis and embolism; Z98.41 Cataract extraction status, right eye; Z98.42 Cataract extraction status, left eye; Z79.82 Long term (current) use of aspirin; Z79.899 Other long term (current) drug therapy; G47.30 Sleep apnea, unspecified; Z87.19 Personal history of other diseases of the digestive system; Z86.010 Personal history of colon polyps; Z88.8 Allergy status to other drugs, medicaments and biological substances; Z88.5 Allergy status to narcotic agent; Z90.710 Acquired absence of both cervix and uterus; Z88.0 Allergy status to penicillin
CPT/HCPCS: 67904; J2250; J2405; J3010

== ENCOUNTER 2023-11-25 10:44 | Day surgery (SDC) | payer MEDICARE, MEDICAID ==
[~2023-11-25] VITALS: Ht 154.9 cm; Wt 96.4 kg
[~2023-11-25 10:44] MED LIST changes: -MIDAZOLAM INJ 2MG/2ML VIAL As Ordered ONE
[2023-11-25] MEDS: NS 1,000 ML IV ONE (11:35)
[2023-11-25 13:37] VITALS: TEMP 98.7
[2023-11-25 13:50] VITALS: BP 123/55; O2SAT 97
[2023-11-25] MEDS ORDERED: propofoL 200 MG/20 ML VIAL As Ordered ONE (15:05)
== END 2023-11-25 14:09 | disposition home or self-care (01) ==
LOC: M SDC 10:44
PROVIDERS: ATTEND Internal Medicine Gastroenterology
DX: Z86.010 Personal history of colon polyps (principal); K64.0 First degree hemorrhoids; K57.30 Diverticulosis of large intestine without perforation or abscess without bleeding; K22.89 Other specified disease of esophagus; R12 Heartburn; G47.33 Obstructive sleep apnea (adult) (pediatric); Z99.89 Dependence on other enabling machines and devices; Z79.1 Long term (current) use of non-steroidal anti-inflammatories (NSAID); Z79.51 Long term (current) use of inhaled steroids; Z79.52 Long term (current) use of systemic steroids; Z79.82 Long term (current) use of aspirin; Z79.891 Long term (current) use of opiate analgesic; Z79.899 Other long term (current) drug therapy; Z88.0 Allergy status to penicillin; Z88.2 Allergy status to sulfonamides; Z88.5 Allergy status to narcotic agent; Z88.6 Allergy status to analgesic agent; Z88.8 Allergy status to other drugs, medicaments and biological substances; Z91.048 Other nonmedicinal substance allergy status
CPT/HCPCS: 43239; 88305; G0105; J3010

== ENCOUNTER 2023-12-19 23:53 | Emergency (ER) | payer MEDICARE, MEDICAID ==
[~2023-12-19] VITALS: Ht 154.9 cm; Wt 57.7 kg
[~2023-12-19 23:53] MED LIST changes: -fentaNYL 100 MCG/2 ML INJECTION As Ordered ONE
[2023-12-20] MEDS ORDERED: LIDOCAINE 2% MDV 20ML VIAL SC ONE (01:30)
[2023-12-20 02:02] VITALS: BP 131/76; TEMP 97.7; O2SAT 97
== END 2023-12-20 02:07 | disposition home or self-care (01) ==
LOC: M ED 23:53
DX: S61.212A Laceration without foreign body of right middle finger without damage to nail, initial encounter (principal); Y92.019 Unspecified place in single-family (private) house as the place of occurrence of the external cause; Y93.9 Activity, unspecified; Y99.9 Unspecified external cause status; Z88.0 Allergy status to penicillin; Z88.8 Allergy status to other drugs, medicaments and biological substances; Z79.51 Long term (current) use of inhaled steroids; Z79.1 Long term (current) use of non-steroidal anti-inflammatories (NSAID); Z79.899 Other long term (current) drug therapy

== ENCOUNTER 2023-12-29 14:18 | Emergency (ER) | payer MEDICARE, MEDICAID ==
[~2023-12-29] VITALS: Ht 154.9 cm; Wt 56.8 kg
[2023-12-29] MEDS: ACETAMINOPHEN TAB 650MG DOSE (2X325MG) PO ONE (14:57)
[2023-12-29 16:06] VITALS: BP 130/73; TEMP 97.6; O2SAT 99
== END 2023-12-29 16:04 | disposition home or self-care (01) ==
LOC: M ED 14:18
DX: S20.211A Contusion of right front wall of thorax, initial encounter (principal); M25.461 Effusion, right knee; Y92.22 Religious institution as the place of occurrence of the external cause; Y93.9 Activity, unspecified; Y99.9 Unspecified external cause status; W01.0XXA Fall on same level from slipping, tripping and stumbling without subsequent striking against object, initial encounter; J45.909 Unspecified asthma, uncomplicated; Z88.0 Allergy status to penicillin; Z88.1 Allergy status to other antibiotic agents; Z88.8 Allergy status to other drugs, medicaments and biological substances; Z79.51 Long term (current) use of inhaled steroids; Z79.1 Long term (current) use of non-steroidal anti-inflammatories (NSAID); Z79.810 Long term (current) use of selective estrogen receptor modulators (SERMs); Z79.899 Other long term (current) drug therapy

== ENCOUNTER → 2024-03-22 | Outpatient (REF) | payer MEDICARE, MEDICAID ==
[~2024-03-22] MED LIST changes: +ONDA-282 PO; -ONDA4TAB6 PO
== END ==
LOC: M LAB REF 19:34
PROVIDERS: ATTEND Physician Assistant Medical
DX: B34.9 Viral infection, unspecified (principal)

== ENCOUNTER → 2024-04-09 | Outpatient (CLI) | payer MEDICARE, MEDICAID | LOC: M WUC 14:14 | PROVIDERS: ATTEND Nurse Practitioner Family | DX: M79.604 Pain in right leg (principal) ==

== ENCOUNTER 2024-04-11 18:01 | Emergency (ER) | payer MEDICARE, MEDICAID ==
[~2024-04-11] VITALS: Ht 154.9 cm; Wt 58.3 kg
[2024-04-11 18:49] LABS: BASO # 0.1 10^3/uL (0.0-0.2); BASO % 0.7 % (0.0-1.0); EOS # 0.6 10^3/uL (0.0-0.5); EOS % 7.5 % (0.0-3.0); HEMATOCRIT 40.7 % (36.0-47.0); HEMOGLOBIN 13.5 g/dl (12.0-15.5); LYMPH # 2.7 10^3/uL (1.5-5.0); LYMPH % 35.8 % (24.0-44.0); MEAN CORPUSCULAR HEMOGLOBIN 30.3 pg (27.0-33.0); MEAN CORPUSCULAR HGB CONC 33.2 g/dl (32.0-36.5); MEAN CORPUSCULAR VOLUME 91.3 fl (80.0-96.0); MONO # 0.6 10^3/uL (0.0-0.8); MONO % 7.3 % (2.0-8.0); NEUTROPHILS # 3.7 10^3/uL (1.5-8.5); NEUTROPHILS % 48.4 % (36.0-66.0); PLATELET COUNT, AUTOMATED 306 10^3/uL (150-450); RED BLOOD COUNT 4.46 10^6/uL (4.00-5.40); WHITE BLOOD COUNT 7.6 10^3/uL (4.0-10.0)
[2024-04-11] MEDS: ASPIRIN 81MG CHEW TABLET PO ONE (18:55)
[2024-04-11] MEDS: LABETALOL 100MG TAB PO ONE (18:55)
[2024-04-11 19:06] LABS: D-DIMER QUANT 0.34 ug/mL (<0.5); INR 0.94; PARTIAL THROMBOPLASTIN TIME 32.2 SECONDS (24.8-34.2); PROTHROMBIN TIME 12.3 SECONDS (12.5-14.5)
[2024-04-11] MEDS: MAALOX 30 ML SUSP *UDC PO ONE (19:06)
[2024-04-11 19:08] LABS: CK-MB VALUE MASS 2.2 NG/ML (<3.6)
[2024-04-11 19:09] LABS: LIPASE 60 U/L (12-53)
[2024-04-11 19:11] LABS: ALKALINE PHOSPHATASE 126 U/L (46-116); ALT/SGPT 23 U/L (7.0-40); AST/SGOT 21 U/L (<34); BILIRUBIN,DIRECT < 0.1 MG/DL (<0.4); BILIRUBIN,TOTAL 0.2 MG/DL (0.3-1.2); BLOOD UREA NITROGEN 19 MG/DL (9-23); CALCIUM LEVEL 9.8 MG/DL (8.3-10.6); CARBON DIOXIDE LEVEL 29 MMOL/L (20-31); CHLORIDE LEVEL 106 MMOL/L (98-107); CREATININE FOR GFR 0.58 MG/DL (0.55-1.30); GLOMERULAR FILTRATION RATE > 60.0 (>45); GLUCOSE, FASTING 90 MG/DL (74-106); POTASSIUM SERUM 3.5 MMOL/L (3.5-5.1); SODIUM LEVEL 140 MMOL/L (136-145); TOTAL PROTEIN 7.2 G/DL (5.7-8.2)
[2024-04-11 19:13] LABS: FREE T4 1.07 NG/DL (0.89-1.76); THYROID STIMULATING HORMONE 0.992 uIU/ML (0.55-4.78)
[2024-04-11 19:14] LABS: CPK CREATINE PHOSPHOKINASE 123 U/L (34-145); MB/CK RELATIVE INDEX 1.78 (< OR =4)
[2024-04-11 20:24] LABS: CK-MB VALUE MASS 2.1 NG/ML (<3.6)
[2024-04-11 20:26] LABS: MB/CK RELATIVE INDEX 1.82 (< OR =4)
[2024-04-11 20:40] VITALS: BP 107/65
[2024-04-11] MEDS: amLODIPine 5 MG TAB PO ONE (20:40)
[2024-04-11] MEDS ORDERED: AMLO1TAB24 PO (20:45)
[2024-04-11] MEDS ORDERED: SUCR1SS PO (20:45)
[2024-04-11 20:53] VITALS: BP 107/65
[2024-04-11 21:01] VITALS: TEMP 97.8; O2SAT 99
== END 2024-04-11 21:06 | disposition home or self-care (01) ==
LOC: M ED 18:01
DX: I10 Essential (primary) hypertension (principal); K21.9 Gastro-esophageal reflux disease without esophagitis; E78.5 Hyperlipidemia, unspecified; J45.909 Unspecified asthma, uncomplicated; G47.33 Obstructive sleep apnea (adult) (pediatric); F17.210 Nicotine dependence, cigarettes, uncomplicated; Z88.0 Allergy status to penicillin; Z88.5 Allergy status to narcotic agent; Z88.8 Allergy status to other drugs, medicaments and biological substances; Z91.048 Other nonmedicinal substance allergy status; Z79.51 Long term (current) use of inhaled steroids; Z79.1 Long term (current) use of non-steroidal anti-inflammatories (NSAID); Z79.810 Long term (current) use of selective estrogen receptor modulators (SERMs); Z79.899 Other long term (current) drug therapy

== ENCOUNTER → 2024-06-26 | Outpatient (CLI) | payer MEDICARE, MEDICAID ==
[~2024-06-26] MED LIST changes: +SUCR1SS PO
== END ==
LOC: M PLARAD 12:37
PROVIDERS: ATTEND Pain Medicine Interventional Pain Medicine
DX: M51.16 Intervertebral disc disorders with radiculopathy, lumbar region (principal); M48.061 Spinal stenosis, lumbar region without neurogenic claudication; M48.07 Spinal stenosis, lumbosacral region

== ENCOUNTER → 2024-09-10 | Outpatient (CLI) | payer MEDICARE, MEDICAID ==
[~2024-09-10] MED LIST changes: -ADV250INH INH; +ADVA1AER9 INH; -HALO0.052 TOP; +HALO0.056 TOP
== END ==
LOC: M WHC 14:01
PROVIDERS: ATTEND Internal Medicine
DX: Z12.31 Encounter for screening mammogram for malignant neoplasm of breast (principal); M81.0 Age-related osteoporosis without current pathological fracture

== ENCOUNTER 2024-09-19 09:45 | Emergency (ER) | payer MEDICARE, MEDICAID ==
[2024-09-19 13:02] VITALS: BP 144/65; TEMP 98.3; O2SAT 98
== END 2024-09-19 13:16 | disposition home or self-care (01) ==
LOC: M ED 09:45
DX: R05.9 Cough, unspecified (principal); B34.9 Viral infection, unspecified; J45.909 Unspecified asthma, uncomplicated; Z87.891 Personal history of nicotine dependence; Z88.0 Allergy status to penicillin; Z88.1 Allergy status to other antibiotic agents; Z88.8 Allergy status to other drugs, medicaments and biological substances; Z88.5 Allergy status to narcotic agent; Z79.51 Long term (current) use of inhaled steroids; Z79.1 Long term (current) use of non-steroidal anti-inflammatories (NSAID); Z79.899 Other long term (current) drug therapy

== ENCOUNTER 2024-10-16 17:07 | Emergency (ER) | payer MEDICARE, MEDICAID ==
[~2024-10-16] VITALS: Ht 154.9 cm; Wt 57.2 kg
[~2024-10-16 17:07] MED LIST changes: +CARI-555 PO; -CARI1TAB7 PO
[2024-10-16 17:10] VITALS: TEMP 98.7
[2024-10-17] MEDS: diazePAM 10MG/2ML SYRINGE IM ONE (03:39)
[2024-10-17 03:47] VITALS: BP 151/78; O2SAT 97
[2024-10-17] MEDS ORDERED: VALI5TAB PO (04:08)
== END 2024-10-17 04:34 | disposition home or self-care (01) ==
LOC: M ED 17:07
DX: M79.10 Myalgia, unspecified site (principal); I10 Essential (primary) hypertension; K21.9 Gastro-esophageal reflux disease without esophagitis; E78.5 Hyperlipidemia, unspecified; J45.909 Unspecified asthma, uncomplicated; F32.A Depression, unspecified; Z88.0 Allergy status to penicillin; Z88.1 Allergy status to other antibiotic agents; Z88.5 Allergy status to narcotic agent; Z88.8 Allergy status to other drugs, medicaments and biological substances; Z91.040 Latex allergy status; Z79.1 Long term (current) use of non-steroidal anti-inflammatories (NSAID); Z79.51 Long term (current) use of inhaled steroids; Z79.810 Long term (current) use of selective estrogen receptor modulators (SERMs); Z79.899 Other long term (current) drug therapy
CPT/HCPCS: 73502; 96372; 99283; J3360

== ENCOUNTER → 2024-11-24 | Outpatient (CLI) | payer MEDICARE, MEDICAID ==
[~2024-11-24] MED LIST changes: +VALI5TAB PO
== END ==
LOC: M RAD 11:28
PROVIDERS: ATTEND Internal Medicine
DX: I73.9 Peripheral vascular disease, unspecified (principal)

== ENCOUNTER 2024-12-20 13:40 | Emergency (ER) | payer MEDICARE, MEDICAID ==
[~2024-12-20] VITALS: Ht 154.9 cm; Wt 57.4 kg
[2024-12-20 14:29] LABS: BASO # 0.1 10^3/uL (0.0-0.2); BASO % 0.6 % (0.0-1.0); EOS # 0.4 10^3/uL (0.0-0.5); EOS % 4.8 % (0.0-3.0); HEMATOCRIT 39.1 % (36.0-47.0); LYMPH % 24.8 % (24.0-44.0); MEAN CORPUSCULAR HEMOGLOBIN 30.3 pg (27.0-33.0); MEAN CORPUSCULAR HGB CONC 33.2 g/dl (32.0-36.5); MEAN CORPUSCULAR VOLUME 91.1 fl (80.0-96.0); MONO # 0.6 10^3/uL (0.0-0.8); MONO % 6.9 % (2.0-8.0); NEUTROPHILS # 5.1 10^3/uL (1.5-8.5); NEUTROPHILS % 62.7 % (36.0-66.0); PLATELET COUNT, AUTOMATED 324 10^3/uL (150-450); RED BLOOD COUNT 4.29 10^6/uL (4.00-5.40); WHITE BLOOD COUNT 8.1 10^3/uL (4.0-10.0)
[2024-12-20 14:33] LABS: ERYTHROCYTE SEDIMENTATION RATE 24 mm/hr (0-30)
[2024-12-20 14:51] LABS: BLOOD UREA NITROGEN 19 MG/DL (9-23); C REACTIVE PROTEIN QUANTITATIV 0.59 MG/DL (<1.0); CALCIUM LEVEL 9.1 MG/DL (8.3-10.6); CARBON DIOXIDE LEVEL 26 MMOL/L (20-31); CHLORIDE LEVEL 106 MMOL/L (98-107); CREATININE FOR GFR 0.48 MG/DL (0.55-1.30); GLOMERULAR FILTRATION RATE > 90.0 (>45); GLUCOSE, FASTING 127 MG/DL (74-106); POTASSIUM SERUM 3.8 MMOL/L (3.5-5.1); SODIUM LEVEL 140 MMOL/L (136-145)
[2024-12-20 16:49] VITALS: BP 133/63; TEMP 97.6; O2SAT 99
== END 2024-12-20 17:14 | disposition home or self-care (01) ==
LOC: M ED 13:40
DX: R21 Rash and other nonspecific skin eruption (principal); I10 Essential (primary) hypertension; Z88.0 Allergy status to penicillin; Z88.1 Allergy status to other antibiotic agents; Z88.8 Allergy status to other drugs, medicaments and biological substances; Z79.1 Long term (current) use of non-steroidal anti-inflammatories (NSAID); Z79.51 Long term (current) use of inhaled steroids; Z79.899 Other long term (current) drug therapy

== ENCOUNTER 2025-05-20 11:15 | Emergency (ER) | payer MEDICARE, MEDICAID ==
[~2025-05-20] VITALS: Ht 154.9 cm; Wt 54.5 kg
[~2025-05-20 11:15] MED LIST changes: -ALBU8.5H; +ALBU8.5H INH; -AMBI5TAB PO; -EZET10TA21; -EZET10TA21 PO; +EZET10TA57; +EZET10TA57 PO; +LIFI1DRO4; -PRAV40TA2 PO; +PRAV40TA85 PO; +PREG-35 PO; -PREG100CA PO; -XIID5DRO; +ZOLP-532 PO
[2025-05-20] MEDS ORDERED: ESTR1CRE VA (11:38)
[2025-05-20] MEDS ORDERED: REST0.05 OP (11:38)
[2025-05-20] MEDS ORDERED: CALC315T2 PO (11:38)
[2025-05-20 11:56] LABS: BASO # 0.0 10^3/uL (0.0-0.2); BASO % 0.1 % (0.0-1.0); EOS # 0.0 10^3/uL (0.0-0.5); EOS % 0.0 % (0.0-3.0); LYMPH # 0.9 10^3/uL (1.5-5.0); LYMPH % 3.8 % (24.0-44.0); MONO # 1.1 10^3/uL (0.0-0.8); MONO % 4.7 % (2.0-8.0); NEUTROPHILS # 20.5 10^3/uL (1.5-8.5); NEUTROPHILS % 89.7 % (36.0-66.0); PLATELET COUNT, AUTOMATED 341 10^3/uL (150-450)
[2025-05-20 12:34] LABS: ALT/SGPT 26 U/L (7.0-40); AST/SGOT 19 U/L (<34); CALCIUM LEVEL 10.2 MG/DL (8.3-10.6); CARBON DIOXIDE LEVEL 27 MMOL/L (20-31); CHLORIDE LEVEL 102 MMOL/L (98-107); CK-MB VALUE MASS 2.0 NG/ML (<3.6); CREATININE FOR GFR 0.48 MG/DL (0.55-1.30); GLOMERULAR FILTRATION RATE > 90.0 (>39); POTASSIUM SERUM 4.2 MMOL/L (3.5-5.1); SODIUM LEVEL 140 MMOL/L (136-145)
[2025-05-20 13:00] LABS: CPK CREATINE PHOSPHOKINASE 40 U/L (34-145); MB/CK RELATIVE INDEX 5.00 (< OR =4)
[2025-05-20] MEDS ORDERED: COQ1200C3 PO (13:27)
[2025-05-20] MEDS ORDERED: BUSP10TA PO (13:27)
[2025-05-20] MEDS ORDERED: HOME MED LIST COMPLETE! XX SCH (13:30)
[2025-05-20] MEDS ORDERED: ISOVUE-370 76% 100 ML VIAL As Ordered ONE (13:40)
[2025-05-20 14:20] LABS: CK-MB VALUE MASS 1.7 NG/ML (<3.6)
[2025-05-20 14:23] LABS: CPK CREATINE PHOSPHOKINASE 35.0 U/L (34-145); MB/CK RELATIVE INDEX 4.85 (< OR =4)
[2025-05-20 17:38] VITALS: BP 122/64; TEMP 97.6; O2SAT 96
== END 2025-05-20 17:48 | disposition home or self-care (01) ==
LOC: M ED 12:24
DX: R07.9 Chest pain, unspecified (principal); I10 Essential (primary) hypertension; E78.5 Hyperlipidemia, unspecified; J44.9 Chronic obstructive pulmonary disease, unspecified; Z88.0 Allergy status to penicillin; Z88.1 Allergy status to other antibiotic agents; Z88.5 Allergy status to narcotic agent; Z88.8 Allergy status to other drugs, medicaments and biological substances; Z79.51 Long term (current) use of inhaled steroids; Z79.899 Other long term (current) drug therapy
CPT/HCPCS: 36415; 71045; 71275; 80048; 80076; 82550; 82553; 83605; 83690; 84484; 85025; 85379; 85652; 87040; 87486; 87581; 87633; 87798; 93005; 93041; 94760; 99285; Q9967

== ENCOUNTER → 2025-06-29 | Outpatient (REF) | payer MEDICARE, MEDICAID ==
[~2025-06-29] MED LIST changes: +BUSP10TA PO; +CALC315T2 PO; +COQ1200C3 PO; +ESTR1CRE VA; +REST0.05 OP
== END ==
LOC: M LAB REF 15:20
PROVIDERS: ATTEND Internal Medicine
DX: Z51.81 Encounter for therapeutic drug level monitoring (principal); Z79.899 Other long term (current) drug therapy